=== PATIENT | female | born 1940 | race Caucasian/White ===

== ENCOUNTER 2017-04-10 19:17 | Emergency (ER) | payer MEDICARE ==
[~2017-04-10] VITALS: Ht 167.6 cm; Wt 61.2 kg
[~2017-04-10 19:17] MED LIST: ACIDOPHILUS PO; ACIDOPHILUS100 MG PO; ALBU8.5H2 INH; ALPR.25T; ATEN25TA; ATN25T; CLIN300C3 PO; CLON1TAB3; CLON1TAB3 PO; CLON1TAB36 PO; DICL100G20; EPIN0.3P3 SL; FAMO20TA5 PO; FOLI1TAB7; GLIP5TAB13 PO; HYDR-3714 PO; HYDR-707 PO; LISI10TA2 PO; LISI20TA PO; LOPE1TAB13 PO; LOPE2CAP PO; LOVA10TA PO; MAGN250T7 PO; MESA1.2T PO; METO25TA PO; METO25TA2 PO; MIRT30TA6 PO; MIRT45TA PO; MRTZ30T1; NF-ESOM40C; NITR100C3; NYST1000 PO; POTA99TA7 PO; POTASSIUM; PRD10T PO; QTP25T PO; SERT100T PO; SERT100T8 PO; SERT50TA; SERT50TA2 PO; SPIR50TA27; SPIR50TA27 PO; SRTR100T; TOLTA4 PO; VIT B IM; VYTORIN; [UNRECOGNIZED DRUG - CODE] PO; [UNRECOGNIZED DRUG - OTHER] PO
[2017-04-10] MEDS ORDERED: TETANUS,DIPTH,PERTUSS P/F (BOOSTRIX) 0.5 ML VIAL IM STA (20:20)
[2017-04-10] MEDS ORDERED: LIDOCAINE 1% INJ 20 ML (XYLOCAINE) VIAL INJ STA (20:20)
--- NOTE | 2017-04-10 20:59 | ED Lower Extremity ---
General Chief Complaint: Laceration Stated Complaint: L THIGH LACERATION Nursing Triage Note: laceration from box knife to left medial thigh Nursing Sepsis Screen: No Definite Risk History of Present Illness Time seen by provider: 20:05 Onset: just prior to arrival Pain/Injury Location: left thigh Method of Injury: incised Allergies and Home Medications Allergies Coded Allergies: Penicillins (Unverified Allergy, Unknown, 11/16/06) Sulfa (Sulfonamide Antibiotics) (Unverified Allergy, Unknown, 11/16/06) garlic (Verified Allergy, Unknown, SWELLING OF THROAT, 11/28/13) latex (Verified Allergy, Unknown, RASH, 11/28/13) Home Medications Albuterol 8.5 Gm Hfa.aer.ad, 2 PUFF INH Q2H PRN for SHORTNESS OF BREATH, ( Reported) NEEDED FOR SHORTNESS OF BREATH Clonazepam 1 Mg Tablet, 1 MG PO TID, (Reported) Epinephrine 0.3 Mg/0.3 Ml Pen.injctr, 0.3 MG SL DAILY PRN for ALLERIC REACTION TO GARLIC, (Reported) AN NEEDED FOR ALLERIC REACTION TO GARLIC Famotidine 20 Mg Tablet, 20 MG PO BID, (Reported) Glipizide 5 Mg Tablet, 5 MG PO BID, (Reported) Hydrocodone Bit/Acetaminophen 1 Each Tablet, 1-2 TAB PO Q6H PRN for PAIN, ( Reported) TAKE 1-2 TABLETS (5-325MG) NEEDED FOR PAIN Lactobacillus Acidophilus 100 Mg Capsule, 100 MG PO BID, (Reported) Lisinopril 10 Mg Tablet, 10 MG PO DAILY for 90 Days, (Reported) Loperamide Hcl/Simethicone 1 Each Tablet, 1 CAP PO TID PRN for LOOSE STOOL, ( Reported) NEEDED FOR LOOSE STOOL Lovastatin 10 Mg Tablet, 10 MG PO DAILY WITH SUPPER, (Reported) TAKES WITH SUPPER Magnesium Oxide 250 Mg Tablet, 250 MG PO DAILY, (Reported) Mesalamine 1.2 Gm Tablet.dr, 2.4 GM PO BID, (Reported) TAKE 2 (1.2MG) TABLETS Metoprolol Succinate 25 Mg Tab.sr.24h, 12.5 MG PO DAILY, (Reported) TAKE 1/2 (25MG) TABLET Mirtazapine 30 Mg Tablet, 30 MG PO HS, (Reported) Potassium 99 Mg Tablet, 99 MG PO HS, (Reported) Quetiapine Fumarate 150 Mg Tabsr, 150 MG PO HS for 30 Days, (Reported) Sertraline Hcl 100 Mg Tablet, 100 MG PO DAILY, (Reported) Sertraline Hcl 100 Mg Tablet, 50 MG PO 1200, (Reported) TAKE 1/2 (100MG) TABLET Spironolactone 50 Mg Tablet, 50 MG PO DAILY, (Reported) Tolterodine Tartrate 4 Mg Cap.sr.24h, 4 MG PO DAILY, (Reported) [Vit.b 12] , 1,000 MCG IM monthly, (Reported) Constitutional: no symptoms reported, see HPI Skin: see HPI, lesions (superficial laceration left thigh, he'll aspect) All Other Systems Reviewed Negative Unless Noted: Yes Past Sniifak-Ystmxg-Uaqaov Hx Patient Social History Alcohol Use: Denies Use Recreational Drug Use: No Smoking Status: Never a Smoker 2nd Hand Smoke Exposure: No Recent Foreign Travel: No Contact w/Someone Who Travel: No Recent Infectious Disease Expo: No Recent Hopitalizations: No Immunizations Up To Date Tetanus Booster (TDap): Unknown Date of Pneumonia Vaccine: Jun 06, 2013 Date of Influenza Vaccine: Jun 06, 2013 Seasonal Allergies Seasonal Allergies: No Surgeries HX Surgeries: Yes Surgeries: Hysterectomy, Orthopedic Respiratory Hx Respiratory Disorders: Yes (SLEEP APNEA(WEARS CPAP AT NIGHT), COPD) Respiratory Disorders: Sleep Apnea, COPD Cardiovascular Hx Cardiac Disorders: Yes Cardiac Disorders: High Cholesterol, Hypertension Neurological Hx Neurological Disorders: No Reproductive System : No 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 FEBRUARY 2014 ORIF LEFT TIB/FIB) Musculoskeletal Disorders: Chronic Back Pain, Fractures Endocrine Hx Endocrine Disorders: Yes Endocrine Disorders: Diabetes, Non-Insulin dep HEENT HX ENT Disorders: No Cancer Hx Cancer: No Psychosocial Hx Psychiatric Problems: Yes Behavioral Health Disorders: Anxiety, Depression Integumentary HX Skin/Integumentary Disorder: No Blood Transfusions Hx Blood Disorders: No Reviewed Nursing Assessment Reviewed/Agree w Nursing PMH: Yes Family Medical History Family Medial History: Family history: Arthritis G8 SISTER Family history: Cardiovascular disease 19 FATHER 19 MOTHER Family history: Diabetes mellitus G8 BROTHER Family history: Hypertension 19 FATHER Parkinson's disease 19 FATHER No Family History of: Cancer Physical Exam Vital Signs Vital Sign - Last 12Hours 04/10/17 19:40 Temp 97.2 Pulse 73 Resp 18 B/P (MAP) 128/69 Pulse Ox 97 O2 Delivery Room Air Capillary Refill : Less Than 3 Seconds General Appearance: WD/WN, no apparent distress Neck: non-tender, full range of motion, normal inspection Cardiovascular: normal peripheral pulses, regular rate, rhythm, no edema Respiratory: chest non-tender, lungs clear, normal breath sounds Gastrointestinal: normal bowel sounds, non tender, soft Hips: bilateral hip non-tender, bilateral hip normal inspection, bilateral hip normal range of motion Legs: bilateral leg non-tender, bilateral leg normal range of motion, left leg abrasions (3 cm superficial abrasion, medial aspect middle thigh.) Neurologic/Tendon: normal sensation, normal motor functions, normal tendon functions Neurologic/Psychiatric: no motor/sensory deficits, alert, normal mood/affect, oriented x 3 Skin: normal color, warm/dry Lymphatic: no adenopathy Laceration Repair : Wound Location: Lower Extremities (left medial thigh) Wound Length (cm): 3 Wound's Depth, Shape: superficial Wound Explored: clean Irrigated w/ Saline (ccs): 500 Betadine Prep?: Yes Anesthesia: 1% Lidocaine Volume Anesthetic (ccs): 4 Wound Debrided: minimal Suture: Ethlion Suture Size: 4-0 Number of Sutures: 3 Sterile Dressing Applied?: Yes Progress Patient tolerated procedure well, bulky sterile dressing applied. Secured with 4 inch Danish wrap. Progress/Results/Core Measures Results/Orders My Orders Orders - ADILIA WALLACE Dipht,Pertuss(Acell),Tet Adult (Boostrix (04/10/17 20:20) Lidocaine 1% Injection (Xylocaine 1% Inj (04/10/17 20:20) Vital Signs/I&O Vital Sign - Last 12Hours 04/10/17 04/10/17 19:40 21:01 Temp 97.2 97.0 Pulse 73 70 Resp 18 18 B/P (MAP) 128/69 Pulse Ox 97 98 O2 Delivery Room Air Room Air Blood Pressure Mean: 88 Departure Impression Impression: Primary Impression: Laceration of left thigh Qualified Codes: S71.112A - Laceration without foreign body, left thigh, initial encounter Disposition: 01 HOME, SELF-CARE Condition: Improved Departure-Patient Inst. Decision time for Depature: 20:40 Referrals: MARIAN JOSEPH MD (PCP/Family) Primary Care Physician Patient Instructions: Laceration Repair With Stitches (DC) Add. Discharge Instructions: Keep dressing intact until Wednesday. May shower, then clean wound with peroxide and apply Band-Aid. Keep wound clean and dry. May shower, but avoid pools, hot tubs, and bath tubs for 3 weeks. Return to emergency department or primary care provider to have some stitches removed in 7-10 days. Return to emergency department or see primary care provider for redness, warmth , discolored drainage, or foul smell from wound. All discharge instructions reviewed with patient and/or family. Voiced understanding. Copy Copies To 1: MARIAN JOSEPH MD, AMY ARNP Apr 10, 2017 20:59
[2017-04-10 21:01] VITALS: BP 124/66
== END 2017-04-10 21:02 | disposition home or self-care (01) ==
LOC: EDUNIT# 19:17 → ER 19:18
DX: S71.112A Laceration without foreign body, left thigh, initial encounter (principal); F41.9 Anxiety disorder, unspecified; F32.9 Major depressive disorder, single episode, unspecified; E78.00 Pure hypercholesterolemia, unspecified; E11.9 Type 2 diabetes mellitus without complications; I10 Essential (primary) hypertension; J44.9 Chronic obstructive pulmonary disease, unspecified; Z82.49 Family history of ischemic heart disease and other diseases of the circulatory system; Z90.710 Acquired absence of both cervix and uterus; Z87.81 Personal history of (healed) traumatic fracture; Z87.19 Personal history of other diseases of the digestive system; W26.0XXA Contact with knife, initial encounter
CPT/HCPCS: 12001; 90471; 90715

== ENCOUNTER 2017-04-20 12:36 | Emergency (ER) | payer MEDICARE ==
[~2017-04-20] VITALS: Ht 167.6 cm; Wt 64.9 kg
--- NOTE | 2017-04-20 13:05 | ED Fall/Injury ---
General Chief Complaint: Trauma-Non Activation Stated Complaint: FALL,RT SHOULDER PAIN,BACK OF HEAD Nursing Triage Note: PT TO ED VIA EMS WITH CC FALL. PT WAS PULLING WHEELCHAIR DOWN RAMP BACKWARDS, NO LOC. PT CC PAIN TO BACK OF HEAD AND R SHOULDER. Source: patient Exam Limitations: no limitations History of Present Illness Time seen by provider: 12:39 Initial Comments Here by EMS with report of fall at Dr. Redman's office. Apparently she was moving her daughter in a wheelchair down the ramp. She was walking backwards to prevent the wheelchair from getting out of control when she tripped and fell. She landed on her right shoulder and head. No loss of consciousness. No bleeding. Complains of posterior head pain as well as some right shoulder pain. She does have some chronic back pain that is not exacerbated. No vomiting or vision problems noted. Does complain of head pain and shoulder pain. Location Injury Occurred: DR REDMAN'S OFFICE Occurred: just prior to arrival (20 minutes ago) Severity: moderate Injuries/Pain Location: head, upper extremity Context: tripped Loss of Consciousness: no loss of consciousness Modifying Factors: Improves With Immobilization, Worse With Movement Associated Symptoms (Fall): No Abdominal Pain, No Chest Pain, No Confusion, Headache, Lightheadedness (noted on standing after fall.), No Nausea/Vomiting, No Neck Pain, No Shortness of Air Allergies and Home Medications Allergies Coded Allergies: Penicillins (Unverified Allergy, Unknown, 11/16/06) Sulfa (Sulfonamide Antibiotics) (Unverified Allergy, Unknown, 11/16/06) garlic (Verified Allergy, Unknown, SWELLING OF THROAT, 11/28/13) latex (Verified Allergy, Unknown, RASH, 11/28/13) Home Medications Albuterol 8.5 Gm Hfa.aer.ad, 2 PUFF INH Q2H PRN for SHORTNESS OF BREATH, ( Reported) NEEDED FOR SHORTNESS OF BREATH Clonazepam 1 Mg Tablet, 1 MG PO TID, (Reported) Epinephrine 0.3 Mg/0.3 Ml Pen.injctr, 0.3 MG SL DAILY PRN for ALLERIC REACTION TO GARLIC, (Reported) AN NEEDED FOR ALLERIC REACTION TO GARLIC Famotidine 20 Mg Tablet, 20 MG PO BID, (Reported) Glipizide 5 Mg Tablet, 5 MG PO BID, (Reported) Hydrocodone Bit/Acetaminophen 1 Each Tablet, 1-2 TAB PO Q6H PRN for PAIN, ( Reported) TAKE 1-2 TABLETS (5-325MG) NEEDED FOR PAIN Lactobacillus Acidophilus 100 Mg Capsule, 100 MG PO BID, (Reported) Lisinopril 10 Mg Tablet, 10 MG PO DAILY for 90 Days, (Reported) Loperamide Hcl/Simethicone 1 Each Tablet, 1 CAP PO TID PRN for LOOSE STOOL, ( Reported) NEEDED FOR LOOSE STOOL Lovastatin 10 Mg Tablet, 10 MG PO DAILY WITH SUPPER, (Reported) TAKES WITH SUPPER Magnesium Oxide 250 Mg Tablet, 250 MG PO DAILY, (Reported) Mesalamine 1.2 Gm Tablet.dr, 2.4 GM PO BID, (Reported) TAKE 2 (1.2MG) TABLETS Metoprolol Succinate 25 Mg Tab.sr.24h, 12.5 MG PO DAILY, (Reported) TAKE 1/2 (25MG) TABLET Mirtazapine 30 Mg Tablet, 30 MG PO HS, (Reported) Potassium 99 Mg Tablet, 99 MG PO HS, (Reported) Quetiapine Fumarate 150 Mg Tabsr, 150 MG PO HS for 30 Days, (Reported) Sertraline Hcl 100 Mg Tablet, 100 MG PO DAILY, (Reported) Sertraline Hcl 100 Mg Tablet, 50 MG PO 1200, (Reported) TAKE 1/2 (100MG) TABLET Spironolactone 50 Mg Tablet, 50 MG PO DAILY, (Reported) Tolterodine Tartrate 4 Mg Cap.sr.24h, 4 MG PO DAILY, (Reported) [Vit.b 12] , 1,000 MCG IM monthly, (Reported) Constitutional: see HPI, No chills, No fever Eyes: No Symptoms Reported Ears, Nose, Mouth, Throat: no symptoms reported Respiratory: no symptoms reported Cardiovascular: no symptoms reported Gastrointestinal: no symptoms reported, No vomiting Musculoskeletal: back pain, joint pain, muscle pain Skin: no symptoms reported Psychiatric/Neurological: See HPI All Other Systems Reviewed Negative Unless Noted: Yes Past Xjgmobx-Xnwhtl-Kdoxjx Hx Patient Social History Alcohol Use: Denies Use Recreational Drug Use: No Smoking Status: Never a Smoker 2nd Hand Smoke Exposure: No Recent Foreign Travel: No Contact w/Someone Who Travel: No Recent Infectious Disease Expo: No Recent Hopitalizations: No Immunizations Up To Date Tetanus Booster (TDap): Unknown Date of Pneumonia Vaccine: Jun 06, 2013 Date of Influenza Vaccine: Jun 06, 2013 Seasonal Allergies Seasonal Allergies: No Surgeries HX Surgeries: Yes Surgeries: Hysterectomy, Orthopedic Respiratory Hx Respiratory Disorders: Yes (SLEEP APNEA(WEARS CPAP AT NIGHT), COPD) Respiratory Disorders: Sleep Apnea, COPD Cardiovascular Hx Cardiac Disorders: Yes Cardiac Disorders: High Cholesterol, Hypertension Neurological Hx Neurological Disorders: No Reproductive System Hx 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 FEBRUARY 2014 ORIF LEFT TIB/FIB) Musculoskeletal Disorders: Chronic Back Pain, Fractures Endocrine Hx Endocrine Disorders: Yes Endocrine Disorders: Diabetes, Non-Insulin dep HEENT HX ENT Disorders: No Cancer Hx Cancer: No Psychosocial Hx Psychiatric Problems: Yes Behavioral Health Disorders: Anxiety, Depression Integumentary HX Skin/Integumentary Disorder: No Blood Transfusions Hx Blood Disorders: No Reviewed Nursing Assessment Reviewed/Agree w Nursing PMH: Yes Family Medical History Family Medial History: Family history: Arthritis G8 SISTER Family history: Cardiovascular disease 19 FATHER 19 MOTHER Family history: Diabetes mellitus G8 BROTHER Family history: Hypertension 19 FATHER Parkinson's disease 19 FATHER Physical Exam Vital Signs Vital Sign - Last 12Hours 04/20/17 12:41 Temp 97.2 Pulse 61 Resp 16 B/P (MAP) 117/61 Pulse Ox 95 O2 Delivery Room Air Capillary Refill : Less Than 3 Seconds General Appearance: WD/WN, no apparent distress HEENT: PERRL/EOMI, TMs normal, pharynx normal Neck: non-tender, supple, normal inspection Cardiovascular: regular rate, rhythm, no murmur Respiratory: lungs clear, normal breath sounds Gastrointestinal: non tender, soft Back: normal inspection, no CVA tenderness, no vertebral tenderness Extremities: non-tender, normal inspection Neurologic/Psychiatric: alert, oriented x 3 Skin: normal color, warm/dry [place] Coma Score Best Eye Response: (4) Open Spontaneously Best Verbal Response: (5) Oriented Best Motor Response: (6) Obeys Commands (Toradol for medial tibial aren't well filled with for the plan. 18) Laceration Repair : Suture Size: 4-0 Progress/Results/Core Measures Results/Orders My Orders Orders - LINDA GAUTHIER MD Ct Head/Cervical Spine Wo (04/20/17 12:45) Shoulder, Right, 3 Views (04/20/17 12:45) Vital Signs/I&O Vital Sign - Last 12Hours 04/20/17 12:41 Temp 97.2 Pulse 61 Resp 16 B/P (MAP) 117/61 Pulse Ox 95 O2 Delivery Room Air Blood Pressure Mean: 79 Progress Note : Progress Note Seen and evaluated. CT head and neck ordered. X-ray right shoulder ordered. Monitor patient. C-collar remains in place at this point. Diagnostic Imaging Diagonstic Imaging: CT Plain Films/CT/US/NM/MRI: c-spine, head Comments VIA [facility]. [place], [place] NAME: MILO RICKS [facility] REC#: [id number] PT STATUS: REG ER : 1940 PHYSICIAN: LINDA GAUTHIER MD ADMIT DATE: 04/20/17/ER Draft Date of Exam:04/20/17 CT HEAD/CERVICAL SPINE WO PROCEDURE: CT head and CT cervical spine without contrast. TECHNIQUE: Multiple contiguous axial images were obtained through the brain and cervical spine without the use of intravenous contrast. Sagittal and coronal reformations through the cervical spine were then performed. INDICATION: Fell, loss of consciousness, head and neck pain. CT OF THE HEAD: There is no mass, shift of the midline, or hemorrhage to suggest an acute intracranial abnormality. The ventricles are not abnormally dilated and stable in size when compared to the prior exam of 10/15/2015. The cortical atrophy and the periventricular encephalomalacia seen previously are again evident and no different. The bone windows show no sign of a fracture or of a destructive lesion. The orbits are symmetrical and within normal limits. The sinuses are generally clear. IMPRESSION: 1. There is no evidence for an acute intracranial abnormality. When compared to the previous study, there has been no significant change. 2. These results were discussed with Dr. Gauthier in the ER. CT CERVICAL SPINE: The previous CT cervical spine exam performed on 10/15/2015 noted slight anterior translation of C5 with respect to C6 as well as congenital fusion of C7 and T1. Those findings are again evident on this study and no different. The degenerative disc and bony disease at the C6-7 level seen previously also seems stable. There is still no fracture or acute bony abnormality identified. There is no sign of retropharyngeal edema. The thyroid gland is generally unremarkable. The lung apices are clear. On the previous study, the upper esophagus did appear to be distended with fluid and particulate matter. On this exam, the upper esophagus is unremarkable. IMPRESSION: 1. There is no evidence for an acute bony abnormality of the cervical spine. 2. The fluid and particulate matter within the upper esophagus seen on the previous exam is no longer evident. 3. These results were discussed with Dr. Gauthier in the ER. Dictated on workstation # [id number] Dict: 04/20/17 1313 Trans: 04/20/17 1326 [id number] Interpreted by: MANUELA MITCHELL MD Electronically signed by: Reviewed: Discussed w/Radiologist Diagonstic Imaging: Xray Plain Films/CT/US/NM/MRI: other (right shoulder) Comments VIA [facility]. [place], [place] NAME: MILO RICKS [facility] REC#: [id number] PT STATUS: REG ER : 1940 PHYSICIAN: LINDA GAUTHIER MD ADMIT DATE: 04/20/17/ER Draft Date of Exam:04/20/17 SHOULDER, RIGHT, 3 VIEWS Right shoulder. INDICATION: Trauma. 3 views were obtained. There is no fracture, dislocation, or acute bony abnormality evident. 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 These degenerative changes seem similar to the prior exam of 10/15/2015. The soft tissues are unremarkable. ? IMPRESSION: 1. There is no evidence for an acute bony abnormality. 2. These results were discussed with Dr. Gauthier in the ER. Dictated on workstation # [id number] Dict: 04/20/17 1341 Trans: 04/20/17 1345 [id number] Interpreted by: MANUELA MITCHELL MD Electronically signed by: Reviewed: Discussed w/Radiologist Departure Impression Impression: Primary Impression: Minor head injury without loss of consciousness Qualified Codes: S09.90XA - Unspecified injury of head, initial encounter Additional Impression: Right shoulder strain Qualified Codes: S46.911A - Strain of unspecified muscle, fascia and tendon at shoulder and upper arm level, right arm, initial encounter Disposition: 01 HOME, SELF-CARE Condition: Improved Departure-Patient Inst. Referrals: MARIAN REDMAN MD (PCP/Family) Primary Care Physician Patient Instructions: Contusion (DC), Minor Head Injury (DC), Muscle Strain (DC ) Add. Discharge Instructions: All discharge instructions reviewed with patient and/or family. Voiced understanding. Continue home medications as directed. You may use ice packs to the affected areas as needed for pain and swelling 20 minutes per hour over the next one to 2 days. Follow-up with your Dr. in a few days for recheck. Return for worse pain, fever, vomiting, weakness, breathing problems or other concerns as needed. LINDA GAUTHIER MD Apr 20, 2017 13:05
--- NOTE | 2017-04-20 13:27 | Diagnostic Imaging Report ---
PROCEDURE: CT head and CT cervical spine without contrast. TECHNIQUE: Multiple contiguous axial images were obtained through the brain and cervical spine without the use of intravenous contrast. Sagittal and coronal reformations through the cervical spine were then performed. INDICATION: Fell, loss of consciousness, head and neck pain. CT OF THE HEAD: There is no mass, shift of the midline, or hemorrhage to suggest an acute intracranial abnormality. The ventricles are not abnormally dilated and stable in size when compared to the prior exam of 10/15/2015. The cortical atrophy and the periventricular encephalomalacia seen previously are again evident and no different. The bone windows show no sign of a fracture or of a destructive lesion. The orbits are symmetrical and within normal limits. The sinuses are generally clear. IMPRESSION: 1. There is no evidence for an acute intracranial abnormality. When compared to the previous study, there has been no significant change. 2. These results were discussed with Dr. Zaldivar in the ER. CT CERVICAL SPINE: The previous CT cervical spine exam performed on 10/15/2015 noted slight anterior translation of C5 with respect to C6 as well as congenital fusion of C7 and T1. Those findings are again evident on this study and no different. The degenerative disc and bony disease at the C6-7 level seen previously also seems stable. There is still no fracture or acute bony abnormality identified. There is no sign of retropharyngeal edema. The thyroid gland is generally unremarkable. The lung apices are clear. On the previous study, the upper esophagus did appear to be distended with fluid and particulate matter. On this exam, the upper esophagus is unremarkable. IMPRESSION: 1. There is no evidence for an acute bony abnormality of the cervical spine. 2. The fluid and particulate matter within the upper esophagus seen on the previous exam is no longer evident. 3. These results were discussed with Dr. Zaldivar in the ER. Dictated by: Dictated on workstation # [id number]
--- NOTE | 2017-04-20 13:45 | Diagnostic Imaging Report ---
Right shoulder. INDICATION: Trauma. 3 views were obtained. There is no fracture, dislocation, or acute bony abnormality evident. 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 These degenerative changes seem similar to the prior exam of 10/15/2015. The soft tissues are unremarkable. ? IMPRESSION: 1. There is no evidence for an acute bony abnormality. 2. These results were discussed with Dr. Zaldivar in the ER. Dictated by: Dictated on workstation # [id number]
[2017-04-20 14:06] VITALS: BP 117/61
== END 2017-04-20 14:06 | disposition home or self-care (01) ==
LOC: EDUNIT# 12:36 → ER 12:38
DX: S09.90XA Unspecified injury of head, initial encounter (principal); S46.911A Strain of unspecified muscle, fascia and tendon at shoulder and upper arm level, right arm, initial encounter; G47.30 Sleep apnea, unspecified; J44.9 Chronic obstructive pulmonary disease, unspecified; E78.00 Pure hypercholesterolemia, unspecified; I10 Essential (primary) hypertension; E11.9 Type 2 diabetes mellitus without complications; F41.9 Anxiety disorder, unspecified; F32.9 Major depressive disorder, single episode, unspecified; M54.9 Dorsalgia, unspecified; G89.29 Other chronic pain; Z82.49 Family history of ischemic heart disease and other diseases of the circulatory system; Z79.84 Long term (current) use of oral hypoglycemic drugs; Z90.710 Acquired absence of both cervix and uterus; W01.0XXA Fall on same level from slipping, tripping and stumbling without subsequent striking against object, initial encounter
CPT/HCPCS: 70450; 72125; 73030; 99283

== ENCOUNTER 2017-12-25 15:00 | Emergency (ER) | payer MEDICARE ==
[~2017-12-25] VITALS: Ht 165.1 cm; Wt 61.2 kg
[2017-12-25] MEDS ORDERED: LIDOCAINE 1% INJ 50 ML (XYLOCAINE) VIAL IJ ONE (15:45)
[2017-12-25] MEDS ORDERED: TETANUS,DIPTH,PERTUSS P/F (BOOSTRIX) 0.5 ML VIAL IM STA (15:50)
--- NOTE | 2017-12-25 15:56 | ED Lower Extremity ---
General Chief Complaint: Laceration Stated Complaint: L HAND LAC Nursing Triage Note: PT ARRIVED PER EMS, PT CO OF LAC TO L HAND BETWEEN WEB OF FIRST FINGER AND THUMB. PT HAS IV IN PLACE IN R AC. 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 Nursing Sepsis Screen: No Definite Risk History of Present Illness Date Seen by Provider: Dec 25, 2017 Time Seen by Provider: 15:40 Initial Comments 77-year-old female was using an X-Acto knife to open a package of meat when she accidentally cut her left hand. She denies any other injuries at the time. she does have a history of hypoglycemia but was not experiencing any symptoms of that. Onset: just prior to arrival Pain/Injury Location: left other (Hand) Method of Injury: incised Modifying Factors: Improves With Rest, Improves With Other (compressive dressing) Allergies and Home Medications Allergies Coded Allergies: Penicillins (Unverified Allergy, Unknown, 11/16/06) Sulfa (Sulfonamide Antibiotics) (Unverified Allergy, Unknown, 11/16/06) garlic (Verified Allergy, Unknown, SWELLING OF THROAT, 11/28/13) latex (Verified Allergy, Unknown, RASH, 11/28/13) Home Medications Albuterol 8.5 Gm Hfa.aer.ad, 2 PUFF INH Q2H PRN for SHORTNESS OF BREATH, ( Reported) NEEDED FOR SHORTNESS OF BREATH Clonazepam 1 Mg Tablet, 1 MG PO TID, (Reported) Epinephrine 0.3 Mg/0.3 Ml Pen.injctr, 0.3 MG SL DAILY PRN for ALLERIC REACTION TO GARLIC, (Reported) AN NEEDED FOR ALLERIC REACTION TO GARLIC Famotidine 20 Mg Tablet, 20 MG PO BID, (Reported) Glipizide 5 Mg Tablet, 5 MG PO BID, (Reported) Hydrocodone Bit/Acetaminophen 1 Each Tablet, 1-2 TAB PO Q6H PRN for PAIN, ( Reported) TAKE 1-2 TABLETS (5-325MG) NEEDED FOR PAIN Lactobacillus Acidophilus 100 Mg Capsule, 100 MG PO BID, (Reported) Lisinopril 10 Mg Tablet, 10 MG PO DAILY, (Reported) Loperamide Hcl/Simethicone 1 Each Tablet, 1 CAP PO TID PRN for LOOSE STOOL, ( Reported) NEEDED FOR LOOSE STOOL Lovastatin 10 Mg Tablet, 10 MG PO DAILY WITH SUPPER, (Reported) TAKES WITH SUPPER Magnesium Oxide 250 Mg Tablet, 250 MG PO DAILY, (Reported) Mesalamine 1.2 Gm Tablet.dr, 2.4 GM PO BID, (Reported) TAKE 2 (1.2MG) TABLETS Metoprolol Succinate 25 Mg Tab.sr.24h, 12.5 MG PO DAILY, (Reported) TAKE 1/2 (25MG) TABLET Mirtazapine 30 Mg Tablet, 30 MG PO HS, (Reported) Potassium 99 Mg Tablet, 99 MG PO HS, (Reported) Quetiapine Fumarate 150 Mg Tabsr, 150 MG PO HS, (Reported) Sertraline Hcl 100 Mg Tablet, 100 MG PO DAILY, (Reported) Sertraline Hcl 100 Mg Tablet, 50 MG PO 1200, (Reported) TAKE 1/2 (100MG) TABLET Spironolactone 50 Mg Tablet, 50 MG PO DAILY, (Reported) Tolterodine Tartrate 4 Mg Cap.sr.24h, 4 MG PO DAILY, (Reported) [Vit.b 12] , 1,000 MCG IM monthly, (Reported) Patient Home Medication List Home Medication List Reviewed: Yes Constitutional: no symptoms reported, see HPI Skin: see HPI, other (superficial laceration left hand) Past Rueefri-Vvioqf-Xwtnrf Hx Past Med/Social Hx: Reviewed Nursing Past Med/Soc Hx Patient Social History Alcohol Use: Denies Use Recreational Drug Use: No 2nd Hand Smoke Exposure: No Recent Foreign Travel: No Contact w/Someone Who Travel: No Recent Infectious Disease Expo: No Recent Hopitalizations: No Physical Abuse: No Sexual Abuse: No Immunizations Up To Date Tetanus Booster (TDap): Unknown Date of Pneumonia Vaccine: Jun 06, 2013 Date of Influenza Vaccine: Jun 06, 2013 Seasonal Allergies Seasonal Allergies: No Past Medical History Surgeries: Yes (T&A, C/S, HYST, BREAST BX, CARPEL TUNNEL/BONE SPUR RT HAND) Hysterectomy, Orthopedic Respiratory: Yes Sleep Apnea, COPD Currently Using CPAP: Yes Currently Using BIPAP: No Cardiac: Yes High Cholesterol, Hypertension Neurological: No Reproductive Disorders: 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 FEBRUARY 2014 ORIF LEFT TIB/FIB) Chronic Back Pain, Fractures Endocrine: Yes Diabetes, Non-Insulin dep HEENT: No Cancer: No Psychosocial: Yes Anxiety, Depression Nursing Suicide Risk Score: 0 Integumentary: No Blood Disorders: No Family Medical History Family history: Arthritis G8 SISTER Family history: Cardiovascular disease 19 FATHER 19 MOTHER Family history: Diabetes mellitus G8 BROTHER Family history: Hypertension 19 FATHER Parkinson's disease 19 FATHER No Family History of: Cancer Physical Exam Vital Signs Vital Signs - First Documented 12/25/17 15:00 Temp 99.8 Pulse 84 Resp 18 B/P (MAP) 123/59 (80) Pulse Ox 95 O2 Flow Rate 2.00 Capillary Refill : Less Than 3 Seconds General Appearance: WD/WN, no apparent distress Cardiovascular: normal peripheral pulses, regular rate, rhythm Respiratory: chest non-tender, lungs clear, normal breath sounds Neurologic/Psychiatric: no motor/sensory deficits, alert, normal mood/affect, oriented x 3 Skin: normal color, warm/dry Comments Left hand with approximately 2 cm superficial laceration to the first webspace on the dorsal surface, trace active bleeding noted. Wound edges clean. Procedures/Interventions Wound Location: Upper Extremities (left hand first webspace, dorsum) Wound Length (cm): 2 Wound's Depth, Shape: superficial Irrigated w/ Saline (ccs): 200 Betadine Prep?: Yes Anesthesia: 1% Lidocaine Volume Anesthetic (ccs): 3 Suture: Ethlion Suture Size: 4-0 Number of Sutures: 3 Sterile Dressing Applied?: Yes Progress Wound irrigated and prepped with Betadine. Patient tolerated procedure well. Bulky sterile dressing applied. 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 Lidocaine 1% Inj 50 Ml (Xylocaine 1% Inj (12/25/17 15:45) Dipht,Pertuss(Acell),Tet Adult (Boostrix (12/25/17 15:50) Medications Given in ED Current Medications Medications Dose Ordered Sig/Allison Route Start Time Stop Time Status Last Admin Dose Admin Lidocaine HCl 50 ml ONCE ONCE IJ 12/25/17 15:45 12/25/17 15:46 DC 12/25/17 15:57 50 ML Vital Signs/I&O 12/25/17 12/25/17 15:00 16:11 Temp 99.8 99.8 Pulse 84 84 Resp 18 18 B/P (MAP) 123/59 (80) 123/59 (80) Pulse Ox 95 95 O2 Flow Rate 2.00 2.00 Blood Pressure Mean: 80 Departure Impression Primary Impression: Laceration of left hand Qualified Codes: S61.412A - Laceration without foreign body of left hand, initial encounter Disposition: 01 HOME, SELF-CARE Condition: Stable Departure-Patient Inst. Decision time for Depature: 16:00 Referrals: MARIAN JOSEPH MD (PCP/Family) Primary Care Physician Patient Instructions: Laceration Repair With Stitches (DC) Add. Discharge Instructions: Keep wound clean and dry for 2 days. You may shower, but do not immerse the hand in standing water ( sink, bathtub, swimming pool, hot tub, etc.) Keep wound covered with Band-Aid, after removing dressing in 2 days. After showering he may clean the area with peroxide. Follow-up with your primary care provider or return to emergency department in 7 -10 days for suture removal. Return to emergency department for new injuries or concerns. All discharge instructions reviewed with patient and/or family. Voiced understanding. Copy Copies To 1: MARIAN JOSEPH MD, AMY ARNP Dec 25, 2017 15:56
[2017-12-25 16:11] VITALS: BP 123/59
== END 2017-12-25 16:11 | disposition home or self-care (01) ==
LOC: EDUNIT# 15:00 → ER 15:01
DX: S61.412A Laceration without foreign body of left hand, initial encounter (principal); F41.9 Anxiety disorder, unspecified; F32.9 Major depressive disorder, single episode, unspecified; E11.9 Type 2 diabetes mellitus without complications; E78.00 Pure hypercholesterolemia, unspecified; I10 Essential (primary) hypertension; J44.9 Chronic obstructive pulmonary disease, unspecified; G47.30 Sleep apnea, unspecified; Z90.710 Acquired absence of both cervix and uterus; Z87.81 Personal history of (healed) traumatic fracture; Z23 Encounter for immunization; Z98.890 Other specified postprocedural states; Z88.0 Allergy status to penicillin; Z88.2 Allergy status to sulfonamides; Z91.040 Latex allergy status; W26.0XXA Contact with knife, initial encounter
CPT/HCPCS: 12001; 90471; 90715

== ENCOUNTER → 2018-01-24 | Outpatient (CLI) | payer MEDICARE | LOC: RAD 13:41 | PROVIDERS: ATTEND Nurse Practitioner Family | DX: I36.1 Nonrheumatic tricuspid (valve) insufficiency (principal) | CPT/HCPCS: 93306 ==

== ENCOUNTER → 2018-04-18 | Outpatient (CLI) | payer MEDICARE ==
--- NOTE | 2018-04-18 16:01 | Diagnostic Imaging Report ---
INDICATION: Low back pain radiating to the right hip. TIME OF EXAM: 3:32 PM FINDINGS: There is mild left convexity lumbar scoliotic curvature. There is normal lordotic curvature. Vertebral body heights are maintained. No acute compression fracture is seen. There is generalized degenerative disc disease with variable disc space narrowing and marginal spurring. IMPRESSION: Lumbar spondylosis. No acute bony abnormality is detected. Dictated by: Dictated on workstation # [id number]
--- NOTE | 2018-04-18 16:09 | Diagnostic Imaging Report ---
INDICATION: Low back pain radiating to the right hip. TIME OF EXAMINATION: 03:33 p.m. FINDINGS: Two views of right hip demonstrate normal femoroacetabular alignment. There is superior joint space narrowing compatible with degenerative change. The femoral head and neck are intact. No fractures are identified. The right-sided superior and inferior pubic rami are intact. IMPRESSION: No acute bony abnormality is detected. Dictated by: Dictated on workstation # [id number]
== END ==
LOC: RAD 15:01
PROVIDERS: ATTEND Nurse Practitioner Family
DX: M47.816 Spondylosis without myelopathy or radiculopathy, lumbar region (principal)
CPT/HCPCS: 72100; 73502

== ENCOUNTER 2018-06-22 12:00 | Emergency (ER) | payer MEDICARE ==
[~2018-06-22] VITALS: Ht 170.2 cm; Wt 61.2 kg
--- NOTE | 2018-06-22 12:12 | ED Head Injury ---
General Chief Complaint: Trauma-Non Activation Stated Complaint: LEG INJ Source: patient Exam Limitations: no limitations History of Present Illness Date Seen by Provider: Jun 22, 2018 Time Seen by Provider: 12:09 Initial Comments To ER with reports of a head injury. Yesterday while at Hospital obtaining medical records for her daughter she slipped and fell. She struck the back of her head but did not have loss of consciousness. She was evaluated at [facility] yesterday with a CT scan of her head and told that she may have a headache. Today, her headache is worse without nausea or vomiting. She is not on anticoagulants. Headache persists despite Tylenol 1 hour ago and hydrocodone. Today, she was carrying something at home and got off balance, fell and struck the same spot of her head again. Severity: moderate Location: occipital Method of Injury: direct blow Loss of Consciousness: no loss of consciousness Associated Systoms: Headaches; No Nausea/Vomiting Allergies and Home Medications Allergies Coded Allergies: Penicillins (Unverified Allergy, Unknown, 11/16/06) Sulfa (Sulfonamide Antibiotics) (Unverified Allergy, Unknown, 11/16/06) garlic (Verified Allergy, Unknown, SWELLING OF THROAT, 11/28/13) latex (Verified Allergy, Unknown, RASH, 11/28/13) Home Medications Albuterol 8.5 Gm Hfa.aer.ad, 2 PUFF INH Q2H PRN for SHORTNESS OF BREATH, ( Reported) NEEDED FOR SHORTNESS OF BREATH Clonazepam 1 Mg Tablet, 1 MG PO TID, (Reported) Epinephrine 0.3 Mg/0.3 Ml Pen.injctr, 0.3 MG SL DAILY PRN for ALLERIC REACTION TO GARLIC, (Reported) AN NEEDED FOR ALLERIC REACTION TO GARLIC Famotidine 20 Mg Tablet, 20 MG PO BID, (Reported) Glipizide 5 Mg Tablet, 5 MG PO BID, (Reported) Hydrocodone Bit/Acetaminophen 1 Each Tablet, 1-2 TAB PO Q6H PRN for PAIN, ( Reported) TAKE 1-2 TABLETS (5-325MG) NEEDED FOR PAIN Lactobacillus Acidophilus 100 Mg Capsule, 100 MG PO BID, (Reported) Lisinopril 10 Mg Tablet, 10 MG PO DAILY, (Reported) Loperamide Hcl/Simethicone 1 Each Tablet, 1 CAP PO TID PRN for LOOSE STOOL, ( Reported) NEEDED FOR LOOSE STOOL Lovastatin 10 Mg Tablet, 10 MG PO DAILY WITH SUPPER, (Reported) TAKES WITH SUPPER Magnesium Oxide 250 Mg Tablet, 250 MG PO DAILY, (Reported) Mesalamine 1.2 Gm Tablet.dr, 2.4 GM PO BID, (Reported) TAKE 2 (1.2MG) TABLETS Metoprolol Succinate 25 Mg Tab.sr.24h, 12.5 MG PO DAILY, (Reported) TAKE 1/2 (25MG) TABLET Mirtazapine 30 Mg Tablet, 30 MG PO HS, (Reported) Potassium 99 Mg Tablet, 99 MG PO HS, (Reported) Quetiapine Fumarate 150 Mg Tabsr, 150 MG PO HS, (Reported) Sertraline Hcl 100 Mg Tablet, 100 MG PO DAILY, (Reported) Sertraline Hcl 100 Mg Tablet, 50 MG PO 1200, (Reported) TAKE 1/2 (100MG) TABLET Spironolactone 50 Mg Tablet, 50 MG PO DAILY, (Reported) Tolterodine Tartrate 4 Mg Cap.sr.24h, 4 MG PO DAILY, (Reported) [Vit.b 12] , 1,000 MCG IM monthly, (Reported) Patient Home Medication List Home Medication List Reviewed: Yes Review of Systems Review of Systems Constitutional: see HPI Eyes: No Symptoms Reported Ears, Nose, Mouth, Throat: no symptoms reported Respiratory: no symptoms reported Cardiovascular: no symptoms reported Genitourinary: no symptoms reported Musculoskeletal: no symptoms reported Skin: no symptoms reported Psychiatric/Neurological: Headache Endocrine: No Symptoms Reported Past Ugsgscm-Ttptwl-Qnfcjx Hx Patient Social History 2nd Hand Smoke Exposure: No Recent Hopitalizations: No Immunizations Up To Date Tetanus Booster (TDap): Unknown Date of Pneumonia Vaccine: Jun 06, 2013 Date of Influenza Vaccine: Jun 06, 2013 Seasonal Allergies Seasonal Allergies: No Past Medical History Surgeries: Yes (T&A, C/S, HYST, BREAST BX, CARPEL TUNNEL/BONE SPUR RT HAND) Hysterectomy, Orthopedic Respiratory: Yes Sleep Apnea, COPD Currently Using CPAP: Yes Currently Using BIPAP: No Cardiac: Yes High Cholesterol, Hypertension Neurological: No 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 FEBRUARY 2014 ORIF LEFT TIB/FIB) Chronic Back Pain, Fractures Endocrine: Yes Diabetes, Non-Insulin dep HEENT: No Cancer: No Psychosocial: Yes Anxiety, Depression Integumentary: No Blood Disorders: No Family Medical History Family history: Arthritis G8 SISTER Family history: Cardiovascular disease 19 FATHER 19 MOTHER Family history: Diabetes mellitus G8 BROTHER Family history: Hypertension 19 FATHER Parkinson's disease 19 FATHER No Family History of: Cancer Physical Exam Vital Signs Vital Signs - First Documented 06/22/18 12:15 Temp 99.0 Pulse 85 Resp 18 B/P (MAP) 118/66 (83) Pulse Ox 94 O2 Delivery Room Air Capillary Refill : Height, Weight, BMI Height: 5'5.00" Weight: 135lbs. 6.4oz. 61.237952mv; 21.09 BMI Method:Stated General Appearance: WD/WN, no apparent distress HEENT: PERRL/EOMI, normal ENT inspection, TMs normal Neck: non-tender, full range of motion Respiratory: no respiratory distress, no accessory muscle use Gastrointestinal: normal bowel sounds, non tender Extremities: normal range of motion, non-tender Psychiatric: alert, oriented x 3 Crainal Nerves: normal hearing, normal speech, PERRL Skin: normal color, warm/dry Garrett Coma Score Best Eye Response: (4) Open Spontaneously Best Verbal Response: (5) Oriented Best Motor Response: (6) Obeys Commands [place] Total: 15 Procedures/Interventions Suture Size: 4-0 Progress/Results/Core Measures Results/Orders My Orders Orders - JOSIAS CALHOUN APRN Ct Head Wo (06/22/18 12:08) Vital Signs/I&O 06/22/18 12:15 Temp 99.0 Pulse 85 Resp 18 B/P (MAP) 118/66 (83) Pulse Ox 94 O2 Delivery Room Air Diagnostic Imaging Diagonstic Imaging: CT Comments NAME: MILO RICKS [employer] REC#: [id number] PT STATUS: REG ER : 1940 PHYSICIAN: JOSIAS CALHOUN APRN ADMIT DATE: 06/22/18/ER Draft Date of Exam:06/22/18 CT HEAD WO INDICATION: Multiple falls with trauma to the head. TECHNIQUE: Routine non contrast-enhanced axial images were obtained from the skull base to the vertex. COMPARISON: 04/20/2017 FINDINGS: The ventricles and cortical sulci are diffusely prominent, compatible with age-related volume loss. There are confluent areas of abnormal, low attenuation in the periventricular white matter. This is consistent with chronic small vessel ischemic changes. There is no midline shift or mass-effect. No acute intra-axial hemorrhage is seen. There are no abnormal areas of increased or decreased density to suggest acute hemorrhage or edema. No extra-axial masses or collections are present. Moderate subgaleal hematoma is identified posteriorly to the right lateral midline. The underlying bony calvarium is intact. The visualized paranasal sinuses are unremarkable. The mastoid air cells are clear. IMPRESSION: 1. No acute intracranial abnormality. No CT evidence of mass, acute infarct or intracranial hemorrhage. 2. Chronic small vessel ischemic changes in the deep white matter. Dictated on workstation # [id number] Dict: 06/22/18 1232 Trans: 06/22/18 1237 [id number] Interpreted by: BERNARD MCCLURE MD Electronically signed by: Departure Impression Primary Impression: Scalp hematoma Additional Impression: Concussion Disposition: 01 HOME, SELF-CARE Condition: Stable Departure-Patient Inst. Decision time for Depature: 12:40 Referrals: MARIAN REDMAN MD (PCP/Family) Primary Care Physician Patient Instructions: Concussion, Adult (DC) Add. Discharge Instructions: 1. return to er for any intolerable headache, nausea/vomiting, or confusion. Call Dr Redman today to make an appointment to be seen this week for recheck. All discharge instructions reviewed with patient and/or family. Voiced understanding. Copy Copies To 1: MARIAN REDMAN MD, PETER J APRN Jun 22, 2018 12:12
--- NOTE | 2018-06-22 12:38 | Diagnostic Imaging Report ---
INDICATION: Multiple falls with trauma to the head. TECHNIQUE: Routine non contrast-enhanced axial images were obtained from the skull base to the vertex. COMPARISON: 04/20/2017 FINDINGS: The ventricles and cortical sulci are diffusely prominent, compatible with age-related volume loss. There are confluent areas of abnormal, low attenuation in the periventricular white matter. This is consistent with chronic small vessel ischemic changes. There is no midline shift or mass-effect. No acute intra-axial hemorrhage is seen. There are no abnormal areas of increased or decreased density to suggest acute hemorrhage or edema. No extra-axial masses or collections are present. Moderate subgaleal hematoma is identified posteriorly to the right lateral midline. The underlying bony calvarium is intact. The visualized paranasal sinuses are unremarkable. The mastoid air cells are clear. IMPRESSION: 1. No acute intracranial abnormality. No CT evidence of mass, acute infarct or intracranial hemorrhage. 2. Chronic small vessel ischemic changes in the deep white matter. Dictated by: Dictated on workstation # [id number]
[2018-06-22] MEDS ORDERED: KETOROLAC 60 MG/2 ML VIAL IM ONE (12:45)
[2018-06-22 13:06] VITALS: BP 105/56
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
== END 2018-06-22 13:06 | disposition home or self-care (01) ==
LOC: EDUNIT# 12:00 → ER 12:01
DX: S06.0X0A Concussion without loss of consciousness, initial encounter (principal); J44.9 Chronic obstructive pulmonary disease, unspecified; G47.30 Sleep apnea, unspecified; E11.9 Type 2 diabetes mellitus without complications; F41.9 Anxiety disorder, unspecified; F32.9 Major depressive disorder, single episode, unspecified; R40.2142 Coma scale, eyes open, spontaneous, at arrival to emergency department; R40.2252 Coma scale, best verbal response, oriented, at arrival to emergency department; R40.2362 Coma scale, best motor response, obeys commands, at arrival to emergency department; Z82.49 Family history of ischemic heart disease and other diseases of the circulatory system; Z87.19 Personal history of other diseases of the digestive system; Z88.0 Allergy status to penicillin; Z88.2 Allergy status to sulfonamides; Z90.710 Acquired absence of both cervix and uterus; Z91.040 Latex allergy status; Z79.51 Long term (current) use of inhaled steroids; Z79.84 Long term (current) use of oral hypoglycemic drugs; W01.198A Fall on same level from slipping, tripping and stumbling with subsequent striking against other object, initial encounter; Y92.239 Unspecified place in hospital as the place of occurrence of the external cause
CPT/HCPCS: 70450; 96372

== ENCOUNTER 2018-07-01 19:35 | Outpatient (CLI) | payer MEDICARE | END 2018-07-02 07:12 | disposition home or self-care (01) | LOC: SLEEP 19:35 | PROVIDERS: ATTEND Otolaryngology Otolaryngology/Facial Plastic Surgery | DX: G47.33 Obstructive sleep apnea (adult) (pediatric) (principal); R09.02 Hypoxemia; I47.9 Paroxysmal tachycardia, unspecified | CPT/HCPCS: 95811 ==

== ENCOUNTER 2018-07-28 21:20 | Emergency (ER) | payer MEDICARE ==
[~2018-07-28] VITALS: Ht 170.2 cm; Wt 61.4 kg
--- OUTSIDE RECORDS SUMMARY | 2018-07-28 21:32 | XMS REPORT | CCD ---
Author Author Kriss Redman Organization Kriss Redman MD, [facility] Address [address] [place] [address] Phone Care Team Providers Care Assistant Front Desk Manager Name Role Phone PP Unavailable CCM Unavailable Summary Purpose Interface Exchange Insurance Providers Payer name Policy type / Coverage type Covered green party ID Effective Begin Date Effective End Date WPS Medicare Part B Medicare Part B [id number] 2013 Unknown [facility] Medicare Part B [id number] 2013 Unknown [employer] CLAIM[employer] Medicare Part B [id number] 2013 Unknown Family history Mother Diagnosis Age At Onset Heart Attack Unknown Stroke Unknown Brother Diagnosis Age At Onset No Family Disease Entered N/A Father Diagnosis Age At Onset Parkinson's disease Unknown Stroke Unknown Alzheimer's Disease Unknown Heart Attack Unknown Sister Diagnosis Age At Onset No Family Disease Entered N/A Social History Social History Element Codes Description Effective Dates Living arrangements Unknown House 06/26/2011 Number of adults in household Unknown 2 pt and her adult daughter 06/26/2011 Marital status Unknown 05/22/[address]: 792905249 Nonsmoker 05/22/[address]: 137421011 Never drinks alcohol 05/22/2011 Has the patient ever used illegal drugs? Unknown Has never used illegal drugs 05/22/2011 Allergies, Adverse Reactions, Alerts Substance Reaction Codes Entered Date Inactivated Date Status Latex Unknown 05/22/2011 No Inactive Date Active Garlic Unknown 05/22/2011 No Inactive Date Active Penicillin Unknown 05/22/2011 No Inactive Date Active SULFA (SULFONAMIDES) Unknown 05/22/2011 No Inactive Date Active Past Medical History Illness Codes Condition Status Onset Date Resolved Date Lumbago with sciatica, right side ICD-9: 724.3 ICD-10: M54.41 Active 04/14/2018 Unknown Mixed incontinence ICD -9: 788.33 ICD-10: N39.46 Active 06/09/2018 Unknown Other vitamin B12 deficiency anemias ICD-9: 281.1 ICD-10: D51.8 Active 08/02/2016 Unknown Unsteadiness on feet ICD-9: 781.2 ICD-10: R26.81 Active 06/09/2018 Unknown Sciatica Unknown Active 04/14/2018 Unknown Obstructive sleep apnea (adult) (pediatric) ICD-9: 327.23 ICD-10: G47.33 Active 04/14/2018 Unknown Pain in right hip ICD- 9: 719.45 ICD-10: M25.551 Active 04/14/2018 Unknown Abnormal weight loss ICD-9: 783.21 ICD-10: R63.4 Active 12/06/2017 Unknown Cardiac murmur, unspecified ICD-9: 785.2 ICD-10: R01.1 Active 01/04/2018 Unknown Essential (primary) hypertension ICD-9: 401.9 ICD-10: I10 Active 05/03/2016 Unknown Mixed hyperlipidemia ICD-9: 272.4 ICD-10: E78.2 Active 03/25/2017 Unknown Type 2 diabetes mellitus without complications ICD-9: 250.00 ICD-10: E11.9 Active 11/24/2017 Unknown Vitamin B12 deficiency anemia, unspecified ICD-9: 266.2 ICD-10: D51.9 Active 04/14/2016 Unknown Vitamin D deficiency, unspecified ICD-9: 268.9 ICD-10: E55.9 Active 03/25/2017 Unknown Laceration without foreign body, left lower leg, initial encounter ICD-9: 894.0 ICD-10: S81.812A Active 04/20/2017 Unknown Generalized anxiety disorder ICD-9: 300.02 ICD-10: F41.1 Active 05/03/2016 Unknown Impaired fasting glucose ICD-9: 790.21 ICD-10: R73.01 Active 03/25/2017 Unknown Major depressive disorder, recurrent, moderate ICD-9: 296.32 ICD-10: F33.1 Active 08/06/2015 Unknown Encounter for general adult medical examination with abnormal findings ICD-9: V70.0 ICD-10: Z00.01 Active 08/05/2016 Unknown Encounter for immunization ICD-9: V04.81 ICD-10: Z23 Active 06/15/2016 Unknown Cellulitis of right lower limb ICD-9: 682.6 ICD-10: L03.115 Active 05/03/2016 Unknown Encounter for screening mammogram for malignant neoplasm of breast ICD-9: V76.12 ICD-10: Z12.31 Active 05/03/2016 Unknown Gastro-esophageal reflux disease without esophagitis ICD-9: 530.81 ICD-10: K21.9 Active 05/03/2016 Unknown Encounter for immunization ICD-9: V03.9 ICD-10: Z23 Active 03/01/2016 Unknown Pain in left leg ICD-9 : 729.5 ICD-10: M79.605 Active 10/23/2015 Unknown Diabetes mellitus ICD- 9: 250.00 Active 03/05/2014 Unknown Essential (primary) hypertension ICD-9: 401.9 Active 2013 Unknown Foot pain ICD-9: 729.5 Active 02/05/2015 Unknown Generalized weakness ICD-9: 780.79 Active 05/17/2014 Unknown B-COMPLEX DEFIC NEC ICD-9: 266.2 Active 03/05/2014 Unknown Fracture of left tibia and fibula ICD-9: 823.82 Active 2013 Unknown Open wound of leg ICD- 9: 891.0 Active 03/05/2014 Unknown Dysuria ICD-9: 788.1 Active 08/09/2013 Unknown Crohns disease ICD-9: 555.9 Active 2012 Unknown Intestinal malabsorption ICD-9: 579.9 Active 2012 Unknown Peripheral neuropathy ICD-9: 356.9 Active 2012 Unknown VACCIN STREP PNEUMONIAE ICD-9: V03.82 Active 06/01/2012 Unknown Contusion of right upper arm ICD-9: 923.03 Active 05/02/2012 Unknown Right shoulder pain ICD-9: 719.41 Active 05/02/2012 Unknown Depressed ICD-9: 311 Active 09/28/2011 Unknown KATHY (generalized anxiety disorder) ICD-9: 300.02 Active 2011 Unknown Elevated lipids ICD-9 : 272.4 Active 09/10/2011 Unknown Diabetes Unknown Active 06/10/2011 Unknown Fibromyalgia syndrome ICD-9: 729.1 Active 06/10/2011 Unknown VACCIN FOR INFLUENZA ICD-9: V04.81 Active 05/25/2011 Unknown Anxiety Unknown Active 05/22/2011 Unknown Asthma Unknown Active 05/22/2011 Unknown Colitis Unknown Active 05/22/2011 Unknown Depression Unknown Active 05/22/2011 Unknown Hyperlipidemia Unknown Active 05/22/2011 Unknown Hypertension Unknown Active 05/22/2011 Unknown Hypoglycemia Unknown Active 05/22/2011 Unknown Problems Condition Codes Effective Dates Condition Status Lumbago with sciatica, right side ICD-9: 724.3 ICD-10: M54.41 04/14/2018 Active Mixed incontinence ICD -9: 788.33 ICD-10: N39.46 06/09/2018 Active Other vitamin B12 deficiency anemias ICD-9: 281.1 ICD-10: D51.8 08/02/2016 Active Unsteadiness on feet ICD-9: 781.2 ICD-10: R26.81 06/09/2018 Active Sciatica Unknown 04/14/2018 Active Obstructive sleep apnea (adult) (pediatric) ICD-9: 327.23 ICD-10: G47.33 04/14/2018 Active Pain in right hip ICD- 9: 719.45 ICD-10: M25.551 04/14/2018 Active Abnormal weight loss ICD-9: 783.21 ICD-10: R63.4 12/06/2017 Active Cardiac murmur, unspecified ICD-9: 785.2 ICD-10: R01.1 01/04/2018 Active Essential (primary) hypertension ICD-9: 401.9 ICD-10: I10 05/03/2016 Active Mixed hyperlipidemia ICD-9: 272.4 ICD-10: E78.2 03/25/2017 Active Type 2 diabetes mellitus without complications ICD-9: 250.00 ICD-10: E11.9 11/24/2017 Active Vitamin B12 deficiency anemia, unspecified ICD-9: 266.2 ICD-10: D51.9 04/14/2016 Active Vitamin D deficiency, unspecified ICD-9: 268.9 ICD-10: E55.9 03/25/2017 Active Laceration without foreign body, left lower leg, initial encounter ICD-9: 894.0 ICD-10: S81.812A 04/20/2017 Active Generalized anxiety disorder ICD-9: 300.02 ICD-10: F41.1 05/03/2016 Active Impaired fasting glucose ICD-9: 790.21 ICD-10: R73.01 03/25/2017 Active Major depressive disorder, recurrent, moderate ICD-9: 296.32 ICD-10: F33.1 08/06/2015 Active Encounter for general adult medical examination with abnormal findings ICD-9: V70.0 ICD-10: Z00.01 08/05/2016 Active Encounter for immunization ICD-9: V04.81 ICD-10: Z23 06/15/2016 Active Cellulitis of right lower limb ICD-9: 682.6 ICD-10: L03.115 05/03/2016 Active Encounter for screening mammogram for malignant neoplasm of breast ICD-9: V76.12 ICD-10: Z12.31 05/03/2016 Active Gastro-esophageal reflux disease without esophagitis ICD-9: 530.81 ICD-10: K21.9 05/03/2016 Active Encounter for immunization ICD-9: V03.9 ICD-10: Z23 03/01/2016 Active Pain in left leg ICD-9 : 729.5 ICD-10: M79.605 10/23/2015 Active Diabetes mellitus ICD- 9: 250.00 03/05/2014 Active Essential (primary) hypertension ICD-9: 401.9 03/05/2014 Active Foot pain ICD-9: 729.5 02/05/2015 Active Generalized weakness ICD-9: 780.79 05/17/2014 Active B-COMPLEX DEFIC NEC ICD-9: 266.2 03/05/2014 Active Fracture of left tibia and fibula ICD-9: 823.82 03/05/2014 Active Open wound of leg ICD- 9: 891.0 03/05/2014 Active Dysuria ICD-9: 788.1 08/09/2013 Active Crohns disease ICD-9: 555.9 2012 Active Intestinal malabsorption ICD-9: 579.9 2012 Active Peripheral neuropathy ICD-9: 356.9 2012 Active VACCIN STREP PNEUMONIAE ICD-9: V03.82 06/01/2012 Active Contusion of right upper arm ICD-9: 923.03 05/02/2012 Active Right shoulder pain ICD-9: 719.41 05/02/2012 Active Depressed ICD-9: 311 09/28/2011 Active KATHY (generalized anxiety disorder) ICD-9: 300.02 09/28/2011 Active Elevated lipids ICD-9 : 272.4 09/10/2011 Active Diabetes Unknown 06/10/2011 Active Fibromyalgia syndrome ICD-9: 729.1 06/10/2011 Active VACCIN FOR INFLUENZA ICD-9: V04.81 05/25/2011 Active Anxiety Unknown 05/22/2011 Active Asthma Unknown 05/22/2011 Active Colitis Unknown 05/22/2011 Active Depression Unknown 05/22/2011 Active Hyperlipidemia Unknown 05/22/2011 Active Hypertension Unknown 05/22/2011 Active Hypoglycemia Unknown 05/22/2011 Active Medications Medication Codes Instructions Start Date Stop Date Status Fill Instructions hydrocodone 5 mg-acetaminophen 325 mg tablet RxNorm: 910048 1 Tablet(s) PO 4-6 hr as needed 07/22/2018 08/20/2018 Active loperamide 2 mg capsule RxNorm: 582996 CAPSULE(S) PO TAKE 2 CAPSULES BY MOUTH EVERY NIGHT AT BEDTIME 07/18/2018 No Stop Date Active famotidine 20 mg tablet RxNorm: 462919 TABLET(S) PO TAKE 1 TABLET BY MOUTH TWICE DAILY . 07/18/2018 07/12/2019 Active Patient requests 90 days supply Myrbetriq 25 mg tablet,extended release RxNorm: 9395966 1 Tablet(s) PO daily 1 TABLET(S) PO DAILY 06/09/2018 12/05/2018 Active cyanocobalamin (vit B-12) 1,000 mcg/mL injection solution RxNorm: 492629 1 Milliliter(s) Inj 06/09/2018 06/09/2018 Inactive mirtazapine 30 mg tablet RxNorm: 140322 Tablet(s) TABLET(S) TAKE 1 TABLET BY MOUTH EVERY NIGHT AT BEDTIME 05/23/2018 Active hydrocodone 5 mg-acetaminophen 325 mg tablet RxNorm: 705875 1 Tablet(s) PO 4-6 hr as needed 05/23/2018 06/21/2018 Inactive hydrocodone 5 mg-acetaminophen 325 mg tablet RxNorm: 783333 1 Tablet(s) PO 4-6 hr as needed 05/23/2018 05/22/2018 Inactive clonazepam 1 mg tablet RxNorm: 621559 1 Tablet(s) PO TID 201710/28/2018 Active Claritin-D 12 Hour 5 mg-120 mg tablet,extended release RxNorm: 7422598 1 Tablet(s ) PO BID as needed 04/14/2018 06/12/2018 Inactive Voltaren 1 % topical gel RxNorm: 200144 4 Gram(s) TOP QID 04/1410/10/2018 Active Seroquel XR 150 mg tablet,extended release RxNorm: 587194 1 TABLET(S) PO DAILY 04/11/2018 09/07/2018 Active lisinopril 10 mg tablet RxNorm: 340033 TABLET(S) PO TAKE 1 TABLET BY MOUTH DAILY 03/31/2018 09/26/2018 Active Myrbetriq 25 mg tablet,extended release RxNorm: 0873726 1 TABLET(S) PO DAILY 03/07/2018 06/08/2018 Inactive hydrocodone 5 mg-acetaminophen 325 mg tablet RxNorm: 878232 1 Tablet(s) PO 4-6 hr as needed 03/04/2018 04/02/2018 Inactive Lialda 1.2 gram tablet,delayed release RxNorm: 475396 Tablet(s) 2 TABLET(S) PO BID TAKE 2 TABLETS BY MOUTH TWICE DAILY 03/02/2018 02/24/2019 Active clonazepam 1 mg tablet RxNorm: 492481 1 Tablet(s) PO TID 201704/30/2018 Inactive sertraline 100 mg tablet RxNorm: 362363 1 TABLET(S) PO BID 06/18/2018 Inactive [SAVINGS FOR NON-COVERED DRUGS -- BIN:[id number], PCN: ASPROD1, Group: [id number], ID# [id number], Questions: . THIS IS NOT INSURANCE.] cyanocobalamin (vit B-12) 1,000 mcg/mL injection solution RxNorm: 192458 1 Milliliter(s) Inj 01/18/2018 01/18/2018 Inactive mirtazapine 30 mg tablet RxNorm: 361673 TABLET(S) TAKE 1 TABLET BY MOUTH EVERY NIGHT AT BEDTIME 12/27/2017 05/22/2018 Inactive Myrbetriq 25 mg tablet,extended release RxNorm: 9759167 1 Tablet(s) PO daily 12/23/2017 03/06/2018 Inactive Myrbetriq 25 mg tablet,extended release RxNorm: 0447403 1 Tablet(s) PO daily 12/23/2017 12/22/2017 Inactive Lialda 1.2 gram tablet,delayed release RxNorm: 705983 2 TABLET(S) PO BID TAKE 2 TABLETS BY MOUTH TWICE DAILY 12/22/2017 Inactive loperamide 2 mg capsule RxNorm: 582281 CAPSULE(S) PO TAKE 2 CAPSULES BY MOUTH EVERY NIGHT AT BEDTIME 12/20/20172017 Inactive hydrocodone 5 mg-acetaminophen 325 mg tablet RxNorm: 857471 1 Tablet(s) PO 4-6 hr as needed 12/16/2017 01/14/2018 Inactive Detrol LA 4 mg capsule,extended release RxNorm: 827307 CAPSULE(S) 1 CAPSULE(S) PO DAILY 11/22/2017 12/22/2017 Inactive glipizide 5 mg tablet RxNorm: 923580 TABLET(S) PO TAKE 1 TABLET BY MOUTH TWICE DAILY 11/22/2017 12/05/2017 Inactive cyanocobalamin (vit B-12) 1,000 mcg/mL injection solution RxNorm: 896026 1 Milliliter(s) Inj 11/18/2017 11/18/2017 Inactive Seroquel XR 150 mg tablet,extended release RxNorm: 587707 1 TABLET(S) PO DAILY 11/16/2017 04/10/2018 Inactive spironolactone 50 mg tablet RxNorm: 981871 TABLET(S) 1 TABLET(S) PO DAILY 11/05/2017 05/03/2018 Inactive TAKE 1 TABLET BY MOUTH EVERY DAY Lialda 1.2 gram tablet,delayed release RxNorm: 235773 2 TABLET(S) PO BID TAKE 2 TABLETS BY MOUTH TWICE DAILY 11/05/2017 Inactive lovastatin 10 mg tablet RxNorm: 906534 TABLET(S) 1 TABLET(S) PO DAILY 10/25/2017 10/19/2018 Active Claritin-D 12 Hour 5 mg-120 mg tablet,extended release RxNorm: 9913085 1 Tablet(s ) PO BID as needed 10/14/2017 12/12/2017 Inactive lisinopril 10 mg tablet RxNorm: 154821 TABLET(S) PO TAKE 1 TABLET BY MOUTH DAILY 10/14/2017 03/30/2018 Inactive cyanocobalamin (vit B-12) 1,000 mcg/mL injection solution RxNorm: 590645 1 Milliliter(s) Inj 10/05/2017 10/05/2017 Inactive hydrocodone 5 mg-acetaminophen 325 mg tablet RxNorm: 049028 1 Tablet(s) PO 4-6 hr as needed 09/16/2017 10/15/2017 Inactive famotidine 20 mg tablet RxNorm: 321262 TABLET(S) PO TAKE 1 TABLET BY MOUTH TWICE DAILY . 08/04/2017 07/17/2018 Inactive cyanocobalamin (vit B-12) 1,000 mcg/mL injection solution RxNorm: 433758 1 Milliliter(s) Inj 07/27/2017 07/27/2017 Inactive clonazepam 1 mg tablet RxNorm: 326230 1 Tablet(s) PO TID 201603/06/2018 Inactive loperamide 2 mg capsule RxNorm: 771926 CAPSULE(S) PO TAKE 2 CAPSULES BY MOUTH EVERY NIGHT AT BEDTIME 07/12/20172017 Inactive spironolactone 50 mg tablet RxNorm: 021963 TABLET(S) 1 TABLET(S) PO DAILY 06/28/2017 11/04/2017 Inactive TAKE 1 TABLET BY MOUTH EVERY DAY hydrocodone 5 mg-acetaminophen 325 mg tablet RxNorm: 672137 1 Tablet(s) PO 4-6 hr as needed 06/17/2017 07/16/2017 Inactive Seroquel XR 150 mg tablet,extended release RxNorm: 800040 1 TABLET(S) PO DAILY 05/25/2017 10/21/2017 Inactive hydrocodone 5 mg-acetaminophen 325 mg tablet RxNorm: 711286 1 Tablet(s) PO 4-6 hr as needed 05/19/2017 06/16/2017 Inactive loperamide 2 mg capsule RxNorm: 773314 CAPSULE(S) PO TAKE 2 CAPSULES BY MOUTH EVERY NIGHT AT BEDTIME 03/29/20172016 Inactive cyanocobalamin (vit B-12) 1,000 mcg/mL injection solution RxNorm: 278012 1 Milliliter(s) Inj 03/25/2017 03/25/2017 Inactive hydrocodone 5 mg-acetaminophen 325 mg tablet RxNorm: 466291 1 Tablet(s) PO 4-6 hr as needed 03/19/2017 04/17/2017 Inactive mirtazapine 30 mg tablet RxNorm: 441816 TABLET(S) TAKE 1 TABLET BY MOUTH EVERY NIGHT AT BEDTIME 03/10/2017 12/04/2017 Inactive glipizide 5 mg tablet RxNorm: 323394 TABLET(S) PO TAKE 1 TABLET BY MOUTH TWICE DAILY 02/18/2017 11/14/2017 Inactive cyanocobalamin (vit B-12) 1,000 mcg/mL injection solution RxNorm: 250618 1 Milliliter(s) Inj 02/16/2017 02/16/2017 Inactive cyanocobalamin (vit B-12) 1,000 mcg/mL injection solution RxNorm: 806810 1 Milliliter(s) Inj 01/11/2017 01/11/2017 Inactive lisinopril 10 mg tablet RxNorm: 225625 TABLET(S) PO TAKE 1 TABLET BY MOUTH DAILY 12/31/2016 09/26/2017 Inactive loperamide 2 mg capsule RxNorm: 243733 CAPSULE(S) PO TAKE 2 CAPSULES BY MOUTH EVERY NIGHT AT BEDTIME 12/31/20162016 Inactive clonazepam 1 mg tablet RxNorm: 770638 1 Tablet(s) PO TID 201603/06/2018 Inactive spironolactone 50 mg tablet RxNorm: 251478 TABLET(S) 1 TABLET(S) PO DAILY 12/31/2016 06/27/2017 Inactive TAKE 1 TABLET BY MOUTH EVERY DAY hydrocodone 5 mg-acetaminophen 325 mg tablet RxNorm: 572333 1 Tablet(s) PO 4-6 hr as needed 12/25/2016 01/23/2017 Inactive lovastatin 10 mg tablet RxNorm: 290468 Tablet(s) 1 TABLET(S) PO DAILY 12/18/2016 10/24/2017 Inactive Detrol LA 4 mg capsule,extended release RxNorm: 058271 CAPSULE(S) 1 CAPSULE(S) PO DAILY 12/17/2016 11/11/2017 Inactive Seroquel XR 150 mg tablet,extended release RxNorm: 037545 1 TABLET(S) PO DAILY 12/17/2016 05/15/2017 Inactive Claritin-D 12 Hour 5 mg-120 mg tablet,extended release RxNorm: 8063937 1 Tablet(s ) PO BID as needed 11/27/2016 04/13/2018 Inactive sertraline 100 mg tablet RxNorm: 067971 1 Tablet(s) PO BID 05/24/2017 Inactive [SAVINGS FOR NON-COVERED DRUGS -- BIN:[id number], PCN: ASPROD1, Group: [id number], ID# [id number], Questions: . THIS IS NOT INSURANCE.] cyanocobalamin (vit B-12) 1,000 mcg/mL injection solution RxNorm: 043400 1 Milliliter(s) Inj 11/06/2016 11/06/2016 Inactive Lialda 1.2 gram tablet,delayed release RxNorm: 982001 2 TABLET(S) PO BID TAKE 2 TABLETS BY MOUTH TWICE DAILY 10/23/2016 Inactive hydrocodone 5 mg-acetaminophen 325 mg tablet RxNorm: 998406 1 Tablet(s) PO 4-6 hr as needed 10/06/2016 11/04/2016 Inactive cyanocobalamin (vit B-12) 1,000 mcg/mL injection solution RxNorm: 493359 Milliliter(s) Inj 10/02/2016 10/02/2016 Inactive loperamide 2 mg capsule RxNorm: 402908 CAPSULE(S) PO TAKE 2 CAPSULES BY MOUTH EVERY NIGHT AT BEDTIME 09/28/20162016 Inactive sertraline 100 mg tablet RxNorm: 800476 TABLET(S) PO TAKE 1 TABLET BY MOUTH EVERY MORNING AND 1/2 TABLET BY MOUTH AT NOON 09/28/2016 11/25/2016 Inactive [SAVINGS FOR NON-COVERED DRUGS -- BIN:[id number], PCN: ASPROD1, Group: [id number], ID# [id number], Questions: . THIS IS NOT INSURANCE.] famotidine 20 mg tablet RxNorm: 964951 TABLET(S) PO TAKE 1 TABLET BY MOUTH TWICE DAILY . 08/20/2016 07/15/2017 Inactive mirtazapine 30 mg tablet RxNorm: 224899 TABLET(S) TAKE 1 TABLET BY MOUTH EVERY NIGHT AT BEDTIME 08/19/2016 02/14/2017 Inactive hydrocodone 5 mg-acetaminophen 325 mg tablet RxNorm: 829917 1 Tablet(s) PO 4-6 hr as needed 08/04/2016 09/02/2016 Inactive cyanocobalamin (vit B-12) 1,000 mcg/mL injection solution RxNorm: 361030 Milliliter(s) Inj 08/03/2016 08/03/2016 Inactive Seroquel XR 150 mg tablet,extended release RxNorm: 043658 1 TABLET(S) PO DAILY 07/07/2016 12/03/2016 Inactive cyanocobalamin (vit B-12) 1,000 mcg/mL injection solution RxNorm: 976950 Milliliter(s) Inj 06/29/2016 06/29/2016 Inactive spironolactone 50 mg tablet RxNorm: 621694 TABLET(S) 1 TABLET(S) PO DAILY 06/23/2016 12/19/2016 Inactive TAKE 1 TABLET BY MOUTH EVERY DAY loperamide 2 mg capsule RxNorm: 688172 CAPSULE(S) PO TAKE 2 CAPSULES BY MOUTH EVERY NIGHT AT BEDTIME 06/23/20162016 Inactive hydrocodone 5 mg-acetaminophen 325 mg tablet RxNorm: 074985 1 Tablet(s) PO 4-6 hr as needed 06/11/2016 07/10/2016 Inactive clonazepam 1 mg tablet RxNorm: 970699 1 Tablet(s) PO TID TAKE 1 TABLET BY MOUTH THREE TIMES DAILY 06/09/2016 03/06/2018 Inactive cyanocobalamin (vit B-12) 1,000 mcg/mL injection solution RxNorm: 893765 Milliliter(s) Inj 05/14/2016 05/14/2016 Inactive Acidophilus tablet RxNorm: 1 in the am and 2 at hs Tablet(s) PO QHS 05/04/2016 No Stop Date Active Proventil HFA 90 mcg/actuation aerosol inhaler RxNorm: 314845 1-2 Puff(s) INH PRN as needed 1 inhalation prn SOA 05/04/2016 No Stop Date Active EpiPen 0.3 mg/0.3 mL injection, auto-injector RxNorm: 062621 0.3 Milliliter(s) PRN MILLILITER(S) IM PRN 05/04/2016 No Stop Date Active doxycycline hyclate 100 mg tablet RxNorm: 419667 1 Tablet(s) PO BID 05/04/2016 05/10/2016 Inactive hydrocodone 5 mg-acetaminophen 325 mg tablet RxNorm: 216957 1 Tablet(s) PO 4-6 hr as needed 04/27/2016 05/26/2016 Inactive cyanocobalamin (vit B-12) 1,000 mcg/mL injection solution RxNorm: 441655 1 Milliliter(s) Inj 04/16/2016 04/16/2016 Inactive loperamide 2 mg capsule RxNorm: 640372 CAPSULE(S) PO TAKE 2 CAPSULES BY MOUTH EVERY NIGHT AT BEDTIME 04/02/20162015 Inactive lisinopril 10 mg tablet RxNorm: 124231 TABLET(S) PO TAKE 1 TABLET BY MOUTH DAILY 03/26/2016 12/20/2016 Inactive clonazepam 1 mg tablet RxNorm: 539356 1 Tablet(s) PO TID TAKE 1 TABLET BY MOUTH THREE TIMES DAILY 03/10/2016 03/06/2018 Inactive cyanocobalamin (vit B-12) 1,000 mcg/mL injection solution RxNorm: 282283 Milliliter(s) Inj 03/02/2016 03/02/2016 Inactive hydrocodone 5 mg-acetaminophen 325 mg tablet RxNorm: 078160 1 Tablet(s) PO 4-6 hr as needed 02/12/2016 03/12/2016 Inactive (Appended: Controlled substance eRx refill - RxReferenceNumber: [id number]|1|0|1) Claritin-D 12 Hour 5 mg-120 mg tablet,extended release RxNorm: 5728867 1 Tablet(s ) PO BID as needed TAKE 1 TABLET BY MOUTH TWICE DAILY NEEDED 02/10/2016 04/05/2016 Inactive Seroquel XR 150 mg tablet,extended release RxNorm: 844323 1 TABLET(S) PO DAILY 01/30/2016 06/27/2016 Inactive glipizide 5 mg tablet RxNorm: 245389 Tablet(s) PO TAKE 1 TABLET BY MOUTH TWICE DAILY 01/23/2016 01/16/2017 Inactive mirtazapine 30 mg tablet RxNorm: 472621 Tablet(s) TAKE 1 TABLET BY MOUTH EVERY NIGHT AT BEDTIME 01/15/2016 08/18/2016 Inactive sertraline 100 mg tablet RxNorm: 357899 TABLET(S) PO TAKE 1 TABLET BY MOUTH EVERY MORNING AND 1/2 TABLET BY MOUTH AT NOON 12/30/2015 08/04/2016 Inactive [SAVINGS FOR NON-COVERED DRUGS -- BIN:[id number], PCN: ASPROD1, Group: [id number], ID# [id number], Questions: . THIS IS NOT INSURANCE.] spironolactone 50 mg tablet RxNorm: 026359 Tablet(s) 1 TABLET(S) PO DAILY 12/26/2015 06/22/2016 Inactive TAKE 1 TABLET BY MOUTH EVERY DAY loperamide 2 mg capsule RxNorm: 449622 Capsule(s) PO TAKE 2 CAPSULES BY MOUTH EVERY NIGHT AT BEDTIME 12/26/20152015 Inactive Detrol LA 4 mg capsule,extended release RxNorm: 466122 Capsule(s) 1 CAPSULE(S) PO DAILY 12/18/2015 12/11/2016 Inactive hydrocodone 5 mg-acetaminophen 325 mg tablet RxNorm: 425733 1 Tablet(s) PO 4-6 hr as needed 12/18/2015 02/11/2016 Inactive (Appended: Controlled substance eRx refill - RxReferenceNumber: [id number]|1|0|1) clonazepam 1 mg tablet RxNorm: 350818 TAKE 1 TABLET BY MOUTH THREE TIMES DAILY 12/04/2015 03/06/2018 Inactive cyanocobalamin (vit B-12) 1,000 mcg/mL injection solution RxNorm: 508302 Milliliter(s) Inj 12/03/2015 12/03/2015 Inactive clonazepam 1 mg tablet RxNorm: 099787 Tablet(s) TAKE 1 TABLET BY MOUTH THREE TIMES DAILY 12/02/2015 12/04/2015 Inactive Lialda 1.2 gram tablet,delayed release RxNorm: 767451 2 TABLET(S) PO BID TAKE 2 TABLETS BY MOUTH TWICE DAILY 10/22/2015 Inactive lovastatin 10 mg tablet RxNorm: 213407 1 TABLET(S) PO DAILY 04/201612/17/2016 Inactive TAKE ONE TABLET BY MOUTH DAILY famotidine 20 mg tablet RxNorm: 420532 TABLET(S) PO TAKE 1 TABLET BY MOUTH TWICE DAILY . 10/14/2015 08/19/2016 Inactive hydrocodone 5 mg-acetaminophen 325 mg tablet RxNorm: 358168 1 Tablet(s) PO 4-6 hr as needed 10/14/2015 12/17/2015 Inactive (Appended: Controlled substance eRx refill - RxReferenceNumber: [id number]|[id number]|1|0|1) Zithromax Z-Marck 250 mg tablet RxNorm: 238359 1 Tablet(s) PO UD 10/11/2015 01/22/2016 Inactive z marck loperamide 2 mg capsule RxNorm: 711550 2 CAPSULE(S) PO QHS TAKE 2 CAPSULES BY MOUTH EVERY NIGHT AT BEDTIME 09/23/2015 Inactive [SAVINGS FOR UNINSURED PATIENTS -- BIN:[id number], PCN: ASPROD1, Group: [id number], ID# [id number], Process claim through [employer], for questions: . THIS IS NOT INSURANCE.] cyanocobalamin (vit B-12) 1,000 mcg/mL injection solution RxNorm: 595475 Milliliter(s) Inj 09/09/2015 09/09/2015 Inactive Seroquel XR 150 mg tablet,extended release RxNorm: 840761 1 TABLET(S) PO DAILY 09/02/2015 01/29/2016 Inactive hydrocodone 5 mg-acetaminophen 325 mg tablet RxNorm: 066354 1 Tablet(s) PO q 4-6 hr prn as needed TAKE 1 TO 2 TABLETS BY MOUTH EVERY 6 HOURS NEEDED 08/13/2015 10/13/2015 Inactive (Appended: Controlled substance eRx refill - RxReferenceNumber: [id number]|1|0|1) Zoloft 50 mg tablet RxNorm: 699267 TABLET(S) PO 1 Q AM, 1/2 Q NOON 08/05/2015 No Stop Date Active Claritin-D 12 Hour 5 mg-120 mg tablet,extended release RxNorm: 9999488 TAKE 1 TABLET BY MOUTH TWICE DAILY 07/31/2015 Inactive glipizide 5 mg tablet RxNorm: 343639 1 TABLET(S) PO BID 201401/18/2016 Inactive [SAVINGS FOR UNINSURED PATIENTS -- BIN:[id number], PCN: ASPROD1, Group: [id number], ID # [id number], Process claim through [employer], for questions: . THIS IS NOT INSURANCE.] Claritin-D 12 Hour 5 mg-120 mg tablet,extended release RxNorm: 6412120 TAKE 1 TABLET BY MOUTH TWICE DAILY 07/16/2015 Inactive hydrocodone 5 mg-acetaminophen 325 mg tablet RxNorm: 142793 1 Tablet(s) PO q 4-6 hr prn as needed TAKE 1 TO 2 TABLETS BY MOUTH EVERY 6 HOURS NEEDED 06/13/2015 08/12/2015 Inactive (Appended: Controlled substance eRx refill - RxReferenceNumber: [id number]|1|0|1) spironolactone 50 mg tablet RxNorm: 898372 1 TABLET(S) PO DAILY 06/06/2015 12/02/2015 Inactive TAKE 1 TABLET BY MOUTH EVERY DAY clonazepam 1 mg tablet RxNorm: 502096 Tablet(s) TAKE 1 TABLET BY MOUTH THREE TIMES DAILY 05/14/2015 08/09/2015 Inactive hydrocodone 5 mg-acetaminophen 325 mg tablet RxNorm: 751354 1 Tablet(s) PO q 4-6 hr prn as needed TAKE 1 TO 2 TABLETS BY MOUTH EVERY 6 HOURS NEEDED 04/09/2015 06/12/2015 Inactive (Appended: Controlled substance eRx refill - RxReferenceNumber: [id number]|1|0|1) mirtazapine 30 mg tablet RxNorm: 217372 1 TABLET(S) PO TAKE 1 TABLET BY MOUTH EVERY NIGHT AT BEDTIME 04/09/20152015 Inactive lisinopril 10 mg tablet RxNorm: 166066 Tablet(s) PO TAKE 1 TABLET BY MOUTH DAILY 03/27/2015 03/20/2016 Inactive Zoloft 50 mg tablet RxNorm: 326610 Tablet(s) PO 1 q am, 1/2 q noon 03/15/2015 08/04/2015 Inactive clonazepam 1 mg tablet RxNorm: 776497 Tablet(s) TAKE 1 TABLET BY MOUTH THREE TIMES DAILY 03/06/2015 03/06/2015 Inactive (Response to an electronic controlled substance refill request - RxReferenceNumber: [id number]|1|0|1) clonazepam 1 mg tablet RxNorm: 902880 TAKE 1 TABLET BY MOUTH THREE TIMES DAILY 03/06/2015 05/13/2015 Inactive Seroquel XR 150 mg tablet,extended release RxNorm: 558750 1 Tablet(s) PO daily 03/06/2015 09/01/2015 Inactive loperamide 2 mg capsule RxNorm: 977296 2 Capsule(s) PO QHS TAKE 2 CAPSULES BY MOUTH EVERY NIGHT AT BEDTIME 03/06/2015 Inactive [SAVINGS FOR UNINSURED PATIENTS -- BIN:[id number], PCN: ASPROD1, Group: [id number], ID# [id number], Process claim through [employer], for questions: . THIS IS NOT INSURANCE.] hydrocodone 5 mg-acetaminophen 325 mg tablet RxNorm: 871162 1 Tablet(s) PO q 4-6 hr prn as needed TAKE 1 TO 2 TABLETS BY MOUTH EVERY 6 HOURS NEEDED 02/06/2015 04/08/2015 Inactive (Appended: Controlled substance eRx refill - RxReferenceNumber: [id number]|1|0|1) Lialda 1.2 gram tablet,delayed release RxNorm: 968316 2 TABLET(S) PO BID TAKE 2 TABLETS BY MOUTH TWICE DAILY 12/24/2014 Inactive mirtazapine 30 mg tablet RxNorm: 562247 1 TABLET(S) PO TAKE 1 TABLET BY MOUTH EVERY NIGHT AT BEDTIME 12/10/20142014 Inactive Detrol LA 4 mg capsule,extended release RxNorm: 024277 1 CAPSULE(S) PO DAILY 12/10/2014 12/04/2015 Inactive sertraline 100 mg tablet RxNorm: 444516 Tablet(s) PO TAKE 1 TABLET BY MOUTH EVERY MORNING AND 1/2 TABLET BY MOUTH AT NOON 12/03/2014 12/29/2015 Inactive [SAVINGS FOR NON-COVERED DRUGS -- BIN:[id number], PCN: ASPROD1, Group: [id number], ID# [id number], Questions: . THIS IS NOT INSURANCE.] Claritin-D 12 Hour 5 mg-120 mg tablet,extended release RxNorm: 2484723 1 Tablet(s ) PO BID 11/26/2014 07/16/2015 Inactive [SAVINGS FOR NON-COVERED DRUGS -- BIN: 580489, PCN: ASPROD1, Group: XXXXX, ID# [id number], Questions: . THIS IS NOT INSURANCE.] hydrocodone 5 mg-acetaminophen 325 mg tablet RxNorm: 183278 Tablet(s) PO TAKE 1 TO 2 TABLETS BY MOUTH EVERY 6 HOURS NEEDED 11/26/2014 02/05/2015 Inactive ( Appended: Controlled substance eRx refill - RxReferenceNumber: [id number]|1|0|1 ) spironolactone 50 mg tablet RxNorm: 858255 1 TABLET(S) PO DAILY 11/08/2014 05/06/2015 Inactive TAKE 1 TABLET BY MOUTH EVERY DAY EpiPen 0.3 mg/0.3 mL (1:1,000) injection,auto-injector RxNorm: 541501 MILLILITER(S ) IM PRN 10/23/2014 05/03/2016 Inactive hydrocodone 5 mg-acetaminophen 325 mg tablet RxNorm: 680698 Tablet(s) PO TAKE 1 TO 2 TABLETS BY MOUTH EVERY 6 HOURS NEEDED 09/27/2014 11/25/2014 Inactive ( Appended: Controlled substance eRx refill - RxReferenceNumber: [id number]|1|0|1 ) glipizide 5 mg tablet RxNorm: 518915 1 Tablet(s) PO BID 201403/09/2015 Inactive [SAVINGS FOR UNINSURED PATIENTS -- BIN:673080, PCN: ASPROD1, Group: [id number], ID # [id number], Process claim through [employer], for questions: . THIS IS NOT INSURANCE.] loperamide 2 mg capsule RxNorm: 849678 2 CAPSULE(S) PO QHS 02/201512/09/2014 Inactive Seroquel XR 150 mg tablet,extended release RxNorm: 713361 TAKE 1 TABLET BY MOUTH EVERY DAY 09/11/2014 03/05/2015 Inactive glipizide 5 mg tablet RxNorm: 462497 1 TABLET(S) PO BID 201406/07/2015 Inactive Seroquel XR 150 mg tablet,extended release RxNorm: 290792 1 Tablet(s) PO daily TAKE 1 TABLET BY MOUTH EVERY DAY 09/11/2014 01/08/2015 Inactive [SAVINGS FOR UNINSURED PATIENTS -- BIN:017930, PCN: ASPROD1, Group: [id number], ID# [id number], Process claim through [employer], for questions: . THIS IS NOT INSURANCE.] loperamide 2 mg capsule RxNorm: 059966 Capsule(s) PO TAKE 2 CAPSULES BY MOUTH EVERY NIGHT AT BEDTIME 09/10/20142014 Inactive [SAVINGS FOR UNINSURED PATIENTS -- BIN:866372, PCN: ASPROD1, Group: [id number], ID# [id number], Process claim through [employer], for questions: . THIS IS NOT INSURANCE.] clonazepam 1 mg tablet RxNorm: 078916 TAKE 1 TABLET BY MOUTH THREE TIMES DAILY 09/04/2014 12/01/2014 Inactive (Response to an electronic controlled substance refill request - RxReferenceNumber: [id number]|1|0|1) famotidine 20 mg tablet RxNorm: 940207 Tablet(s) PO TAKE 1 TABLET BY MOUTH TWICE DAILY . 09/04/2014 08/29/2015 Inactive clonazepam 1 mg tablet RxNorm: 957184 Tablet(s) TAKE 1 TABLET BY MOUTH THREE TIMES DAILY 09/04/2014 09/04/2014 Inactive (Response to an electronic controlled substance refill request - RxReferenceNumber: [id number]|1|0|1) famotidine 20 mg tablet RxNorm: 993356 1 TABLET(S) PO BID TAKE 1 TABLET BY MOUTH TWICE DAILY 09/04/2014 05/31/2015 Inactive clonazepam 1 mg tablet RxNorm: 463176 TAKE 1 TABLET BY MOUTH THREE TIMES DAILY 08/28/2014 09/03/2014 Inactive (Response to an electronic controlled substance refill request - RxReferenceNumber: [id number]|1|0|1) clonazepam 1 mg tablet RxNorm: 621997 TAKE 1 TABLET BY MOUTH THREE TIMES DAILY 08/23/2014 08/28/2014 Inactive (Response to an electronic controlled substance refill request - RxReferenceNumber: [id number]|1|0|1) lovastatin 10 mg tablet RxNorm: 252044 1 Tablet(s) PO daily 10/13/2015 Inactive TAKE ONE TABLET BY MOUTH DAILY hydrocodone 5 mg-acetaminophen 325 mg tablet RxNorm: 367360 Tablet(s) PO TAKE 1 TO 2 TABLETS BY MOUTH EVERY 6 HOURS NEEDED 07/18/2014 09/26/2014 Inactive ( Appended: Controlled substance eRx refill - RxReferenceNumber: [id number]|1|0|1 ) mirtazapine 30 mg tablet RxNorm: 222367 1 TABLET(S) PO TAKE 1 TABLET BY MOUTH EVERY NIGHT AT BEDTIME 06/19/2014 No Stop Date Active mirtazapine 30 mg tablet RxNorm: 097566 1 TABLET(S) PO TAKE 1 TABLET BY MOUTH EVERY NIGHT AT BEDTIME 06/19/20142014 Inactive loperamide 2 mg capsule RxNorm: 546126 2 CAPSULE(S) PO QHS 08/26/2014 Inactive clonazepam 1 mg tablet RxNorm: 055732 TAKE 1 TABLET BY MOUTH THREE TIMES DAILY 05/18/2014 08/14/2014 Inactive (Response to an electronic controlled substance refill request - RxReferenceNumber: [id number]|1|0|1) clonazepam 1 mg tablet RxNorm: 218947 1 Tablet(s) PO TID TAKE 1 TABLET BY MOUTH THREE TIMES DAILY 05/18/2014 08/27/2014 Inactive (Appended: Controlled substance eRx refill - RxReferenceNumber: [id number]|1|0|1) Kenalog 40 mg/mL suspension for injection RxNorm: 2091319 Milliliter(s) Inj 05/17/2014 05/17/2014 Inactive cyanocobalamin (vit B-12) 1,000 mcg/mL injection solution RxNorm: 915596 Milliliter(s) Inj 05/17/2014 05/17/2014 Inactive spironolactone 50 mg tablet RxNorm: 793840 1 TABLET(S) PO DAILY 04/19/2014 10/15/2014 Inactive TAKE 1 TABLET BY MOUTH EVERY DAY cyanocobalamin (vit B-12) 1,000 mcg/mL injection kit RxNorm: 069192 1 Milliliter(s ) Inj 04/16/2014 04/16/2014 Inactive mirtazapine 30 mg tablet RxNorm: 257895 1 Tablet(s) PO TAKE 1 TABLET BY MOUTH EVERY NIGHT AT BEDTIME 03/08/20142013 Inactive Vitamin B-12 1,000 mcg/mL injection solution RxNorm: 206819 1 Milliliter(s) Inj 03/05/2014 03/05/2014 Inactive Detrol LA 4 mg capsule,extended release RxNorm: 021975 1 Capsule(s) PO daily 02/27/2014 03/23/2015 Inactive lisinopril 10 mg tablet RxNorm: 794509 1 Tablet(s) PO daily TAKE 1 TABLET BY MOUTH DAILY 02/12/2014 10/13/2017 Inactive Seroquel XR 150 mg tablet,extended release RxNorm: 325360 Tablet(s) PO TAKE 1 TABLET BY MOUTH EVERY DAY 01/08/201409/10 Inactive loperamide 2 mg capsule RxNorm: 312111 Capsule(s) PO TAKE 2 CAPSULES BY MOUTH EVERY NIGHT AT BEDTIME 01/01/20142014 Inactive hydrocodone 5 mg-acetaminophen 325 mg tablet RxNorm: 966359 Tablet(s) PO TAKE 1 TO 2 TABLETS BY MOUTH EVERY 6 HOURS NEEDED 12/14/2013 07/17/2014 Inactive ( Appended: Controlled substance eRx refill - RxReferenceNumber: [id number]|1|0|1 ) sertraline 100 mg tablet RxNorm: 548710 Tablet(s) PO TAKE 1 TABLET BY MOUTH EVERY MORNING AND 1/2 TABLET BY MOUTH AT NOON 12/11/2013 12/02/2014 Inactive Lialda 1.2 gram tablet,delayed release RxNorm: 203137 2 Tablet(s) PO BID TAKE 2 TABLETS BY MOUTH TWICE DAILY 12/06/2013 Inactive Lialda 1.2 g tablet,delayed release RxNorm: 094013 Tablet(s) PO TAKE 2 TABLETS BY MOUTH TWICE DAILY 12/05/2013 12/05/2013 Inactive lisinopril 10 mg tablet RxNorm: 311370 Tablet(s) PO TAKE 1 TABLET BY MOUTH DAILY 11/13/2013 02/11/2014 Inactive loperamide 2 mg capsule RxNorm: 509022 Capsule(s) PO TAKE 2 CAPSULES BY MOUTH EVERY NIGHT AT BEDTIME 11/13/20132015 Inactive mirtazapine 30 mg tablet RxNorm: 125514 Tablet(s) PO TAKE 1 TABLET BY MOUTH EVERY NIGHT AT BEDTIME 11/13/2013 03/07/2014 Inactive Lialda 1.2 g tablet,delayed release RxNorm: 037128 Tablet(s) PO TAKE 2 TABLETS BY MOUTH TWICE DAILY 11/02/2013 12/21/2017 Inactive clonazepam 1 mg tablet RxNorm: 402413 1 Tablet(s) PO TID TAKE 1 TABLET BY MOUTH THREE TIMES DAILY 11/01/2013 05/18/2014 Inactive (Appended: Controlled substance eRx refill - RxReferenceNumber: [id number]|1|0|1) glipizide 5 mg tablet RxNorm: 158950 1 Tablet(s) PO BID 201309/10/2014 Inactive clonazepam 1 mg tablet RxNorm: 419602 1 Tablet(s) PO TID TAKE 1 TABLET BY MOUTH THREE TIMES DAILY 10/30/2013 10/31/2013 Inactive (Appended: Controlled substance eRx refill - RxReferenceNumber: [id number]|1|0|1) Seroquel XR 150 mg tablet,extended release RxNorm: 011536 Tablet(s) PO TAKE 1 TABLET BY MOUTH EVERY DAY 10/27/201301/07 Inactive Vitamin B-12 1,000 mcg/mL injection solution RxNorm: 711226 1 Milliliter(s) Inj 10/23/2013 10/23/2013 Inactive hydrocodone 5 mg-acetaminophen 500 mg tablet RxNorm: 152282 1-2 Tablet(s) PO Q6 PRN 10/16/2013 No Stop Date Active hydrocodone 5 mg-acetaminophen 500 mg tablet RxNorm: 213430 Tablet(s) PO TAKE 1 TO 2 TABLETS BY MOUTH EVERY 6 HOURS NEEDED 10/16/2013 12/13/2013 Inactive ( Appended: Controlled substance eRx refill - RxReferenceNumber: [id number]|1|0|1 ) sertraline 100 mg tablet RxNorm: 900557 Tablet(s) PO TAKE 1 TABLET BY MOUTH EVERY MORNING AND 1/2 TABLET BY MOUTH AT NOON 09/11/2013 No Stop Date Active lisinopril 10 mg tablet RxNorm: 046959 Tablet(s) PO TAKE 1 TABLET BY MOUTH DAILY 09/11/2013 03/26/2015 Inactive EpiPen 0.3 mg/0.3 mL (1:1,000) injection,auto-injector RxNorm: 322136 Milliliter(s ) IM PRN 09/11/2013 10/22/2014 Inactive hydrocodone 5 mg-acetaminophen 500 mg tablet RxNorm: 536403 1-2 Tablet(s) PO Q6 PRN 08/16/2013 10/16/2013 Inactive sertraline 100 mg tablet RxNorm: 105007 Tablet(s) PO TAKE 1 TABLET BY MOUTH EVERY MORNING AND 1/2 TABLET BY MOUTH AT NOON 08/14/2013 No Stop Date Active metoprolol succinate ER 25 mg tablet,extended release 24 hr RxNorm: 455928 1/2 Tablet(s) PO BID TAKE 1/2 TABLET BY MOUTH TWICE DAILY 201202/09/2014 Inactive lovastatin 10 mg tablet RxNorm: 163620 1 Tablet(s) PO daily 05/201307/31/2014 Inactive TAKE ONE TABLET BY MOUTH DAILY Vitamin B-12 1,000 mcg/mL injection solution RxNorm: 312719 1 Milliliter(s) Inj 08/09/2013 08/09/2013 Inactive glipizide 5 mg tablet RxNorm: 366776 1 Tablet(s) PO BID 201210/31/2013 Inactive glipizide 5 mg tablet RxNorm: 602950 1 Tablet(s) PO BID 201208/08/2013 Inactive famotidine 20 mg tablet RxNorm: 393566 1 Tablet(s) PO BID TAKE 1 TABLET BY MOUTH TWICE DAILY 07/24/2013 07/18/2014 Inactive Detrol LA 4 mg capsule,extended release RxNorm: 228606 1 Capsule(s) PO daily 06/07/2013 02/26/2014 Inactive spironolactone 50 mg tablet RxNorm: 442729 1 Tablet(s) PO daily 06/05/2013 03/01/2014 Inactive TAKE 1 TABLET BY MOUTH EVERY DAY mirtazapine 30 mg tablet RxNorm: 517913 1 Tablet(s) PO QHS TAKE ONE TABLET BY MOUTH EVERY NIGHT AT BEDTIME 05/29/2013 Inactive Vitamin B-12 1,000 mcg/mL Injection RxNorm: 718855 Milliliter(s) Inj 05/22/2013 05/22/2013 Inactive Influenza Virus Vaccine 0.5 mL RxNorm: IM 05/22/2013 05/22/2013 Inactive EpiPen 0.3 mg/0.3 mL (1:1,000) injection,auto-injector RxNorm: 807811 Milliliter(s ) IM PRN 05/22/2013 09/10/2013 Inactive Zoloft 50 mg tablet RxNorm: 845692 Tablet(s) PO 1 q am, 1/2 q noon 05/19/2013 03/14/2015 Inactive metoprolol succinate ER 25 mg tablet,extended release 24 hr RxNorm: 521945 Tablet (s) PO TAKE 1/2 TABLET BY MOUTH TWICE DAILY 05/19/2013 08/13/2013 Inactive hydrocodone 5 mg-acetaminophen 500 mg tablet RxNorm: 677276 1-2 Tablet(s) PO Q6 PRN 04/07/2013 08/15/2013 Inactive Kenalog 40 mg/mL Susp for Injection RxNorm: 8115172 Milliliter(s) Inj 03/27/2013 03/27/2013 Inactive Vitamin B-12 1,000 mcg/mL Injection RxNorm: 818442 Milliliter(s) Inj 03/22/2013 03/22/2013 Inactive Vitamin B-12 1,000 mcg/mL Injection RxNorm: 147939 1 Milliliter(s) Inj 02/15/2013 02/15/2013 Inactive clonazepam 1 mg tablet RxNorm: 034934 Tablet(s) PO TAKE 1 TABLET BY MOUTH THREE TIMES DAILY 02/13/2013 10/29/2013 Inactive (Appended: Controlled substance eRx refill - RxReferenceNumber: [id number]|1|0|1) clonazepam 1 mg tablet RxNorm: 895989 Tablet(s) PO TAKE 1 TABLET BY MOUTH THREE TIMES DAILY 02/13/2013 02/13/2013 Inactive (Appended: Controlled substance eRx refill - RxReferenceNumber: [id number]|1|0|1) clonazepam 1 mg tablet RxNorm: 874285 Tablet(s) PO TAKE 1 TABLET BY MOUTH THREE TIMES DAILY 02/13/2013 02/13/2013 Inactive (Appended: Controlled substance eRx refill - RxReferenceNumber: [id number]|1|0|1) clonazepam 1 mg tablet RxNorm: 218520 Tablet(s) PO TAKE 1 TABLET BY MOUTH THREE TIMES DAILY 02/08/2013 02/12/2013 Inactive (Appended: Controlled substance [facility]Rx [facility] - [id number]|1|0|1) famotidine 20 mg tablet RxNorm: 610837 Tablet(s) PO TAKE 1 TABLET BY MOUTH TWICE DAILY 02/06/2013 07/23/2013 Inactive Vitamin B-12 1,000 mcg/mL Injection RxNorm: 502580 1 Milliliter(s) Inj 12/12/2012 12/12/2012 Inactive hydrocodone 5 mg-acetaminophen 500 mg tablet RxNorm: 916435 1-2 Tablet(s) PO Q6 PRN 12/09/2012 04/06/2013 Inactive mirtazapine 30 mg tablet RxNorm: 127154 Tablet(s) PO TAKE ONE TABLET BY MOUTH EVERY NIGHT AT BEDTIME 11/21/20122012 Inactive loperamide 2 mg capsule RxNorm: 707059 Capsule(s) PO TAKE 2 CAPSULES BY MOUTH EVERY NIGHT AT BEDTIME 11/12/2012 No Stop Date Active famotidine 20 mg tablet RxNorm: 583853 Tablet(s) PO TAKE 1 TABLET BY MOUTH TWICE DAILY . 11/12/2012 09/03/2014 Inactive Vitamin B-12 1,000 mcg/mL Injection RxNorm: 902493 1 Milliliter(s) Inj 2012 2012 Inactive Kenalog 40 mg/mL Susp for Injection RxNorm: 9838837 Milliliter(s) Inj 2012 2012 Inactive famotidine 20 mg tablet RxNorm: 152599 Tablet(s) PO TAKE 1 TABLET BY MOUTH TWICE DAILY 11/07/2012 11/11/2012 Inactive sertraline 100 mg tablet RxNorm: 468865 Tablet(s) PO TAKE 1 TABLET BY MOUTH EVERY MORNING AND 1/2 TABLET BY MOUTH AT NOON 10/27/2012 08/13/2013 Inactive loperamide 2 mg capsule RxNorm: 614872 Capsule(s) PO TAKE 2 CAPSULES BY MOUTH EVERY NIGHT AT BEDTIME 10/24/2012 No Stop Date Active glipizide 5 mg tablet RxNorm: 362466 Tablet(s) PO TAKE 1 TABLET BY MOUTH TWICE DAILY 10/24/2012 01/22/2016 Inactive metoprolol succinate ER 25 mg tablet,extended release 24 hr RxNorm: 439292 1/2 Tablet(s) PO BID TAKE 1/2 TABLET BY MOUTH TWICE DAILY 2012 No Stop Date Active Lialda 1.2 g tablet,delayed release RxNorm: 233415 2 Tablet(s) PO BID 10/14/2012 11/01/2013 Inactive metoprolol succinate ER 25 mg tablet,extended release 24 hr RxNorm: 587811 Tablet (s) PO TAKE 1/2 TABLET BY MOUTH TWICE DAILY 10/14/2012 05/18/2013 Inactive Vitamin B-12 1,000 mcg/mL Injection RxNorm: 414405 1 Milliliter(s) Inj 10/12/2012 10/12/2012 Inactive lisinopril 10 mg tablet RxNorm: 873133 Tablet(s) PO TAKE 1 TABLET BY MOUTH DAILY 09/14/2012 10/13/2017 Inactive metoprolol succinate ER 25 mg tablet,extended release 24 hr RxNorm: 418947 Tablet (s) PO TAKE 1/2 TABLET BY MOUTH TWICE DAILY 09/14/2012 10/13/2012 Inactive Vitamin B-12 1,000 mcg/mL Injection RxNorm: 618207 1 Milliliter(s) Inj 08/25/2012 08/25/2012 Inactive clonazepam 1 mg tablet RxNorm: 892681 Tablet(s) PO 08/01/2012 No Stop Date Active TAKE 1 TABLET BY MOUTH THREE TIMES DAILY NEEDED (Appended: Controlled substance eRx refill - RxReferenceNumber: [id number]|1|0|1) clonazepam 1 mg tablet RxNorm: 130421 Tablet(s) PO 08/01/2012 02/09/2013 Inactive TAKE 1 TABLET BY MOUTH THREE TIMES DAILY (Appended: Controlled substance eRx refill - RxReferenceNumber: [id number]|1|0|1) metoprolol succinate ER 25 mg tablet,extended release 24 hr RxNorm: 430455 Tablet (s) PO 07/18/2012 No Stop Date Active TAKE 1/2 TABLET BY MOUTH TWICE DAILY spironolactone 50 mg tablet RxNorm: 773541 Tablet(s) PO 201106/04/2013 Inactive TAKE 1 TABLET BY MOUTH EVERY DAY metoprolol succinate ER 25 mg tablet,extended release 24 hr RxNorm: 293200 Tablet (s) PO 06/13/2012 No Stop Date Active TAKE 1/2 TABLET BY MOUTH TWICE DAILY EpiPen 0.3 mg/0.3 mL (1:1,000) IM Injector RxNorm: 588728 Milliliter(s) IM PRN 06/02/2012 05/21/2013 Inactive lovastatin 10 mg tablet RxNorm: 836806 1 Tablet(s) PO daily 05/26/2013 Inactive TAKE ONE TABLET BY MOUTH DAILY hydrocodone 5 mg-acetaminophen 500 mg tablet RxNorm: 153973 1-2 Tablet(s) PO Q6 PRN 06/01/2012 12/08/2012 Inactive metoprolol succinate ER 25 mg tablet,extended release 24 hr RxNorm: 578713 Tablet (s) PO 05/02/2012 No Stop Date Active TAKE 1/2 TABLET BY MOUTH TWICE DAILY clonazepam 1 mg tablet RxNorm: 270255 1 Tablet(s) PO TID 201105/02/2012 Inactive clonazepam 1 mg tablet RxNorm: 881355 Tablet(s) PO 05/02/2012 08/01/2012 Inactive TAKE 1 TABLET BY MOUTH THREE TIMES DAILY NEEDED (Appended: Controlled substance eRx refill - RxReferenceNumber: [id number]|1|0|1) metoprolol succinate ER 25 mg tablet,extended release 24 hr RxNorm: 711866 Tablet (s) PO 04/18/2012 05/01/2012 Inactive TAKE 1/2 TABLET BY MOUTH TWICE DAILY famotidine 20 mg tablet RxNorm: 946508 Tablet(s) PO 04/15/2012 11/06/2012 Inactive TAKE 1 TABLET BY MOUTH TWICE DAILY Kenalog 40 mg/mL Susp for Injection RxNorm: 6007233 1 Milliliter(s) Inj 04/13/2012 04/13/2012 Inactive hydrocodone-acetaminophen 5 mg-500 mg tablet RxNorm: 334408 1-2 Tablet(s) PO Q6 PRN 04/05/2012 05/31/2012 Inactive Vitamin B-12 1,000 mcg/mL Injection RxNorm: 929745 Milliliter(s) Inj 03/21/2012 03/21/2012 Inactive hydrocodone-acetaminophen 5 mg-500 mg tablet RxNorm: 711727 1-2 Tablet(s) PO Q6 PRN 02/02/2012 04/04/2012 Inactive cyanocobalamin (vitamin B-12) 1,000 mcg/mL Injection RxNorm: 604740 1 Milliliter(s ) Inj 01/29/2012 01/29/2012 Inactive Vitamin B-12 1,000 mcg/mL Injection RxNorm: 973881 Milliliter(s) Inj 01/01/2012 01/01/2012 Inactive Kenalog 40 mg/mL Susp for Injection RxNorm: 1600924 Milliliter(s) Inj 01/01/2012 01/01/2012 Inactive Lialda 1.2 g tablet,delayed release RxNorm: 533757 2 Tablet(s) PO BID 12/15/2011 10/13/2012 Inactive Lialda 1.2 g Tab RxNorm: 887583 1 Tablet(s) PO BID 201112/14/2011 Inactive Vitamin B-12 1,000 mcg/mL Injection RxNorm: 553668 Milliliter(s) Inj 12/01/2011 12/01/2011 Inactive Lialda 1.2 g Tab RxNorm: 314825 1 Tablet(s) PO BID 201111/30/2011 Inactive Vitamin B-12 1,000 mcg/mL Injection RxNorm: 517520 Milliliter(s) Inj 11/02/2011 11/02/2011 Inactive clonazepam 1 mg tablet RxNorm: 372407 1 Tablet(s) PO TID 201105/02/2012 Inactive sertraline 100 mg tablet RxNorm: 903295 1.5 Tablet(s) PO daily one pill in AM and 1/2 pill at noon 10/21/2011 10/14/2012 Inactive Lialda 1.2 g Tab RxNorm: 967376 2 Tablet(s) PO BID 201111/24/2011 Inactive spironolactone 50 mg Tab RxNorm: 294158 Tablet(s) PO 2011 No Stop Date Active TAKE 1 TABLET BY MOUTH EVERY MORNING loperamide 2 mg Cap RxNorm: 820642 Capsule(s) PO 10/19/2011 No Stop Date Active TAKE 2 CAPSULES BY MOUTH EVERY EVENING lovastatin 20 mg Tab RxNorm: 714002 1 Tablet(s) PO daily 201110/12/2012 Inactive loperamide 2 mg capsule RxNorm: 586674 2 Capsule(s) PO QHS 10/18/2011 Inactive spironolactone 50 mg tablet RxNorm: 450141 1 Tablet(s) PO daily 10/19/2011 10/18/2011 Inactive mirtazapine 30 mg tablet RxNorm: 523406 Tablet(s) PO 201111/20/2012 Inactive TAKE ONE TABLET BY MOUTH EVERY NIGHT AT BEDTIME lovastatin 20 mg Tab RxNorm: 121754 1 Tablet(s) PO daily 201110/18/2011 Inactive lovastatin 20 mg Tab RxNorm: 944781 1 Tablet(s) PO daily 201109/14/2011 Inactive cyanocobalamin (vitamin B-12) 1,000 mcg/mL Injection RxNorm: 388667 Milliliter(s) Inj 09/11/2011 09/28/2011 Inactive lisinopril 10 mg tablet RxNorm: 227719 Tablet(s) PO 09/10/2011 09/13/2012 Inactive TAKE 1 TABLET BY MOUTH DAILY glipizide 5 mg tablet RxNorm: 590062 1 Tablet(s) PO BID 201008/21/2012 Inactive hydrocodone-acetaminophen 5 mg-500 mg Tab RxNorm: 499910 1-2 Tablet(s) PO Q4-6H 1- 2 tabs q 4-6hrs prn 07/27/2011 08/25/2011 Inactive hydrocodone-acetaminophen 5 mg-500 mg Tab RxNorm: 012752 1-2 Tablet(s) PO Q4-6H 1- 2 tabs q 4-6hrs prn 07/16/2011 07/26/2011 Inactive B12 1000 mcg RxNorm: IM 05/25/20112010 Inactive Influenza Virus Vaccine 0.5 mL RxNorm: IM 05/25/2011 05/25/2011 Inactive Nexium 40 mg Cap RxNorm: 487454 1 Capsule(s) PO daily 04/3010/26/2011 Inactive Flintstones Plus Iron oral RxNorm: oral No Start Date Active magnesium 250 mg Tab RxNorm: 1 Tablet(s) PO daily No Start Date Active B12 Intramuscular RxNorm: Intramuscular No Start Date Active oxygen-air delivery systems Misc RxNorm: Miscellaneous No Start Date Active B12 1mg tablet RxNorm : 1 Tablet(s) PO daily No Start Date Active Vitamin D 400 unit Cap RxNorm: 065447 1 Capsule(s) PO daily No Start Date Active Griffin Oil 1,000 mg Cap RxNorm: 1 Capsule(s) PO daily No Start Date Active aces + zinc 1000 iu RxNorm: 1 Tablet(s) PO daily No Start Date Active cranberry Oral RxNorm : Oral No Start Date Active Robitussin Oral RxNorm : Oral No Start Date Active Vitamin C Oral RxNorm : Oral No Start Date Active Imodium A-D Oral RxNorm: Oral No Start Date Active potassium 99 mg Tab RxNorm: 1 Tablet(s) PO daily No Start Date Active glipizide 5 mg tablet RxNorm: 592873 1 PO BID No Start Date 08/06/2013 Inactive Mucinex D Oral RxNorm : Oral No Start Date 05/20/2014 Inactive Zithromax Z-Marck 250 mg tablet RxNorm: 933588 1 Tablet(s) PO UD No Start Date 10/10/2015 Inactive z marck clonazepam 1 mg Tab RxNorm: 609092 1 Tablet(s) PO TID No Start Date 10/20/2011 Inactive Fish Oil 1,000 mg Cap RxNorm: 1 Capsule(s) PO TID No Start Date 05/03/2016 Inactive Proventil HFA 90 mcg/Actuation Aerosol Inhaler RxNorm: 932796 1 Puff(s) INH PRN 1 inhalation prn SOA No Start Date 2015 Inactive Zoloft 50 mg tablet RxNorm: 038784 1.5 Tablet(s) PO 1 q am, 1/2 q noon No Start Date 05/18/2013 Inactive Claritin-D 12 Hour 5 mg-120 mg tablet,extended release RxNorm: 7690075 1 Tablet(s ) PO BID No Start Date 11/25/2014 Inactive loperamide 2 mg Cap RxNorm: 475538 2 PO QHS No Start Date 10/18/2011 Inactive spironolactone 50 mg Tab RxNorm: 222383 1 Tablet(s) PO daily No Start Date 10/18/2011 Inactive Fish Oil 1,000 mg capsule RxNorm: 1 Capsule(s) PO BID No Start Date 10/02/2013 Inactive lisinopril 10 mg Tab RxNorm: 189076 1 Tablet(s) PO daily No Start Date 09/09/2011 Inactive Detrol LA 4 mg capsule,extended release RxNorm: 723728 1 Capsule(s) PO daily No Start Date 06/06/2013 Inactive mirtazapine 30 mg Tab RxNorm: 220785 1 Tablet(s) PO QHS No Start Date 10/07/2011 Inactive Seroquel XR 50 mg 24 hr Tab RxNorm: 821432 2 Tablet(s) PO QHS No Start Date 09/28/2011 Inactive Epi E-Z Pen IM RxNorm : Intramuscular No Start Date 06/01/2012 Inactive EpiPen 0.3 mg/0.3 mL (1:1,000) IM Injector RxNorm: 996741 Milliliter(s) IM PRN No Start Date 06/01/2012 Inactive Lialda 1.2 g Tab RxNorm: 467187 2 Tablet(s) PO BID No Start Date 10/19/2011 Inactive Seroquel XR 150 mg tablet,extended release RxNorm: 401145 1 Tablet(s) PO daily No Start Date 10/26/2013 Inactive metoprolol succinate ER 25 mg tablet,extended release 24 hr RxNorm: 783223 1/2 Tablet(s) PO BID No Start Date 04/17/2012 Inactive lovastatin 10 mg tablet RxNorm: 263970 1 Tablet(s) PO daily No Start Date 06/01/2012 Inactive Acidophilus Tab RxNorm : 2 Tablet(s) PO QHS No Start Date 05/03/2016 Inactive hydrocodone-acetaminophen 5 mg-500 mg Tab RxNorm: 468301 1-2 Tablet(s) PO Q4-6H 1- 2 tabs q 4-6hrs prn No Start Date 2010 Inactive famotidine 20 mg tablet RxNorm: 348011 1 Tablet(s) PO BID No Start Date 04/14/2012 Inactive hydrocodone-acetaminophen 5 mg-500 mg Tab RxNorm: 216802 1-2 Tablet(s) PO Q4-6H No Start Date 02/01/2012 Inactive Medication Administered Medication Codes Instructions Start Date Status cyanocobalamin (vit B-12) 1,000 mcg/mL injection solution RxNorm: 359701 1Milliliter 06/09/2018 No longer Active cyanocobalamin (vit B-12) 1,000 mcg/mL injection solution RxNorm: 830859 1Milliliter 01/18/2018 No longer Active cyanocobalamin (vit B-12) 1,000 mcg/mL injection solution RxNorm: 418795 1Milliliter 11/18/2017 No longer Active cyanocobalamin (vit B-12) 1,000 mcg/mL injection solution RxNorm: 612215 1Milliliter 10/05/2017 No longer Active cyanocobalamin (vit B-12) 1,000 mcg/mL injection solution RxNorm: 914747 1Milliliter 07/27/2017 No longer Active cyanocobalamin (vit B-12) 1,000 mcg/mL injection solution RxNorm: 184686 1Milliliter 03/25/2017 No longer Active cyanocobalamin (vit B-12) 1,000 mcg/mL injection solution RxNorm: 885606 1Milliliter 02/16/2017 No longer Active cyanocobalamin (vit B-12) 1,000 mcg/mL injection solution RxNorm: 966256 1Milliliter 01/11/2017 No longer Active cyanocobalamin (vit B-12) 1,000 mcg/mL injection solution RxNorm: 491393 1Milliliter 11/06/2016 No longer Active cyanocobalamin (vit B-12) 1,000 mcg/mL injection solution RxNorm: 824867 Milliliter 10/02/2016 No longer Active cyanocobalamin (vit B-12) 1,000 mcg/mL injection solution RxNorm: 112159 Milliliter 08/03/2016 No longer Active cyanocobalamin (vit B-12) 1,000 mcg/mL injection solution RxNorm: 955788 Milliliter 06/29/2016 No longer Active cyanocobalamin (vit B-12) 1,000 mcg/mL injection solution RxNorm: 673479 Milliliter 05/14/2016 No longer Active cyanocobalamin (vit B-12) 1,000 mcg/mL injection solution RxNorm: 869032 1Milliliter 04/16/2016 No longer Active cyanocobalamin (vit B-12) 1,000 mcg/mL injection solution RxNorm: 649101 Milliliter 03/02/2016 No longer Active cyanocobalamin (vit B-12) 1,000 mcg/mL injection solution RxNorm: 940897 Milliliter 12/03/2015 No longer Active cyanocobalamin (vit B-12) 1,000 mcg/mL injection solution RxNorm: 435112 Milliliter 09/09/2015 No longer Active Kenalog 40 mg/mL suspension for injection RxNorm: 0679849 Milliliter 05/17/2014 No longer Active cyanocobalamin (vit B-12) 1,000 mcg/mL injection solution RxNorm: 181559 Milliliter 05/17/2014 No longer Active cyanocobalamin (vit B-12) 1,000 mcg/mL injection kit RxNorm : 482784 1Milliliter 04/16/2014 No longer Active Vitamin B-12 1,000 mcg/mL injection solution RxNorm: 215523 1Milliliter 03/05/2014 No longer Active Vitamin B-12 1,000 mcg/mL injection solution RxNorm: 363005 1Milliliter 10/23/2013 No longer Active Vitamin B-12 1,000 mcg/mL injection solution RxNorm: 948605 1Milliliter 08/09/2013 No longer Active Vitamin B-12 1,000 mcg/mL Injection RxNorm: 815777 Milliliter 05/22/2013 No longer Active Influenza Virus Vaccine 0.5 mL RxNorm: 05/22/2013 No longer Active Kenalog 40 mg/mL Susp for Injection RxNorm: 1842902 Milliliter 03/27/2013 No longer Active Vitamin B-12 1,000 mcg/mL Injection RxNorm: 931205 Milliliter 03/22/2013 No longer Active Vitamin B-12 1,000 mcg/mL Injection RxNorm: 280182 1Milliliter 02/15/2013 No longer Active Vitamin B-12 1,000 mcg/mL Injection RxNorm: 875808 1Milliliter 12/12/2012 No longer Active Kenalog 40 mg/mL Susp for Injection RxNorm: 4074977 Milliliter 2012 No longer Active Vitamin B-12 1,000 mcg/mL Injection RxNorm: 023224 1Milliliter 2012 No longer Active Vitamin B-12 1,000 mcg/mL Injection RxNorm: 998253 1Milliliter 10/12/2012 No longer Active Vitamin B-12 1,000 mcg/mL Injection RxNorm: 905065 1Milliliter 08/25/2012 No longer Active Kenalog 40 mg/mL Susp for Injection RxNorm: 4453565 1Milliliter 04/13/2012 No longer Active Vitamin B-12 1,000 mcg/mL Injection RxNorm: 890591 Milliliter 03/21/2012 No longer Active cyanocobalamin (vitamin B-12) 1,000 mcg/mL Injection RxNorm : 702573 1Milliliter 01/29/2012 No longer Active Kenalog 40 mg/mL Susp for Injection RxNorm: 5609112 Milliliter 01/01/2012 No longer Active Vitamin B-12 1,000 mcg/mL Injection RxNorm: 597792 Milliliter 01/01/2012 No longer Active Vitamin B-12 1,000 mcg/mL Injection RxNorm: 780651 Milliliter 12/01/2011 No longer Active Vitamin B-12 1,000 mcg/mL Injection RxNorm: 028696 Milliliter 11/02/2011 No longer Active Influenza Virus Vaccine 0.5 mL RxNorm: 05/25/2011 No longer Active B12 1000 mcg RxNorm: 05/25/2011 No longer Active Immunizations Vaccine Codes Date Status Influenza CVX: 141 08/22/2017 completed Influenza CVX: 141 06/16/2016 completed Pneumococcal (Adult) CVX: 133 03/02/2016 completed Influenza CVX: 141 09/10/2014 completed Influenza CVX: 141 05/22/2013 completed Influenza CVX: 141 06/01/2012 completed Pneumococcal (Adult) CVX: 33 06/01/2012 completed Influenza CVX: 141 05/25/2011 completed Pneumococcal (Adult) CVX: 33 04/16/2005 completed Assessments Condition Codes Effective Dates Lumbago with sciatica, right side ICD-10: M54.41 ICD-9: 724.3 06/09/2018 Other vitamin B12 deficiency anemias ICD-10: D51.8 ICD-9: 281.1 06/09/2018 Mixed incontinence ICD-10: N39.46 ICD-9: 788.33 06/09/2018 Unsteadiness on feet ICD-10: R26.81 ICD-9: 781.2 06/09/2018 Pain in right hip ICD-10: M25.551 ICD-9: 719.45 04/14/2018 Obstructive sleep apnea (adult) (pediatric) ICD-10: G47.33 ICD-9: 327.23 04/14/2018 Abnormal weight loss ICD-10: R63.4 ICD-9: 783.21 01/04/2018 Cardiac murmur, unspecified ICD-10: R01.1 ICD-9: 785.2 01/04/2018 Essential (primary) hypertension ICD-10: I10 ICD-9: 401.9 12/06/2017 Mixed hyperlipidemia ICD-10: E78.2 ICD-9: 272.4 12/06/2017 Type 2 diabetes mellitus without complications ICD-10: E11.9 ICD-9: 250.00 12/06/2017 Vitamin B12 deficiency anemia, unspecified ICD-10: D51.9 ICD-9: 266.2 11/24/2017 Vitamin D deficiency, unspecified ICD-10: E55.9 ICD-9: 268.9 11/24/2017 Laceration without foreign body, left lower leg, initial encounter ICD-10: S81.812A ICD-9: 894.0 04/20/2017 Generalized anxiety disorder ICD-10: F41.1 ICD-9: 300.02 03/25/2017 Impaired fasting glucose ICD-10: R73.01 ICD-9: 790.21 03/25/2017 Major depressive disorder, recurrent, moderate ICD-10: F33.1 ICD-9: 296.32 11/26/2016 Encounter for general adult medical examination with abnormal findings ICD-10: Z00.01 ICD-9: V70.0 08/06/2016 Encounter for immunization ICD-10: Z23 ICD-9: V04.81 06/16/2016 Encounter for screening mammogram for malignant neoplasm of breast ICD-10: Z12.31 ICD-9: V76.12 05/04/2016 Gastro-esophageal reflux disease without esophagitis ICD-10 : K21.9 ICD-9: 530.81 05/04/2016 Cellulitis of right lower limb ICD-10: L03.115 ICD-9: 682.6 05/04/2016 Encounter for immunization ICD-10: Z23 ICD-9: V03.9 03/02/2016 Pain in left leg ICD-10: M79.605 ICD-9: 729.5 10/24/2015 Diabetes mellitus ICD-9: 250.00 2014 Foot pain ICD-9: 729.5 02/06/2015 Essential (primary) hypertension ICD-9: 401.9 02/06/2015 ALLERGIC RHINITIS ICD-9: 477.9 2013 B12 deficiency ICD-9: 266.2 05/17/2014 Generalized weakness ICD-9: 780.79 2013 Fracture of left tibia and fibula ICD-9: 823.82 03/05/2014 Open wound of leg ICD-9: 891.0 2013 Shoulder pain ICD-9: 719.41 10/18/2013 HYPERLIPIDEMIA ICD-9: 272.4 10/18/2013 Dysuria ICD-9: 788.1 08/09/2013 VACCIN FOR INFLUENZA ICD-9: V04.81 2012 Peripheral neuropathy ICD-9: 356.9 2012 Intestinal malabsorption ICD-9: 579.9 03/2013 Crohns disease ICD-9: 555.9 2012 VACCIN STREP PNEUMONIAE ICD-9: V03.82 Contusion of right upper arm ICD-9: 923.03 05/02/2012 GENERALIZED ANXIETY DISEASE ICD-9: 300.02 01/01/2012 Depressed ICD-9: 311 09/28/2011 Fibromyalgia syndrome ICD-9: 729.1 2010 Reason For Visit Reason For Visit Effective Dates Notes leg pain/sciatica 06/09/2018 leg pain/sciatica 04/14/2018 weight loss 01/04/2018 depression 12/06/2017 Post-op wound 04/20/2017 depression 03/25/2017 depression 11/26/2016 Annual Medicare Wellness Exam 08/06/2016 vaccination against influenza 06/16/2016 hypertension 05/04/2016 headache 10/24/2015 medication follow up 08/07/2015 diabetes mellitus 02/06/2015 diabetes mellitus 07/12/2014 nasal allergies 05/17/2014 diabetes mellitus 04/16/2014 diabetes mellitus 03/05/2014 shoulder pain 10/18/2013 vaccination against influenza 05/22/2013 vaccination against influenza 06/01/2012 abnormal bleeding and bruising 05/02/2012 sinus congestion 04/13/2012 nasal allergies 01/01/2012 anxiety 09/28/2011 pt states there is alot of illness in her family shoulder pain 06/24/2011 speech difficulties 06/10/2011 Results Observation Observation Code Item Item Code Result Date Culture Urine [id number] URINE CULTURE SEE NOTES 06/13/2018 Urine Culture Ucult Complete Growth of aerobe sent to ref lab 06/10/2018 Vitamin D 25 Oh [id number] VITAMIN D, 25 HYDROXY 52.64 ng/mL Cbc With Differential Ord2 WBC 7.65 K/ul 11/24/2017 Cbc With Differential Ord2 RBC 4.12 M/ul 11/24/2017 Cbc With Differential Ord2 HGB 12.1 g/dl 11/24/2017 Cbc With Differential Ord2 Neut% 74.2 % 11/24/2017 Cbc With Differential Ord2 HCT 38.1 % 11/24/2017 Cbc With Differential Ord2 MCV 92.5 fl 11/24/2017 Cbc With Differential Ord2 Lymph% 14.1 % 11/24/2017 Cbc With Differential Ord2 Dimmit% 10.6 % 11/24/2017 Cbc With Differential Ord2 MCH 29.4 pg 11/24/2017 Cbc With Differential Ord2 MCHC 31.8 pg 11/24/2017 Cbc With Differential Ord2 Eos% 1.0 % 11/24/2017 Cbc With Differential Ord2 Baso% 0.1 % 11/24/2017 Cbc With Differential Ord2 PLT 131 K/ul 11/24/2017 Cbc With Differential Ord2 RDW 14.4 % 11/24/2017 Cbc With Differential Ord2 Neut ABS# 5.67 K/ul 11/24/2017 Cbc With Differential Ord2 Lymph ABS# 1.08 K/ul 11/24/2017 Cbc With Differential Ord2 [place] ABS# 0.8 K/ul 11/24/2017 Cbc With Differential Ord2 Eos ABS# 0.1 K/ul 11/24/2017 Cbc With Differential Ord2 Baso ABS# 0.0 K/ul 11/24/2017 %Hba1C Aci444 % HbA1c 12810-6 5.4 % 11/24/2017 %Hba1C Zgr963 Gluc Ave 108 mg/dL 11/24/2017 Tsh Ord6 TSH (3rd IS) 2.12 uIU/mL 11/24/2017 B12 Hjq358 B12 >1500.00 pg/ml 11/24/2017 Lipid Ord30 CHOL 142 mg/dL 11/24/2017 Lipid Ord30 HDL 50.0 mg/dl 11/24/2017 Lipid Ord30 TRIG 153 mg/dL 11/24/2017 Lipid Ord30 LDL 61 mg/dL 11/24/2017 Lipid Ord30 C/HDL 2.8 Ratio 11/24/2017 Comp Metabolic Iqw352 NA 143 mEq/L 11/24/2017 Comp Metabolic Mhx975 K 4.0 mEq/L 11/24/2017 Comp Metabolic Eur706 CL 103 mEq/L 11/24/2017 Comp Metabolic Ixw948 CO2 31.0 mEq/L 11/24/2017 Comp Metabolic Kzn665 ANION GAP 13 11/24/2017 Comp Metabolic Xva864 GLUCOSE 81 mg/dL 11/24/2017 Comp Metabolic Jtk548 Creat 0.8 mg/dL 11/24/2017 Comp Metabolic Ohm527 eGFR 74 ml/min/1.73m2 11/24/2017 Comp Metabolic Qnd871 BUN 23 mg/dL 11/24/2017 Comp Metabolic Slu247 B/C Ratio 28.8 Ratio 11/24/2017 Comp Metabolic Twu491 CALCIUM 9.5 mg/dL 11/24/2017 Comp Metabolic Dlh644 ALK PHOS 66 U/L 11/24/2017 Comp Metabolic Lgv980 AST(SGOT) 15 U/L 11/24/2017 Comp Metabolic Ysx448 ALT(SGPT) 12 U/L 11/24/2017 Comp Metabolic Erp262 BILI T 0.4 mg/dL 11/24/2017 Comp Metabolic Dxv796 ALBUMIN 4.8 g/dL 11/24/2017 Comp Metabolic Zby200 TPRO 6.8 g/dL 11/24/2017 Comp Metabolic Blc636 GLOB 2.0 g/dL 11/24/2017 Comp Metabolic Wcd841 A/G Ratio 2.4 Ratio 11/24/2017 Comp Metabolic Mhb347 Osmo 288 mOsmo 11/24/2017 Vitamin D 25 Oh [id number] VITAMIN D, 25 HYDROXY 42.84 ng/mL B12 Awr441 B12 >1500.00 pg/ml 04/16/2017 Tsh Ord6 hTSH II 2.66 uIU/mL 04/16/2017 Lipid Ord30 CHOL 146 mg/dL 04/16/2017 Lipid Ord30 HDL 39.0 mg/dl 04/16/2017 Lipid Ord30 TRIG 204 mg/dL 04/16/2017 Lipid Ord30 LDL 66 mg/dL 04/16/2017 Lipid Ord30 C/HDL 3.7 Ratio 04/16/2017 Cbc With Differential Ord2 WBC 6.55 K/ul 04/16/2017 Cbc With Differential Ord2 RBC 4.08 M/ul 04/16/2017 Cbc With Differential Ord2 HGB 12.0 g/dl 04/16/2017 Cbc With Differential Ord2 Neut% 67.8 % 04/16/2017 Cbc With Differential Ord2 HCT 36.8 % 04/16/2017 Cbc With Differential Ord2 Lymph% 22.4 % 04/16/2017 Cbc With Differential Ord2 MCV 90.2 fl 04/16/2017 Cbc With Differential Ord2 MCH 29.4 pg 04/16/2017 Cbc With Differential Ord2 Dim[place]% 8.1 % 04/16/2017 Cbc With Differential Ord2 Eos% 1.5 % 04/16/2017 Cbc With Differential Ord2 MCHC 32.6 pg 04/16/2017 Cbc With Differential Ord2 PLT 160 K/ul 04/16/2017 Cbc With Differential Ord2 Baso% 0.2 % 04/16/2017 Cbc With Differential Ord2 Neut ABS# 4.44 K/ul 04/16/2017 Cbc With Differential Ord2 RDW 15.2 % 04/16/2017 Cbc With Differential Ord2 Lymph ABS# 1.47 K/ul 04/16/2017 Cbc With Differential Ord2 [place] ABS# 0.5 K/ul 04/16/2017 Cbc With Differential Ord2 Eos ABS# 0.1 K/ul 04/16/2017 Cbc With Differential Ord2 Baso ABS# 0.0 K/ul 04/16/2017 Comp Metabolic Vbd672 NA 140 mEq/L 04/16/2017 Comp Metabolic Qkn696 K 4.3 mEq/L 04/16/2017 Comp Metabolic Alt629 CL 105 mEq/L 04/16/2017 Comp Metabolic Gxh114 CO2 26.0 mEq/L 04/16/2017 Comp Metabolic Icn995 ANION GAP 13 04/16/2017 Comp Metabolic Top804 GLUCOSE 103 mg/dL 04/16/2017 Comp Metabolic Wyd267 Creat 0.8 mg/dL 04/16/2017 Comp Metabolic Uit895 eGFR 80 ml/min/1.73m2 04/16/2017 Comp Metabolic Fuo732 BUN 18 mg/dL 04/16/2017 Comp Metabolic Ema776 B/C Ratio 24.0 Ratio 04/16/2017 Comp Metabolic Xne675 CALCIUM 9.3 mg/dL 04/16/2017 Comp Metabolic Lak916 ALK PHOS 79 U/L 04/16/2017 Comp Metabolic Jjq137 AST(SGOT) 20 U/L 04/16/2017 Comp Metabolic Ezu926 ALT(SGPT) 20 U/L 04/16/2017 Comp Metabolic Bab845 BILI T 0.4 mg/dL 04/16/2017 Comp Metabolic Ycw012 ALBUMIN 4.4 g/dL 04/16/2017 Comp Metabolic Iuw529 TPRO 6.8 g/dL 04/16/2017 Comp Metabolic Igd776 GLOB 2.4 g/dL 04/16/2017 Comp Metabolic Rsj419 A/G Ratio 1.9 Ratio 04/16/2017 Comp Metabolic Cgo861 Osmo 282 mOsmo 04/16/2017 %Hba1C Jgz708 % HbA1c 86108-6 5.6 % 04/16/2017 %Hba1C Piq040 Gluc Ave 114 mg/dL 04/16/2017 Lipid Ord30 CHOL 168 mg/dL 04/10/2016 Lipid Ord30 HDL 39.0 mg/dl 04/10/2016 Lipid Ord30 TRIG 199 mg/dL 04/10/2016 Lipid Ord30 LDL 89 mg/dL 04/10/2016 Lipid Ord30 C/HDL 4.3 Ratio 04/10/2016 Cbc With Differential Ord2 WBC 5.36 K/ul 04/10/2016 Cbc With Differential Ord2 RBC 4.08 M/ul 04/10/2016 Cbc With Differential Ord2 HGB 11.9 g/dl 04/10/2016 Cbc With Differential Ord2 HCT 36.6 % 04/10/2016 Cbc With Differential Ord2 Neut% 65.1 % 04/10/2016 Cbc With Differential Ord2 MCV 89.7 fl 04/10/2016 Cbc With Differential Ord2 Lymph% 23.3 % 04/10/2016 Cbc With Differential Ord2 MCH 29.2 pg 04/10/2016 Cbc With Differential Ord2 Dimmit% 10.3 % 04/10/2016 Cbc With Differential Ord2 MCHC 32.5 pg 04/10/2016 Cbc With Differential Ord2 Eos% 1.3 % 04/10/2016 Cbc With Differential Ord2 PLT 137 K/ul 04/10/2016 Cbc With Differential Ord2 Baso% 0.0 % 04/10/2016 Cbc With Differential Ord2 Neut ABS# 3.49 K/ul 04/10/2016 Cbc With Differential Ord2 RDW 14.8 % 04/10/2016 Cbc With Differential Ord2 Lymph ABS# 1.25 K/ul 04/10/2016 Cbc With Differential Ord2 [place] ABS# 0.6 K/ul 04/10/2016 Cbc With Differential Ord2 Eos ABS# 0.1 K/ul 04/10/2016 Cbc With Differential Ord2 Baso ABS# 0.0 K/ul 04/10/2016 %Hba1C Hdf358 % HbA1c 15009-5 5.9 % 04/10/2016 %Hba1C Ueq192 Gluc Ave 123 mg/dL 04/10/2016 B12 Vsl794 B12 849.00 pg/ml 04/10/2016 Comp Metabolic Bar891 NA 139 mEq/L 04/10/2016 Comp Metabolic Ykz490 K 4.3 mEq/L 04/10/2016 Comp Metabolic Lgb930 CL 102 mEq/L 04/10/2016 Comp Metabolic Jki294 CO2 30.0 mEq/L 04/10/2016 Comp Metabolic Hvk483 ANION GAP 11 04/10/2016 Comp Metabolic Nek218 GLUCOSE 94 mg/dL 04/10/2016 Comp Metabolic Zbg524 Creat 0.8 mg/dL 04/10/2016 Comp Metabolic Qpm880 eGFR 72 ml/min/1.73m2 04/10/2016 Comp Metabolic Jlw534 BUN 21 mg/dL 04/10/2016 Comp Metabolic Kax995 B/C Ratio 25.6 Ratio 04/10/2016 Comp Metabolic Hjq369 CALCIUM 9.6 mg/dL 04/10/2016 Comp Metabolic Pfc851 ALK PHOS 70 U/L 04/10/2016 Comp Metabolic Hsk508 AST(SGOT) 26 U/L 04/10/2016 Comp Metabolic Kno341 ALT(SGPT) 22 U/L 04/10/2016 Comp Metabolic Zud971 BILI T 0.5 mg/dL 04/10/2016 Comp Metabolic Ary649 ALBUMIN 4.6 g/dL 04/10/2016 Comp Metabolic Taq839 TPRO 6.7 g/dL 04/10/2016 Comp Metabolic Irw981 GLOB 2.1 g/dL 04/10/2016 Comp Metabolic Lpo804 A/G Ratio 2.1 Ratio 04/10/2016 Comp Metabolic Jzn566 Osmo 280 mOsmo 04/10/2016 Vitamin D 25 Oh Khk7056 VITAMIN D, 25 HYDROXY 39.58 ng/mL Cbc With Differential Ord2 WBC 6.54 K/ul 10/25/2015 Cbc With Differential Ord2 RBC 3.86 M/ul 10/25/2015 Cbc With Differential Ord2 HGB 11.1 g/dl 10/25/2015 Cbc With Differential Ord2 HCT 35.9 % 10/25/2015 Cbc With Differential Ord2 Neut% 61.3 % 10/25/2015 Cbc With Differential Ord2 MCV 93.0 fl 10/25/2015 Cbc With Differential Ord2 Lymph% 28.0 % 10/25/2015 Cbc With Differential Ord2 Dim[place]% 8.7 % 10/25/2015 Cbc With Differential Ord2 MCH 28.8 pg 10/25/2015 Cbc With Differential Ord2 Eos% 1.7 % 10/25/2015 Cbc With Differential Ord2 MCHC 30.9 pg 10/25/2015 Cbc With Differential Ord2 Baso% 0.3 % 10/25/2015 Cbc With Differential Ord2 PLT 150 K/ul 10/25/2015 Cbc With Differential Ord2 Neut ABS# 4.01 K/ul 10/25/2015 Cbc With Differential Ord2 RDW 14.8 % 10/25/2015 Cbc With Differential Ord2 Lymph ABS# 1.83 K/ul 10/25/2015 Cbc With Differential Ord2 Dimmit ABS# 0.6 K/ul 10/25/2015 Cbc With Differential Ord2 Eos ABS# 0.1 K/ul 10/25/2015 Cbc With Differential Ord2 Baso ABS# 0.0 K/ul 10/25/2015 Cbc With Differential Ord2 New Analyzer Notice Please note new ref ranges starting 09-18-2015 due to implemntation of new five part differential hematolgy analyzer. 10/25/2015 Lipid Ord30 CHOL 171 mg/dL 08/21/2015 Lipid Ord30 HDL 44.0 mg/dl 08/21/2015 Lipid Ord30 TRIG 199 mg/dL 08/21/2015 Lipid Ord30 LDL 87 mg/dL 08/21/2015 Lipid Ord30 C/HDL 3.9 Ratio 08/21/2015 Metabolic Ord15 NA 140 mEq/L 08/21/2015 Metabolic Ord15 K 4.2 mEq/L 08/21/2015 Metabolic Ord15 CL 102 mEq/L 08/21/2015 Metabolic Ord15 CO2 29.0 mEq/L 08/21/2015 Metabolic Ord15 GLUCOSE 100 mg/dL 08/21/2015 Metabolic Ord15 BUN 24 mg/dL 08/21/2015 Metabolic Ord15 Creat 0.9 mg/dL 08/21/2015 Metabolic Ord15 B/C Ratio 27.0 Ratio 08/21/2015 Metabolic Ord15 eGFR 66 ml/min/1.73m2 08/21/2015 Metabolic Ord15 Osmo 284 mOsmo 08/21/2015 Metabolic Ord15 ANION GAP 13 08/21/2015 Metabolic Ord15 CALCIUM 9.6 mg/dL 08/21/2015 Tsh Ord6 hTSH II 2.55 uIU/mL 08/21/2015 %Hba1C Rhj156 % HbA1c 43651-1 5.5 % 08/21/2015 %Hba1C Xtd208 Gluc Ave 111 mg/dL 08/21/2015 URINALYSIS NONAUTO W/O SCOPE 66257 Specific [place] 1.030 DateTime(Free Text in Aprima) URINALYSIS NONAUTO W/O SCOPE 16768 PH 5 DateTime(Free Text in Aprima) URINALYSIS NONAUTO W/O SCOPE 71559 GLUCOSE neg DateTime( Free Text in Aprima) URINALYSIS NONAUTO W/O SCOPE 14891 Protein neg DateTime( Free Text in Aprima) URINALYSIS NONAUTO W/O SCOPE 18502 Blood neg DateTime(Free Text in Aprima) URINALYSIS NONAUTO W/O SCOPE 80438 Bilirubin neg DateTime(Free Text in Aprima) URINALYSIS NONAUTO W/O SCOPE 69005 Ketones neg DateTime( Free Text in Aprima) URINALYSIS NONAUTO W/O SCOPE 04895 Urobilinogen neg DateTime(Free Text in Aprima) URINALYSIS NONAUTO W/O SCOPE 82307 Nitrite neg DateTime( Free Text in Aprima) URINALYSIS NONAUTO W/O SCOPE 26910 Leukocytes neg DateTime(Free Text in Aprima) Review of Systems System Result Effective Dates Constitutional No recent illness 2017 Constitutional No anorexia 06/09/2018 Constitutional No night sweats 2017 Constitutional No chills 06/09/2018 Constitutional No diaphoresis 06/09/2018 Constitutional fatigue 06/09/2018 Constitutional No fever 06/09/2018 Constitutional No insomnia 06/09/2018 Constitutional No malaise 06/09/2018 Constitutional No weight loss 06/09/2018 Constitutional No weight gain 06/09/2018 Eyes No eye discharge 06/09/2018 Eyes No eye erythema 06/09/2018 Cardiovascular No chest pain/pressure 12/2017 Respiratory No cough 06/09/2018 Gastrointestinal No abdominal pain 2017 Genitourinary/Nephrology No dysuria 06/09 Genitourinary/Nephrology urinary incontinence 06/09/2018 Musculoskeletal back pain 06/09/2018 Musculoskeletal joint complaint 2017 Dermatologic No rash 06/09/2018 Neurologic No alteration of consciousness 06/09/2018 Psychiatric anxiety 06/09/2018 Psychiatric depression 06/09/2018 Constitutional No recent illness 2017 Constitutional No anorexia 04/14/2018 Constitutional No night sweats 2017 Constitutional No chills 04/14/2018 Constitutional No diaphoresis 04/14/2018 Constitutional fatigue 04/14/2018 Constitutional No fever 04/14/2018 Constitutional No insomnia 04/14/2018 Constitutional No malaise 04/14/2018 Constitutional No weight loss 04/14/2018 Constitutional No weight gain 04/14/2018 Eyes No eye discharge 04/14/2018 Eyes No eye erythema 04/14/2018 Ears/Nose/Throat/Neck dental pain 2017 Cardiovascular No chest pain/pressure 05/2018 Respiratory No cough 04/14/2018 Gastrointestinal No abdominal pain 2017 Genitourinary/Nephrology No dysuria 04/14 Genitourinary/Nephrology urinary incontinence 04/14/2018 Musculoskeletal back pain 04/14/2018 Musculoskeletal joint complaint 2017 Dermatologic No rash 04/14/2018 Neurologic No alteration of consciousness 04/14/2018 Psychiatric anxiety 04/14/2018 Psychiatric depression 04/14/2018 Constitutional No recent illness 2017 Constitutional No anorexia 01/04/2018 Constitutional No night sweats 2017 Constitutional No chills 01/04/2018 Constitutional No diaphoresis 01/04/2018 Constitutional fatigue 01/04/2018 Constitutional No fever 01/04/2018 Constitutional No insomnia 01/04/2018 Constitutional No malaise 01/04/2018 Constitutional No weight loss 01/04/2018 Constitutional No weight gain 01/04/2018 Eyes No eye discharge 01/04/2018 Eyes No eye erythema 01/04/2018 Ears/Nose/Throat/Neck dizziness 2017 Ears/Nose/Throat/Neck headache 2017 Ears/Nose/Throat/Neck nasal allergies 09/2017 Ears/Nose/Throat/Neck nasal discharge 09/2017 Cardiovascular No chest pain/pressure 09/2017 Respiratory No cough 01/04/2018 Respiratory dyspnea on exertion 2017 Gastrointestinal No abdominal pain 2017 Genitourinary/Nephrology No dysuria 01/04 Genitourinary/Nephrology nocturia 2017 Genitourinary/Nephrology urinary frequency 01/04/2018 Musculoskeletal back pain 01/04/2018 Musculoskeletal joint complaint 2017 Dermatologic No rash 01/04/2018 Neurologic No alteration of consciousness 01/04/2018 Psychiatric anxiety 01/04/2018 Psychiatric depression 01/04/2018 Psychiatric No suicidality 01/04/2018 Gastrointestinal No constipation 2017 Gastrointestinal No diarrhea 01/04/2018 Constitutional No recent illness 2017 Constitutional No anorexia 12/06/2017 Constitutional No night sweats 2017 Constitutional No chills 12/06/2017 Constitutional No diaphoresis 12/06/2017 Constitutional fatigue 12/06/2017 Constitutional No fever 12/06/2017 Constitutional No insomnia 12/06/2017 Constitutional No malaise 12/06/2017 Constitutional No weight loss 12/06/2017 Constitutional No weight gain 12/06/2017 Eyes No eye discharge 12/06/2017 Eyes No eye erythema 12/06/2017 Ears/Nose/Throat/Neck dizziness 2017 Ears/Nose/Throat/Neck headache 2017 Cardiovascular No chest pain/pressure 10/2017 Respiratory No cough 12/06/2017 Gastrointestinal No abdominal pain 2017 Genitourinary/Nephrology No dysuria 12/06 Musculoskeletal back pain 12/06/2017 Dermatologic No rash 12/06/2017 Neurologic No alteration of consciousness 12/06/2017 Psychiatric anxiety 12/06/2017 Psychiatric depression 12/06/2017 Psychiatric No suicidality 12/06/2017 Respiratory dyspnea on exertion 2017 Ears/Nose/Throat/Neck nasal allergies 10/2017 Ears/Nose/Throat/Neck nasal discharge 10/2017 Genitourinary/Nephrology urinary frequency 12/06/2017 Genitourinary/Nephrology nocturia 2017 Musculoskeletal joint complaint 2017 Constitutional No recent illness 2016 Constitutional No anorexia 03/25/2017 Constitutional No night sweats 2016 Constitutional No chills 03/25/2017 Constitutional No diaphoresis 03/25/2017 Constitutional fatigue 03/25/2017 Constitutional No fever 03/25/2017 Constitutional No insomnia 03/25/2017 Constitutional No malaise 03/25/2017 Constitutional No weight loss 03/25/2017 Constitutional No weight gain 03/25/2017 Eyes No eye discharge 03/25/2017 Eyes No eye erythema 03/25/2017 Ears/Nose/Throat/Neck dizziness 2016 Cardiovascular No chest pain/pressure Respiratory No cough 03/25/2017 Gastrointestinal No abdominal pain 2016 Genitourinary/Nephrology No dysuria 03/25 Dermatologic No rash 03/25/2017 Neurologic No alteration of consciousness 03/25/2017 Psychiatric anxiety 03/25/2017 Psychiatric depression 03/25/2017 Psychiatric No suicidality 03/25/2017 Musculoskeletal back pain 03/25/2017 Ears/Nose/Throat/Neck headache 2016 Psychiatric depression 11/26/2016 Psychiatric anxiety 11/26/2016 Psychiatric No suicidality 11/26/2016 Constitutional No recent illness 2016 Constitutional No anorexia 11/26/2016 Constitutional No night sweats 2016 Constitutional No chills 11/26/2016 Constitutional No diaphoresis 11/26/2016 Constitutional fatigue 11/26/2016 Constitutional No fever 11/26/2016 Constitutional No malaise 11/26/2016 Constitutional No insomnia 11/26/2016 Constitutional No weight loss 11/26/2016 Constitutional No weight gain 11/26/2016 Eyes No eye discharge 11/26/2016 Eyes No eye erythema 11/26/2016 Ears/Nose/Throat/Neck No dizziness 2016 Cardiovascular No chest pain/pressure Respiratory No cough 11/26/2016 Gastrointestinal No abdominal pain 2016 Genitourinary/Nephrology No dysuria 11/26 Musculoskeletal No joint complaint 2016 Dermatologic No rash 11/26/2016 Neurologic No alteration of consciousness 11/26/2016 Constitutional No recent illness 2015 Constitutional No chills 08/06/2016 Constitutional No diaphoresis 08/06/2016 Constitutional fatigue 08/06/2016 Constitutional No fever 08/06/2016 Constitutional No malaise 08/06/2016 Eyes No eye discharge 08/06/2016 Eyes No eye erythema 08/06/2016 Ears/Nose/Throat/Neck nasal allergies 09/2015 Cardiovascular No chest pain/pressure 09/2015 Cardiovascular No dyspnea 08/06/2016 Cardiovascular No edema 08/06/2016 Respiratory No productive sputum 2015 Respiratory No chest congestion 2015 Respiratory No cough 08/06/2016 Respiratory dyspnea on exertion 2015 Gastrointestinal abdominal pain 2015 Gastrointestinal No constipation 2015 Gastrointestinal No diarrhea 08/06/2016 Musculoskeletal joint complaint 2015 Dermatologic No rash 08/06/2016 Neurologic No alteration of consciousness 08/06/2016 Psychiatric depression 08/06/2016 Ears/Nose/Throat/Neck No sinus congestion 08/06/2016 Gastrointestinal No vomiting 08/06/2016 Gastrointestinal No nausea 08/06/2016 Neurologic No mental status change 2015 Psychiatric anxiety 08/06/2016 Constitutional No recent illness 2015 Constitutional No anorexia 05/04/2016 Constitutional No night sweats 2015 Constitutional No chills 05/04/2016 Constitutional diaphoresis 05/04/2016 Constitutional fatigue 05/04/2016 Constitutional No fever 05/04/2016 Constitutional No insomnia 05/04/2016 Constitutional No weight loss 05/04/2016 Constitutional No malaise 05/04/2016 Constitutional No weight gain 05/04/2016 Eyes No eye discharge 05/04/2016 Eyes No eye erythema 05/04/2016 Ears/Nose/Throat/Neck No dizziness 2015 Ears/Nose/Throat/Neck headache 2015 Cardiovascular No chest pain/pressure Cardiovascular No dyspnea 05/04/2016 Cardiovascular No edema 05/04/2016 Respiratory No productive sputum 2015 Respiratory No chest congestion 2015 Respiratory No cough 05/04/2016 Respiratory dyspnea on exertion 2015 Ears/Nose/Throat/Neck nasal allergies Gastrointestinal abdominal pain 2015 Gastrointestinal No constipation 2015 Gastrointestinal No diarrhea 05/04/2016 Genitourinary/Nephrology No dysuria 05/04 Musculoskeletal joint complaint 2015 Genitourinary/Nephrology urinary incontinence 05/04/2016 Genitourinary/Nephrology urinary frequency 05/04/2016 Neurologic No alteration of consciousness 05/04/2016 Psychiatric depression 05/04/2016 Endocrine No dry or coarse skin 2015 Dermatologic No rash 05/04/2016 Constitutional No night sweats 2015 Constitutional No chills 10/24/2015 Constitutional No diaphoresis 10/24/2015 Constitutional fatigue 10/24/2015 Constitutional No fever 10/24/2015 Constitutional No insomnia 10/24/2015 Constitutional No malaise 10/24/2015 Eyes No eye discharge 10/24/2015 Eyes No eye erythema 10/24/2015 Ears/Nose/Throat/Neck No dizziness 2015 Ears/Nose/Throat/Neck headache 2015 Cardiovascular No chest pain/pressure Respiratory No cough 10/24/2015 Gastrointestinal No constipation 2015 Gastrointestinal No diarrhea 10/24/2015 Dermatologic No rash 10/24/2015 Neurologic No alteration of consciousness 10/24/2015 Psychiatric anxiety 10/24/2015 Psychiatric depression 10/24/2015 Musculoskeletal joint complaint 2015 Constitutional No night sweats 2014 Constitutional No chills 08/07/2015 Constitutional No diaphoresis 08/07/2015 Constitutional fatigue 08/07/2015 Constitutional No fever 08/07/2015 Constitutional No insomnia 08/07/2015 Constitutional No malaise 08/07/2015 Eyes No eye discharge 08/07/2015 Eyes No eye erythema 08/07/2015 Ears/Nose/Throat/Neck No dizziness 2014 Ears/Nose/Throat/Neck headache 2014 Cardiovascular No chest pain/pressure 10/2014 Respiratory No cough 08/07/2015 Gastrointestinal No constipation 2014 Dermatologic No rash 08/07/2015 Neurologic No alteration of consciousness 08/07/2015 Psychiatric anxiety 08/07/2015 Psychiatric depression 08/07/2015 Gastrointestinal No diarrhea 08/07/2015 Musculoskeletal No joint complaint 2014 Gastrointestinal gastroesophageal reflux 08/07/2015 Constitutional No recent illness 2014 Constitutional No anorexia 02/06/2015 Constitutional No night sweats 2014 Constitutional No chills 02/06/2015 Constitutional No diaphoresis 02/06/2015 Constitutional fatigue 02/06/2015 Constitutional No fever 02/06/2015 Constitutional No insomnia 02/06/2015 Constitutional No malaise 02/06/2015 Eyes No eye discharge 02/06/2015 Eyes No eye erythema 02/06/2015 Ears/Nose/Throat/Neck No dizziness 2014 Ears/Nose/Throat/Neck No headache 2014 Cardiovascular No chest pain/pressure 11/2014 Respiratory No cough 02/06/2015 Gastrointestinal No constipation 2014 Gastrointestinal diarrhea 02/06/2015 Genitourinary/Nephrology No dysuria 02/06 Musculoskeletal joint complaint 2014 Dermatologic No rash 02/06/2015 Neurologic No alteration of consciousness 02/06/2015 Psychiatric anxiety 02/06/2015 Psychiatric depression 02/06/2015 Constitutional No recent illness 2013 Constitutional No anorexia 07/12/2014 Constitutional No night sweats 2013 Constitutional No chills 07/12/2014 Constitutional No diaphoresis 07/12/2014 Constitutional fatigue 07/12/2014 Constitutional No fever 07/12/2014 Constitutional No insomnia 07/12/2014 Constitutional No malaise 07/12/2014 Eyes No eye discharge 07/12/2014 Eyes No eye erythema 07/12/2014 Ears/Nose/Throat/Neck No dizziness 2013 Ears/Nose/Throat/Neck No headache 2013 Cardiovascular No chest pain/pressure 02/2014 Respiratory No cough 07/12/2014 Gastrointestinal No constipation 2013 Gastrointestinal diarrhea 07/12/2014 Genitourinary/Nephrology No dysuria 07/12 Musculoskeletal joint complaint 2013 Dermatologic No rash 07/12/2014 Neurologic No alteration of consciousness 07/12/2014 Psychiatric anxiety 07/12/2014 Psychiatric depression 07/12/2014 Constitutional No recent illness 2013 Constitutional No anorexia 05/17/2014 Constitutional No night sweats 2013 Constitutional No chills 05/17/2014 Constitutional No diaphoresis 05/17/2014 Constitutional fatigue 05/17/2014 Constitutional No fever 05/17/2014 Constitutional No insomnia 05/17/2014 Constitutional No malaise 05/17/2014 Eyes No eye discharge 05/17/2014 Eyes No eye erythema 05/17/2014 Cardiovascular No chest pain/pressure 07/2014 Respiratory No cough 05/17/2014 Gastrointestinal No abdominal pain 2013 Gastrointestinal No constipation 2013 Gastrointestinal diarrhea 05/17/2014 Gastrointestinal No vomiting 05/17/2014 Gastrointestinal No nausea 05/17/2014 Genitourinary/Nephrology No dysuria 05/17 Dermatologic No rash 05/17/2014 Dermatologic No sores 05/17/2014 Neurologic No alteration of consciousness 05/17/2014 Musculoskeletal muscle weakness 2013 Constitutional No recent illness 2013 Constitutional No anorexia 04/16/2014 Constitutional No night sweats 2013 Constitutional No chills 04/16/2014 Constitutional No diaphoresis 04/16/2014 Constitutional fatigue 04/16/2014 Constitutional No fever 04/16/2014 Constitutional No insomnia 04/16/2014 Constitutional No malaise 04/16/2014 Eyes No eye discharge 04/16/2014 Eyes No eye erythema 04/16/2014 Ears/Nose/Throat/Neck No dizziness 2013 Ears/Nose/Throat/Neck No headache 2013 Cardiovascular No chest pain/pressure 07/2014 Respiratory No cough 04/16/2014 Gastrointestinal No constipation 2013 Gastrointestinal diarrhea 04/16/2014 Genitourinary/Nephrology No dysuria 04/16 Musculoskeletal joint complaint 2013 Dermatologic No rash 04/16/2014 Neurologic No alteration of consciousness 04/16/2014 Psychiatric anxiety 04/16/2014 Psychiatric depression 04/16/2014 Constitutional No recent illness 2013 Constitutional No anorexia 03/05/2014 Constitutional No night sweats 2013 Constitutional No chills 03/05/2014 Constitutional No diaphoresis 03/05/2014 Constitutional fatigue 03/05/2014 Constitutional No fever 03/05/2014 Constitutional No insomnia 03/05/2014 Constitutional No malaise 03/05/2014 Eyes No eye discharge 03/05/2014 Eyes No eye erythema 03/05/2014 Ears/Nose/Throat/Neck No dizziness 2013 Ears/Nose/Throat/Neck No headache 2013 Cardiovascular No chest pain/pressure Respiratory No cough 03/05/2014 Gastrointestinal No constipation 2013 Gastrointestinal diarrhea 03/05/2014 Genitourinary/Nephrology No dysuria 03/05 Musculoskeletal joint complaint 2013 Dermatologic No rash 03/05/2014 Neurologic No alteration of consciousness 03/05/2014 Psychiatric anxiety 03/05/2014 Psychiatric depression 03/05/2014 Constitutional No recent illness 2013 Constitutional No anorexia 10/18/2013 Constitutional No night sweats 2013 Constitutional No chills 10/18/2013 Constitutional No diaphoresis 10/18/2013 Constitutional No fatigue 10/18/2013 Constitutional No fever 10/18/2013 Constitutional No insomnia 10/18/2013 Constitutional No malaise 10/18/2013 Eyes No eye discharge 10/18/2013 Eyes No eye erythema 10/18/2013 Cardiovascular No chest pain/pressure 08/2014 Respiratory No cough 10/18/2013 Gastrointestinal No abdominal pain 2013 Gastrointestinal No constipation 2013 Gastrointestinal No diarrhea 10/18/2013 Gastrointestinal No nausea 10/18/2013 Gastrointestinal No vomiting 10/18/2013 Genitourinary/Nephrology No dysuria 10/18 Psychiatric No anxiety 10/18/2013 Psychiatric No depression 10/18/2013 Neurologic No dizziness 10/18/2013 Neurologic No headache 10/18/2013 Neurologic No neck pain 10/18/2013 Neurologic No syncope 10/18/2013 Dermatologic No rash 10/18/2013 Dermatologic No scar 10/18/2013 Musculoskeletal No swelling 10/18/2013 Musculoskeletal No muscle weakness 2013 Musculoskeletal No myalgias 10/18/2013 Musculoskeletal stiffness 10/18/2013 Musculoskeletal arthralgia(s) 10/18/2013 Ears/Nose/Throat/Neck No dental pain 08/2014 Ears/Nose/Throat/Neck No dizziness 2013 Ears/Nose/Throat/Neck No dysphagia 2013 Ears/Nose/Throat/Neck No headache 2013 Ears/Nose/Throat/Neck No hearing loss 08/2014 Ears/Nose/Throat/Neck No nasal allergies 10/18/2013 Ears/Nose/Throat/Neck No sore throat 08/2014 Ears/Nose/Throat/Neck No postnasal drip 10/18/2013 Ears/Nose/Throat/Neck No sinus congestion 10/18/2013 Constitutional No recent illness 2011 Constitutional No anorexia 05/02/2012 Constitutional No night sweats 2011 Constitutional No chills 05/02/2012 Constitutional No diaphoresis 05/02/2012 Constitutional No fatigue 05/02/2012 Constitutional No fever 05/02/2012 Constitutional No insomnia 05/02/2012 Constitutional No malaise 05/02/2012 Eyes No eye discharge 05/02/2012 Eyes No eye erythema 05/02/2012 Ears/Nose/Throat/Neck No dizziness 2011 Ears/Nose/Throat/Neck No nasal allergies 05/02/2012 Ears/Nose/Throat/Neck No nasal discharge 05/02/2012 Ears/Nose/Throat/Neck No sore throat Ears/Nose/Throat/Neck No otalgia 2011 Cardiovascular No chest pain/pressure Cardiovascular No edema 05/02/2012 Cardiovascular No dyspnea 05/02/2012 Psychiatric anxiety 05/02/2012 Psychiatric depression 05/02/2012 Neurologic No alteration of consciousness 05/02/2012 Neurologic No dizziness 05/02/2012 Gastrointestinal No nausea 05/02/2012 Gastrointestinal No vomiting 05/02/2012 Constitutional No recent illness 2011 Constitutional No anorexia 04/13/2012 Constitutional No night sweats 2011 Constitutional No chills 04/13/2012 Constitutional No diaphoresis 04/13/2012 Constitutional No fatigue 04/13/2012 Constitutional No fever 04/13/2012 Constitutional No insomnia 04/13/2012 Constitutional No malaise 04/13/2012 Eyes No eye discharge 04/13/2012 Eyes No eye erythema 04/13/2012 Cardiovascular No chest pain/pressure 04/2012 Respiratory No cough 04/13/2012 Gastrointestinal No abdominal pain 2011 Gastrointestinal No diarrhea 04/13/2012 Gastrointestinal No constipation 2011 Gastrointestinal No vomiting 04/13/2012 Gastrointestinal No nausea 04/13/2012 Genitourinary/Nephrology No dysuria 04/13 Constitutional No recent illness 2011 Constitutional No anorexia 01/01/2012 Constitutional No night sweats 2011 Constitutional No chills 01/01/2012 Constitutional No diaphoresis 01/01/2012 Constitutional No fatigue 01/01/2012 Constitutional No fever 01/01/2012 Constitutional No insomnia 01/01/2012 Eyes No eye discharge 01/01/2012 Eyes No eye erythema 01/01/2012 Ears/Nose/Throat/Neck No dizziness 2011 Ears/Nose/Throat/Neck nasal allergies Ears/Nose/Throat/Neck nasal discharge Ears/Nose/Throat/Neck No otalgia 2011 Ears/Nose/Throat/Neck No sore throat Cardiovascular No chest pain/pressure Respiratory No productive sputum 2011 Respiratory No chest congestion 2011 Respiratory No cough 01/01/2012 Gastrointestinal No abdominal pain 2011 Dermatologic No rash 01/01/2012 Neurologic No alteration of consciousness 01/01/2012 Psychiatric anxiety 01/01/2012 Psychiatric depression 01/01/2012 Psychiatric No psychosis 01/01/2012 Psychiatric No suicidality 01/01/2012 Psychiatric No golden 01/01/2012 Psychiatric No hallucination 01/01/2012 Constitutional fatigue 09/28/2011 Constitutional insomnia 09/28/2011 Cardiovascular fatigue 09/28/2011 Respiratory No dyspnea 09/28/2011 Gastrointestinal constipation 09/28/2011 Gastrointestinal No nausea 09/28/2011 Genitourinary/Nephrology No dysuria 09/28 Genitourinary/Nephrology No urinary urgency 09/28/2011 Genitourinary/Nephrology No urinary frequency 09/28/2011 Musculoskeletal joint complaint 2011 Dermatologic No rash 09/28/2011 Dermatologic No sores 09/28/2011 Psychiatric anxiety 09/28/2011 Psychiatric depression 09/28/2011 Psychiatric disturbances of emotion 09/28 Psychiatric disturbances of thinking Musculoskeletal muscle weakness 2010 Musculoskeletal stiffness 06/24/2011 Musculoskeletal No swelling 06/24/2011 Musculoskeletal shoulder pain 06/24/2011 Musculoskeletal No bone fracture 2010 Cardiovascular No chest pain/pressure Respiratory No daytime hypersomnolence Gastrointestinal No nausea 06/24/2011 Gastrointestinal No vomiting 06/24/2011 Gastrointestinal No constipation 2010 Constitutional No recent illness 2010 Constitutional No fatigue 06/24/2011 Constitutional No fever 06/24/2011 Constitutional No recent illness 2010 Constitutional No chills 06/10/2011 Constitutional fatigue 06/10/2011 Constitutional No fever 06/10/2011 Eyes No vision change 06/10/2011 Ears/Nose/Throat/Neck No dizziness 2010 Ears/Nose/Throat/Neck No dysphagia 2010 Ears/Nose/Throat/Neck No headache 2010 Ears/Nose/Throat/Neck No hoarseness 06/10 Cardiovascular No chest pain/pressure 01/2011 Cardiovascular No dyspnea 06/10/2011 Cardiovascular No edema 06/10/2011 Cardiovascular fatigue 06/10/2011 Cardiovascular exercise intolerance 06/10 Respiratory No chest congestion 2010 Respiratory No chest tightness 2010 Respiratory No cough 06/10/2011 Gastrointestinal No abdominal pain 2010 Gastrointestinal No anorexia 06/10/2011 Gastrointestinal No constipation 2010 Gastrointestinal No diarrhea 06/10/2011 Gastrointestinal No gas and bloating 01/2011 Genitourinary/Nephrology No urinary incontinence 06/10/2011 Genitourinary/Nephrology No urinary frequency 06/10/2011 Genitourinary/Nephrology No urinary urgency 06/10/2011 Musculoskeletal No swelling 06/10/2011 Musculoskeletal No stiffness 06/10/2011 Musculoskeletal back pain 06/10/2011 Musculoskeletal neck pain 06/10/2011 Musculoskeletal myalgias 06/10/2011 Dermatologic No rash 06/10/2011 Psychiatric anxiety 06/10/2011 Psychiatric depression 06/10/2011 Physical Exam Exam Name System Name Item Name Status Result Effective Dates Notes Full Exam - General 1994 Constitutional general appearance Development: well developed 06/09/2018 None Full Exam - General 1994 Constitutional general appearance Development: appears stated age 1006/09/2018 None Full Exam - General 1994 Constitutional general appearance Assistive Device: cane 06/09/2018 None Full Exam - General 1994 Eyes conjunctiva /eyelids Overall: conjunctiva clear 06/09/2018 None Full Exam - General 1994 Eyes conjunctiva /eyelids Overall: cornea clear 06/09/2018 None Full Exam - General 1994 Eyes conjunctiva /eyelids Overall: eyelids normal 06/09/2018 None Full Exam - General 1994 Eyes pupils and irises Overall: pupils equal, round, reactive to light and accomodation 06/09/2018 None Full Exam - General 1994 Ears/Nose/Throat otoscopic exam Overall: external auditory canals clear 06/09/2018 None Full Exam - General 1994 Ears/Nose/Throat otoscopic exam Overall: tympanic membranes clear 06/09/2018 None Full Exam - General 1994 Ears/Nose/Throat lips/teeth/gingiva Overall: benign lips 06/09/2018 None Full Exam - General 1994 Ears/Nose/Throat lips/teeth/gingiva Overall: normal dentition 06/09/2018 None Full Exam - General 1994 Ears/Nose/Throat oral cavity/pharynx/larynx Overall: oral mucosa clear 06/09/2018 None Full Exam - General 1994 Ears/Nose/Throat oral cavity/pharynx/larynx Overall: oropharyngeal mucosa clear 06/09/2018 None Full Exam - General 1994 Ears/Nose/Throat oral cavity/pharynx/larynx Overall: no masses 06/09/2018 None Full Exam - General 1994 Respiratory auscultation Overall: breath sounds clear bilaterally 06/09/2018 None Full Exam - General 1994 Respiratory respiratory effort/rhythm Overall: no retractions 06/09/2018 None Full Exam - General 1994 Respiratory respiratory effort/rhythm Overall: normal rate 06/09/2018 None Full Exam - General 1994 Cardiovascular extremities Overall: no clubbing 06/09/2018 None Full Exam - General 1994 Cardiovascular auscultation of heart Overall: regular rate 06/09/2018 None Full Exam - General 1994 Cardiovascular auscultation of heart Overall: normal heart sounds 06/09/2018 None Full Exam - General 1994 Cardiovascular auscultation of heart Systolic murmur: holosystolic 06/09/2018 None Full Exam - General 1994 Cardiovascular auscultation of heart Systolic murmur grade: II/ 06/09/2018 None Full Exam - General 1994 Abdomen abdominal exam Overall: no tenderness 06/09/2018 None Full Exam - General 1994 Abdomen abdominal exam Overall: normal bowel sounds 06/09/2018 None Full Exam - General 1994 Musculoskeletal gait and station Overall: normal gait 06/09/2018 None Full Exam - General 1994 Musculoskeletal gait and station Overall: normal station 06/09/2018 None Full Exam - General 1994 Neurologic gait Conventional walking: ataxic rhythm 06/09/2018 None Full Exam - General 1994 Neurologic gait Conventional walking: unsteady 06/09/2018 None Full Exam - General 1994 Neurologic cranial nerves Overall: crainial nerves 2 - 12 grossly intact 06/09/2018 None Full Exam - General 1994 Psychiatric orientation/consciousness Overall: oriented to person, place and time 06/09/2018 None Full Exam - General 1994 Psychiatric mood and affect Mood: flat 06/09/2018 None Full Exam - General 1994 Constitutional general appearance Development: well developed 04/14/2018 None Full Exam - General 1994 Constitutional general appearance Development: appears stated age 0804/14/2018 None Full Exam - General 1994 Eyes conjunctiva /eyelids Overall: conjunctiva clear 04/14/2018 None Full Exam - General 1994 Eyes conjunctiva /eyelids Overall: cornea clear 04/14/2018 None Full Exam - General 1994 Eyes conjunctiva /eyelids Overall: eyelids normal 04/14/2018 None Full Exam - General 1994 Eyes pupils and irises Overall: pupils equal, round, reactive to light and accomodation 04/14/2018 None Full Exam - General 1994 Ears/Nose/Throat otoscopic exam Overall: external auditory canals clear 04/14/2018 None Full Exam - General 1994 Ears/Nose/Throat otoscopic exam Overall: tympanic membranes clear 04/14/2018 None Full Exam - General 1994 Ears/Nose/Throat lips/teeth/gingiva Overall: benign lips 04/14/2018 None Full Exam - General 1994 Ears/Nose/Throat lips/teeth/gingiva Overall: normal dentition 04/14/2018 None Full Exam - General 1994 Ears/Nose/Throat oral cavity/pharynx/larynx Overall: oral mucosa clear 04/14/2018 None Full Exam - General 1994 Ears/Nose/Throat oral cavity/pharynx/larynx Overall: oropharyngeal mucosa clear 04/14/2018 None Full Exam - General 1994 Ears/Nose/Throat oral cavity/pharynx/larynx Overall: no masses 04/14/2018 None Full Exam - General 1994 Respiratory auscultation Overall: breath sounds clear bilaterally 04/14/2018 None Full Exam - General 1994 Respiratory respiratory effort/rhythm Overall: no retractions 04/14/2018 None Full Exam - General 1994 Respiratory respiratory effort/rhythm Overall: normal rate 04/14/2018 None Full Exam - General 1994 Cardiovascular extremities Overall: no clubbing 04/14/2018 None Full Exam - General 1994 Cardiovascular auscultation of heart Overall: regular rate 04/14/2018 None Full Exam - General 1994 Cardiovascular auscultation of heart Overall: normal heart sounds 04/14/2018 None Full Exam - General 1994 Cardiovascular auscultation of heart Systolic murmur: holosystolic 04/14/2018 None Full Exam - General 1994 Cardiovascular auscultation of heart Systolic murmur grade: II/ 04/14/2018 None Full Exam - General 1994 Abdomen abdominal exam Overall: no tenderness 04/14/2018 None Full Exam - General 1994 Abdomen abdominal exam Overall: normal bowel sounds 04/14/2018 None Full Exam - General 1994 Musculoskeletal gait and station Overall: normal gait 04/14/2018 None Full Exam - General 1994 Musculoskeletal gait and station Overall: normal station 04/14/2018 None Full Exam - General 1994 Neurologic cranial nerves Overall: crainial nerves 2 - 12 grossly intact 04/14/2018 None Full Exam - General 1994 Psychiatric orientation/consciousness Overall: oriented to person, place and time 04/14/2018 None Full Exam - General 1994 Constitutional general appearance Assistive Device: cane 04/14/2018 None Full Exam - General 1994 Psychiatric mood and affect Mood: flat 04/14/2018 None Full Exam - General 1994 Neurologic gait Conventional walking: ataxic rhythm 04/14/2018 None Full Exam - General 1994 Neurologic gait Conventional walking: unsteady 04/14/2018 None Full Exam - General 1994 Musculoskeletal spine, ribs and pelvis Sacroiliac joints: tender left sacroiliac joint 04/14/2018 None Full Exam - General 1994 Constitutional general appearance Development: well developed 01/04/2018 None Full Exam - General 1994 Constitutional general appearance Development: appears stated age 0501/04/2018 None Full Exam - General 1994 Constitutional general appearance Hygiene/Attention to Grooming: good hygiene 01/04/2018 None Full Exam - General 1994 Eyes conjunctiva /eyelids Overall: conjunctiva clear 01/04/2018 None Full Exam - General 1994 Eyes conjunctiva /eyelids Overall: cornea clear 01/04/2018 None Full Exam - General 1994 Eyes conjunctiva /eyelids Overall: eyelids normal 01/04/2018 None Full Exam - General 1994 Eyes pupils and irises Overall: pupils equal, round, reactive to light and accomodation 01/04/2018 None Full Exam - General 1994 Ears/Nose/Throat otoscopic exam Overall: external auditory canals clear 01/04/2018 None Full Exam - General 1994 Ears/Nose/Throat otoscopic exam Overall: tympanic membranes clear 01/04/2018 None Full Exam - General 1994 Ears/Nose/Throat lips/teeth/gingiva Overall: benign lips 01/04/2018 None Full Exam - General 1994 Ears/Nose/Throat lips/teeth/gingiva Overall: normal dentition 01/04/2018 None Full Exam - General 1994 Ears/Nose/Throat oral cavity/pharynx/larynx Overall: oral mucosa clear 01/04/2018 None Full Exam - General 1994 Ears/Nose/Throat oral cavity/pharynx/larynx Overall: oropharyngeal mucosa clear 01/04/2018 None Full Exam - General 1994 Ears/Nose/Throat oral cavity/pharynx/larynx Overall: no masses 01/04/2018 None Full Exam - General 1994 Respiratory auscultation Overall: breath sounds clear bilaterally 01/04/2018 None Full Exam - General 1994 Respiratory respiratory effort/rhythm Overall: no retractions 01/04/2018 None Full Exam - General 1994 Respiratory respiratory effort/rhythm Overall: normal rate 01/04/2018 None Full Exam - General 1994 Cardiovascular extremities Overall: no clubbing 01/04/2018 None Full Exam - General 1994 Cardiovascular auscultation of heart Overall: regular rate 01/04/2018 None Full Exam - General 1994 Cardiovascular auscultation of heart Overall: normal heart sounds 01/04/2018 None Full Exam - General 1994 Abdomen abdominal exam Overall: no tenderness 01/04/2018 None Full Exam - General 1994 Abdomen abdominal exam Overall: normal bowel sounds 01/04/2018 None Full Exam - General 1994 Musculoskeletal gait and station Overall: normal gait 01/04/2018 None Full Exam - General 1994 Musculoskeletal gait and station Overall: normal station 01/04/2018 None Full Exam - General 1994 Neurologic cranial nerves Overall: crainial nerves 2 - 12 grossly intact 01/04/2018 None Full Exam - General 1994 Psychiatric orientation/consciousness Overall: oriented to person, place and time 01/04/2018 None Full Exam - General 1994 Psychiatric mood and affect Mood: depressed 01/04/2018 None Full Exam - General 1994 Psychiatric mood and affect Mood: anxious 01/04/2018 None Full Exam - General 1994 Cardiovascular auscultation of heart Systolic murmur: holosystolic 01/04/2018 None Full Exam - General 1994 Cardiovascular auscultation of heart Systolic murmur grade: II/ 01/04/2018 None Full Exam - General 1994 Constitutional general appearance Development: well developed 12/06/2017 None Full Exam - General 1994 Constitutional general appearance Development: appears stated age 0412/06/2017 None Full Exam - General 1994 Constitutional general appearance Hygiene/Attention to Grooming: good hygiene 12/06/2017 None Full Exam - General 1994 Eyes conjunctiva /eyelids Overall: conjunctiva clear 12/06/2017 None Full Exam - General 1994 Eyes conjunctiva /eyelids Overall: cornea clear 12/06/2017 None Full Exam - General 1994 Eyes conjunctiva /eyelids Overall: eyelids normal 12/06/2017 None Full Exam - General 1994 Eyes pupils and irises Overall: pupils equal, round, reactive to light and accomodation 12/06/2017 None Full Exam - General 1994 Ears/Nose/Throat otoscopic exam Overall: external auditory canals clear 12/06/2017 None Full Exam - General 1994 Ears/Nose/Throat otoscopic exam Overall: tympanic membranes clear 12/06/2017 None Full Exam - General 1994 Ears/Nose/Throat lips/teeth/gingiva Overall: benign lips 12/06/2017 None Full Exam - General 1994 Ears/Nose/Throat lips/teeth/gingiva Overall: normal dentition 12/06/2017 None Full Exam - General 1994 Ears/Nose/Throat oral cavity/pharynx/larynx Overall: oral mucosa clear 12/06/2017 None Full Exam - General 1994 Ears/Nose/Throat oral cavity/pharynx/larynx Overall: oropharyngeal mucosa clear 12/06/2017 None Full Exam - General 1994 Ears/Nose/Throat oral cavity/pharynx/larynx Overall: no masses 12/06/2017 None Full Exam - General 1994 Respiratory auscultation Overall: breath sounds clear bilaterally 12/06/2017 None Full Exam - General 1994 Respiratory respiratory effort/rhythm Overall: no retractions 12/06/2017 None Full Exam - General 1994 Respiratory respiratory effort/rhythm Overall: normal rate 12/06/2017 None Full Exam - General 1994 Cardiovascular extremities Overall: no clubbing 12/06/2017 None Full Exam - General 1994 Cardiovascular auscultation of heart Overall: regular rate 12/06/2017 None Full Exam - General 1994 Cardiovascular auscultation of heart Overall: normal heart sounds 12/06/2017 None Full Exam - General 1994 Abdomen abdominal exam Overall: no tenderness 12/06/2017 None Full Exam - General 1994 Abdomen abdominal exam Overall: normal bowel sounds 12/06/2017 None Full Exam - General 1994 Musculoskeletal gait and station Overall: normal gait 12/06/2017 None Full Exam - General 1994 Musculoskeletal gait and station Overall: normal station 12/06/2017 None Full Exam - General 1994 Neurologic cranial nerves Overall: crainial nerves 2 - 12 grossly intact 12/06/2017 None Full Exam - General 1994 Psychiatric orientation/consciousness Overall: oriented to person, place and time 12/06/2017 None Full Exam - General 1994 Psychiatric mood and affect Mood: depressed 12/06/2017 None Full Exam - General 1994 Psychiatric mood and affect Mood: anxious 12/06/2017 None Full Exam - General 1994 Constitutional general appearance Development: well developed 03/25/2017 None Full Exam - General 1994 Constitutional general appearance Development: appears stated age 0703/25/2017 None Full Exam - General 1994 Constitutional general appearance Hygiene/Attention to Grooming: good hygiene 03/25/2017 None Full Exam - General 1994 Eyes conjunctiva /eyelids Overall: conjunctiva clear 03/25/2017 None Full Exam - General 1994 Eyes conjunctiva /eyelids Overall: cornea clear 03/25/2017 None Full Exam - General 1994 Eyes conjunctiva /eyelids Overall: eyelids normal 03/25/2017 None Full Exam - General 1994 Eyes pupils and irises Overall: pupils equal, round, reactive to light and accomodation 03/25/2017 None Full Exam - General 1994 Ears/Nose/Throat otoscopic exam Overall: external auditory canals clear 03/25/2017 None Full Exam - General 1994 Ears/Nose/Throat otoscopic exam Overall: tympanic membranes clear 03/25/2017 None Full Exam - General 1994 Ears/Nose/Throat lips/teeth/gingiva Overall: benign lips 03/25/2017 None Full Exam - General 1994 Ears/Nose/Throat lips/teeth/gingiva Overall: normal dentition 03/25/2017 None Full Exam - General 1994 Ears/Nose/Throat oral cavity/pharynx/larynx Overall: oral mucosa clear 03/25/2017 None Full Exam - General 1994 Ears/Nose/Throat oral cavity/pharynx/larynx Overall: oropharyngeal mucosa clear 03/25/2017 None Full Exam - General 1994 Ears/Nose/Throat oral cavity/pharynx/larynx Overall: no masses 03/25/2017 None Full Exam - General 1994 Respiratory auscultation Overall: breath sounds clear bilaterally 03/25/2017 None Full Exam - General 1994 Respiratory respiratory effort/rhythm Overall: no retractions 03/25/2017 None Full Exam - General 1994 Respiratory respiratory effort/rhythm Overall: normal rate 03/25/2017 None Full Exam - General 1994 Cardiovascular extremities Overall: no clubbing 03/25/2017 None Full Exam - General 1994 Cardiovascular auscultation of heart Overall: regular rate 03/25/2017 None Full Exam - General 1994 Cardiovascular auscultation of heart Overall: normal heart sounds 03/25/2017 None Full Exam - General 1994 Abdomen abdominal exam Overall: no tenderness 03/25/2017 None Full Exam - General 1994 Abdomen abdominal exam Overall: normal bowel sounds 03/25/2017 None Full Exam - General 1994 Musculoskeletal gait and station Overall: normal gait 03/25/2017 None Full Exam - General 1994 Musculoskeletal gait and station Overall: normal station 03/25/2017 None Full Exam - General 1994 Neurologic cranial nerves Overall: crainial nerves 2 - 12 grossly intact 03/25/2017 None Full Exam - General 1994 Psychiatric orientation/consciousness Overall: oriented to person, place and time 03/25/2017 None Full Exam - General 1994 Psychiatric mood and affect Mood: depressed 03/25/2017 None Full Exam - General 1994 Psychiatric mood and affect Mood: anxious 03/25/2017 None Full Exam - General 1994 Constitutional general appearance Development: well developed 11/26/2016 None Full Exam - General 1994 Constitutional general appearance Development: appears stated age 0311/26/2016 None Full Exam - General 1994 Constitutional general appearance Hygiene/Attention to Grooming: good hygiene 11/26/2016 None Full Exam - General 1994 Eyes conjunctiva /eyelids Overall: conjunctiva clear 11/26/2016 None Full Exam - General 1994 Eyes conjunctiva /eyelids Overall: cornea clear 11/26/2016 None Full Exam - General 1994 Eyes conjunctiva /eyelids Overall: eyelids normal 11/26/2016 None Full Exam - General 1994 Eyes pupils and irises Overall: pupils equal, round, reactive to light and accomodation 11/26/2016 None Full Exam - General 1994 Ears/Nose/Throat otoscopic exam Overall: external auditory canals clear 11/26/2016 None Full Exam - General 1994 Ears/Nose/Throat otoscopic exam Overall: tympanic membranes clear 11/26/2016 None Full Exam - General 1994 Ears/Nose/Throat lips/teeth/gingiva Overall: benign lips 11/26/2016 None Full Exam - General 1994 Ears/Nose/Throat lips/teeth/gingiva Overall: normal dentition 11/26/2016 None Full Exam - General 1994 Ears/Nose/Throat oral cavity/pharynx/larynx Overall: oral mucosa clear 11/26/2016 None Full Exam - General 1994 Ears/Nose/Throat oral cavity/pharynx/larynx Overall: oropharyngeal mucosa clear 11/26/2016 None Full Exam - General 1994 Ears/Nose/Throat oral cavity/pharynx/larynx Overall: no masses 11/26/2016 None Full Exam - General 1994 Respiratory auscultation Overall: breath sounds clear bilaterally 11/26/2016 None Full Exam - General 1994 Respiratory respiratory effort/rhythm Overall: no retractions 11/26/2016 None Full Exam - General 1994 Respiratory respiratory effort/rhythm Overall: normal rate 11/26/2016 None Full Exam - General 1994 Cardiovascular extremities Overall: no clubbing 11/26/2016 None Full Exam - General 1994 Cardiovascular auscultation of heart Overall: regular rate 11/26/2016 None Full Exam - General 1994 Cardiovascular auscultation of heart Overall: normal heart sounds 11/26/2016 None Full Exam - General 1994 Abdomen abdominal exam Overall: no tenderness 11/26/2016 None Full Exam - General 1994 Abdomen abdominal exam Overall: normal bowel sounds 11/26/2016 None Full Exam - General 1994 Musculoskeletal gait and station Overall: normal gait 11/26/2016 None Full Exam - General 1994 Musculoskeletal gait and station Overall: normal station 11/26/2016 None Full Exam - General 1994 Neurologic cranial nerves Overall: crainial nerves 2 - 12 grossly intact 11/26/2016 None Full Exam - General 1994 Psychiatric orientation/consciousness Overall: oriented to person, place and time 11/26/2016 None Full Exam - General 1994 Psychiatric mood and affect Mood: depressed 11/26/2016 None Full Exam - General 1994 Psychiatric mood and affect Mood: anxious 11/26/2016 None Full Exam - General 1994 Constitutional general appearance Development: well developed 08/06/2016 None Full Exam - General 1994 Constitutional general appearance Development: appears stated age 1208/06/2016 None Full Exam - General 1994 Constitutional general appearance Hygiene/Attention to Grooming: good hygiene 08/06/2016 None Full Exam - General 1994 Eyes conjunctiva /eyelids Overall: conjunctiva clear 08/06/2016 None Full Exam - General 1994 Eyes conjunctiva /eyelids Overall: cornea clear 08/06/2016 None Full Exam - General 1994 Eyes conjunctiva /eyelids Overall: eyelids normal 08/06/2016 None Full Exam - General 1994 Eyes pupils and irises Overall: pupils equal, round, reactive to light and accomodation 08/06/2016 None Full Exam - General 1994 Ears/Nose/Throat otoscopic exam Overall: external auditory canals clear 08/06/2016 None Full Exam - General 1994 Ears/Nose/Throat otoscopic exam Overall: tympanic membranes clear 08/06/2016 None Full Exam - General 1994 Ears/Nose/Throat lips/teeth/gingiva Overall: benign lips 08/06/2016 None Full Exam - General 1994 Ears/Nose/Throat lips/teeth/gingiva Overall: normal dentition 08/06/2016 None Full Exam - General 1994 Ears/Nose/Throat oral cavity/pharynx/larynx Overall: oral mucosa clear 08/06/2016 None Full Exam - General 1994 Ears/Nose/Throat oral cavity/pharynx/larynx Overall: oropharyngeal mucosa clear 08/06/2016 None Full Exam - General 1994 Ears/Nose/Throat oral cavity/pharynx/larynx Overall: no masses 08/06/2016 None Full Exam - General 1994 Respiratory auscultation Overall: breath sounds clear bilaterally 08/06/2016 None Full Exam - General 1994 Respiratory respiratory effort/rhythm Overall: no retractions 08/06/2016 None Full Exam - General 1994 Respiratory respiratory effort/rhythm Overall: normal rate 08/06/2016 None Full Exam - General 1994 Cardiovascular extremities Overall: no clubbing 08/06/2016 None Full Exam - General 1994 Cardiovascular auscultation of heart Overall: regular rate 08/06/2016 None Full Exam - General 1994 Cardiovascular auscultation of heart Overall: normal heart sounds 08/06/2016 None Full Exam - General 1994 Abdomen abdominal exam Overall: no tenderness 08/06/2016 None Full Exam - General 1994 Abdomen abdominal exam Overall: normal bowel sounds 08/06/2016 None Full Exam - General 1994 Musculoskeletal gait and station Overall: normal gait 08/06/2016 None Full Exam - General 1994 Musculoskeletal gait and station Overall: normal station 08/06/2016 uses a cane when walking long distances Full Exam - General 1994 Neurologic cranial nerves Overall: crainial nerves 2 - 12 grossly intact 08/06/2016 None Full Exam - General 1994 Psychiatric orientation/consciousness Overall: oriented to person, place and time 08/06/2016 None Full Exam - General 1994 Psychiatric mood and affect Mood: anxious 08/06/2016 None Full Exam - General 1994 Psychiatric mood and affect Mood: depressed 08/06/2016 None Full Exam - General 1994 Constitutional general appearance Development: well developed 05/04/2016 None Full Exam - General 1994 Constitutional general appearance Development: appears stated age 0805/04/2016 None Full Exam - General 1994 Constitutional general appearance Hygiene/Attention to Grooming: good hygiene 05/04/2016 None Full Exam - General 1994 Eyes conjunctiva /eyelids Overall: conjunctiva clear 05/04/2016 None Full Exam - General 1994 Eyes conjunctiva /eyelids Overall: cornea clear 05/04/2016 None Full Exam - General 1994 Eyes conjunctiva /eyelids Overall: eyelids normal 05/04/2016 None Full Exam - General 1994 Eyes pupils and irises Overall: pupils equal, round, reactive to light and accomodation 05/04/2016 None Full Exam - General 1994 Ears/Nose/Throat otoscopic exam Overall: external auditory canals clear 05/04/2016 None Full Exam - General 1994 Ears/Nose/Throat otoscopic exam Overall: tympanic membranes clear 05/04/2016 None Full Exam - General 1994 Ears/Nose/Throat lips/teeth/gingiva Overall: benign lips 05/04/2016 None Full Exam - General 1994 Ears/Nose/Throat lips/teeth/gingiva Overall: normal dentition 05/04/2016 None Full Exam - General 1994 Ears/Nose/Throat oral cavity/pharynx/larynx Overall: oral mucosa clear 05/04/2016 None Full Exam - General 1994 Ears/Nose/Throat oral cavity/pharynx/larynx Overall: oropharyngeal mucosa clear 05/04/2016 None Full Exam - General 1994 Ears/Nose/Throat oral cavity/pharynx/larynx Overall: no masses 05/04/2016 None Full Exam - General 1994 Respiratory auscultation Overall: breath sounds clear bilaterally 05/04/2016 None Full Exam - General 1994 Respiratory respiratory effort/rhythm Overall: no retractions 05/04/2016 None Full Exam - General 1994 Respiratory respiratory effort/rhythm Overall: normal rate 05/04/2016 None Full Exam - General 1994 Cardiovascular extremities Overall: no clubbing 05/04/2016 None Full Exam - General 1994 Cardiovascular auscultation of heart Overall: regular rate 05/04/2016 None Full Exam - General 1994 Cardiovascular auscultation of heart Overall: normal heart sounds 05/04/2016 None Full Exam - General 1994 Abdomen abdominal exam Overall: no tenderness 05/04/2016 None Full Exam - General 1994 Abdomen abdominal exam Overall: normal bowel sounds 05/04/2016 None Full Exam - General 1994 Musculoskeletal gait and station Overall: normal gait 05/04/2016 None Full Exam - General 1994 Musculoskeletal gait and station Overall: normal station 05/04/2016 uses a cane when walking long distances Full Exam - General 1994 Neurologic cranial nerves Overall: crainial nerves 2 - 12 grossly intact 05/04/2016 None Full Exam - General 1994 Psychiatric orientation/consciousness Overall: oriented to person, place and time 05/04/2016 None Full Exam - General 1994 Psychiatric mood and affect Mood: anxious 05/04/2016 None Full Exam - General 1994 Integument inspection of skin Location: left leg 05/04/2016 None Full Exam - General 1994 Integument inspection of skin Dermatitis: erythema 05/04/2016 None Full Exam - General 1994 Constitutional general appearance Development: well developed 10/24/2015 None Full Exam - General 1994 Constitutional general appearance Development: appears stated age 0210/24/2015 None Full Exam - General 1994 Constitutional general appearance Hygiene/Attention to Grooming: good hygiene 10/24/2015 None Full Exam - General 1994 Eyes conjunctiva /eyelids Overall: conjunctiva clear 10/24/2015 None Full Exam - General 1994 Eyes conjunctiva /eyelids Overall: cornea clear 10/24/2015 None Full Exam - General 1994 Eyes conjunctiva /eyelids Overall: eyelids normal 10/24/2015 None Full Exam - General 1994 Eyes pupils and irises Overall: pupils equal, round, reactive to light and accomodation 10/24/2015 None Full Exam - General 1994 Ears/Nose/Throat otoscopic exam Overall: external auditory canals clear 10/24/2015 None Full Exam - General 1994 Ears/Nose/Throat otoscopic exam Overall: tympanic membranes clear 10/24/2015 None Full Exam - General 1994 Ears/Nose/Throat lips/teeth/gingiva Overall: benign lips 10/24/2015 None Full Exam - General 1994 Ears/Nose/Throat lips/teeth/gingiva Overall: normal dentition 10/24/2015 None Full Exam - General 1994 Ears/Nose/Throat oral cavity/pharynx/larynx Overall: oral mucosa clear 10/24/2015 None Full Exam - General 1994 Ears/Nose/Throat oral cavity/pharynx/larynx Overall: oropharyngeal mucosa clear 10/24/2015 None Full Exam - General 1994 Ears/Nose/Throat oral cavity/pharynx/larynx Overall: no masses 10/24/2015 None Full Exam - General 1994 Respiratory auscultation Overall: breath sounds clear bilaterally 10/24/2015 None Full Exam - General 1994 Respiratory respiratory effort/rhythm Overall: no retractions 10/24/2015 None Full Exam - General 1994 Respiratory respiratory effort/rhythm Overall: normal rate 10/24/2015 None Full Exam - General 1994 Cardiovascular extremities Overall: no clubbing 10/24/2015 None Full Exam - General 1994 Cardiovascular auscultation of heart Overall: regular rate 10/24/2015 None Full Exam - General 1994 Cardiovascular auscultation of heart Overall: normal heart sounds 10/24/2015 None Full Exam - General 1994 Abdomen abdominal exam Overall: no tenderness 10/24/2015 None Full Exam - General 1994 Abdomen abdominal exam Overall: normal bowel sounds 10/24/2015 None Full Exam - General 1994 Integument inspection of skin Overall: few scattered moles, no gross abnormalities 10/24/2015 None Full Exam - General 1994 Neurologic cranial nerves Overall: crainial nerves 2 - 12 grossly intact 10/24/2015 None Full Exam - General 1994 Psychiatric orientation/consciousness Overall: oriented to person, place and time 10/24/2015 None Full Exam - General 1994 Psychiatric mood and affect Mood: anxious 10/24/2015 None Full Exam - General 1994 Musculoskeletal gait and station Gait: able to turn quickly 10/24/2015 None Full Exam - General 1994 Neurologic gait Conventional walking: unsteady 10/24/2015 None Full Exam - General 1994 Constitutional general appearance Development: well developed 08/07/2015 None Full Exam - General 1994 Constitutional general appearance Development: appears stated age 1208/07/2015 None Full Exam - General 1994 Constitutional general appearance Hygiene/Attention to Grooming: good hygiene 08/07/2015 None Full Exam - General 1994 Eyes conjunctiva /eyelids Overall: conjunctiva clear 08/07/2015 None Full Exam - General 1994 Eyes conjunctiva /eyelids Overall: cornea clear 08/07/2015 None Full Exam - General 1994 Eyes conjunctiva /eyelids Overall: eyelids normal 08/07/2015 None Full Exam - General 1994 Eyes pupils and irises Overall: pupils equal, round, reactive to light and accomodation 08/07/2015 None Full Exam - General 1994 Ears/Nose/Throat otoscopic exam Overall: external auditory canals clear 08/07/2015 None Full Exam - General 1994 Ears/Nose/Throat otoscopic exam Overall: tympanic membranes clear 08/07/2015 None Full Exam - General 1994 Ears/Nose/Throat lips/teeth/gingiva Overall: benign lips 08/07/2015 None Full Exam - General 1994 Ears/Nose/Throat lips/teeth/gingiva Overall: normal dentition 08/07/2015 None Full Exam - General 1994 Ears/Nose/Throat oral cavity/pharynx/larynx Overall: oral mucosa clear 08/07/2015 None Full Exam - General 1994 Ears/Nose/Throat oral cavity/pharynx/larynx Overall: oropharyngeal mucosa clear 08/07/2015 None Full Exam - General 1994 Ears/Nose/Throat oral cavity/pharynx/larynx Overall: no masses 08/07/2015 None Full Exam - General 1994 Respiratory auscultation Overall: breath sounds clear bilaterally 08/07/2015 None Full Exam - General 1994 Respiratory respiratory effort/rhythm Overall: no retractions 08/07/2015 None Full Exam - General 1994 Respiratory respiratory effort/rhythm Overall: normal rate 08/07/2015 None Full Exam - General 1994 Cardiovascular extremities Overall: no clubbing 08/07/2015 None Full Exam - General 1994 Cardiovascular auscultation of heart Overall: regular rate 08/07/2015 None Full Exam - General 1994 Cardiovascular auscultation of heart Overall: normal heart sounds 08/07/2015 None Full Exam - General 1994 Abdomen abdominal exam Overall: no tenderness 08/07/2015 None Full Exam - General 1994 Abdomen abdominal exam Overall: normal bowel sounds 08/07/2015 None Full Exam - General 1994 Musculoskeletal gait and station Overall: normal gait 08/07/2015 None Full Exam - General 1994 Musculoskeletal gait and station Overall: normal station 08/07/2015 uses a cane when walking long distances Full Exam - General 1994 Integument inspection of skin Overall: few scattered moles, no gross abnormalities 08/07/2015 None Full Exam - General 1994 Neurologic cranial nerves Overall: crainial nerves 2 - 12 grossly intact 08/07/2015 None Full Exam - General 1994 Psychiatric orientation/consciousness Overall: oriented to person, place and time 08/07/2015 None Full Exam - General 1994 Psychiatric mood and affect Mood: anxious 08/07/2015 None Full Exam - General 1994 Constitutional general appearance Development: well developed 02/06/2015 None Full Exam - General 1994 Constitutional general appearance Development: appears stated age 0602/06/2015 None Full Exam - General 1994 Constitutional general appearance Hygiene/Attention to Grooming: good hygiene 02/06/2015 None Full Exam - General 1994 Eyes conjunctiva /eyelids Overall: conjunctiva clear 02/06/2015 None Full Exam - General 1994 Eyes conjunctiva /eyelids Overall: cornea clear 02/06/2015 None Full Exam - General 1994 Eyes conjunctiva /eyelids Overall: eyelids normal 02/06/2015 None Full Exam - General 1994 Eyes pupils and irises Overall: pupils equal, round, reactive to light and accomodation 02/06/2015 None Full Exam - General 1994 Ears/Nose/Throat otoscopic exam Overall: external auditory canals clear 02/06/2015 None Full Exam - General 1994 Ears/Nose/Throat otoscopic exam Overall: tympanic membranes clear 02/06/2015 None Full Exam - General 1994 Ears/Nose/Throat lips/teeth/gingiva Overall: benign lips 02/06/2015 None Full Exam - General 1994 Ears/Nose/Throat lips/teeth/gingiva Overall: normal dentition 02/06/2015 None Full Exam - General 1994 Ears/Nose/Throat oral cavity/pharynx/larynx Overall: oral mucosa clear 02/06/2015 None Full Exam - General 1994 Ears/Nose/Throat oral cavity/pharynx/larynx Overall: oropharyngeal mucosa clear 02/06/2015 None Full Exam - General 1994 Ears/Nose/Throat oral cavity/pharynx/larynx Overall: hypopharynx benign 02/06/2015 None Full Exam - General 1994 Ears/Nose/Throat oral cavity/pharynx/larynx Overall: no masses 02/06/2015 None Full Exam - General 1994 Respiratory auscultation Overall: breath sounds clear bilaterally 02/06/2015 None Full Exam - General 1994 Respiratory respiratory effort/rhythm Overall: no retractions 02/06/2015 None Full Exam - General 1994 Respiratory respiratory effort/rhythm Overall: normal rate 02/06/2015 None Full Exam - General 1994 Cardiovascular extremities Overall: no clubbing 02/06/2015 None Full Exam - General 1994 Cardiovascular auscultation of heart Overall: regular rate 02/06/2015 None Full Exam - General 1994 Cardiovascular auscultation of heart Overall: normal heart sounds 02/06/2015 None Full Exam - General 1994 Abdomen abdominal exam Overall: no tenderness 02/06/2015 None Full Exam - General 1995 Abdomen abdominal exam Overall: normal bowel sounds 02/06/2015 None Full Exam - General 1994 Integument inspection of skin Overall: few scattered moles, no gross abnormalities 02/06/2015 None Full Exam - General 1995 Neurologic deep tendon reflexes Overall: deep tendon reflexes intact 02/06/2015 None Full Exam - General 1995 Neurologic cranial nerves Overall: crainial nerves 2 - 12 grossly intact 02/06/2015 None Full Exam - General 1994 Psychiatric orientation/consciousness Overall: oriented to person, place and time 02/06/2015 None Full Exam - General 1994 Psychiatric mood and affect Overall: normal mood and affect 02/06/2015 None Full Exam - General 1994 Musculoskeletal gait and station Overall: normal gait 02/06/2015 None Full Exam - General 1994 Musculoskeletal gait and station Overall: normal station 02/06/2015 states she uses a cane when walking long distances such as into the grocery store Full Exam - General 1994 Musculoskeletal digits and nails Nails: a normal exam 02/06/2015 None Full Exam - General 1994 Constitutional general appearance Development: well developed 07/12/2014 None Full Exam - General 1994 Constitutional general appearance Development: appears stated age 1107/12/2014 None Full Exam - General 1994 Constitutional general appearance Hygiene/Attention to Grooming: good hygiene 07/12/2014 None Full Exam - General 1994 Eyes conjunctiva /eyelids Overall: conjunctiva clear 07/12/2014 None Full Exam - General 1994 Eyes conjunctiva /eyelids Overall: cornea clear 07/12/2014 None Full Exam - General 1994 Eyes conjunctiva /eyelids Overall: eyelids normal 07/12/2014 None Full Exam - General 1994 Eyes pupils and irises Overall: pupils equal, round, reactive to light and accomodation 07/12/2014 None Full Exam - General 1994 Ears/Nose/Throat otoscopic exam Overall: external auditory canals clear 07/12/2014 None Full Exam - General 1994 Ears/Nose/Throat otoscopic exam Overall: tympanic membranes clear 07/12/2014 None Full Exam - General 1994 Ears/Nose/Throat lips/teeth/gingiva Overall: benign lips 07/12/2014 None Full Exam - General 1994 Ears/Nose/Throat lips/teeth/gingiva Overall: normal dentition 07/12/2014 None Full Exam - General 1994 Ears/Nose/Throat oral cavity/pharynx/larynx Overall: oral mucosa clear 07/12/2014 None Full Exam - General 1995 Ears/Nose/Throat oral cavity/pharynx/larynx Overall: oropharyngeal mucosa clear 07/12/2014 None Full Exam - General 1995 Ears/Nose/Throat oral cavity/pharynx/larynx Overall: hypopharynx benign 07/12/2014 None Full Exam - General 1994 Ears/Nose/Throat oral cavity/pharynx/larynx Overall: no masses 07/12/2014 None Full Exam - General 1994 Respiratory auscultation Overall: breath sounds clear bilaterally 07/12/2014 None Full Exam - General 1994 Respiratory respiratory effort/rhythm Overall: no retractions 07/12/2014 None Full Exam - General 1994 Respiratory respiratory effort/rhythm Overall: normal rate 07/12/2014 None Full Exam - General 1994 Cardiovascular extremities Overall: no clubbing 07/12/2014 None Full Exam - General 1994 Cardiovascular auscultation of heart Overall: regular rate 07/12/2014 None Full Exam - General 1994 Cardiovascular auscultation of heart Overall: normal heart sounds 07/12/2014 None Full Exam - General 1994 Abdomen abdominal exam Overall: no tenderness 07/12/2014 None Full Exam - General 1994 Abdomen abdominal exam Overall: normal bowel sounds 07/12/2014 None Full Exam - General 1994 Integument inspection of skin Overall: few scattered moles, no gross abnormalities 07/12/2014 None Full Exam - General 1994 Neurologic deep tendon reflexes Overall: deep tendon reflexes intact 07/12/2014 None Full Exam - General 1994 Neurologic cranial nerves Overall: crainial nerves 2 - 12 grossly intact 07/12/2014 None Full Exam - General 1994 Psychiatric orientation/consciousness Overall: oriented to person, place and time 07/12/2014 None Full Exam - General 1994 Psychiatric mood and affect Overall: normal mood and affect 07/12/2014 None Full Exam - General 1994 Constitutional general appearance Overall: well nourished 05/17/2014 None Full Exam - General 1994 Constitutional general appearance Overall: well developed 05/17/2014 None Full Exam - General 1994 Eyes pupils and irises Overall: pupils equal, round, reactive to light and accomodation 05/17/2014 None Full Exam - General 1994 Ears/Nose/Throat oral cavity/pharynx/larynx Overall: oral mucosa clear 05/17/2014 None Full Exam - General 1994 Ears/Nose/Throat oral cavity/pharynx/larynx Overall: oropharyngeal mucosa clear 05/17/2014 None Full Exam - General 1994 Respiratory auscultation Overall: breath sounds clear bilaterally 05/17/2014 None Full Exam - General 1994 Respiratory respiratory effort/rhythm Overall: no retractions 05/17/2014 None Full Exam - General 1994 Respiratory respiratory effort/rhythm Overall: normal rate 05/17/2014 None Full Exam - General 1994 Cardiovascular auscultation of heart Overall: regular rate 05/17/2014 None Full Exam - General 1994 Cardiovascular auscultation of heart Overall: normal heart sounds 05/17/2014 None Full Exam - General 1994 Abdomen abdominal exam Overall: no tenderness 05/17/2014 None Full Exam - General 1995 Abdomen abdominal exam Overall: normal bowel sounds 05/17/2014 None Full Exam - General 1994 Neurologic gait Overall: no ataxia, no unsteadiness 05/17/2014 None Full Exam - General 1994 Neurologic cranial nerves Overall: crainial nerves 2 - 12 grossly intact 05/17/2014 None Full Exam - General 1994 Neurologic motor Overall: normal bulk, tone 05/17/2014 None Full Exam - General 1994 Psychiatric orientation/consciousness Overall: oriented to person, place and time 05/17/2014 None Full Exam - General 1994 Psychiatric mood and affect Mood: depressed 05/17/2014 None Full Exam - General 1994 Psychiatric mood and affect Affect: flat 05/17/2014 None Full Exam - General 1994 Musculoskeletal head and neck Overall: head atraumatic 05/17/2014 None Full Exam - General 1994 Musculoskeletal head and neck Overall: cervical spine benign 05/17/2014 None Full Exam - General 1994 Constitutional general appearance Development: well developed 04/16/2014 None Full Exam - General 1994 Constitutional general appearance Development: appears stated age 0804/16/2014 None Full Exam - General 1994 Constitutional general appearance Hygiene/Attention to Grooming: good hygiene 04/16/2014 None Full Exam - General 1994 Eyes conjunctiva /eyelids Overall: conjunctiva clear 04/16/2014 None Full Exam - General 1994 Eyes conjunctiva /eyelids Overall: cornea clear 04/16/2014 None Full Exam - General 1994 Eyes conjunctiva /eyelids Overall: eyelids normal 04/16/2014 None Full Exam - General 1994 Eyes pupils and irises Overall: pupils equal, round, reactive to light and accomodation 04/16/2014 None Full Exam - General 1994 Ears/Nose/Throat otoscopic exam Overall: external auditory canals clear 04/16/2014 None Full Exam - General 1994 Ears/Nose/Throat otoscopic exam Overall: tympanic membranes clear 04/16/2014 None Full Exam - General 1994 Ears/Nose/Throat lips/teeth/gingiva Overall: benign lips 04/16/2014 None Full Exam - General 1995 Ears/Nose/Throat lips/teeth/gingiva Overall: normal dentition 04/16/2014 None Full Exam - General 1995 Ears/Nose/Throat oral cavity/pharynx/larynx Overall: oral mucosa clear 04/16/2014 None Full Exam - General 1995 Ears/Nose/Throat oral cavity/pharynx/larynx Overall: oropharyngeal mucosa clear 04/16/2014 None Full Exam - General 1995 Ears/Nose/Throat oral cavity/pharynx/larynx Overall: hypopharynx benign 04/16/2014 None Full Exam - General 1994 Ears/Nose/Throat oral cavity/pharynx/larynx Overall: no masses 04/16/2014 None Full Exam - General 1994 Respiratory auscultation Overall: breath sounds clear bilaterally 04/16/2014 None Full Exam - General 1994 Respiratory respiratory effort/rhythm Overall: no retractions 04/16/2014 None Full Exam - General 1994 Respiratory respiratory effort/rhythm Overall: normal rate 04/16/2014 None Full Exam - General 1994 Cardiovascular extremities Overall: no clubbing 04/16/2014 None Full Exam - General 1994 Cardiovascular auscultation of heart Overall: regular rate 04/16/2014 None Full Exam - General 1994 Cardiovascular auscultation of heart Overall: normal heart sounds 04/16/2014 None Full Exam - General 1994 Abdomen abdominal exam Overall: no tenderness 04/16/2014 None Full Exam - General 1994 Abdomen abdominal exam Overall: normal bowel sounds 04/16/2014 None Full Exam - General 1994 Integument inspection of skin Overall: few scattered moles, no gross abnormalities 04/16/2014 None Full Exam - General 1994 Neurologic deep tendon reflexes Overall: deep tendon reflexes intact 04/16/2014 None Full Exam - General 1994 Neurologic cranial nerves Overall: crainial nerves 2 - 12 grossly intact 04/16/2014 None Full Exam - General 1994 Psychiatric orientation/consciousness Overall: oriented to person, place and time 04/16/2014 None Full Exam - General 1994 Psychiatric mood and affect Overall: normal mood and affect 04/16/2014 None Full Exam - General 1994 Constitutional general appearance Development: well developed 03/05/2014 None Full Exam - General 1994 Constitutional general appearance Development: appears stated age 0603/05/2014 None Full Exam - General 1994 Constitutional general appearance Hygiene/Attention to Grooming: good hygiene 03/05/2014 None Full Exam - General 1994 Eyes conjunctiva /eyelids Overall: conjunctiva clear 03/05/2014 None Full Exam - General 1994 Eyes conjunctiva /eyelids Overall: cornea clear 03/05/2014 None Full Exam - General 1994 Eyes conjunctiva /eyelids Overall: eyelids normal 03/05/2014 None Full Exam - General 1994 Eyes pupils and irises Overall: pupils equal, round, reactive to light and accomodation 03/05/2014 None Full Exam - General 1994 Ears/Nose/Throat otoscopic exam Overall: external auditory canals clear 03/05/2014 None Full Exam - General 1994 Ears/Nose/Throat otoscopic exam Overall: tympanic membranes clear 03/05/2014 None Full Exam - General 1994 Ears/Nose/Throat lips/teeth/gingiva Overall: benign lips 03/05/2014 None Full Exam - General 1994 Ears/Nose/Throat lips/teeth/gingiva Overall: normal dentition 03/05/2014 None Full Exam - General 1994 Ears/Nose/Throat oral cavity/pharynx/larynx Overall: oral mucosa clear 03/05/2014 None Full Exam - General 1994 Ears/Nose/Throat oral cavity/pharynx/larynx Overall: oropharyngeal mucosa clear 03/05/2014 None Full Exam - General 1994 Ears/Nose/Throat oral cavity/pharynx/larynx Overall: hypopharynx benign 03/05/2014 None Full Exam - General 1994 Ears/Nose/Throat oral cavity/pharynx/larynx Overall: no masses 03/05/2014 None Full Exam - General 1994 Respiratory auscultation Overall: breath sounds clear bilaterally 03/05/2014 None Full Exam - General 1994 Respiratory respiratory effort/rhythm Overall: no retractions 03/05/2014 None Full Exam - General 1994 Respiratory respiratory effort/rhythm Overall: normal rate 03/05/2014 None Full Exam - General 1994 Cardiovascular extremities Overall: no clubbing 03/05/2014 None Full Exam - General 1994 Cardiovascular auscultation of heart Overall: regular rate 03/05/2014 None Full Exam - General 1994 Cardiovascular auscultation of heart Overall: normal heart sounds 03/05/2014 None Full Exam - General 1994 Abdomen abdominal exam Overall: no tenderness 03/05/2014 None Full Exam - General 1994 Abdomen abdominal exam Overall: normal bowel sounds 03/05/2014 None Full Exam - General 1994 Integument inspection of skin Overall: few scattered moles, no gross abnormalities 03/05/2014 None Full Exam - General 1994 Neurologic deep tendon reflexes Overall: deep tendon reflexes intact 03/05/2014 None Full Exam - General 1994 Neurologic cranial nerves Overall: crainial nerves 2 - 12 grossly intact 03/05/2014 None Full Exam - General 1994 Psychiatric orientation/consciousness Overall: oriented to person, place and time 03/05/2014 None Full Exam - General 1994 Psychiatric mood and affect Overall: normal mood and affect 03/05/2014 None Full Exam - General 1994 Musculoskeletal lower extremity Inspection - lower leg: swelling 03/05/2014 steri strips left anterior ankle with foul smelling serosangious dranage noted-drainage cultured Full Exam - General 1994 Constitutional general appearance Development: appears stated age 0210/18/2013 None Full Exam - General 1994 Constitutional general appearance Development: well developed 10/18/2013 None Full Exam - General 1994 Constitutional general appearance Hygiene/Attention to Grooming: good hygiene 10/18/2013 None Full Exam - General 1994 Eyes conjunctiva /eyelids Overall: conjunctiva clear 10/18/2013 None Full Exam - General 1994 Eyes conjunctiva /eyelids Overall: cornea clear 10/18/2013 None Full Exam - General 1994 Eyes conjunctiva /eyelids Overall: eyelids normal 10/18/2013 None Full Exam - General 1994 Eyes pupils and irises Overall: pupils equal, round, reactive to light and accomodation 10/18/2013 None Full Exam - General 1994 Ears/Nose/Throat otoscopic exam Overall: external auditory canals clear 10/18/2013 None Full Exam - General 1994 Ears/Nose/Throat otoscopic exam Overall: tympanic membranes clear 10/18/2013 None Full Exam - General 1994 Ears/Nose/Throat lips/teeth/gingiva Overall: benign lips 10/18/2013 None Full Exam - General 1995 Ears/Nose/Throat lips/teeth/gingiva Overall: normal dentition 10/18/2013 None Full Exam - General 1995 Ears/Nose/Throat oral cavity/pharynx/larynx Overall: hypopharynx benign 10/18/2013 None Full Exam - General 1994 Ears/Nose/Throat oral cavity/pharynx/larynx Overall: no masses 10/18/2013 None Full Exam - General 1995 Ears/Nose/Throat oral cavity/pharynx/larynx Overall: oral mucosa clear 10/18/2013 None Full Exam - General 1994 Ears/Nose/Throat oral cavity/pharynx/larynx Overall: oropharyngeal mucosa clear 10/18/2013 None Full Exam - General 1994 Respiratory auscultation Overall: breath sounds clear bilaterally 10/18/2013 None Full Exam - General 1994 Respiratory respiratory effort/rhythm Overall: no retractions 10/18/2013 None Full Exam - General 1994 Respiratory respiratory effort/rhythm Overall: normal rate 10/18/2013 None Full Exam - General 1994 Cardiovascular extremities Overall: no clubbing 10/18/2013 None Full Exam - General 1994 Cardiovascular auscultation of heart Overall: normal heart sounds 10/18/2013 None Full Exam - General 1994 Cardiovascular auscultation of heart Overall: regular rate 10/18/2013 None Full Exam - General 1994 Abdomen abdominal exam Overall: no tenderness 10/18/2013 None Full Exam - General 1994 Abdomen abdominal exam Overall: normal bowel sounds 10/18/2013 None Full Exam - General 1994 Integument inspection of skin Overall: few scattered moles, no gross abnormalities 10/18/2013 None Full Exam - General 1994 Neurologic deep tendon reflexes Overall: deep tendon reflexes intact 10/18/2013 None Full Exam - General 1994 Neurologic cranial nerves Overall: crainial nerves 2 - 12 grossly intact 10/18/2013 None Full Exam - General 1994 Psychiatric orientation/consciousness Overall: oriented to person, place and time 10/18/2013 None Full Exam - General 1994 Psychiatric mood and affect Overall: normal mood and affect 10/18/2013 None Full Exam - General 1994 Constitutional general appearance Overall: well nourished 05/02/2012 None Full Exam - General 1994 Constitutional general appearance Overall: well developed 05/02/2012 None Full Exam - General 1994 Eyes pupils and irises Overall: pupils equal, round, reactive to light and accomodation 05/02/2012 None Full Exam - General 1994 Psychiatric orientation/consciousness Overall: oriented to person, place and time 05/02/2012 None Full Exam - General 1994 Psychiatric mood and affect Mood: depressed 05/02/2012 -tearful Full Exam - General 1994 Psychiatric mood and affect Affect: mood congruent 05/02/2012 None Full Exam - General 1994 Musculoskeletal upper extremity Inspection - shoulder: a normal exam 05/02/2012 None Full Exam - General 1994 Musculoskeletal upper extremity Palpation - shoulder: tenderness @ bicipital groove 05/02/2012 None Full Exam - General 1994 Musculoskeletal upper extremity Inspection - upper arm: swelling 05/02/2012 None Full Exam - General 1994 Musculoskeletal upper extremity Inspection - upper arm: nodule 05/02/2012 swelling and brusing with buldge noted to right upper arm at biceps Full Exam - General 1994 Musculoskeletal upper extremity Palpation - upper arm: tenderness 05/02/2012 None Full Exam - General 1994 Musculoskeletal upper extremity Palpation - upper arm: mass pressent 05/02/2012 None Full Exam - General 1994 Ears/Nose/Throat oral cavity/pharynx/larynx Overall: oral mucosa clear 05/02/2012 None Full Exam - General 1995 Ears/Nose/Throat oral cavity/pharynx/larynx Overall: oropharyngeal mucosa clear 05/02/2012 None Full Exam - General 1994 Respiratory auscultation Overall: breath sounds clear bilaterally 05/02/2012 None Full Exam - General 1994 Respiratory respiratory effort/rhythm Overall: no retractions 05/02/2012 None Full Exam - General 1994 Respiratory respiratory effort/rhythm Overall: normal rate 05/02/2012 None Full Exam - General 1994 Cardiovascular auscultation of heart Overall: regular rate 05/02/2012 None Full Exam - General 1994 Cardiovascular auscultation of heart Overall: normal heart sounds 05/02/2012 None Full Exam - General 1994 Abdomen abdominal exam Overall: no tenderness 05/02/2012 None Full Exam - General 1994 Abdomen abdominal exam Overall: normal bowel sounds 05/02/2012 None Full Exam - General 1994 Neurologic gait Overall: no ataxia, no unsteadiness 05/02/2012 None Full Exam - General 1994 Neurologic cranial nerves Overall: crainial nerves 2 - 12 grossly intact 05/02/2012 None Full Exam - General 1994 Neurologic motor Overall: normal bulk, tone 05/02/2012 None Full Exam - General 1994 Constitutional general appearance Overall: well nourished 04/13/2012 None Full Exam - General 1994 Constitutional general appearance Overall: well developed 04/13/2012 None Full Exam - General 1994 Eyes pupils and irises Overall: pupils equal, round, reactive to light and accomodation 04/13/2012 None Full Exam - General 1994 Ears/Nose/Throat oral cavity/pharynx/larynx Overall: oral mucosa clear 04/13/2012 None Full Exam - General 1994 Ears/Nose/Throat oral cavity/pharynx/larynx Overall: oropharyngeal mucosa clear 04/13/2012 None Full Exam - General 1994 Respiratory auscultation Overall: breath sounds clear bilaterally 04/13/2012 None Full Exam - General 1994 Respiratory respiratory effort/rhythm Overall: no retractions 04/13/2012 None Full Exam - General 1994 Respiratory respiratory effort/rhythm Overall: normal rate 04/13/2012 None Full Exam - General 1994 Cardiovascular auscultation of heart Overall: regular rate 04/13/2012 None Full Exam - General 1994 Cardiovascular auscultation of heart Overall: normal heart sounds 04/13/2012 None Full Exam - General 1994 Abdomen abdominal exam Overall: no tenderness 04/13/2012 None Full Exam - General 1994 Abdomen abdominal exam Overall: normal bowel sounds 04/13/2012 None Full Exam - General 1994 Neurologic gait Overall: no ataxia, no unsteadiness 04/13/2012 None Full Exam - General 1994 Neurologic cranial nerves Overall: crainial nerves 2 - 12 grossly intact 04/13/2012 None Full Exam - General 1994 Neurologic motor Overall: normal bulk, tone 04/13/2012 None Full Exam - General 1994 Psychiatric orientation/consciousness Overall: oriented to person, place and time 04/13/2012 None Full Exam - General 1994 Psychiatric mood and affect Affect: mood congruent 04/13/2012 None Full Exam - General 1994 Psychiatric mood and affect Mood: happy 04/13/2012 None Full Exam - General 1994 Constitutional general appearance Overall: in no acute distress 04/13/2012 None Full Exam - General 1994 Abdomen abdominal exam Overall: no tenderness 01/01/2012 None Full Exam - General 1994 Abdomen abdominal exam Overall: normal bowel sounds 01/01/2012 None Full Exam - General 1994 Cardiovascular auscultation of heart Overall: regular rate 01/01/2012 None Full Exam - General 1994 Cardiovascular auscultation of heart Overall: normal heart sounds 01/01/2012 None Full Exam - General 1994 Ears/Nose/Throat oral cavity/pharynx/larynx Overall: oral mucosa clear 01/01/2012 None Full Exam - General 1994 Ears/Nose/Throat oral cavity/pharynx/larynx Overall: oropharyngeal mucosa clear 01/01/2012 None Full Exam - General 1994 Eyes pupils and irises Overall: pupils equal, round, reactive to light and accomodation 01/01/2012 None Full Exam - General 1994 Neurologic gait Overall: no ataxia, no unsteadiness 01/01/2012 None Full Exam - General 1994 Neurologic cranial nerves Overall: crainial nerves 2 - 12 grossly intact 01/01/2012 None Full Exam - General 1994 Neurologic motor Overall: normal bulk, tone 01/01/2012 None Full Exam - General 1994 Psychiatric orientation/consciousness Overall: oriented to person, place and time 01/01/2012 None Full Exam - General 1994 Respiratory auscultation Overall: breath sounds clear bilaterally 01/01/2012 None Full Exam - General 1994 Respiratory respiratory effort/rhythm Overall: no retractions 01/01/2012 None Full Exam - General 1994 Respiratory respiratory effort/rhythm Overall: normal rate 01/01/2012 None Full Exam - General 1994 Constitutional general appearance Overall: well nourished 01/01/2012 None Full Exam - General 1994 Constitutional general appearance Overall: well developed 01/01/2012 None Full Exam - General 1994 Psychiatric mood and affect Mood: depressed 01/01/2012 -tearful Full Exam - General 1994 Psychiatric mood and affect Affect: mood congruent 01/01/2012 None Full Exam - General 1994 Constitutional general appearance Evidence of Distress: tearful 01/01/2012 None Full Exam - General 1994 Constitutional general appearance Overall: well nourished 09/28/2011 None Full Exam - General 1994 Constitutional general appearance Overall: well developed 09/28/2011 None Full Exam - General 1994 Eyes pupils and irises Overall: pupils equal, round, reactive to light and accomodation 09/28/2011 None Full Exam - General 1994 Ears/Nose/Throat oral cavity/pharynx/larynx Overall: oral mucosa clear 09/28/2011 None Full Exam - General 1994 Ears/Nose/Throat oral cavity/pharynx/larynx Overall: oropharyngeal mucosa clear 09/28/2011 None Full Exam - General 1994 Respiratory auscultation Overall: breath sounds clear bilaterally 09/28/2011 None Full Exam - General 1994 Respiratory respiratory effort/rhythm Overall: no retractions 09/28/2011 None Full Exam - General 1994 Respiratory respiratory effort/rhythm Overall: normal rate 09/28/2011 None Full Exam - General 1994 Cardiovascular auscultation of heart Overall: regular rate 09/28/2011 None Full Exam - General 1994 Cardiovascular auscultation of heart Overall: normal heart sounds 09/28/2011 None Full Exam - General 1994 Abdomen abdominal exam Overall: no tenderness 09/28/2011 None Full Exam - General 1994 Abdomen abdominal exam Overall: normal bowel sounds 09/28/2011 None Full Exam - General 1994 Neurologic gait Overall: no ataxia, no unsteadiness 09/28/2011 None Full Exam - General 1994 Neurologic cranial nerves Overall: crainial nerves 2 - 12 grossly intact 09/28/2011 None Full Exam - General 1994 Neurologic motor Overall: normal bulk, tone 09/28/2011 None Full Exam - General 1994 Psychiatric orientation/consciousness Overall: oriented to person, place and time 09/28/2011 None Full Exam - General 1994 Psychiatric mood and affect Mood: depressed 09/28/2011 None Full Exam - General 1994 Psychiatric mood and affect Mood: irritable 09/28/2011 None Full Exam - General 1994 Psychiatric mood and affect Affect: flat 09/28/2011 None Full Exam - Orthopedics Neurological orientation Overall: alert 06/24/2011 None Full Exam - Orthopedics Neurological orientation Overall: oriented to person, place and time 06/24/2011 None Full Exam - Orthopedics Respiratory respiratory effort/rhythm Overall: normal , symmetric chest expansion 06/24/2011 None Full Exam - Orthopedics Respiratory auscultation Overall: clear to auscultation in all ellis 06/24/2011 None Full Exam - Orthopedics Cardiovascular examination of vasculature Overall: no clubbing, cyanosis, edema 06/24/2011 None Full Exam - Orthopedics Musculoskeletal gait and station Overall: normal gait 06/24/2011 None Full Exam - Orthopedics Musculoskeletal gait and station Overall: no ataxia, no unsteadiness 06/24/2011 None Full Exam - Orthopedics MS: right upper extremity insp & palp - RUE Shoulder: normal appearance 06/24/2011 None Full Exam - Orthopedics MS: right upper extremity insp & palp - RUE Shoulder: pain with resisted internal rotation 06/24/2011 None Full Exam - Orthopedics MS: right upper extremity insp & palp - RUE Shoulder: glenohumeral joint tenderness 06/24/2011 None Full Exam - Orthopedics MS: right upper extremity range of motion - RUE Shoulder: pain with flexion 06/24/2011 None Full Exam - Orthopedics MS: right upper extremity range of motion - RUE Shoulder: pain with extension 06/24/2011 None Full Exam - Orthopedics MS: right upper extremity range of motion - RUE Shoulder: pain with external rotation 06/24/2011 None Full Exam - Orthopedics MS: right upper extremity strength & tone - RUE Shoulder strength: flexion weakness with 3/5 strength 06/24/2011 None Full Exam - Orthopedics MS: right upper extremity strength & tone - RUE Shoulder strength: extension weakness with 3/5 strength 06/24/2011 None Full Exam - Orthopedics Constitutional general appearance Overall: well nourished 06/24/2011 None Full Exam - Orthopedics Constitutional general appearance Overall: well developed 06/24/2011 None Full Exam - Orthopedics Constitutional general appearance Overall: in no acute distress 06/24/2011 None Full Exam - General 1994 Ears/Nose/Throat oral cavity/pharynx/larynx Overall: oropharyngeal mucosa clear 06/10/2011 None Full Exam - General 1994 Ears/Nose/Throat otoscopic exam Tympanic membrane: a normal exam 06/10/2011 None Full Exam - General 1994 Ears/Nose/Throat otoscopic exam External auditory canal: complete cerumen impaction 06/10/2011 None Full Exam - General 1994 Psychiatric orientation/consciousness Overall: oriented to person, place and time 06/10/2011 None Full Exam - General 1994 Psychiatric mood and affect Overall: normal mood and affect 06/10/2011 None Full Exam - General 1994 Neurologic cranial nerves Overall: crainial nerves 2 - 12 grossly intact 06/10/2011 None Full Exam - General 1994 Neurologic motor Overall: normal bulk, tone 06/10/2011 None Full Exam - General 1994 Neurologic gait Overall: no ataxia, no unsteadiness 06/10/2011 None Full Exam - General 1994 Constitutional general appearance Overall: well nourished 06/10/2011 None Full Exam - General 1994 Constitutional general appearance Overall: well developed 06/10/2011 None Full Exam - General 1994 Constitutional general appearance Overall: in no acute distress 06/10/2011 None Full Exam - General 1994 Eyes pupils and irises Overall: pupils equal, round, reactive to light and accomodation 06/10/2011 None Full Exam - General 1994 Respiratory auscultation Overall: breath sounds clear bilaterally 06/10/2011 None Full Exam - General 1994 Respiratory respiratory effort/rhythm Overall: normal rate 06/10/2011 None Full Exam - General 1994 Respiratory respiratory effort/rhythm Overall: no retractions 06/10/2011 None Full Exam - General 1994 Cardiovascular auscultation of heart Overall: regular rate 06/10/2011 None Full Exam - General 1994 Cardiovascular auscultation of heart Overall: normal heart sounds 06/10/2011 None Full Exam - General 1994 Abdomen abdominal exam Overall: no tenderness 06/10/2011 None Full Exam - General 1994 Abdomen abdominal exam Overall: normal bowel sounds 06/10/2011 None Full Exam - General 1994 Ears/Nose/Throat oral cavity/pharynx/larynx Overall: oral mucosa clear 06/10/2011 None Procedures Procedure Codes Date THER/PROPH/DIAG INJ SC/IM CPT-4: 90620 06/09/2018 VITAMIN B12 INJECTION CPT-4: J3420 06/09/2018 URINALYSIS NONAUTO W/O SCOPE CPT-4: 70064 06/09/2018 THER/PROPH/DIAG INJ SC/IM CPT-4: 70760 01/18/2018 VITAMIN B12 INJECTION CPT-4: J3420 01/18/2018 THER/PROPH/DIAG INJ SC/IM CPT-4: 95036 11/18/2017 VITAMIN B12 INJECTION CPT-4: J3420 11/18/2017 THER/PROPH/DIAG INJ SC/IM CPT-4: 77755 10/05/2017 VITAMIN B12 INJECTION CPT-4: J3420 10/05/2017 THER/PROPH/DIAG INJ SC/IM CPT-4: 69147 07/27/2017 VITAMIN B12 INJECTION CPT-4: J3420 07/27/2017 THER/PROPH/DIAG INJ SC/IM CPT-4: 58555 03/25/2017 VITAMIN B12 INJECTION CPT-4: J3420 03/25/2017 THER/PROPH/DIAG INJ SC/IM CPT-4: 80429 02/16/2017 VITAMIN B12 INJECTION CPT-4: J3420 02/16/2017 THER/PROPH/DIAG INJ SC/IM CPT-4: 82908 01/11/2017 VITAMIN B12 INJECTION CPT-4: J3420 01/11/2017 THER/PROPH/DIAG INJ SC/IM CPT-4: 34763 11/06/2016 VITAMIN B12 INJECTION CPT-4: J3420 11/06/2016 THER/PROPH/DIAG INJ SC/IM CPT-4: 89693 10/02/2016 VITAMIN B12 INJECTION CPT-4: J3420 10/02/2016 PPPS, SUBSEQ VISIT CPT -4: G0439 08/06/2016 THER/PROPH/DIAG INJ SC/IM CPT-4: 14838 08/03/2016 VITAMIN B12 INJECTION CPT-4: J3420 08/03/2016 THER/PROPH/DIAG INJ SC/IM CPT-4: 29962 06/29/2016 VITAMIN B12 INJECTION CPT-4: J3420 06/29/2016 ADMIN INFLUENZA VIRUS VAC CPT-4: G0008 06/16/2016 FLU VACC 4 DELMY 3 YRS PLUS IM Formatting Model/CDA Sections, Assigned to/NoelHeathera SNOMED CT: [id number] CPT-4: 39487Scfaqua 06/16/2016 THER/PROPH/DIAG INJ SC/IM CPT-4: 73340 05/14/2016 VITAMIN B12 INJECTION CPT-4: J3420 05/14/2016 THER/PROPH/DIAG INJ SC/IM CPT-4: 79900 04/15/2016 VITAMIN B12 INJECTION CPT-4: J3420 04/15/2016 THER/PROPH/DIAG INJ SC/IM CPT-4: 06183 03/02/2016 ADMIN PNEUMOCOCCAL VACCINE SNOMED CT: 37523835 CPT-4: G0009 03/02/2016 PNEUMOCOCCAL VACC 13 DELMY IM Formatting Model/CDA Sections, Assigned to/Amy Cohen SNOMED CT: 74597939 CPT-4: 10628Ahpezbr 03/02/2016 VITAMIN B12 INJECTION CPT-4: J3420 03/02/2016 THER/PROPH/DIAG INJ SC/IM CPT-4: 09518 01/28/2016 VITAMIN B12 INJECTION CPT-4: J3420 01/28/2016 THER/PROPH/DIAG INJ SC/IM CPT-4: 26701 12/03/2015 VITAMIN B12 INJECTION CPT-4: J3420 12/03/2015 THER/PROPH/DIAG INJ SC/IM CPT-4: 22232 09/09/2015 VITAMIN B12 INJECTION CPT-4: J3420 09/09/2015 THER/PROPH/DIAG INJ SC/IM CPT-4: 05636 05/17/2014 VITAMIN B12 INJECTION CPT-4: J3420 05/17/2014 TRIAMCINOLONE ACET INJ NOS CPT-4: J3301 05/17/2014 THER/PROPH/DIAG INJ SC/IM CPT-4: 64518 04/16/2014 VITAMIN B12 INJECTION CPT-4: J3420 04/16/2014 THER/PROPH/DIAG INJ SC/IM CPT-4: 38007 03/05/2014 VITAMIN B12 INJECTION CPT-4: J3420 03/05/2014 THER/PROPH/DIAG INJ SC/IM CPT-4: 23961 10/23/2013 VITAMIN B12 INJECTION CPT-4: J3420 10/23/2013 URINALYSIS NONAUTO W/O SCOPE CPT-4: 28434 08/09/2013 VITAMIN B12 INJECTION CPT-4: J3420 08/09/2013 THER/PROPH/DIAG INJ SC/IM CPT-4: 53502 08/09/2013 ADMIN INFLUENZA VIRUS VAC CPT-4: G0008 05/22/2013 FLULAVAL VACC, 3 YRS & >, IM CPT-4: Q2036 05/22/2013 VITAMIN B12 INJECTION CPT-4: J3420 05/22/2013 THER/PROPH/DIAG INJ SC/IM CPT-4: 54285 05/22/2013 TRIAMCINOLONE ACET INJ NOS CPT-4: J3301 03/27/2013 THER/PROPH/DIAG INJ SC/IM CPT-4: 08085 03/27/2013 THER/PROPH/DIAG INJ SC/IM CPT-4: 68286 03/22/2013 VITAMIN B12 INJECTION CPT-4: J3420 03/22/2013 VITAMIN B12 INJECTION CPT-4: J3420 02/15/2013 THER/PROPH/DIAG INJ SC/IM CPT-4: 23018 02/15/2013 VITAMIN B12 INJECTION CPT-4: J3420 12/12/2012 THER/PROPH/DIAG INJ SC/IM CPT-4: 73695 12/12/2012 TRIAMCINOLONE ACET INJ NOS CPT-4: J3301 2012 THER/PROPH/DIAG INJ SC/IM CPT-4: 98193 2012 VITAMIN B12 INJECTION CPT-4: J3420 2012 THER/PROPH/DIAG INJ SC/IM CPT-4: 67917 10/12/2012 VITAMIN B12 INJECTION CPT-4: J3420 10/12/2012 THER/PROPH/DIAG INJ SC/IM CPT-4: 97314 08/25/2012 VITAMIN B12 INJECTION CPT-4: J3420 08/25/2012 ADMIN INFLUENZA VIRUS VAC CPT-4: G0008 06/01/2012 FLULAVAL VACC, 3 YRS & >, IM CPT-4: Q2036 06/01/2012 ADMIN PNEUMOCOCCAL VACCINE SNOMED CT: [id number] CPT-4: G0009 06/01/2012 Pneumococcal Polysaccharide Vaccine, 23-Valent, Ad CPT-4: 74328 06/01/2012 TRIAMCINOLONE ACET INJ NOS CPT-4: J3301 04/13/2012 VITAMIN B12 INJECTION CPT-4: J3420 03/21/2012 VITAMIN B12 INJECTION CPT-4: J3420 01/29/2012 THER/PROPH/DIAG INJ SC/IM CPT-4: 04398 01/29/2012 TRIAMCINOLONE ACET INJ NOS CPT-4: J3301 01/01/2012 VITAMIN B12 INJECTION CPT-4: J3420 01/01/2012 VITAMIN B12 INJECTION CPT-4: J3420 12/01/2011 THER/PROPH/DIAG INJ SC/IM CPT-4: 55814 12/01/2011 VITAMIN B12 INJECTION CPT-4: J3420 11/02/2011 THER/PROPH/DIAG INJ SC/IM CPT-4: 25796 11/02/2011 THER/PROPH/DIAG INJ SC/IM CPT-4: 69506 09/10/2011 VITAMIN B12 INJECTION CPT-4: J3420 09/10/2011 ROUTINE VENIPUNCTURE CPT-4: 13083 09/10/2011 VITAMIN B12 INJECTION CPT-4: J3420 05/25/2011 ADMIN INFLUENZA VIRUS VAC CPT-4: G0008 05/25/2011 FLULAVAL VACC, 3 YRS & >, IM CPT-4: Q2036 05/25/2011 THER/PROPH/DIAG INJ SC/IM CPT-4: 12774 05/25/2011 Vital Signs Date Vital 06/09/2018 Blood Pressure 1: 110/62 Code : 8480-6 BMI: 23.9 Code : 12620-6 Heart Rate 1 : 85 bpm Height: 5'4" SpO2: 95% Weight: 139 lbs 04/14/2018 Blood Pressure 1: 144/78 Code : 8480-6 BMI: 24.4 Code : 96914-0 Heart Rate 1 : 75 bpm Height: 5'4" SpO2: 94% Weight: 142 lbs 01/04/2018 Blood Pressure 1: 136/64 Code : 8480-6 BMI: 23.4 Code : 84456-7 Heart Rate 1 : 91 bpm Height: 5'4" SpO2: 94% Weight: 136 lbs 8 oz 12/06/2017 Blood Pressure 1: 146/80 Code : 8480-6 BMI: 22.8 Code : 91561-2 Heart Rate 1 : 92 bpm Height: 5'4" SpO2: 95% Weight: 133 lbs 03/25/2017 Blood Pressure 1: 126/70 Code : 8480-6 BMI: 24.5 Code : 33336-9 Heart Rate 1 : 78 bpm Height: 5'4" SpO2: 94% Weight: 143 lbs 11/26/2016 Blood Pressure 1: 126/68 Code : 8480-6 BMI: 25.2 Code : 82592-3 Heart Rate 1 : 69 bpm Height: 5'4" SpO2: 95% Weight: 147 lbs 08/06/2016 Blood Pressure 1: 128/78 Code : 8480-6 Heart Rate 1: 75 bpm Height: 5'4" SpO2: 98% 05/04/2016 Blood Pressure 1: 110/62 Code : 8480-6 BMI: 25.6 Code : 53670-8 Heart Rate 1 : 77 bpm Height: 5'4" SpO2: 97% Weight: 149 lbs 10/24/2015 Blood Pressure 1: 120/62 Code : 8480-6 BMI: 25.4 Code : 73818-0 Heart Rate 1 : 73 bpm Height: 5'4" SpO2: 93% Weight: 148 lbs 08/07/2015 Blood Pressure 1: 138/58 Code : 8480-6 BMI: 24.9 Code : 99644-5 Heart Rate 1 : 80 bpm Height: 5'4" SpO2: 92% Weight: 145 lbs 02/06/2015 Blood Pressure 1: 116/72 Code : 8480-6 BMI: 24.2 Code : 83883-5 Heart Rate 1 : 98 bpm Height: 5'4" Weight: 141 lbs 07/12/2014 Blood Pressure 1: 128/72 Code : 8480-6 BMI: 24.5 Code : 13296-4 Heart Rate 1 : 60 bpm Height: 5'4" Weight: 143 lbs 05/17/2014 Blood Pressure 1: 110/62 Code : 8480-6 BMI: 24.2 Code : 22127-2 Height: 5'4" Weight: 141 lbs 04/16/2014 Blood Pressure 1: 122/68 Code : 8480-6 Heart Rate 1: 76 bpm Height: Weight: 03/05/2014 Blood Pressure 1: 110/60 Code : 8480-6 Heart Rate 1: 68 bpm Height: Weight: 10/18/2013 Blood Pressure 1: 108/68 Code : 8480-6 Heart Rate 1: 72 bpm SpO2: 98% Weight: 146 lbs 05/02/2012 Blood Pressure 1: 102/58 Code : 8480-6 Heart Rate 1: 79 bpm SpO2: 98% Weight: 142 lbs 04/13/2012 Blood Pressure 1: 124/64 Code : 8480-6 Heart Rate 1: 76 bpm Weight: 146 lbs 01/01/2012 Blood Pressure 1: 116/58 Code : 8480-6 Heart Rate 1: 84 bpm Respiratory Rate : 16 bpm Weight: 139 lbs 09/28/2011 Blood Pressure 1: 120/60 Code : 8480-6 BMI: 24.4 Code : 30661-3 Heart Rate 1 : 76 bpm Height: 5'4" Respiratory Rate: 16 bpm Weight: 142 lbs 06/24/2011 Blood Pressure 1: 111/57 Code : 8480-6 BMI: 25.1 Code : 84338-7 Heart Rate 1 : 76 bpm Height: 5'4" Weight: 146 lbs 8 oz 06/10/2011 Blood Pressure 1: 114/76 Code : 8480-6 BMI: 25.2 Code : 26442-1 Heart Rate 1 : 72 bpm Height: 5'4" Respiratory Rate: 16 bpm SpO2: 95% Weight: 147 lbs Functional Status No Functional Status data History of Present Illness Symptom Name Status Result Effective Date Notes leg pain/sciatica Location right leg sciatica 06/09/2018 None leg pain/sciatica Quality acute 06/09/2018 None leg pain/sciatica Alleviating Factors lying down 06/09/2018 None leg pain/sciatica Exacerbating Factors standing or walking 06/09/2018 None leg pain/sciatica Exacerbating Factors changing position 06/09/2018 None leg pain/sciatica Quality intermittent 06/09/2018 None leg pain/sciatica Quality improving 06/09/2018 None leg pain/sciatica Onset and Resolution ongoing 06/09/2018 None leg pain/sciatica Limitation on Activities allows weight bearing activity 06/09/2018 None leg pain/sciatica Severity moderate 06/09/2018 None leg pain/sciatica Extent of Symptoms stiffness 06/09/2018 None leg pain/sciatica Frequency of Episodes decreasing 06/09/2018 states it is better than it was leg pain/sciatica Location right leg sciatica 04/14/2018 None leg pain/sciatica Quality acute 04/14/2018 None leg pain/sciatica Quality worsening 04/14/2018 None leg pain/sciatica Quality constant 04/14/2018 None leg pain/sciatica Onset and Resolution sudden in onset 04/14/2018 None leg pain/sciatica Onset of Symptom 1.5 weeks ago 04/14/2018 None leg pain/sciatica Mechanism of injury unknown 04/14/2018 None leg pain/sciatica Alleviating Factors lying down 04/14/2018 None leg pain/sciatica Exacerbating Factors changing position 04/14/2018 None leg pain/sciatica Exacerbating Factors standing or walking 04/14/2018 None weight loss Triggers unintentional weight loss 01/04/2018 None weight loss Weight Status has lost greater than ten pounds total 01/04/2018 None weight loss Quality improving 01/04/2018 None urinary frequency Quality chronic 01/04/2018 None urinary frequency Onset and Resolution ongoing 01/04/2018 None urinary frequency Onset of Symptom years ago 01/04/2018 None urinary frequency Frequency of Episodes daily 01/04/2018 None urinary frequency Alleviating Factors medication 01/04/2018 None depression Quality chronic 12/06/2017 None depression Onset and Resolution sudden in onset 12/06/2017 None depression Onset of Symptom during adulthood 12/06/2017 None depression Limitation on Activities does not limit activities 12/06/2017 None depression Frequency of Episodes increasing 12/06/2017 None depression Significant Medical Conditions anxiety disorder 12/06/2017 None depression Triggers stress 12/06/2017 from daughter depression Pertinent Findings anxiety 12/06/2017 None depression Pertinent Findings depressed mood 12/06/2017 None depression Pertinent Findings difficulty concentrating 12/06/2017 None depression Pertinent Findings helplessness 12/06/2017 None depression Pertinent Findings hopelessness 12/06/2017 None depression Pertinent Findings lethargy 12/06/2017 None depression Pertinent Findings loss of interest in activities 12/06/2017 None depression Pertinent Findings poor self esteem 12/06/2017 None depression Pertinent Findings Denies self harm 12/06/2017 None depression Pertinent Findings Denies suicidal ideation 12/06/2017 None depression Pertinent Findings Denies suicide attempt/plan 12/06/2017 None depression Pertinent Findings worthlessness 12/06/2017 None depression Pertinent Findings Denies self -harm 12/06/2017 None hypertension Onset and Resolution ongoing 12/06/2017 None hypertension Onset of Symptom during adulthood 12/06/2017 None hypertension Blood Pressure Values not checking blood pressure at home 12/06/2017 None hypertension Severity not consistently severe symptoms, the symptoms fluctuate from no symptoms to anxiety and headaches 12/06/2017 None hypertension Frequency of Episodes unchanged 12/06/2017 None hypertension Significant Family History heart disease 12/06/2017 None hypertension Triggers no known associated factors 12/06/2017 None hypertension Alleviating Factors medication 12/06/2017 None hypertension Pertinent Findings dizziness 12/06/2017 None hypertension Pertinent Findings dyspnea 12/06/2017 None diabetes mellitus Quality non-insulin dependent 12/06/2017 None diabetes mellitus Severity mild 12/06/2017 None diabetes mellitus Alleviating Factors medication 12/06/2017 None diabetes mellitus Exacerbating Factors diet 12/06/2017 None diabetes mellitus Nutrition regular diet 12/06/2017 None urinary incontinence Quality acute 12/06/2017 None urinary incontinence Quality urge incontinence 12/06/2017 None urinary incontinence Quality intermittent 12/06/2017 None urinary incontinence Onset and Resolution sudden in onset 12/06/2017 None urinary incontinence Onset of Symptom during adulthood 12/06/2017 None urinary incontinence Triggers no known associated factors 12/06/2017 None urinary incontinence Pertinent Findings Denies bladder pain 12/06/2017 None urinary incontinence Pertinent Findings Denies back pain 12/06/2017 None urinary incontinence Pertinent Findings nocturia 12/06/2017 None urinary incontinence Pertinent Findings Denies pelvic pain 12/06/2017 None urinary incontinence Pertinent Findings urinary urgency 12/06/2017 None Post-op wound Procedure Performed suture of laceration 04/20/2017 None Post-op wound Date of procedure 201604/20/2017 None Post-op wound General Recovery well 04/20/2017 None Post-op wound General Recovery no redness, edges well approximated 04/20/2017 None Post-op wound Significant Medications CHRISTIANO 04/20/2017 None Post-op wound Additional Comments The patient is doing well. 04/20/2017 None Post-op wound Additional Comments Patient followed pre/post op instructions 04/20/2017 None Post-op wound Pertinent Findings Denies pain 04/20/2017 None Post-op wound Pertinent Findings Denies redness or swelling 04/20/2017 None Post-op wound Pertinent Findings excess swelling 04/20/2017 None Post-op wound Pertinent Findings Denies fever 04/20/2017 None Post-op wound Pertinent Findings Denies redness around the incision site 04/20/2017 None depression Quality chronic 03/25/2017 None depression Onset and Resolution sudden in onset 03/25/2017 None depression Onset of Symptom during adulthood 03/25/2017 None depression Limitation on Activities does not limit activities 03/25/2017 None depression Frequency of Episodes increasing 03/25/2017 None depression Significant Medical Conditions anxiety disorder 03/25/2017 None depression Triggers stress 03/25/2017 from daughter depression Pertinent Findings anxiety 03/25/2017 None depression Pertinent Findings depressed mood 03/25/2017 None depression Pertinent Findings difficulty concentrating 03/25/2017 None depression Pertinent Findings helplessness 03/25/2017 None depression Pertinent Findings hopelessness 03/25/2017 None depression Pertinent Findings lethargy 03/25/2017 None depression Pertinent Findings loss of interest in activities 03/25/2017 None depression Pertinent Findings poor self esteem 03/25/2017 None depression Pertinent Findings Denies self harm 03/25/2017 None depression Pertinent Findings Denies suicidal ideation 03/25/2017 None depression Pertinent Findings Denies suicide attempt/plan 03/25/2017 None depression Pertinent Findings worthlessness 03/25/2017 None depression Pertinent Findings Denies self -harm 03/25/2017 None depression Quality chronic 11/26/2016 None depression Onset and Resolution sudden in onset 11/26/2016 None depression Onset of Symptom during adulthood 11/26/2016 None depression Pertinent Findings depressed mood 11/26/2016 None depression Pertinent Findings anxiety 11/26/2016 None depression Pertinent Findings difficulty concentrating 11/26/2016 None depression Pertinent Findings hopelessness 11/26/2016 None depression Pertinent Findings helplessness 11/26/2016 None depression Pertinent Findings lethargy 11/26/2016 None depression Pertinent Findings loss of interest in activities 11/26/2016 None depression Pertinent Findings poor self esteem 11/26/2016 None depression Pertinent Findings worthlessness 11/26/2016 None depression Pertinent Findings Denies self harm 11/26/2016 None depression Pertinent Findings Denies self -harm 11/26/2016 None depression Pertinent Findings Denies suicidal ideation 11/26/2016 None depression Pertinent Findings Denies suicide attempt/plan 11/26/2016 None depression Limitation on Activities does not limit activities 11/26/2016 None depression Frequency of Episodes increasing 11/26/2016 None depression Significant Medical Conditions anxiety disorder 11/26/2016 None depression Triggers stress 11/26/2016 from daughter Annual Medicare Wellness Exam Alcohol Use does not drink any alcohol 08/06/2016 None Annual Medicare Wellness Exam Aspirin Use no 08/06/2016 None Annual Medicare Wellness Exam Blood Glucose (self reported) don't know 08/06/2016 None Annual Medicare Wellness Exam Blood Pressure (self reported ) don't know 08/06/2016 None Annual Medicare Wellness Exam Cholesterol (self reported) don't know 08/06/2016 None Annual Medicare Wellness Exam Depression (last 6 months) some of the time 08/06/2016 None Annual Medicare Wellness Exam Depression or Hopelessness almost never 08/06/2016 None Annual Medicare Wellness Exam Describe Your Health fair 08/06/2016 None Annual Medicare Wellness Exam Exercise Habits exercises 1 days per week 08/06/2016 None Annual Medicare Wellness Exam Exercise Habits exercises 30 minutes per day 08/06/2016 None Annual Medicare Wellness Exam Handling Stress usually irene effectively 08/06/2016 None Annual Medicare Wellness Exam Hemaglobin A-1C (self reported ) don't know 08/06/2016 None Annual Medicare Wellness Exam Hours of Sleep 8 08/06/2016 None Annual Medicare Wellness Exam Interaction with Friends yes 08/06/2016 None Annual Medicare Wellness Exam Interests & Pleasure almost never 08/06/2016 None Annual Medicare Wellness Exam Life Satisfaction satisfied 08/06/2016 None Annual Medicare Wellness Exam Motor Vehicle Safety always fastens seat belt: _ 08/06/2016 None Annual Medicare Wellness Exam Motor Vehicle Safety drives after drinking: n 08/06/2016 None Annual Medicare Wellness Exam Motor Vehicle Safety rides with someone who has been drinking: n 2015 None Annual Medicare Wellness Exam Nutrition servings of fried food / high fat foods per day: 1 2015 None Annual Medicare Wellness Exam Nutrition servings of high fiber / whole grain per day: 32 08/06/2016 None Annual Medicare Wellness Exam Smoking and Tobacco Use non smoker 08/06/2016 None Annual Medicare Wellness Exam Social & Emotional Support rarely 08/06/2016 None Annual Medicare Wellness Exam Stress some of the time 08/06/2016 None Annual Medicare Wellness Exam Sun Exposure protects skin when outdoors: y 08/06/2016 None hypertension Onset and Resolution ongoing 05/04/2016 None hypertension Onset of Symptom during adulthood 05/04/2016 None hypertension Blood Pressure Values not checking blood pressure at home 05/04/2016 None hypertension Alleviating Factors medication 05/04/2016 None hypertension Pertinent Findings dizziness 05/04/2016 None hypertension Pertinent Findings dyspnea 05/04/2016 None diabetes mellitus Quality non-insulin dependent 05/04/2016 None diabetes mellitus Test results Pt not checking blood glucose readings at home 05/04/2016 None diabetes mellitus Glucose monitoring does not test 05/04/2016 None diabetes mellitus Alleviating Factors medication 05/04/2016 None diabetes mellitus Exacerbating Factors diet 05/04/2016 None cyst Location on the right leg 05/04/2016 None cyst Quality acute None cyst Onset and Resolution sudden in onset 05/04/2016 None cyst Onset of Symptom 3 days ago 05/04/2016 None cyst Pertinent Findings redness 05/04/2016 None cyst Pertinent Findings pain 05/04/2016 None hypertension Severity not consistently severe symptoms, the symptoms fluctuate from no symptoms to anxiety and headaches 05/04/2016 None hypertension Frequency of Episodes unchanged 05/04/2016 None hypertension Significant Family History heart disease 05/04/2016 None hypertension Triggers no known associated factors 05/04/2016 None diabetes mellitus Severity mild 05/04/2016 None diabetes mellitus Test results HgbA1c level 5.9% 05/04/2016 None diabetes mellitus Blood glucose levels greater than 120 05/04/2016 None diabetes mellitus Nutrition regular diet 05/04/2016 None diabetes mellitus Exercise no exercise 05/04/2016 None headache Location in the frontal area 10/24/2015 None headache Quality dull 10/24/2015 None headache Quality constant 10/24/2015 None headache Onset and Resolution sudden in onset 10/24/2015 None headache Onset of Symptom 2 months ago 10/24/2015 None headache Frequency of Episodes daily 10/24/2015 None headache Pertinent Findings weakness 10/24/2015 None headache Alleviating Factors medication 10/24/2015 None lower leg pain Location on the left 10/24/2015 None lower leg pain Quality chronic 10/24/2015 None lower leg pain Onset and Resolution ongoing 10/24/2015 None lower leg pain Limitation on Activities restricts weight bearing activity 10/24/2015 None lower leg pain Limitation on Activities moderately limits activities 10/24/2015 None lower leg pain Severity moderate 10/24/2015 None lower leg pain Significant Medical Conditions prior injury 10/24/2015 None lower leg pain Significant Medical Conditions prior history of fracture 10/24/2015 None medication follow up Additional Comments medication use 08/07/2015 None medication follow up Location oral intake 08/07/2015 None diabetes mellitus Onset of Symptom onset as an adult 02/06/2015 None diabetes mellitus Quality non-insulin dependent 02/06/2015 None diabetes mellitus Quality chronic 02/06/2015 None diabetes mellitus Severity moderate 02/06/2015 None diabetes mellitus Exacerbating Factors diet 02/06/2015 None diabetes mellitus Pertinent Findings dyspnea 02/06/2015 copd foot pain Location on the left 02/06/2015 None foot pain Quality tenderness 02/06/2015 None foot pain Onset and Resolution ongoing 02/06/2015 None foot pain Limitation on Activities allows weight bearing activity 02/06/2015 None foot pain Severity moderate 02/06/2015 None diabetes mellitus Quality non-insulin dependent 07/12/2014 None diabetes mellitus Quality chronic 07/12/2014 None diabetes mellitus Exacerbating Factors diet 07/12/2014 None diabetes mellitus Glucose monitoring does not test 07/12/2014 None diabetes mellitus Pertinent Findings dyspnea 07/12/2014 copd diabetes mellitus Onset of Symptom onset as an adult 07/12/2014 None diabetes mellitus Severity moderate 07/12/2014 None diabetes mellitus Test results Pt checking blood glucose readings, did not bring results to clinic 07/12/2014 None nasal allergies Location in both nares 05/17/2014 None nasal allergies Onset and Resolution ongoing 05/17/2014 None nasal allergies Onset of Symptom during adulthood 05/17/2014 None nasal allergies Severity mild 05/17/2014 None nasal allergies Frequency of Episodes unchanged 05/17/2014 None nasal allergies Significant Medical Conditions allergic rhinitis 05/17/2014 None nasal allergies Triggers known allergens 05/17/2014 None nasal allergies Alleviating Factors removal of allergen 05/17/2014 None nasal allergies Exacerbating Factors allergen exposure 05/17/2014 None nasal allergies Pertinent Findings Denies fever 05/17/2014 None diabetes mellitus Quality non-insulin dependent 04/16/2014 None diabetes mellitus Quality chronic 04/16/2014 None diabetes mellitus Exacerbating Factors diet 04/16/2014 None fracture of lower leg Alleviating Factors joint immobilizer 04/16/2014 None fracture of lower leg Limitation on Activities allows weight bearing activity 04/16/2014 None fracture of lower leg Location on the left 04/16/2014 fractured left tibia, fibula on february 12-Dr Ugarte did surgery-doing well. fracture of lower leg Onset and Resolution sudden in onset 04/16/2014 None fracture of lower leg Quality acute 04/16/2014 None fracture of lower leg Pertinent Findings pain with movement 04/16/2014 None diabetes mellitus Quality non-insulin dependent 03/05/2014 None diabetes mellitus Quality chronic 03/05/2014 None diabetes mellitus Test results Pt not checking blood glucose readings at home 03/05/2014 None fracture of lower leg Alleviating Factors joint immobilizer 03/05/2014 None fracture of lower leg Limitation on Activities allows weight bearing activity 03/05/2014 None fracture of lower leg Location on the left 03/05/2014 fractured left tibia, fibula on february 12-Dr Ugarte did surgery-doing well. fracture of lower leg Onset and Resolution sudden in onset 03/05/2014 None fracture of lower leg Mechanism of injury low energy 03/05/2014 None fracture of lower leg Quality acute 03/05/2014 None fracture of lower leg Pertinent Findings pain with movement 03/05/2014 None diabetes mellitus Blood glucose levels less than 60 03/05/2014 None diabetes mellitus Glucose monitoring does not test 03/05/2014 None diabetes mellitus Exacerbating Factors diet 03/05/2014 None diabetes mellitus Exercise no exercise 03/05/2014 None shoulder pain Location on the right shoulder 10/18/2013 None shoulder pain Onset and Resolution improved during the day 10/18/2013 None shoulder pain Pertinent Findings stiffness 10/18/2013 None shoulder pain Pertinent Findings Denies loss of range of motion 10/18/2013 None shoulder pain Pertinent Findings Denies loss of strength 10/18/2013 None shoulder pain Pertinent Findings Denies swelling 10/18/2013 None shoulder pain Quality aching 10/18/2013 None shoulder pain Triggers no known associated factors 10/18/2013 None hyperlipidemia Onset and Resolution ongoing 10/18/2013 None hyperlipidemia Onset of Symptom during adulthood 10/18/2013 None hyperlipidemia Exacerbating Factors diet 10/18/2013 Zamzam states that she had been eating a lot of candy and drinking pop in June and july. hyperlipidemia Significant Family History hyperlipidemia 10/18/2013 None hyperlipidemia Quality chronic 10/18/2013 None hyperlipidemia Quality increased TG 10/18/2013 None hyperlipidemia Pertinent Findings Denies cold intolerance 10/18/2013 None hyperlipidemia Pertinent Findings Denies fever 10/18/2013 None abnormal bleeding and bruising Quality acute 05/02/2012 None abnormal bleeding and bruising Onset and Resolution ongoing 05/02/2012 None abnormal bleeding and bruising Onset of Symptom 1 weeks ago 05/02/2012 None abnormal bleeding and bruising Severity moderate 05/02/2012 States she fell about a week ago, and hit her right upper arm. States it is bruising and swollen and is concerned that the bruise is spreading. abnormal bleeding and bruising Intervention Required no medical therapy 05/02/2012 None abnormal bleeding and bruising Significant Medications NSAID's 05/02/2012 only uses tylenol abnormal bleeding and bruising Triggers trauma 05/02/2012 None abnormal bleeding and bruising Location in the muscle 05/02/2012 right upper arm sinus congestion Onset and Resolution ongoing 04/13/2012 None sinus congestion Pertinent Findings decreased energy level 04/13/2012 None sinus congestion Pertinent Findings nasal obstruction 04/13/2012 None diabetes mellitus Test results Pt checking blood glucose at home, see scanned readings 2011 None sinus congestion Onset of Symptom 2-3 weeks ago 04/13/2012 None sinus congestion Severity mild 04/13/2012 None sinus congestion Timing of Episodes all day long 04/13/2012 None sinus congestion Significant Medical Conditions allergic rhinitis 04/13/2012 None sinus congestion Triggers allergens 04/13/2012 None sinus congestion Alleviating Factors medication 04/13/2012 None sinus congestion Exacerbating Factors allergen exposure 04/13/2012 None diabetes mellitus Severity mild 04/13/2012 None diabetes mellitus Blood glucose levels between 60 and 120 04/13/2012 None diabetes mellitus Glucose monitoring daily 04/13/2012 None diabetes mellitus Significant Medications sulfonylureas 04/13/2012 None diabetes mellitus Alleviating Factors medication 04/13/2012 None diabetes mellitus Nutrition ADA diet 04/13/2012 None diabetes mellitus Exercise no exercise 04/13/2012 None disturbances of emotion Quality depression 01/01/2012 None nasal allergies Location in both nares 01/01/2012 None nasal allergies Onset and Resolution ongoing 01/01/2012 None nasal allergies Onset of Symptom during adulthood 01/01/2012 None nasal allergies Severity moderate 01/01/2012 None nasal allergies Significant Medical Conditions allergic rhinitis 01/01/2012 None nasal allergies Triggers known allergens 01/01/2012 Wants an allergy shot-had one last fall and it helps with her symptoms. disturbances of emotion Triggers stress 01/01/2012 states has dgt in [place] who is very ill and she is unable to go and see her. States her daughter has a bone infection in her back and is on IV antibiotics. diabetes mellitus Test results Pt not checking blood glucose readings at home 01/01/2012 States she was checking them in the morning-runnign 110-130s but she hasn't been checking them due to high stress. diabetes mellitus Severity mild 01/01/2012 None diabetes mellitus Alleviating Factors medication 01/01/2012 None diabetes mellitus Exercise no exercise 01/01/2012 None disturbances of emotion Onset and Resolution ongoing 01/01/2012 None disturbances of emotion Limitation on Activities does not limit activities 01/01/2012 None disturbances of emotion Frequency of Episodes increasing 01/01/2012 States she is more stressed than usual. disturbances of emotion Significant Medical Conditions psychiatric condition 01/01/2012 None disturbances of emotion Alleviating Factors medication 01/01/2012 None anxiety Onset and Resolution gradual in onset 09/28/2011 currently increased d/t illness in family anxiety Onset and Resolution ongoing 09/28/2011 None anxiety Limitation on Activities moderately limits activities 09/28/2011 reports difficulty performing daily tasks anxiety Frequency of Episodes daily 09/28/2011 reports difficulty sleeping anxiety Pertinent Findings insomnia 09/28/2011 None anxiety Pertinent Findings restlessness 09/28/2011 None anxiety Triggers stress 09/28/2011 pt has familial stressors - the DTR who lives with her has depression and anxiety, depends heavily on Zamzam for treatment and care. Her DTR in [place] relies on Zamzam for financial support. anxiety Alleviating Factors medication 09/28/2011 initially helensumayavarun worked for her anxiety and depression - but Zamzam feels as if the depressive symptoms have worsened. anxiety Quality panic attacks 09/28/2011 None anxiety Quality worsening 09/28/2011 None shoulder pain Alleviating Factors immobilization 06/24/2011 None shoulder pain Alleviating Factors cold compress 06/24/2011 None shoulder pain Alleviating Factors medication 06/24/2011 -hydrocodone shoulder pain Location anteriorly on the right shoulder 06/24/2011 None shoulder pain Location laterally on the right shoulder 06/24/2011 None shoulder pain Location posteriorly on the right shoulder 06/24/2011 None shoulder pain Quality acute 06/24/2011 None shoulder pain Quality stabbing 06/24/2011 None shoulder pain Quality sharp 06/24/2011 None shoulder pain Onset and Resolution sudden in onset 06/24/2011 None shoulder pain Onset of Symptom 6 days ago 06/24/2011 None shoulder pain Limitation on Activities is incapacitating 06/24/2011 None shoulder pain Frequency of Episodes unchanged 06/24/2011 None shoulder pain Significant Medical Conditions trauma 06/24/2011 -states she was getting out of bed, tripped over a small trash can and landed on her right shoulder. States she did not lose consciousness. States she was evaluated in ER , had xrays, and told to follow up with her PCP. States the xrays were negative. shoulder pain Significant Medications NSAID's( ) 06/24/2011 - taking hydrocodone/tylenol shoulder pain Mechanism of injury fall onto the shoulder 06/24/2011 None speech difficulties Quality incorrect word usage 06/10/2011 None paresthesia Quality numbness 06/10/2011 in both feet paresthesia Quality tingling 06/10/2011 None fatigue Quality worsening 06/10/2011 None speech difficulties Quality acute 06/10/2011 started about 2-3 months ago speech difficulties Limitation on Activities does not limit communication 06/10/2011 currently, pt is not having problems- it got better after she had cervical spine manipulation paresthesia Location bilaterally 06/10/2011 None paresthesia Quality acute 06/10/2011 None paresthesia Onset and Resolution sudden in onset 06/10/2011 None paresthesia Onset of Symptom 1 months ago 06/10/2011 None paresthesia Limitation on Activities does not limit activities 06/10/2011 pt states that the bobbin trucker has recommended using coconut on her feet and wram them in saran wrap and put on heavy socks- she started last night fatigue Quality chronic 06/10/2011 None fatigue Onset and Resolution ongoing 06/10/2011 None fatigue Limitation on Activities moderately limits activities 06/10/2011 but has improved a little with oxygen Advance Directives No Advance Directive data Encounters Encounter Performer Location Codes Date ([id number]) [id number] EST. PATIENT, LEVEL IV Diagnosis: Mixed incontinence[ICD10: N39.46] Diagnosis: Lumbago with sciatica, right side[ICD10: M54.41] Diagnosis: Other vitamin B12 deficiency anemias[ICD10: D51.8] Diagnosis: Unsteadiness on feet[ICD10: R26.81] [facility] CPT-4: 22806 06/09/2018 ([id number]) 88105 EST. PATIENT, LEVEL III Diagnosis: Lumbago with sciatica, right side[ICD10: M54.41] Diagnosis: Pain in right hip[ICD10: M25.551] Diagnosis: Obstructive sleep apnea (adult) (pediatric)[ICD10: G47.33] Melly Redman MD, [facility] CPT-4: 12670 04/14/2018 ([id number]) 65117 EST. PATIENT, LEVEL III Diagnosis: Abnormal weight loss[ICD10: R63.4] Diagnosis: Cardiac murmur, unspecified[ICD10: R01.1] Melly Redman MD, [facility] CPT-4: 43534 01/04/2018 ([id number]) 44774 EST. PATIENT, LEVEL IV Diagnosis: Essential (primary) hypertension[ICD10: I10] Diagnosis: Mixed hyperlipidemia[ICD10: E78.2] Diagnosis: Abnormal weight loss[ICD10: R63.4] Diagnosis: Type 2 diabetes mellitus without complications[ICD10: E11.9] Melly Redman MD, [facility] CPT-4: 91424 12/06/2017 ([id number]) Miscellaneous no charge Diagnosis: Laceration without foreign body, left lower leg, initial encounter[ ICD10: S81.812A] Melly Redman MD, [facility] CPT-4: 63073 04/20/2017 ([id number]) 60057 EST. PATIENT, LEVEL IV Diagnosis: Essential (primary) hypertension[ICD10: I10] Diagnosis: Impaired fasting glucose[ICD10: R73.01] Diagnosis: Other vitamin B12 deficiency anemias[ICD10: D51.8] Diagnosis: Vitamin D deficiency, unspecified[ICD10: E55.9] Diagnosis: Generalized anxiety disorder[ICD10: F41.1] Diagnosis: Mixed hyperlipidemia[ICD10: E78.2] Melly Redman MD, [facility] CPT-4: 63953 03/25/2017 ([id number]) 17581 EST. PATIENT, LEVEL IV Diagnosis: Generalized anxiety disorder[ICD10: F41.1] Diagnosis: Major depressive disorder, recurrent, moderate[ICD10: F33.1] Melly Redman MD, [facility] CPT-4: 33020 11/26/2016 ([id number]) 14901 EST. PATIENT, LEVEL IV Diagnosis: Essential (primary) hypertension[ICD10: I10] Diagnosis: Generalized anxiety disorder[ICD10: F41.1] Diagnosis: Gastro-esophageal reflux disease without esophagitis[ICD10: K21.9] Diagnosis: Cellulitis of right lower limb[ICD10: L03.115] Diagnosis: Encounter for screening mammogram for malignant neoplasm of breast[ ICD10: Z12.31] Melly Redman MD, [facility] CPT-4: 36894 05/04/2016 57041 EST. PATIENT, LEVEL IV Diagnosis: Pain in left leg[ICD10: M79.605] Diagnosis: Vitamin B12 deficiency anemia, unspecified[ICD10: D51.9] Diagnosis: Generalized anxiety disorder[ICD10: F41.1] Chantal Redman MD, [facility] CPT-4: 30035 10/24/2015 [id number] EST. PATIENT, LEVEL III Diagnosis: Generalized anxiety disorder[ICD10: F41.1] Diagnosis: Major depressive disorder, recurrent, moderate[ICD10: F33.1] Diagnosis: Gastro-esophageal reflux disease without esophagitis[ICD10: K21.9] Chantal Redman MD, [facility] CPT-4: 85875 08/07/2015 ([id number]) 46517 EST. PATIENT, LEVEL IV Diagnosis: Diabetes mellitus[ICD9: 250.00] Diagnosis: Essential (primary) hypertension[ICD9: 401.9] Diagnosis: Foot pain[ICD9: 729.5] Analy Redman MD, [facility] CPT-4: 14571 02/06/2015 ([id number]) 62478 EST. PATIENT, LEVEL IV Diagnosis: Diabetes mellitus[ICD9: 250.00] Diagnosis: Essential (primary) hypertension[ICD9: 401.9] Diagnosis: ALLERGIC RHINITIS[ICD9: 477.9] Kriss Redman MD, [facility] CPT- 4: 25821 07/12/2014 ([id number]) 97693 EST. PATIENT, LEVEL III Diagnosis: ALLERGIC RHINITIS[ICD9: 477.9] Diagnosis: B12 deficiency[ICD9: 266.2] Diagnosis: Generalized weakness[ICD9: 780.79] Melly Redman MD, [facility] CPT-4: 88225 05/17/2014 ([id number]) 08315 EST. PATIENT, LEVEL IV Diagnosis: B12 deficiency[ICD9: 266.2] Diagnosis: DIABETES TYPE II[ICD9: 250.00] Kriss Redman MD, [facility] CPT- 4: 32224 04/16/2014 ([id number]) 52722 EST. PATIENT, LEVEL IV Diagnosis: ESSENTIAL HYPERTENSION[ICD9: 401.9] Diagnosis: DIABETES TYPE II[ICD9: 250.00] Diagnosis: Fracture of left tibia and fibula[ICD9: 823.82] Diagnosis: B-COMPLEX DEFIC NEC[ICD9: 266.2] Diagnosis: Open wound of leg[ICD9: 891.0] Melly Redman MD, [facility] CPT-4: 85841 03/05/2014 ([id number]) 78822 EST. PATIENT, LEVEL IV Diagnosis: ESSENTIAL HYPERTENSION[SNOMED: 82296273] Diagnosis: DIABETES TYPE II[SNOMED: 148479730] Diagnosis: HYPERLIPIDEMIA[ICD9: 272.4] Diagnosis: Shoulder pain[ICD9: 719.41] Kriss Redman MD, [facility] CPT- 4: 02114 10/18/2013 ([id number]) 91104 EST. PATIENT, LEVEL III Diagnosis: Contusion of right upper arm[ICD9: 923.03] Diagnosis: Right shoulder pain[ICD9: 719.41] Kriss Redman MD, [facility] CPT-4: 94031 05/02/2012 [id number] EST. PATIENT, LEVEL IV Diagnosis: ALLERGIC RHINITIS[ICD9: 477.9] Diagnosis: DIABETES TYPE II[SNOMED: 183391307] Diagnosis: ESSENTIAL HYPERTENSION[SNOMED: 06192590] Kriss Redman MD, [facility] CPT-4: 28417 04/13/2012 ([id number]) 42249 EST. PATIENT, LEVEL IV Diagnosis: ALLERGIC RHINITIS[ICD9: 477.9] Diagnosis: HYPERLIPIDEMIA[ICD9: 272.4] Diagnosis: DIABETES TYPE II[SNOMED: 909490521] Diagnosis: GENERALIZED ANXIETY DISEASE[ICD9: 300.02] Diagnosis: B-COMPLEX DEFIC NEC[ICD9: 266.2] Melly Redman MD, [facility] CPT-4: 03835 01/01/2012 ([id number]) 32655 EST. PATIENT, LEVEL IV Diagnosis: ESSENTIAL HYPERTENSION[SNOMED: 77682116] Diagnosis: KATHY (generalized anxiety disorder)[ICD9: 300.02] Diagnosis: Depressed[ICD9: 311] [facility] CPT-4: 22976 09/28/2011 20771 EST. PATIENT, LEVEL III Diagnosis: Right shoulder pain[ICD9: 719.41] [facility] CPT-4: 84205 06/24/2011 [id number] EST. PATIENT, LEVEL IV Diagnosis: DIABETES TYPE II[SNOMED: 449190859] Diagnosis: ESSENTIAL HYPERTENSION[SNOMED: 95144356] Diagnosis: Fibromyalgia syndrome[ICD9: 729.1] [facility] CPT-4: 58088 06/10/2011 Plan of Care Planned Activity Notes Codes Status Date Visit Plan: Urinary incontinence -UA positive today in the office-will send for culture -rx for myrbetriq provided and instructed on use Low back pain with sciatica- improving -recommend patient continue with exercises/stretches -continue with voltaren gel -we have decreased patient's hydrocodone to #120 (from #180) -will continue further reduction of medication Gait instability -again discussed with patient that she needs to use a walker for stability -a cane is not enough support B12 def-injection today in the office 06/09/2018 Appointment: Melly Dexter WPtel: [address] [place], [place] [phone] (15 min) Moderate 06/09/2018 Patient Education: Patient Medication Summary Completed 06/09/2018 Visit Plan: Right hip pain -SI joint pain- unsteady gait - recommend xray lumbar spine -refer for PT -discussed risk for falls and gait instability in detail -patient needs to use a walker at all times to help with stability and to prevent falling. Patient verbalized understanding of plan. Sleep apnea-patient has not had CPAP for more than a year per her report- schedule sleep study 04/14/2018 Visit Plan: Right hip pain -SI joint pain- unsteady gait - recommend xray lumbar spine -refer for PT -discussed risk for falls and gait instability in detail -patient needs to use a walker at all times to help with stability and to prevent falling. Patient verbalized understanding of plan. 04/14/2018 Appointment: Melly Dexter WPtel: [phone] (15 min) Moderate 04/14/2018 Patient Education: Patient Medication Summary Completed 04/14/2018 Care Plan: X-RAY EXAM OF HIP LOINC : 85358-2 Pending 04/14/2018 Care Plan: X-RAY EXAM L-S SPINE 2/3 VWS LOINC : 75343-1 Pending 04/14/2018 Appointment: Melly Dexter WPtel: [address] [place], [place] [phone] (30 min) Complex 03/07/2018 Appointment: Injection 01/18/2018 Patient Education: Patient Medication Summary Completed 01/18/2018 Visit Plan: Weight ufor-ndmyvshd-joumuwq gained 3# Heart murmur-schedule Echo 01/04/2018 Appointment: Melly Dexter WPtel: [phone] (30 min) Complex 01/04/2018 Patient Education: Patient Medication Summary Completed 01/04/2018 Visit Plan: Hypertension - well controlled - continue with current medications, continue with no added salt diet. Pt has been encouraged to exercise daily. The pt has been advised to call the office if there are any acute concerns about change in blood pressure readings at home. DM-Hgb A1C is 5.4%-stop glipizide Weight loss-due to recent dental jluclr-jhlcdhr-agowcg up in 1 month Urinary incont-stop detrol-start myrbetriq 12/06/2017 Appointment: Melly Dexter WPtel: [phone] (30 min) Complex 12/06/2017 Patient Education: Patient Medication Summary Completed 12/06/2017 Patient Education: Patient Medication Summary Completed 11/24/2017 Appointment: Injection 11/18/2017 Patient Education: Patient Medication Summary Completed 11/18/2017 Appointment: Injection 10/05/2017 Patient Education: Patient Medication Summary Completed 10/05/2017 Appointment: Chantal Smith WPtel: [address] [place], [place] [id number] [facility] - Annual Wellness Visit 08/12/2017 Appointment: Injection 07/27/2017 Patient Education: Patient Medication Summary Completed 07/27/2017 Visit Plan: stitches removal 04/20/2017 Appointment: Nurse Visit 04/20/2017 Patient Education: Patient Medication Summary Completed 04/20/2017 Visit Plan: Hypertension - well controlled - continue with current medications, continue with no added salt diet. Pt has been encouraged to exercise daily. The pt has been advised to call the office if there are any acute concerns about change in blood pressure readings at home. Elevated blood sugars-check Hgb A1C B12 def-B12 injection today in the office Vitamin D def- check labs Hyperlipidemia-check labs Chronic Depression and anxiety - the pt has symptoms of chronic anxiety and depression that have been fairly well controlled since the last office visit. The pt has expected periods of exacerbation with abatement of the symptoms with change in situational exposure. No change in current medications. 03/25/2017 Visit Plan: Hypertension - well controlled - continue with current medications, continue with no added salt diet. Pt has been encouraged to exercise daily. The pt has been advised to call the office if there are any acute concerns about change in blood pressure readings at home. Elevated blood sugars-check Hgb A1C B12 def-B12 injection today in the office Vitamin D def- check labs Hyperlipidemia-check labs Chronic Depression and anxiety - the pt has symptoms of chronic anxiety and depression that have been fairly well controlled since the last office visit. The pt has expected periods of exacerbation with abatement of the symptoms with change in situational exposure. No change in current medications. 03/25/2017 Appointment[facility]el[phone] ([facility] min) Complex 03/25/2017 Patient Education: Patient Medication Summary Completed 03/25/2017 App[facility]ment[phone] [phone] (30 min) Complex 03/23/2017 Appointment: Nurse Visit 02/16/2017 Patient Education: Patient Medication Summary Completed 02/16/2017 Appointment: Injection 01/11/2017 Patient Education: Patient Medication Summary Completed 01/11/2017 Visit Plan: Anxiety -uncontrolled (tachycardia, overwhelming sensations, stress, insomnia, etc). Plan to increase sertraline to 100mg twice daily. Pt is aware of the risks and benefits of treatment with the above medications. Follow up in 1 month, sooner if needed. 11/26/2016 App[facility]ment: [phone] [phone] (30 min) Complex 11/26/2016 Patient Education: Patient Medication Summary Completed 11/26/2016 Appointment: Injection 11/06/2016 Patient Education: Patient Medication Summary Completed 11/06/2016 Appointment: Injection 10/02/2016 Patient Education: Patient Medication Summary Completed 10/02/2016 Visit Plan: Medicare Exam - today we discussed the patients past history, immunizations, preventative exams/evaluations - colonoscopy, fecal occult blood testing, routine labs for renal function, glucose, cholesterol, osteoporosis evaluations, cardiovascular testing and cancer screenings. We have also discussed mental health and the signs/symptoms of depression. The patient was advised of home safety evaluations and the need to make sure that as the aging process continues, we need to be aware of different ways to make the home a safer place to reside. The patient has also been counseled that exercise is necessary - and of utmost importance as we age to help decrease fall risk and to maintain independece in the home. Today we discussed the need for the patient to create paperwork for Advanced directives as well as for the patient to provide this office with a copy of her DOPA paperwork for health care surrogate. 08/06/2016 App[facility]ment: [phone] [facility] [facility] - Annual Wellness Visit 08/06/2016 Patient Education: Patient Medication Summary Completed 08/06/2016 Appointment: Injection 08/03/2016 Patient Education: Patient Medication Summary Completed 08/03/2016 Appointment: Injection 06/29/2016 Patient Education: Patient Medication Summary Completed 06/29/2016 Appointment: Injection 06/16/2016 Patient Education: Patient Medication Summary Completed 06/16/2016 Appointment: Injection 05/14/2016 Patient Education: Patient Medication Summary Completed 05/14/2016 Visit Plan: Hypertension - well controlled - continue with current medications, continue with no added salt diet. Pt has been encouraged to exercise daily. The pt has been advised to call the office if there are any acute concerns about change in blood pressure readings at home. Chronic Depression and anxiety - the pt has symptoms of chronic anxiety and depression that have been fairly well controlled since the last office visit. The pt has expected periods of exacerbation with abatement of the symptoms with change in situational exposure. No change in current medications. Esophageal Reflux - the patient has been counseled against excessive intake of caffeine, spicy foods, peppermint, and cinnamon - all of which can exacerbate esophageal reflux. The patient is to take medications as prescribed and call the office if the symptoms are not improving. Cellulitis - continue with oral antibiotics as previously directed, return to clinic as previously directed, call for acute change in symptoms, worsening redness, warmth, discharge. 05/04/2016 Appointment: Melly Dexter [facility]el[id number] (30 min) Complex 05/04/2016 Patient Education: Patient Medication Summary Completed 05/04/2016 Care Plan: [facility] [id number] Pending 05/04/2016 Appointment: Injection 04/15/2016 Patient Education: Patient Medication Summary Completed 04/15/2016 Appointment: Injection 03/02/2016 Patient Education: Patient Medication Summary Completed 03/02/2016 Appointment: Injection 01/28/2016 Patient Education: Patient Medication Summary Completed 01/28/2016 Appointment: Nurse Visit 12/03/2015 Patient Education: Patient Medication Summary Completed 12/03/2015 Visit Plan: Chronic left leg pain - post traumatic fracture - will refer to physical therapy with water therapy. Chronic Depression and anxiety - the pt has symptoms of chronic anxiety and depression that have been fairly well controlled since the last office visit. The pt has expected periods of exacerbation with abatement of the symptoms with change in situational exposure. No change in current medications. 10/24/2015 Appointment: (30 min) Complex 10/24/2015 Patient Education: Patient Medication Summary Completed 10/24/2015 Appointment: Injection 09/09/2015 Patient Education: Patient Medication Summary Completed 09/09/2015 Visit Plan: Depression/anxiety - Pt has been counseled about the diagnosis of depression, the potential causes, and risks associated with the diagnosis. The pt denies suicidal ideation, or plans. The patient has been counseled about treatment options, and understands the risks associated with treatment of depression, as well as the risks associated with NOT treating the depression. I believe the pt will benefit from medical intervention and an antidepressant has been appropriately prescribed for this patient. Esophageal Reflux - the patient has been counseled against excessive intake of caffeine, spicy foods, peppermint, and cinnamon - all of which can exacerbate esophageal reflux. The patient is to take medications as prescribed and call the office if the symptoms are not improving. 08/07/2015 Appointment: (30 min) Complex 08/07/2015 Patient Education: Patient Medication Summary Completed 08/07/2015 Visit Plan: Diabetes Mellitus - Hgb A1c drawn at today's office visit. I have recommended for the patient to have follow up labs prior to the next office visit. The patient has been instructed to continue with current medications as previously directed, continue with regular FSBS monitoring to assure continued control of diabetes. Pt to call for any acute concerns, complaints, or if the blood glucose readings are starting to become less controlled. Hypertension - well controlled - continue with current medications, continue with no added salt diet. Pt has been encouraged to exercise daily. The pt has been advised to call the office if there are any acute concerns about change in blood pressure readings at home. Chronic Right Foot Pain- RX for Hydrocodone refill given to patient. 02/06/2015 Appointment: (30 min) Complex 02/06/2015 Patient Education: Patient Medication Summary Completed 02/06/2015 Patient Education: Hypertension Completed 02/06/2015 Visit Plan: Hypertension - well controlled - continue with current medications, continue with no added salt diet. Pt has been encouraged to exercise daily. The pt has been advised to call the office if there are any acute concerns about change in blood pressure readings at home. Diabetes Mellitus - controlled - per recent FSBS reports. I have recommended for the patient to have follow up labs prior to the next office visit. The patient has been instructed to continue with current medications as previously directed, continue with regular FSBS monitoring to assure continued control of diabetes. Pt to call for any acute concerns, complaints, or if the blood glucose readings are starting to become less controlled. Allergies - chronic - recommended pt to use allergy medication as prescribed. Pt has been counseled as to the appropriate use of the medication. Pt to call if allergy symptoms are not controlled with the medication. If using nasal spray, instructions as follows: Nasal spray- use twice daily, one spray per nostril twice daily, after 30 minutes, rinse out nose with saline spray.. Use opposite hand per nostril to spray in the nasal steroid allergy spray. 07/12/2014 Appointment: [facility]el[phone] [facility] [facility] 07/12/2014 Patient Education: Patient Medication Summary Completed 07/12/2014 Patient Education: Hypertension Completed 07/12/2014 Visit Plan: Allergies - chronic - recommended pt to use allergy medication as prescribed. Pt has been counseled as to the appropriate use of the medication. Pt to call if allergy symptoms are not controlled with the medication. Kenalog injection today in the office for acute symptoms. If using nasal spray, instructions as follows: Nasal spray- use twice daily, one spray per nostril twice daily, after 30 minutes, rinse out nose with saline spray.. Use opposite hand per nostril to spray in the nasal steroid allergy spray. Generalized weakness-patient requires the use of a 4 wheeled walker due to recent fracture and generalized weakness 05/17/2014 Appointment: Sick 05/17/2014 Patient Education: Patient Medication Summary Completed 05/17/2014 Visit Plan: Diabetes Mellitus - controlled - per recent FSBS reports. I have recommended for the patient to have follow up labs prior to the next office visit. The patient has been instructed to continue with current medications as previously directed, continue with regular FSBS monitoring to assure continued control of diabetes. Pt to call for any acute concerns, complaints, or if the blood glucose readings are starting to become less controlled. Vtamin B12 shot today 04/16/2014 Appointment: [facility]el[facility] [facility] [facility] 04/16/2014 Patient Education: Patient Medication Summary Completed 04/16/2014 Visit Plan: Hypertension - well controlled - continue with current medications, continue with no added salt diet. Pt has been encouraged to exercise daily. The pt has been advised to call the office if there are any acute concerns about change in blood pressure readings at home. Diabetes Mellitus - controlled - per recent FSBS reports. I have recommended for the patient to have follow up labs prior to the next office visit. The patient has been instructed to continue with current medications as previously directed, continue with regular FSBS monitoring to assure continued control of diabetes. Pt to call for any acute concerns, complaints, or if the blood glucose readings are starting to become less controlled. Tib/Fib fracture-repaired by Dr Ugarte- cultured wound today in the office due to foul smelling drainage B12 deficiency- injection today in the office. 03/05/2014 Appointment: Hospital follow up 03/05/2014 Patient Education: Patient Medication Summary Completed 03/05/2014 Patient Education: Hypertension Completed 03/05/2014 Appointment: [phone] [id number] [place] Injection 01/19/2014 Appointment: Melly Dexter [facility]Ptel[phone] [phone] [place] Injection 11/20/2013 Patient Education: Patient Medication Summary Completed 10/23/2013 Visit Plan: Diabetes Mellitus - controlled - per recent FSBS reports. I have recommended for the patient to have follow up labs prior to the next office visit. The patient has been instructed to continue with current medications as previously directed, continue with regular FSBS monitoring to assure continued control of diabetes. Pt to call for any acute concerns, complaints, or if the blood glucose readings are starting to become less controlled. Hypertension - well controlled - continue with current medications, continue with no added salt diet. Pt has been encouraged to exercise daily. The pt has been advised to call the office if there are any acute concerns about change in blood pressure readings at home. Hyperlipidemia - pt has fish oil in some of her supplements - pt is not interested in taking the plain fish oil capsules - but will eat fish. Shoulder pain - improved with topical gel - Arnica gel. 10/18/2013 Appointment: Kriss Red[facility]el[phone] [facility] [place] Follow up 10/18/2013 Patient Education: Patient Medication Summary Completed 10/18/2013 Patient Education: Hypertension Completed 10/18/2013 Appointment: Kr[facility]el[facility] [phone] [facility] [place] Injection 08/09/2013 Patient Education: Patient Medication Summary Completed 08/09/2013 Appointment: [facility]Ptel[facility] [phone] [facility] Nurse Visit 05/22/2013 Patient Education: Patient Medication Summary Completed 05/22/2013 Appointment: Melly Dexter WPtel: [address] [phone] [place] Injection 04/17/2013 Patient Education: Patient Medication Summary Completed 03/27/2013 Appointment: Kriss Redman WPtel: [facility] [place] Lab Draw 03/22/2013 Patient Education: Patient Medication Summary Completed 03/22/2013 Patient Education: Patient Medication Summary Completed 02/15/2013 Appointment: Kriss Redman WPtel: [facility] [place] Injection 12/12/2012 Patient Education: Patient Medication Summary Completed 12/12/2012 Appointment: Kriss Redman WPtel: [facility] [place] Injection 2012 Patient Education: Patient Medication Summary Completed 2012 Patient Education: Patient Medication Summary Completed 10/12/2012 Appointment: Kriss Redman WPtel[facility] [place] Injection 08/25/2012 Patient Education: Patient Medication Summary Completed 08/25/2012 Appointment: Kriss Redman WPtel[facility] [place] Injection 06/01/2012 Patient Education: Patient Medication Summary Completed 06/01/2012 Visit Plan: Contusion-swelling right upper arm-plan to ultrasound arm to rule out biceps tendon rupture. Discussed natural and expected course of this diagnosis and to alert me if symptoms do not follow expected course, or if any worse. 05/02/2012 Appointment: Melly Dexter [facility]Ptel[phone] [place] Other 05/02/2012 Patient Education: Patient Medication Summary Completed 05/02/2012 Visit Plan: Allergies - Advised avoidance of allergens if possible, we discussed natural and expected course of this diagnosis and need to alert me if symtpoms do not follow expected course, or if any worse. Kenalog injection today in the office Diabetes Mellitus - controlled - per recent FSBS reports. I have recommended for the patient to have follow up labs prior to the next office visit. The patient has been instructed to continue with current medications as previously directed, continue with regular FSBS monitoring to assure continued control of diabetes. Pt to call for any acute concerns, complaints, or if the blood glucose readings are starting to become less controlled. Hypertension - well controlled - continue with current medications, continue with no added salt diet. Pt has been encouraged to exercise daily. The pt has been advised to call the office if there are any acute concerns about change in blood pressure readings at home. 04/13/2012 Appointment: Melly Dexter [facility]Ptel[phone] [facility] 04/13/2012 Patient Education: Patient Medication Summary Completed 04/13/2012 Patient Education: High Blood Pressure: Essential Hypertension Completed 2011 Patient Education: Patient Medication Summary Completed 03/21/2012 Patient Education: Patient Medication Summary Completed 01/29/2012 Visit Plan: Hyperlipidemia - pt has been counseled about appropriate diet, exercise, and need for low fat food choices. I have discussed the need for the patient to take medications as prescribed. If the patient has negative side effects from the medication, they are to CALL the office and not abruptly discontinue the medication without discussion with a practicioner in the office. We will check labs in 3-6 months for follow up on the patient's chronic medical problem and to assure normal liver response to medications. Allergies - Advised avoidance of allergens if possible, we discussed natural and expected course of this diagnosis and need to alert me if symtpoms do not follow expected course, or if any worse. Kenalog injection today in the office. B12 def-B12 injection today in the office. Ubugsme-lsgqkryytb-[id number] with current medications-instructed patient and daughter to alert me if symptoms uncontrolled on current regimen. Diabetes Mellitus - controlled - I have recommended for the patient to have follow up labs prior to the next office visit. The patient has been instructed to continue with current medications as previously directed, continue with regular FSBS monitoring to assure continued control of diabetes. Pt to call for any acute concerns, complaints, or if the blood glucose readings are starting to become less controlled. 01/01/2012 Appointment: Melly Dexter WPtel: [phone] [phone] Other 01/01/2012 Patient Education: Patient Medication Summary Completed 01/01/2012 Patient Education: Patient Medication Summary Completed 12/01/2011 Appointment: Kriss Redman WPtel: [facility] [place] Injection 11/02/2011 Patient Education: Patient Medication Summary Completed 11/02/2011 Visit Plan: Hypertension - well controlled - continue with current medications, continue with no added salt diet. Pt has been encouraged to exercise daily. The pt has been advised to call the office if there are any acute concerns about change in blood pressure readings at home. Anxiety and Depression - uncontrolled - Pt has been counseled about the diagnosis of depression, the potential causes, and risks associated with the diagnosis. The pt denies suicidal ideation, or plans. The patient has been counseled about treatment options, and understands the risks associated with treatment of depression, as well as the risks associated with NOT treating the depression. I believe the pt will benefit from medical intervention and an antidepressant has been appropriately prescribed for this patient.increase seroquel to 150mg daily 09/28/2011 Appointment: Kriss Redman WPtel: [address] [place], [place] [id number] Other 09/28/2011 Patient Education: Patient Medication Summary Completed 09/28/2011 Patient Education: High Blood Pressure: Essential Hypertension Completed 2011 Appointment: Kriss Redman WPtel: [address] [place], [place] [id number] Other 09/14/2011 Appointment: Kriss Redman WPtel: [address] [place], [place] [id number] [place] Injection 09/10/2011 Appointment: Kriss Redman WPtel: [address] [place], [place] [phone] Other 09/10/2011 Patient Education: Patient Medication Summary Completed 09/10/2011 Patient Education: High Blood Pressure: Essential Hypertension Completed 2011 Visit Plan: Right shoulder pain-discussed natural and expected course of this diagnosis and to alert me if symptoms do not follow expected course, or if any worse. Xrays were negative-MRI scheduled for Wednesday at 11:15 am. Instructed patient to call with any concerns. Recommend rest, ice and anti-inflammatories. 06/24/2011 Appointment: Melly Dexter WPtel: [phone] [phone] Other 06/24/2011 Patient Education: Patient Medication Summary Completed 06/24/2011 Visit Plan: Diabetes Mellitus - controlled - per recent FSBS reports. I have recommended for the patient to have follow up labs prior to the next office visit. The patient has been instructed to continue with current medications as previously directed, continue with regular FSBS monitoring to assure continued control of diabetes. Pt to call for any acute concerns, complaints, or if the blood glucose readings are starting to become less controlled. Hypertension - well controlled - continue with current medications, continue with no added salt diet. Pt has been encouraged to exercise daily. The pt has been advised to call the office if there are any acute concerns about change in blood pressure readings at home. Fibromyalgia - chronic complaint for this patient. 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 Continue with other chronic meds. 06/10/2011 Appointment: Kriss Redman WPtel: [facility] Other 06/10/2011 Patient Education: Patient Medication Summary Completed 06/10/2011 Patient Education: High Blood Pressure: Essential Hypertension Completed 2010 Appointment: Kriss Redman WPtel[facility] [place] Injection 05/25/2011 Patient Education: Patient Medication Summary Completed 05/25/2011 Instructions Comment PT voltaren gel xrays sleep study . Right hip pain -SI joint pain- unsteady gait -recommend xray lumbar spine - refer for PT -discussed risk for falls and gait instability in detail -patient needs to use a walker at all times to help with stability and to prevent falling. Patient verbalized understanding of plan. Sleep apnea-patient has not had CPAP for more than a year per her report- schedule sleep study PT voltaren gel xrays sleep study . Right hip pain -SI joint pain- unsteady gait -recommend xray lumbar spine - refer for PT -discussed risk for falls and gait instability in detail -patient needs to use a walker at all times to help with stability and to prevent falling. Patient verbalized understanding of plan. . Diabetes Mellitus - Hgb A1c drawn at today's office visit. I have recommended for the patient to have follow up labs prior to the next office visit. The patient has been instructed to continue with current medications as previously directed, continue with regular FSBS monitoring to assure continued control of diabetes. Pt to call for any acute concerns, complaints, or if the blood glucose readings are starting to become less controlled. Hypertension - well controlled - continue with current medications, continue with no added salt diet. Pt has been encouraged to exercise daily. The pt has been advised to call the office if there are any acute concerns about change in blood pressure readings at home. Chronic Right Foot Pain- RX for Hydrocodone refill given to patient. . stitches removal Check labs-order provided. Kenalog injection today in the office for allergies. B12 injection today in the office. . Hyperlipidemia - pt has been counseled about appropriate diet, exercise, and need for low fat food choices. I have discussed the need for the patient to take medications as prescribed. If the patient has negative side effects from the medication, they are to CALL the office and not abruptly discontinue the medication without discussion with a practicioner in the office. We will check labs in 3-6 months for follow up on the patient's chronic medical problem and to assure normal liver response to medications. Allergies - Advised avoidance of allergens if possible, we discussed natural and expected course of this diagnosis and need to alert me if symtpoms do not follow expected course, or if any worse. Kenalog injection today in the office. B12 def-B12 injection today in the office. Pmhpmfl-tqhgrirgcl-kcbudlab with current medications-instructed patient and daughter to alert me if symptoms uncontrolled on current regimen. Diabetes Mellitus - controlled - I have recommended for the patient to have follow up labs prior to the next office visit. The patient has been instructed to continue with current medications as previously directed, continue with regular FSBS monitoring to assure continued control of diabetes. Pt to call for any acute concerns, complaints, or if the blood glucose readings are starting to become less controlled. INCREASE SERTRALINE TO 100MG TWICE DAILY . Anxiety -uncontrolled (tachycardia, overwhelming sensations, stress, insomnia, etc). Plan to increase sertraline to 100mg twice daily. Pt is aware of the risks and benefits of treatment with the above medications. Follow up in 1 month, sooner if needed. . Diabetes Mellitus - controlled - per recent FSBS reports. I have recommended for the patient to have follow up labs prior to the next office visit. The patient has been instructed to continue with current medications as previously directed, continue with regular FSBS monitoring to assure continued control of diabetes. Pt to call for any acute concerns, complaints, or if the blood glucose readings are starting to become less controlled. Hypertension - well controlled - continue with current medications, continue with no added salt diet. Pt has been encouraged to exercise daily. The pt has been advised to call the office if there are any acute concerns about change in blood pressure readings at home. Hyperlipidemia - pt has fish oil in some of her supplements - pt is not interested in taking the plain fish oil capsules - but will eat fish. Shoulder pain - improved with topical gel - Arnica gel. STOP GLIPIZIDE FOLLOW UP IN 1 MONTH FOR A WEIGHT CHECK STOP DETROL -START MYRBETRIQ 25MG DAILY . Hypertension - well controlled - continue with current medications, continue with no added salt diet. Pt has been encouraged to exercise daily. The pt has been advised to call the office if there are any acute concerns about change in blood pressure readings at home. DM-Hgb A1C is 5.4%-stop glipizide Weight loss-due to recent dental rezmtc-mibhbdo-nhjgmq up in 1 month Urinary incont-stop detrol-start myrbetriq . Chronic left leg pain - post traumatic fracture - will refer to physical therapy with water therapy. Chronic Depression and anxiety - the pt has symptoms of chronic anxiety and depression that have been fairly well controlled since the last office visit. The pt has expected periods of exacerbation with abatement of the symptoms with change in situational exposure. No change in current medications. Pharmacy is going to refill the 100 mg pill. One pill in the morning and 1/2 pill at noon. If Gaviscon is not working try taking a Nexium or Prilosec over the counter. Look for gel insert for left big toe. . Depression/anxiety - Pt has been counseled about the diagnosis of depression, the potential causes, and risks associated with the diagnosis. The pt denies suicidal ideation, or plans. The patient has been counseled about treatment options, and understands the risks associated with treatment of depression, as well as the risks associated with NOT treating the depression. I believe the pt will benefit from medical intervention and an antidepressant has been appropriately prescribed for this patient. Esophageal Reflux - the patient has been counseled against excessive intake of caffeine, spicy foods, peppermint, and cinnamon - all of which can exacerbate esophageal reflux. The patient is to take medications as prescribed and call the office if the symptoms are not improving. . Diabetes Mellitus - controlled - per recent FSBS reports. I have recommended for the patient to have follow up labs prior to the next office visit. The patient has been instructed to continue with current medications as previously directed, continue with regular FSBS monitoring to assure continued control of diabetes. Pt to call for any acute concerns, complaints, or if the blood glucose readings are starting to become less controlled. Vtamin B12 shot today Check labs. Allergies - Advised avoidance of allergens if possible, we discussed natural and expected course of this diagnosis and need to alert me if symtpoms do not follow expected course, or if any worse. Kenalog injection today in the office Diabetes Mellitus - controlled - per recent FSBS reports. I have recommended for the patient to have follow up labs prior to the next office visit. The patient has been instructed to continue with current medications as previously directed, continue with regular FSBS monitoring to assure continued control of diabetes. Pt to call for any acute concerns, complaints, or if the blood glucose readings are starting to become less controlled. Hypertension - well controlled - continue with current medications, continue with no added salt diet. Pt has been encouraged to exercise daily. The pt has been advised to call the office if there are any acute concerns about change in blood pressure readings at home. B12 RECOMMEND STRETCHES AND LOW BACK EXERCISES RECOMMEND USING A WALKER CHECK UA . Urinary incontinence -UA positive today in the office-will send for culture - rx for myrbetriq provided and instructed on use Low back pain with sciatica- improving -recommend patient continue with exercises/stretches -continue with voltaren gel -we have decreased patient's hydrocodone to #120 (from #180) -will continue further reduction of medication Gait instability -again discussed with patient that she needs to use a walker for stability -a cane is not enough support B12 def-injection today in the office PRILOSEC OTC DAILY X 1 MONTH THEN RESTART FAMOTIDINE TWICE DAILY LOW SPICE, LOW FAT DIET SCHEDULE MAMMOGRAM . Hypertension - well controlled - continue with current medications, continue with no added salt diet. Pt has been encouraged to exercise daily. The pt has been advised to call the office if there are any acute concerns about change in blood pressure readings at home. Chronic Depression and anxiety - the pt has symptoms of chronic anxiety and depression that have been fairly well controlled since the last office visit. The pt has expected periods of exacerbation with abatement of the symptoms with change in situational exposure. No change in current medications. Esophageal Reflux - the patient has been counseled against excessive intake of caffeine, spicy foods, peppermint, and cinnamon - all of which can exacerbate esophageal reflux. The patient is to take medications as prescribed and call the office if the symptoms are not improving. Cellulitis - continue with oral antibiotics as previously directed, return to clinic as previously directed, call for acute change in symptoms, worsening redness, warmth, discharge. . Hypertension - well controlled - continue with current medications, continue with no added salt diet. Pt has been encouraged to exercise daily. The pt has been advised to call the office if there are any acute concerns about change in blood pressure readings at home. Diabetes Mellitus - controlled - per recent FSBS reports. I have recommended for the patient to have follow up labs prior to the next office visit. The patient has been instructed to continue with current medications as previously directed, continue with regular FSBS monitoring to assure continued control of diabetes. Pt to call for any acute concerns, complaints, or if the blood glucose readings are starting to become less controlled. Allergies - chronic - recommended pt to use allergy medication as prescribed. Pt has been counseled as to the appropriate use of the medication. Pt to call if allergy symptoms are not controlled with the medication. If using nasal spray, instructions as follows: Nasal spray- use twice daily, one spray per nostril twice daily, after 30 minutes, rinse out nose with saline spray.. Use opposite hand per nostril to spray in the nasal steroid allergy spray. . Allergies - chronic - recommended pt to use allergy medication as prescribed. Pt has been counseled as to the appropriate use of the medication. Pt to call if allergy symptoms are not controlled with the medication. Kenalog injection today in the office for acute symptoms. If using nasal spray, instructions as follows: Nasal spray- use twice daily, one spray per nostril twice daily, after 30 minutes, rinse out nose with saline spray.. Use opposite hand per nostril to spray in the nasal steroid allergy spray. Generalized weakness-patient requires the use of a 4 wheeled walker due to recent fracture and generalized weakness . Medicare Exam - today we discussed the patients past history, immunizations, preventative exams/evaluations - colonoscopy, fecal occult blood testing, routine labs for renal function, glucose, cholesterol, osteoporosis evaluations, cardiovascular testing and cancer screenings. We have also discussed mental health and the signs/symptoms of depression. The patient was advised of home safety evaluations and the need to make sure that as the aging process continues, we need to be aware of different ways to make the home a safer place to reside. The patient has also been counseled that exercise is necessary - and of utmost importance as we age to help decrease fall risk and to maintain independece in the home. Today we discussed the need for the patient to create paperwork for Advanced directives as well as for the patient to provide this office with a copy of her DOPA paperwork for health care surrogate. MRI right shoulder Wednesday at 11:15am at the hospital Continue rest, ice, and anti-inflammatories We will call you when we get the results of your MRI Call with any questions or concerns, or worsening symptoms. Right shoulder pain- discussed natural and expected course of this diagnosis and to alert me if symptoms do not follow expected course, or if any worse. Xrays were negative- MRI scheduled for Wednesday at 11:15 am. Instructed patient to call with any concerns. Recommend rest, ice and anti-inflammatories. . Weight btlv-hldzxhak-ecbsjwj gained 3# Heart murmur-schedule Echo . Hypertension - well controlled - continue with current medications, continue with no added salt diet. Pt has been encouraged to exercise daily. The pt has been advised to call the office if there are any acute concerns about change in blood pressure readings at home. Diabetes Mellitus - controlled - per recent FSBS reports. I have recommended for the patient to have follow up labs prior to the next office visit. The patient has been instructed to continue with current medications as previously directed, continue with regular FSBS monitoring to assure continued control of diabetes. Pt to call for any acute concerns, complaints, or if the blood glucose readings are starting to become less controlled. Tib/Fib fracture-repaired by Dr Ugarte-cultured wound today in the office due to foul smelling drainage B12 deficiency-injection today in the office. Ultrasound right upper arm . Contusion-swelling right upper arm-plan to ultrasound arm to rule out biceps tendon rupture. Discussed natural and expected course of this diagnosis and to alert me if symptoms do not follow expected course, or if any worse. . Hypertension - well controlled - continue with current medications, continue with no added salt diet. Pt has been encouraged to exercise daily. The pt has been advised to call the office if there are any acute concerns about change in blood pressure readings at home. Elevated blood sugars-check Hgb A1C B12 def-B12 injection today in the office Vitamin D def-check labs Hyperlipidemia-check labs Chronic Depression and anxiety - the pt has symptoms of chronic anxiety and depression that have been fairly well controlled since the last office visit. The pt has expected periods of exacerbation with abatement of the symptoms with change in situational exposure. No change in current medications. . Hypertension - well controlled - continue with current medications, continue with no added salt diet. Pt has been encouraged to exercise daily. The pt has been advised to call the office if there are any acute concerns about change in blood pressure readings at home. Elevated blood sugars-check Hgb A1C B12 def-B12 injection today in the office Vitamin D def-check labs Hyperlipidemia-check labs Chronic Depression and anxiety - the pt has symptoms of chronic anxiety and depression that have been fairly well controlled since the last office visit. The pt has expected periods of exacerbation with abatement of the symptoms with change in situational exposure. No change in current medications. . Diabetes Mellitus - controlled - per recent FSBS reports. I have recommended for the patient to have follow up labs prior to the next office visit. The patient has been instructed to continue with current medications as previously directed, continue with regular FSBS monitoring to assure continued control of diabetes. Pt to call for any acute concerns, complaints, or if the blood glucose readings are starting to become less controlled. Hypertension - well controlled - continue with current medications, continue with no added salt diet. Pt has been encouraged to exercise daily. The pt has been advised to call the office if there are any acute concerns about change in blood pressure readings at home. Fibromyalgia - chronic complaint for this patient. 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 Continue with other chronic meds. . Hypertension - well controlled - continue with current medications, continue with no added salt diet. Pt has been encouraged to exercise daily. The pt has been advised to call the office if there are any acute concerns about change in blood pressure readings at home. Anxiety and Depression - uncontrolled - Pt has been counseled about the diagnosis of depression, the potential causes, and risks associated with the diagnosis. The pt denies suicidal ideation, or plans. The patient has been counseled about treatment options, and understands the risks associated with treatment of depression, as well as the risks associated with NOT treating the depression. I believe the pt will benefit from medical intervention and an antidepressant has been appropriately prescribed for this patient.increase seroquel to 150mg daily
--- OUTSIDE RECORDS SUMMARY | 2018-07-28 21:38 | XMS REPORT | CCD ---
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 Name Role Phone PP Unavailable CCM Unavailable Summary Purpose Interface Exchange Insurance Providers Payer name Policy type / Coverage type Covered democrat ID Effective Begin Date Effective End Date WPS Medicare Part B Medicare Part B [id number] 2013 Unknown [facility] Medicare Part B [id number] 2013 Unknown [employer] Medicare Part B [id number] 2013 Unknown Family history Mother Diagnosis Age [...] status Unknown 05/22/[address]: 878467649 Nonsmoker 05/22/[address]: 221023606 Never drinks alcohol 05/22/2011 Has the patient [...] Start Date Stop Date Status Fill Instructions loperamide 2 mg capsule RxNorm: 666457 CAPSULE(S) PO TAKE 2 CAPSULES BY MOUTH EVERY NIGHT AT BEDTIME 07/18/2018 No Stop Date Active famotidine 20 mg tablet RxNorm: 081945 TABLET(S) PO TAKE 1 TABLET BY MOUTH TWICE DAILY . 07/18/2018 07/12/2019 Active Patient requests 90 days supply Myrbetriq 25 mg tablet,extended release RxNorm: 0569821 1 Tablet(s) PO daily 1 TABLET(S) PO DAILY 06/09/2018 12/05/2018 Active cyanocobalamin (vit B-12) 1,000 mcg/mL injection solution RxNorm: 682003 1 Milliliter(s) Inj 06/09/2018 06/09/2018 Inactive hydrocodone 5 mg-acetaminophen 325 mg tablet RxNorm: 658276 1 Tablet(s) PO 4-6 hr as needed 05/23/2018 06/21/2018 Inactive mirtazapine 30 mg tablet RxNorm: 576809 Tablet(s) TABLET(S) TAKE 1 TABLET BY MOUTH EVERY NIGHT AT BEDTIME 05/23/2018 Active hydrocodone 5 mg-acetaminophen 325 mg tablet RxNorm: 772252 1 Tablet(s) PO 4-6 hr as needed 05/23/2018 05/22/2018 Inactive clonazepam 1 mg tablet RxNorm: 028554 1 Tablet(s) PO TID 201710/28/2018 Active Claritin-D 12 Hour 5 mg-120 mg tablet,extended release RxNorm: 3082488 1 Tablet(s ) PO BID as needed 04/14/2018 06/12/2018 Inactive Voltaren 1 % topical gel RxNorm: 096629 4 Gram(s) TOP QID 04/1410/10/2018 Active Seroquel XR 150 mg tablet,extended release RxNorm: 178318 1 TABLET(S) PO DAILY 04/11/2018 09/07/2018 Active lisinopril 10 mg tablet RxNorm: 652316 TABLET(S) PO TAKE 1 TABLET BY MOUTH DAILY 03/31/2018 09/26/2018 Active Myrbetriq 25 mg tablet,extended release RxNorm: 9613776 1 TABLET(S) PO DAILY 03/07/2018 06/08/2018 Inactive hydrocodone 5 mg-acetaminophen 325 mg tablet RxNorm: 155545 1 Tablet(s) PO 4-6 hr as needed 03/04/2018 04/02/2018 Inactive Lialda 1.2 gram tablet,delayed release RxNorm: 985183 Tablet(s) 2 TABLET(S) PO BID TAKE 2 TABLETS BY MOUTH TWICE DAILY 03/02/2018 02/24/2019 Active clonazepam 1 mg tablet RxNorm: 060429 1 Tablet(s) PO TID 201704/30/2018 Inactive sertraline 100 mg tablet RxNorm: 261536 1 TABLET(S) PO BID 06/18/2018 Inactive [SAVINGS FOR NON-COVERED DRUGS -- BIN:584629, PCN: ASPROD1, Group: XXXXX, ID# [id number], Questions: . THIS IS NOT INSURANCE.] cyanocobalamin (vit B-12) 1,000 mcg/mL injection solution RxNorm: 003195 1 Milliliter(s) Inj 01/18/2018 01/18/2018 Inactive mirtazapine 30 mg tablet RxNorm: 157611 TABLET(S) TAKE 1 TABLET BY MOUTH EVERY NIGHT AT BEDTIME 12/27/2017 05/22/2018 Inactive Myrbetriq 25 mg tablet,extended release RxNorm: 9120212 1 Tablet(s) PO daily 12/23/2017 03/06/2018 Inactive Myrbetriq 25 mg tablet,extended release RxNorm: 9850520 1 Tablet(s) PO daily 12/23/2017 12/22/2017 Inactive Lialda 1.2 gram tablet,delayed release RxNorm: 403506 2 TABLET(S) PO BID TAKE 2 TABLETS BY MOUTH TWICE DAILY 12/22/2017 Inactive loperamide 2 mg capsule RxNorm: 258859 CAPSULE(S) PO TAKE 2 CAPSULES BY MOUTH EVERY NIGHT AT BEDTIME 12/20/20172017 Inactive hydrocodone 5 mg-acetaminophen 325 mg tablet RxNorm: 514341 1 Tablet(s) PO 4-6 hr as needed 12/16/2017 01/14/2018 Inactive Detrol LA 4 mg capsule,extended release RxNorm: 121085 CAPSULE(S) 1 CAPSULE(S) PO DAILY 11/22/2017 12/22/2017 Inactive glipizide 5 mg tablet RxNorm: 657300 TABLET(S) PO TAKE 1 TABLET BY MOUTH TWICE DAILY 11/22/2017 12/05/2017 Inactive cyanocobalamin (vit B-12) 1,000 mcg/mL injection solution RxNorm: 448509 1 Milliliter(s) Inj 11/18/2017 11/18/2017 Inactive Seroquel XR 150 mg tablet,extended release RxNorm: 285192 1 TABLET(S) PO DAILY 11/16/2017 04/10/2018 Inactive spironolactone 50 mg tablet RxNorm: 907630 TABLET(S) 1 TABLET(S) PO DAILY 11/05/2017 05/03/2018 Inactive TAKE 1 TABLET BY MOUTH EVERY DAY Lialda 1.2 gram tablet,delayed release RxNorm: 649048 2 TABLET(S) PO BID TAKE 2 TABLETS BY MOUTH TWICE DAILY 11/05/2017 Inactive lovastatin 10 mg tablet RxNorm: 285361 TABLET(S) 1 TABLET(S) PO DAILY 10/25/2017 10/19/2018 Active Claritin-D 12 Hour 5 mg-120 mg tablet,extended release RxNorm: 3197579 1 Tablet(s ) PO BID as needed 10/14/2017 12/12/2017 Inactive lisinopril 10 mg tablet RxNorm: 937250 TABLET(S) PO TAKE 1 TABLET BY MOUTH DAILY 10/14/2017 03/30/2018 Inactive cyanocobalamin (vit B-12) 1,000 mcg/mL injection solution RxNorm: 763310 1 Milliliter(s) Inj 10/05/2017 10/05/2017 Inactive hydrocodone 5 mg-acetaminophen 325 mg tablet RxNorm: 553312 1 Tablet(s) PO 4-6 hr as needed 09/16/2017 10/15/2017 Inactive famotidine 20 mg tablet RxNorm: 854463 TABLET(S) PO TAKE 1 TABLET BY MOUTH TWICE DAILY . 08/04/2017 07/17/2018 Inactive cyanocobalamin (vit B-12) 1,000 mcg/mL injection solution RxNorm: 823544 1 Milliliter(s) Inj 07/27/2017 07/27/2017 Inactive clonazepam 1 mg tablet RxNorm: 399105 1 Tablet(s) PO TID 201603/06/2018 Inactive loperamide 2 mg capsule RxNorm: 590969 CAPSULE(S) PO TAKE 2 CAPSULES BY MOUTH EVERY NIGHT AT BEDTIME 07/12/20172017 Inactive spironolactone 50 mg tablet RxNorm: 929930 TABLET(S) 1 TABLET(S) PO DAILY 06/28/2017 11/04/2017 Inactive TAKE 1 TABLET BY MOUTH EVERY DAY hydrocodone 5 mg-acetaminophen 325 mg tablet RxNorm: 358750 1 Tablet(s) PO 4-6 hr as needed 06/17/2017 07/16/2017 Inactive Seroquel XR 150 mg tablet,extended release RxNorm: 159504 1 TABLET(S) PO DAILY 05/25/2017 10/21/2017 Inactive hydrocodone 5 mg-acetaminophen 325 mg tablet RxNorm: 414921 1 Tablet(s) PO 4-6 hr as needed 05/19/2017 06/16/2017 Inactive loperamide 2 mg capsule RxNorm: 542274 CAPSULE(S) PO TAKE 2 CAPSULES BY MOUTH EVERY NIGHT AT BEDTIME 03/29/20172016 Inactive cyanocobalamin (vit B-12) 1,000 mcg/mL injection solution RxNorm: 458535 1 Milliliter(s) Inj 03/25/2017 03/25/2017 Inactive hydrocodone 5 mg-acetaminophen 325 mg tablet RxNorm: 003289 1 Tablet(s) PO 4-6 hr as needed 03/19/2017 04/17/2017 Inactive mirtazapine 30 mg tablet RxNorm: 930720 TABLET(S) TAKE 1 TABLET BY MOUTH EVERY NIGHT AT BEDTIME 03/10/2017 12/04/2017 Inactive glipizide 5 mg tablet RxNorm: 487766 TABLET(S) PO TAKE 1 TABLET BY MOUTH TWICE DAILY 02/18/2017 11/14/2017 Inactive cyanocobalamin (vit B-12) 1,000 mcg/mL injection solution RxNorm: 682788 1 Milliliter(s) Inj 02/16/2017 02/16/2017 Inactive cyanocobalamin (vit B-12) 1,000 mcg/mL injection solution RxNorm: 627341 1 Milliliter(s) Inj 01/11/2017 01/11/2017 Inactive lisinopril 10 mg tablet RxNorm: 735836 TABLET(S) PO TAKE 1 TABLET BY MOUTH DAILY 12/31/2016 09/26/2017 Inactive loperamide 2 mg capsule RxNorm: 313236 CAPSULE(S) PO TAKE 2 CAPSULES BY MOUTH EVERY NIGHT AT BEDTIME 12/31/20162016 Inactive clonazepam 1 mg tablet RxNorm: 508816 1 Tablet(s) PO TID 201603/06/2018 Inactive spironolactone 50 mg tablet RxNorm: 420049 TABLET(S) 1 TABLET(S) PO DAILY 12/31/2016 06/27/2017 Inactive TAKE 1 TABLET BY MOUTH EVERY DAY hydrocodone 5 mg-acetaminophen 325 mg tablet RxNorm: 367781 1 Tablet(s) PO 4-6 hr as needed 12/25/2016 01/23/2017 Inactive lovastatin 10 mg tablet RxNorm: 457230 Tablet(s) 1 TABLET(S) PO DAILY 12/18/2016 10/24/2017 Inactive Detrol LA 4 mg capsule,extended release RxNorm: 361312 CAPSULE(S) 1 CAPSULE(S) PO DAILY 12/17/2016 11/11/2017 Inactive Seroquel XR 150 mg tablet,extended release RxNorm: 061336 1 TABLET(S) PO DAILY 12/17/2016 05/15/2017 Inactive Claritin-D 12 Hour 5 mg-120 mg tablet,extended release RxNorm: 9826334 1 Tablet(s ) PO BID as needed 11/27/2016 04/13/2018 Inactive sertraline 100 mg tablet RxNorm: 899810 1 Tablet(s) PO BID 05/24/2017 Inactive [SAVINGS FOR NON-COVERED DRUGS -- BIN:683926, PCN: ASPROD1, Group: XXXXX, ID# [id number], Questions: . THIS IS NOT INSURANCE.] cyanocobalamin (vit B-12) 1,000 mcg/mL injection solution RxNorm: 612233 1 Milliliter(s) Inj 11/06/2016 11/06/2016 Inactive Lialda 1.2 gram tablet,delayed release RxNorm: 662325 2 TABLET(S) PO BID TAKE 2 TABLETS BY MOUTH TWICE DAILY 10/23/2016 Inactive hydrocodone 5 mg-acetaminophen 325 mg tablet RxNorm: 610314 1 Tablet(s) PO 4-6 hr as needed 10/06/2016 11/04/2016 Inactive cyanocobalamin (vit B-12) 1,000 mcg/mL injection solution RxNorm: 130709 Milliliter(s) Inj 10/02/2016 10/02/2016 Inactive loperamide 2 mg capsule RxNorm: 524042 CAPSULE(S) PO TAKE 2 CAPSULES BY MOUTH EVERY NIGHT AT BEDTIME 09/28/20162016 Inactive sertraline 100 mg tablet RxNorm: 658693 TABLET(S) PO TAKE 1 TABLET BY MOUTH EVERY MORNING AND 1/2 TABLET BY MOUTH AT NOON 09/28/2016 11/25/2016 Inactive [SAVINGS FOR NON-COVERED DRUGS -- BIN:240096, PCN: ASPROD1, Group: XXXXX, ID# [id number], Questions: . THIS IS NOT INSURANCE.] famotidine 20 mg tablet RxNorm: 798118 TABLET(S) PO TAKE 1 TABLET BY MOUTH TWICE DAILY . 08/20/2016 07/15/2017 Inactive mirtazapine 30 mg tablet RxNorm: 257208 TABLET(S) TAKE 1 TABLET BY MOUTH EVERY NIGHT AT BEDTIME 08/19/2016 02/14/2017 Inactive hydrocodone 5 mg-acetaminophen 325 mg tablet RxNorm: 871680 1 Tablet(s) PO 4-6 hr as needed 08/04/2016 09/02/2016 Inactive cyanocobalamin (vit B-12) 1,000 mcg/mL injection solution RxNorm: 022838 Milliliter(s) Inj 08/03/2016 08/03/2016 Inactive Seroquel XR 150 mg tablet,extended release RxNorm: 560450 1 TABLET(S) PO DAILY 07/07/2016 12/03/2016 Inactive cyanocobalamin (vit B-12) 1,000 mcg/mL injection solution RxNorm: 745649 Milliliter(s) Inj 06/29/2016 06/29/2016 Inactive spironolactone 50 mg tablet RxNorm: 982245 TABLET(S) 1 TABLET(S) PO DAILY 06/23/2016 12/19/2016 Inactive TAKE 1 TABLET BY MOUTH EVERY DAY loperamide 2 mg capsule RxNorm: 260320 CAPSULE(S) PO TAKE 2 CAPSULES BY MOUTH EVERY NIGHT AT BEDTIME 06/23/20162016 Inactive hydrocodone 5 mg-acetaminophen 325 mg tablet RxNorm: 133208 1 Tablet(s) PO 4-6 hr as needed 06/11/2016 07/10/2016 Inactive clonazepam 1 mg tablet RxNorm: 294061 1 Tablet(s) PO TID TAKE 1 TABLET BY MOUTH THREE TIMES DAILY 06/09/2016 03/06/2018 Inactive cyanocobalamin (vit B-12) 1,000 mcg/mL injection solution RxNorm: 924956 Milliliter(s) Inj 05/14/2016 05/14/2016 Inactive Acidophilus tablet RxNorm: 1 in the am and 2 at hs Tablet(s) PO QHS 05/04/2016 No Stop Date Active Proventil HFA 90 mcg/actuation aerosol inhaler RxNorm: 882745 1-2 Puff(s) INH PRN as needed 1 inhalation prn SOA 05/04/2016 No Stop Date Active EpiPen 0.3 mg/0.3 mL injection, auto-injector RxNorm: 359335 0.3 Milliliter(s) PRN MILLILITER(S) IM PRN 05/04/2016 No Stop Date Active doxycycline hyclate 100 mg tablet RxNorm: 241290 1 Tablet(s) PO BID 05/04/2016 05/10/2016 Inactive hydrocodone 5 mg-acetaminophen 325 mg tablet RxNorm: 402389 1 Tablet(s) PO 4-6 hr as needed 04/27/2016 05/26/2016 Inactive cyanocobalamin (vit B-12) 1,000 mcg/mL injection solution RxNorm: 668647 1 Milliliter(s) Inj 04/16/2016 04/16/2016 Inactive loperamide 2 mg capsule RxNorm: 419208 CAPSULE(S) PO TAKE 2 CAPSULES BY MOUTH EVERY NIGHT AT BEDTIME 04/02/20162015 Inactive lisinopril 10 mg tablet RxNorm: 713322 TABLET(S) PO TAKE 1 TABLET BY MOUTH DAILY 03/26/2016 12/20/2016 Inactive clonazepam 1 mg tablet RxNorm: 322484 1 Tablet(s) PO TID TAKE 1 TABLET BY MOUTH THREE TIMES DAILY 03/10/2016 03/06/2018 Inactive cyanocobalamin (vit B-12) 1,000 mcg/mL injection solution RxNorm: 789162 Milliliter(s) Inj 03/02/2016 03/02/2016 Inactive hydrocodone 5 mg-acetaminophen 325 mg tablet RxNorm: 877676 1 Tablet(s) PO 4-6 hr as needed 02/12/2016 03/12/2016 Inactive (Appended: Controlled substance eRx refill - RxReferenceNumber: [id number]|1|0|1) Claritin-D 12 Hour 5 mg-120 mg tablet,extended release RxNorm: 7936018 1 Tablet(s ) PO BID as needed TAKE 1 TABLET BY MOUTH TWICE DAILY NEEDED 02/10/2016 04/05/2016 Inactive Seroquel XR 150 mg tablet,extended release RxNorm: 577141 1 TABLET(S) PO DAILY 01/30/2016 06/27/2016 Inactive glipizide 5 mg tablet RxNorm: 361728 Tablet(s) PO TAKE 1 TABLET BY MOUTH TWICE DAILY 01/23/2016 01/16/2017 Inactive mirtazapine 30 mg tablet RxNorm: 050743 Tablet(s) TAKE 1 TABLET BY MOUTH EVERY NIGHT AT BEDTIME 01/15/2016 08/18/2016 Inactive sertraline 100 mg tablet RxNorm: 205059 TABLET(S) PO TAKE 1 TABLET BY MOUTH EVERY MORNING AND 1/2 TABLET BY MOUTH AT NOON 12/30/2015 08/04/2016 Inactive [SAVINGS FOR NON-COVERED DRUGS -- BIN:[id number], PCN: ASPROD1, Group: [id number], ID# [id number], Questions: . THIS IS NOT INSURANCE.] spironolactone 50 mg tablet RxNorm: 435667 Tablet(s) 1 TABLET(S) PO DAILY 12/26/2015 06/22/2016 Inactive TAKE 1 TABLET BY MOUTH EVERY DAY loperamide 2 mg capsule RxNorm: 871500 Capsule(s) PO TAKE 2 CAPSULES BY MOUTH EVERY NIGHT AT BEDTIME 12/26/20152015 Inactive Detrol LA 4 mg capsule,extended release RxNorm: 847682 Capsule(s) 1 CAPSULE(S) PO DAILY 12/18/2015 12/11/2016 Inactive hydrocodone 5 mg-acetaminophen 325 mg tablet RxNorm: 885935 1 Tablet(s) PO 4-6 hr as needed 12/18/2015 02/11/2016 Inactive (Appended: Controlled substance eRx refill - RxReferenceNumber: [id number]|1|0|1) clonazepam 1 mg tablet RxNorm: 424290 TAKE 1 TABLET BY MOUTH THREE TIMES DAILY 12/04/2015 03/06/2018 Inactive cyanocobalamin (vit B-12) 1,000 mcg/mL injection solution RxNorm: 147528 Milliliter(s) Inj 12/03/2015 12/03/2015 Inactive clonazepam 1 mg tablet RxNorm: 410603 Tablet(s) TAKE 1 TABLET BY MOUTH THREE TIMES DAILY 12/02/2015 12/04/2015 Inactive Lialda 1.2 gram tablet,delayed release RxNorm: 440750 2 TABLET(S) PO BID TAKE 2 TABLETS BY MOUTH TWICE DAILY 10/22/2015 Inactive lovastatin 10 mg tablet RxNorm: 605728 1 TABLET(S) PO DAILY 04/201612/17/2016 Inactive TAKE ONE TABLET BY MOUTH DAILY famotidine 20 mg tablet RxNorm: 483670 TABLET(S) PO TAKE 1 TABLET BY MOUTH TWICE DAILY . 10/14/2015 08/19/2016 Inactive hydrocodone 5 mg-acetaminophen 325 mg tablet RxNorm: 715870 1 Tablet(s) PO 4-6 hr as needed 10/14/2015 12/17/2015 Inactive (Appended: Controlled substance eRx refill - RxReferenceNumber: [id number]|1|0|1) Zithromax Z-Marck 250 mg tablet RxNorm: 573712 1 Tablet(s) PO UD 10/11/2015 01/22/2016 Inactive z marck loperamide 2 mg capsule RxNorm: 766842 2 CAPSULE(S) PO QHS TAKE 2 CAPSULES BY MOUTH EVERY NIGHT AT BEDTIME 09/23/2015 Inactive [SAVINGS FOR UNINSURED PATIENTS -- BIN:129252, PCN: ASPROD1, Group: [id number], ID# [id number], Process claim through [employer], for questions: . THIS IS NOT INSURANCE.] cyanocobalamin (vit B-12) 1,000 mcg/mL injection solution RxNorm: 318880 Milliliter(s) Inj 09/09/2015 09/09/2015 Inactive Seroquel XR 150 mg tablet,extended release RxNorm: 469103 1 TABLET(S) PO DAILY 09/02/2015 01/29/2016 Inactive hydrocodone 5 mg-acetaminophen 325 mg tablet RxNorm: 135948 1 Tablet(s) PO q 4-6 hr prn as needed TAKE 1 TO 2 TABLETS BY MOUTH EVERY 6 HOURS NEEDED 08/13/2015 10/13/2015 Inactive (Appended: Controlled substance eRx refill - RxReferenceNumber: [id number]|1|0|1) Zoloft 50 mg tablet RxNorm: 864831 TABLET(S) PO 1 Q AM, 1/2 Q NOON 08/05/2015 No Stop Date Active Claritin-D 12 Hour 5 mg-120 mg tablet,extended release RxNorm: 3902831 TAKE 1 TABLET BY MOUTH TWICE DAILY 07/31/2015 Inactive glipizide 5 mg tablet RxNorm: 185630 1 TABLET(S) PO BID 201401/18/2016 Inactive [SAVINGS FOR UNINSURED PATIENTS -- BIN:414808, PCN: ASPROD1, Group: [id number], ID # [id number], Process claim through [employer], for questions: . THIS IS NOT INSURANCE.] Claritin-D 12 Hour 5 mg-120 mg tablet,extended release RxNorm: 6314630 TAKE 1 TABLET BY MOUTH TWICE DAILY 07/16/2015 Inactive hydrocodone 5 mg-acetaminophen 325 mg tablet RxNorm: 084289 1 Tablet(s) PO q 4-6 hr prn as needed TAKE 1 TO 2 TABLETS BY MOUTH EVERY 6 HOURS NEEDED 06/13/2015 08/12/2015 Inactive (Appended: Controlled substance eRx refill - RxReferenceNumber: [id number]|1|0|1) spironolactone 50 mg tablet RxNorm: 912046 1 TABLET(S) PO DAILY 06/06/2015 12/02/2015 Inactive TAKE 1 TABLET BY MOUTH EVERY DAY clonazepam 1 mg tablet RxNorm: 424678 Tablet(s) TAKE 1 TABLET BY MOUTH THREE TIMES DAILY 05/14/2015 08/09/2015 Inactive hydrocodone 5 mg-acetaminophen 325 mg tablet RxNorm: 389413 1 Tablet(s) PO q 4-6 hr prn as needed TAKE 1 TO 2 TABLETS BY MOUTH EVERY 6 HOURS NEEDED 04/09/2015 06/12/2015 Inactive (Appended: Controlled substance eRx refill - RxReferenceNumber: [id number]|1|0|1) mirtazapine 30 mg tablet RxNorm: 540783 1 TABLET(S) PO TAKE 1 TABLET BY MOUTH EVERY NIGHT AT BEDTIME 04/09/20152015 Inactive lisinopril 10 mg tablet RxNorm: 707286 Tablet(s) PO TAKE 1 TABLET BY MOUTH DAILY 03/27/2015 03/20/2016 Inactive Zoloft 50 mg tablet RxNorm: 054759 Tablet(s) PO 1 q am, 1/2 q noon 03/15/2015 08/04/2015 Inactive clonazepam 1 mg tablet RxNorm: 058535 Tablet(s) TAKE 1 TABLET BY MOUTH THREE TIMES DAILY 03/06/2015 03/06/2015 Inactive (Response to an electronic controlled substance refill request - RxReferenceNumber: [id number]|1|0|1) clonazepam 1 mg tablet RxNorm: 940097 TAKE 1 TABLET BY MOUTH THREE TIMES DAILY 03/06/2015 05/13/2015 Inactive Seroquel XR 150 mg tablet,extended release RxNorm: 753095 1 Tablet(s) PO daily 03/06/2015 09/01/2015 Inactive loperamide 2 mg capsule RxNorm: 170250 2 Capsule(s) PO QHS TAKE 2 CAPSULES BY MOUTH EVERY NIGHT AT BEDTIME 03/06/2015 Inactive [SAVINGS FOR UNINSURED PATIENTS -- BIN:327160, PCN: ASPROD1, Group: [id number], ID# [id number], Process claim through [employer], for questions: . THIS IS NOT INSURANCE.] hydrocodone 5 mg-acetaminophen 325 mg tablet RxNorm: 961524 1 Tablet(s) PO q 4-6 hr prn as needed TAKE 1 TO 2 TABLETS BY MOUTH EVERY 6 HOURS NEEDED 02/06/2015 04/08/2015 Inactive (Appended: Controlled substance eRx refill - RxReferenceNumber: [id number]|1|0|1) Lialda 1.2 gram tablet,delayed release RxNorm: 450424 2 TABLET(S) PO BID TAKE 2 TABLETS BY MOUTH TWICE DAILY 12/24/2014 Inactive mirtazapine 30 mg tablet RxNorm: 514847 1 TABLET(S) PO TAKE 1 TABLET BY MOUTH EVERY NIGHT AT BEDTIME 12/10/20142014 Inactive Detrol LA 4 mg capsule,extended release RxNorm: 009001 1 CAPSULE(S) PO DAILY 12/10/2014 12/04/2015 Inactive sertraline 100 mg tablet RxNorm: 770743 Tablet(s) PO TAKE 1 TABLET BY MOUTH EVERY MORNING AND 1/2 TABLET BY MOUTH AT NOON 12/03/2014 12/29/2015 Inactive [SAVINGS FOR NON-COVERED DRUGS -- BIN:255522, PCN: ASPROD1, Group: XXXXX, ID# [id number], Questions: . THIS IS NOT INSURANCE.] Claritin-D 12 Hour 5 mg-120 mg tablet,extended release RxNorm: 6762885 1 Tablet(s ) PO BID 11/26/2014 07/16/2015 Inactive [SAVINGS FOR NON-COVERED DRUGS -- BIN: 686316, PCN: ASPROD1, Group: XXXXX, ID# [id number], Questions: . THIS IS NOT INSURANCE.] hydrocodone 5 mg-acetaminophen 325 mg tablet RxNorm: 809066 Tablet(s) PO TAKE 1 TO 2 TABLETS BY MOUTH EVERY 6 HOURS NEEDED 11/26/2014 02/05/2015 Inactive ( Appended: Controlled substance eRx refill - RxReferenceNumber: [id number]|1|0|1 ) spironolactone 50 mg tablet RxNorm: 630448 1 TABLET(S) PO DAILY 11/08/2014 05/06/2015 Inactive TAKE 1 TABLET BY MOUTH EVERY DAY EpiPen 0.3 mg/0.3 mL (1:1,000) injection,auto-injector RxNorm: 969979 MILLILITER(S ) IM PRN 10/23/2014 05/03/2016 Inactive hydrocodone 5 mg-acetaminophen 325 mg tablet RxNorm: 931427 Tablet(s) PO TAKE 1 TO 2 TABLETS BY MOUTH EVERY 6 HOURS NEEDED 09/27/2014 11/25/2014 Inactive ( Appended: Controlled substance eRx refill - RxReferenceNumber: [id number]|1|0|1 ) glipizide 5 mg tablet RxNorm: 633012 1 Tablet(s) PO BID 201403/09/2015 Inactive [SAVINGS FOR UNINSURED PATIENTS -- BIN:143272, PCN: ASPROD1, Group: [id number], ID # [id number], Process claim through [employer], for questions: . THIS IS NOT INSURANCE.] loperamide 2 mg capsule RxNorm: 319821 2 CAPSULE(S) PO QHS 02/201512/09/2014 Inactive Seroquel XR 150 mg tablet,extended release RxNorm: 968329 TAKE 1 TABLET BY MOUTH EVERY DAY 09/11/2014 03/05/2015 Inactive glipizide 5 mg tablet RxNorm: 259334 1 TABLET(S) PO BID 201406/07/2015 Inactive Seroquel XR 150 mg tablet,extended release RxNorm: 369770 1 Tablet(s) PO daily TAKE 1 TABLET BY MOUTH EVERY DAY 09/11/2014 01/08/2015 Inactive [SAVINGS FOR UNINSURED PATIENTS -- BIN:002355, PCN: ASPROD1, Group: [id number], ID# [id number], Process claim through [employer], for questions: . THIS IS NOT INSURANCE.] loperamide 2 mg capsule RxNorm: 062137 Capsule(s) PO TAKE 2 CAPSULES BY MOUTH EVERY NIGHT AT BEDTIME 09/10/20142014 Inactive [SAVINGS FOR UNINSURED PATIENTS -- BIN:510943, PCN: ASPROD1, Group: [id number], ID# [id number], Process claim through [employer], for questions: . THIS IS NOT INSURANCE.] clonazepam 1 mg tablet RxNorm: 406572 TAKE 1 TABLET BY MOUTH THREE TIMES DAILY 09/04/2014 12/01/2014 Inactive (Response to an electronic controlled substance refill request - RxReferenceNumber: [id number]|1|0|1) famotidine 20 mg tablet RxNorm: 797481 Tablet(s) PO TAKE 1 TABLET BY MOUTH TWICE DAILY . 09/04/2014 08/29/2015 Inactive clonazepam 1 mg tablet RxNorm: 513804 Tablet(s) TAKE 1 TABLET BY MOUTH THREE TIMES DAILY 09/04/2014 09/04/2014 Inactive (Response to an electronic controlled substance refill request - RxReferenceNumber: [id number]|1|0|1) famotidine 20 mg tablet RxNorm: 202621 1 TABLET(S) PO BID TAKE 1 TABLET BY MOUTH TWICE DAILY 09/04/2014 05/31/2015 Inactive clonazepam 1 mg tablet RxNorm: 250197 TAKE 1 TABLET BY MOUTH THREE TIMES DAILY 08/28/2014 09/03/2014 Inactive (Response to an electronic controlled substance refill request - RxReferenceNumber: [id number]|1|0|1) clonazepam 1 mg tablet RxNorm: 003844 TAKE 1 TABLET BY MOUTH THREE TIMES DAILY 08/23/2014 08/28/2014 Inactive (Response to an electronic controlled substance refill request - RxReferenceNumber: [id number]|1|0|1) lovastatin 10 mg tablet RxNorm: 535663 1 Tablet(s) PO daily 10/13/2015 Inactive TAKE ONE TABLET BY MOUTH DAILY hydrocodone 5 mg-acetaminophen 325 mg tablet RxNorm: 274790 Tablet(s) PO TAKE 1 TO 2 TABLETS BY MOUTH EVERY 6 HOURS NEEDED 07/18/2014 09/26/2014 Inactive ( Appended: Controlled substance eRx refill - RxReferenceNumber: [id number]|1|0|1 ) mirtazapine 30 mg tablet RxNorm: 165864 1 TABLET(S) PO TAKE 1 TABLET BY MOUTH EVERY NIGHT AT BEDTIME 06/19/2014 No Stop Date Active mirtazapine 30 mg tablet RxNorm: 680695 1 TABLET(S) PO TAKE 1 TABLET BY MOUTH EVERY NIGHT AT BEDTIME 06/19/20142014 Inactive loperamide 2 mg capsule RxNorm: 487469 2 CAPSULE(S) PO QHS 08/26/2014 Inactive clonazepam 1 mg tablet RxNorm: 107794 TAKE 1 TABLET BY MOUTH THREE TIMES DAILY 05/18/2014 08/14/2014 Inactive (Response to an electronic controlled substance refill request - RxReferenceNumber: [id number]|1|0|1) clonazepam 1 mg tablet RxNorm: 046829 1 Tablet(s) PO TID TAKE 1 TABLET BY MOUTH THREE TIMES DAILY 05/18/2014 08/27/2014 Inactive (Appended: Controlled substance eRx refill - RxReferenceNumber: [id number]|1|0|1) Kenalog 40 mg/mL suspension for injection RxNorm: 1507064 Milliliter(s) Inj 05/17/2014 05/17/2014 Inactive cyanocobalamin (vit B-12) 1,000 mcg/mL injection solution RxNorm: 980948 Milliliter(s) Inj 05/17/2014 05/17/2014 Inactive spironolactone 50 mg tablet RxNorm: 254070 1 TABLET(S) PO DAILY 04/19/2014 10/15/2014 Inactive TAKE 1 TABLET BY MOUTH EVERY DAY cyanocobalamin (vit B-12) 1,000 mcg/mL injection kit RxNorm: 396461 1 Milliliter(s ) Inj 04/16/2014 04/16/2014 Inactive mirtazapine 30 mg tablet RxNorm: 860543 1 Tablet(s) PO TAKE 1 TABLET BY MOUTH EVERY NIGHT AT BEDTIME 03/08/20142013 Inactive Vitamin B-12 1,000 mcg/mL injection solution RxNorm: 166345 1 Milliliter(s) Inj 03/05/2014 03/05/2014 Inactive Detrol LA 4 mg capsule,extended release RxNorm: 363292 1 Capsule(s) PO daily 02/27/2014 03/23/2015 Inactive lisinopril 10 mg tablet RxNorm: 684077 1 Tablet(s) PO daily TAKE 1 TABLET BY MOUTH DAILY 02/12/2014 10/13/2017 Inactive Seroquel XR 150 mg tablet,extended release RxNorm: 044550 Tablet(s) PO TAKE 1 TABLET BY MOUTH EVERY DAY 01/08/201409/10 Inactive loperamide 2 mg capsule RxNorm: 855802 Capsule(s) PO TAKE 2 CAPSULES BY MOUTH EVERY NIGHT AT BEDTIME 01/01/20142014 Inactive hydrocodone 5 mg-acetaminophen 325 mg tablet RxNorm: 401430 Tablet(s) PO TAKE 1 TO 2 TABLETS BY MOUTH EVERY 6 HOURS NEEDED 12/14/2013 07/17/2014 Inactive ( Appended: Controlled substance eRx refill - RxReferenceNumber: [id number]|1|0|1 ) sertraline 100 mg tablet RxNorm: 600031 Tablet(s) PO TAKE 1 TABLET BY MOUTH EVERY MORNING AND 1/2 TABLET BY MOUTH AT NOON 12/11/2013 12/02/2014 Inactive Lialda 1.2 gram tablet,delayed release RxNorm: 284809 2 Tablet(s) PO BID TAKE 2 TABLETS BY MOUTH TWICE DAILY 12/06/2013 Inactive Lialda 1.2 g tablet,delayed release RxNorm: 497695 Tablet(s) PO TAKE 2 TABLETS BY MOUTH TWICE DAILY 12/05/2013 12/05/2013 Inactive lisinopril 10 mg tablet RxNorm: 880385 Tablet(s) PO TAKE 1 TABLET BY MOUTH DAILY 11/13/2013 02/11/2014 Inactive loperamide 2 mg capsule RxNorm: 109975 Capsule(s) PO TAKE 2 CAPSULES BY MOUTH EVERY NIGHT AT BEDTIME 11/13/20132015 Inactive mirtazapine 30 mg tablet RxNorm: 738475 Tablet(s) PO TAKE 1 TABLET BY MOUTH EVERY NIGHT AT BEDTIME 11/13/2013 03/07/2014 Inactive Lialda 1.2 g tablet,delayed release RxNorm: 336003 Tablet(s) PO TAKE 2 TABLETS BY MOUTH TWICE DAILY 11/02/2013 12/21/2017 Inactive clonazepam 1 mg tablet RxNorm: 379135 1 Tablet(s) PO TID TAKE 1 TABLET BY MOUTH THREE TIMES DAILY 11/01/2013 05/18/2014 Inactive (Appended: Controlled substance eRx refill - RxReferenceNumber: [id number]|1|0|1) glipizide 5 mg tablet RxNorm: 161621 1 Tablet(s) PO BID 201309/10/2014 Inactive clonazepam 1 mg tablet RxNorm: 938760 1 Tablet(s) PO TID TAKE 1 TABLET BY MOUTH THREE TIMES DAILY 10/30/2013 10/31/2013 Inactive (Appended: Controlled substance eRx refill - RxReferenceNumber: [id number]|1|0|1) Seroquel XR 150 mg tablet,extended release RxNorm: 840664 Tablet(s) PO TAKE 1 TABLET BY MOUTH EVERY DAY 10/27/201301/07 Inactive Vitamin B-12 1,000 mcg/mL injection solution RxNorm: 967595 1 Milliliter(s) Inj 10/23/2013 10/23/2013 Inactive hydrocodone 5 mg-acetaminophen 500 mg tablet RxNorm: 113052 1-2 Tablet(s) PO Q6 PRN 10/16/2013 No Stop Date Active hydrocodone 5 mg-acetaminophen 500 mg tablet RxNorm: 275492 Tablet(s) PO TAKE 1 TO 2 TABLETS BY MOUTH EVERY 6 HOURS NEEDED 10/16/2013 12/13/2013 Inactive ( Appended: Controlled substance eRx refill - RxReferenceNumber: [id number]|1|0|1 ) sertraline 100 mg tablet RxNorm: 632136 Tablet(s) PO TAKE 1 TABLET BY MOUTH EVERY MORNING AND 1/2 TABLET BY MOUTH AT NOON 09/11/2013 No Stop Date Active lisinopril 10 mg tablet RxNorm: 962722 Tablet(s) PO TAKE 1 TABLET BY MOUTH DAILY 09/11/2013 03/26/2015 Inactive EpiPen 0.3 mg/0.3 mL (1:1,000) injection,auto-injector RxNorm: 649869 Milliliter(s ) IM PRN 09/11/2013 10/22/2014 Inactive hydrocodone 5 mg-acetaminophen 500 mg tablet RxNorm: 318298 1-2 Tablet(s) PO Q6 PRN 08/16/2013 10/16/2013 Inactive sertraline 100 mg tablet RxNorm: 681186 Tablet(s) PO TAKE 1 TABLET BY MOUTH EVERY MORNING AND 1/2 TABLET BY MOUTH AT NOON 08/14/2013 No Stop Date Active metoprolol succinate ER 25 mg tablet,extended release 24 hr RxNorm: 318220 1/2 Tablet(s) PO BID TAKE 1/2 TABLET BY MOUTH TWICE DAILY 201202/09/2014 Inactive lovastatin 10 mg tablet RxNorm: 381791 1 Tablet(s) PO daily 05/201307/31/2014 Inactive TAKE ONE TABLET BY MOUTH DAILY Vitamin B-12 1,000 mcg/mL injection solution RxNorm: 748554 1 Milliliter(s) Inj 08/09/2013 08/09/2013 Inactive glipizide 5 mg tablet RxNorm: 620280 1 Tablet(s) PO BID 201210/31/2013 Inactive glipizide 5 mg tablet RxNorm: 703262 1 Tablet(s) PO BID 201208/08/2013 Inactive famotidine 20 mg tablet RxNorm: 999125 1 Tablet(s) PO BID TAKE 1 TABLET BY MOUTH TWICE DAILY 07/24/2013 07/18/2014 Inactive Detrol LA 4 mg capsule,extended release RxNorm: 129487 1 Capsule(s) PO daily 06/07/2013 02/26/2014 Inactive spironolactone 50 mg tablet RxNorm: 314754 1 Tablet(s) PO daily 06/05/2013 03/01/2014 Inactive TAKE 1 TABLET BY MOUTH EVERY DAY mirtazapine 30 mg tablet RxNorm: 587751 1 Tablet(s) PO QHS TAKE ONE TABLET BY MOUTH EVERY NIGHT AT BEDTIME 05/29/2013 Inactive Vitamin B-12 1,000 mcg/mL Injection RxNorm: 284228 Milliliter(s) Inj 05/22/2013 05/22/2013 Inactive Influenza Virus Vaccine 0.5 mL RxNorm: IM 05/22/2013 05/22/2013 Inactive EpiPen 0.3 mg/0.3 mL (1:1,000) injection,auto-injector RxNorm: 532167 Milliliter(s ) IM PRN 05/22/2013 09/10/2013 Inactive Zoloft 50 mg tablet RxNorm: 922042 Tablet(s) PO 1 q am, 1/2 q noon 05/19/2013 03/14/2015 Inactive metoprolol succinate ER 25 mg tablet,extended release 24 hr RxNorm: 653127 Tablet (s) PO TAKE 1/2 TABLET BY MOUTH TWICE DAILY 05/19/2013 08/13/2013 Inactive hydrocodone 5 mg-acetaminophen 500 mg tablet RxNorm: 101332 1-2 Tablet(s) PO Q6 PRN 04/07/2013 08/15/2013 Inactive Kenalog 40 mg/mL Susp for Injection RxNorm: 9906127 Milliliter(s) Inj 03/27/2013 03/27/2013 Inactive Vitamin B-12 1,000 mcg/mL Injection RxNorm: 854750 Milliliter(s) Inj 03/22/2013 03/22/2013 Inactive Vitamin B-12 1,000 mcg/mL Injection RxNorm: 374663 1 Milliliter(s) Inj 02/15/2013 02/15/2013 Inactive clonazepam 1 mg tablet RxNorm: 015920 Tablet(s) PO TAKE 1 TABLET BY MOUTH THREE TIMES DAILY 02/13/2013 10/29/2013 Inactive (Appended: Controlled substance eRx refill - RxReferenceNumber: [id number]|1|0|1) clonazepam 1 mg tablet RxNorm: 20610112 Tablet(s) PO TAKE 1 TABLET BY MOUTH THREE TIMES DAILY 02/13/2013 02/13/2013 Inactive (Appended: Controlled substance eRx refill - RxReferenceNumber: [id number]|1|0|1) clonazepam 1 mg tablet RxNorm: 20610112 Tablet(s) PO TAKE 1 TABLET BY MOUTH THREE TIMES DAILY 02/13/2013 02/13/2013 Inactive (Appended: Controlled substance eRx refill - RxReferenceNumber: [id number]|1|0|1) clonazepam 1 mg tablet RxNorm: 649876 Tablet(s) PO TAKE 1 TABLET BY MOUTH THREE TIMES DAILY 02/08/2013 02/12/2013 Inactive (Appended: Controlled substance eRx refill - RxReferenceNumber: [id number]|1|0|1) famotidine 20 mg tablet RxNorm: 780317 Tablet(s) PO TAKE 1 TABLET BY MOUTH TWICE DAILY 02/06/2013 07/23/2013 Inactive Vitamin B-12 1,000 mcg/mL Injection RxNorm: 436930 1 Milliliter(s) Inj 12/12/2012 12/12/2012 Inactive hydrocodone 5 mg-acetaminophen 500 mg tablet RxNorm: 977101 1-2 Tablet(s) PO Q6 PRN 12/09/2012 04/06/2013 Inactive mirtazapine 30 mg tablet RxNorm: 209159 Tablet(s) PO TAKE ONE TABLET BY MOUTH EVERY NIGHT AT BEDTIME 11/21/20122012 Inactive loperamide 2 mg capsule RxNorm: 086587 Capsule(s) PO TAKE 2 CAPSULES BY MOUTH EVERY NIGHT AT BEDTIME 11/12/2012 No Stop Date Active famotidine 20 mg tablet RxNorm: 834367 Tablet(s) PO TAKE 1 TABLET BY MOUTH TWICE DAILY . 11/12/2012 09/03/2014 Inactive Vitamin B-12 1,000 mcg/mL Injection RxNorm: 127255 1 Milliliter(s) Inj 2012 2012 Inactive Kenalog 40 mg/mL Susp for Injection RxNorm: 4436147 Milliliter(s) Inj 2012 2012 Inactive famotidine 20 mg tablet RxNorm: 084283 Tablet(s) PO TAKE 1 TABLET BY MOUTH TWICE DAILY 11/07/2012 11/11/2012 Inactive sertraline 100 mg tablet RxNorm: 111994 Tablet(s) PO TAKE 1 TABLET BY MOUTH EVERY MORNING AND 1/2 TABLET BY MOUTH AT NOON 10/27/2012 08/13/2013 Inactive loperamide 2 mg capsule RxNorm: 255417 Capsule(s) PO TAKE 2 CAPSULES BY MOUTH EVERY NIGHT AT BEDTIME 10/24/2012 No Stop Date Active glipizide 5 mg tablet RxNorm: 372226 Tablet(s) PO TAKE 1 TABLET BY MOUTH TWICE DAILY 10/24/2012 01/22/2016 Inactive metoprolol succinate ER 25 mg tablet,extended release 24 hr RxNorm: 363285 1/2 Tablet(s) PO BID TAKE 1/2 TABLET BY MOUTH TWICE DAILY 2012 No Stop Date Active Lialda 1.2 g tablet,delayed release RxNorm: 206787 2 Tablet(s) PO BID 10/14/2012 11/01/2013 Inactive metoprolol succinate ER 25 mg tablet,extended release 24 hr RxNorm: 985545 Tablet (s) PO TAKE 1/2 TABLET BY MOUTH TWICE DAILY 10/14/2012 05/18/2013 Inactive Vitamin B-12 1,000 mcg/mL Injection RxNorm: 717949 1 Milliliter(s) Inj 10/12/2012 10/12/2012 Inactive lisinopril 10 mg tablet RxNorm: 665756 Tablet(s) PO TAKE 1 TABLET BY MOUTH DAILY 09/14/2012 10/13/2017 Inactive metoprolol succinate ER 25 mg tablet,extended release 24 hr RxNorm: 367870 Tablet (s) PO TAKE 1/2 TABLET BY MOUTH TWICE DAILY 09/14/2012 10/13/2012 Inactive Vitamin B-12 1,000 mcg/mL Injection RxNorm: 152066 1 Milliliter(s) Inj 08/25/2012 08/25/2012 Inactive clonazepam 1 mg tablet RxNorm: 436232 Tablet(s) PO 08/01/2012 No Stop Date Active TAKE 1 TABLET BY MOUTH THREE TIMES DAILY NEEDED (Appended: Controlled substance eRx refill - RxReferenceNumber: [id number]|1|0|1) clonazepam 1 mg tablet RxNorm: 142242 Tablet(s) PO 08/01/2012 02/09/2013 Inactive TAKE 1 TABLET BY MOUTH THREE TIMES DAILY (Appended: Controlled substance eRx refill - RxReferenceNumber: [id number]|1|0|1) metoprolol succinate ER 25 mg tablet,extended release 24 hr RxNorm: 325824 Tablet (s) PO 07/18/2012 No Stop Date Active TAKE 1/2 TABLET BY MOUTH TWICE DAILY spironolactone 50 mg tablet RxNorm: 935514 Tablet(s) PO 201106/04/2013 Inactive TAKE 1 TABLET BY MOUTH EVERY DAY metoprolol succinate ER 25 mg tablet,extended release 24 hr RxNorm: 428098 Tablet (s) PO 06/13/2012 No Stop Date Active TAKE 1/2 TABLET BY MOUTH TWICE DAILY EpiPen 0.3 mg/0.3 mL (1:1,000) IM Injector RxNorm: 276668 Milliliter(s) IM PRN 06/02/2012 05/21/2013 Inactive lovastatin 10 mg tablet RxNorm: 712985 1 Tablet(s) PO daily 05/26/2013 Inactive TAKE ONE TABLET BY MOUTH DAILY hydrocodone 5 mg-acetaminophen 500 mg tablet RxNorm: 910373 1-2 Tablet(s) PO Q6 PRN 06/01/2012 12/08/2012 Inactive metoprolol succinate ER 25 mg tablet,extended release 24 hr RxNorm: 574496 Tablet (s) PO 05/02/2012 No Stop Date Active TAKE 1/2 TABLET BY MOUTH TWICE DAILY clonazepam 1 mg tablet RxNorm: 295184 1 Tablet(s) PO TID 201105/02/2012 Inactive clonazepam 1 mg tablet RxNorm: 502698 Tablet(s) PO 05/02/2012 08/01/2012 Inactive TAKE 1 TABLET BY MOUTH THREE TIMES DAILY NEEDED (Appended: Controlled substance eRx refill - RxReferenceNumber: [id number]|1|0|1) metoprolol succinate ER 25 mg tablet,extended release 24 hr RxNorm: 596622 Tablet (s) PO 04/18/2012 05/01/2012 Inactive TAKE 1/2 TABLET BY MOUTH TWICE DAILY famotidine 20 mg tablet RxNorm: 385124 Tablet(s) PO 04/15/2012 11/06/2012 Inactive TAKE 1 TABLET BY MOUTH TWICE DAILY Kenalog 40 mg/mL Susp for Injection RxNorm: 1537156 1 Milliliter(s) Inj 04/13/2012 04/13/2012 Inactive hydrocodone-acetaminophen 5 mg-500 mg tablet RxNorm: 635774 1-2 Tablet(s) PO Q6 PRN 04/05/2012 05/31/2012 Inactive Vitamin B-12 1,000 mcg/mL Injection RxNorm: 068929 Milliliter(s) Inj 03/21/2012 03/21/2012 Inactive hydrocodone-acetaminophen 5 mg-500 mg tablet RxNorm: 551172 1-2 Tablet(s) PO Q6 PRN 02/02/2012 04/04/2012 Inactive cyanocobalamin (vitamin B-12) 1,000 mcg/mL Injection RxNorm: 082280 1 Milliliter(s ) Inj 01/29/2012 01/29/2012 Inactive Vitamin B-12 1,000 mcg/mL Injection RxNorm: 495463 Milliliter(s) Inj 01/01/2012 01/01/2012 Inactive Kenalog 40 mg/mL Susp for Injection RxNorm: 1881192 Milliliter(s) Inj 01/01/2012 01/01/2012 Inactive Lialda 1.2 g tablet,delayed release RxNorm: 034928 2 Tablet(s) PO BID 12/15/2011 10/13/2012 Inactive Lialda 1.2 g Tab RxNorm: 142721 1 Tablet(s) PO BID 201112/14/2011 Inactive Vitamin B-12 1,000 mcg/mL Injection RxNorm: 185224 Milliliter(s) Inj 12/01/2011 12/01/2011 Inactive Lialda 1.2 g Tab RxNorm: 344357 1 Tablet(s) PO BID 201111/30/2011 Inactive Vitamin B-12 1,000 mcg/mL Injection RxNorm: 924332 Milliliter(s) Inj 11/02/2011 11/02/2011 Inactive clonazepam 1 mg tablet RxNorm: 857503 1 Tablet(s) PO TID 201105/02/2012 Inactive sertraline 100 mg tablet RxNorm: 258957 1.5 Tablet(s) PO daily one pill in AM and 1/2 pill at noon 10/21/2011 10/14/2012 Inactive Lialda 1.2 g Tab RxNorm: 122288 2 Tablet(s) PO BID 201111/24/2011 Inactive spironolactone 50 mg Tab RxNorm: 199590 Tablet(s) PO 2011 No Stop Date Active TAKE 1 TABLET BY MOUTH EVERY MORNING loperamide 2 mg Cap RxNorm: 667551 Capsule(s) PO 10/19/2011 No Stop Date Active TAKE 2 CAPSULES BY MOUTH EVERY EVENING lovastatin 20 mg Tab RxNorm: 344195 1 Tablet(s) PO daily 201110/12/2012 Inactive loperamide 2 mg capsule RxNorm: 446691 2 Capsule(s) PO QHS 10/18/2011 Inactive spironolactone 50 mg tablet RxNorm: 560249 1 Tablet(s) PO daily 10/19/2011 10/18/2011 Inactive mirtazapine 30 mg tablet RxNorm: 747659 Tablet(s) PO 201111/20/2012 Inactive TAKE ONE TABLET BY MOUTH EVERY NIGHT AT BEDTIME lovastatin 20 mg Tab RxNorm: 363321 1 Tablet(s) PO daily 201110/18/2011 Inactive lovastatin 20 mg Tab RxNorm: 735368 1 Tablet(s) PO daily 201109/14/2011 Inactive cyanocobalamin (vitamin B-12) 1,000 mcg/mL Injection RxNorm: 295520 Milliliter(s) Inj 09/11/2011 09/28/2011 Inactive lisinopril 10 mg tablet RxNorm: 153288 Tablet(s) PO 09/10/2011 09/13/2012 Inactive TAKE 1 TABLET BY MOUTH DAILY glipizide 5 mg tablet RxNorm: 464000 1 Tablet(s) PO BID 201008/21/2012 Inactive hydrocodone-acetaminophen 5 mg-500 mg Tab RxNorm: 338227 1-2 Tablet(s) PO Q4-6H 1- 2 tabs q 4-6hrs prn 07/27/2011 08/25/2011 Inactive hydrocodone-acetaminophen 5 mg-500 mg Tab RxNorm: 021646 1-2 Tablet(s) PO Q4-6H 1- 2 tabs q 4-6hrs prn 07/16/2011 07/26/2011 Inactive B12 1000 mcg RxNorm: IM 05/25/20112010 Inactive Influenza Virus Vaccine 0.5 mL RxNorm: IM 05/25/2011 05/25/2011 Inactive Nexium 40 mg Cap RxNorm: 562780 1 Capsule(s) PO daily 04/3010/26/2011 Inactive Flintstones [...] Active Vitamin D 400 unit Cap RxNorm: 600789 1 Capsule(s) PO daily No Start Date Active [place] Oil 1,000 mg Cap RxNorm: 1 Capsule(s) [...] Date Active glipizide 5 mg tablet RxNorm: 324368 1 PO BID No Start Date 08/06/2013 Inactive Mucinex D Oral RxNorm : Oral No Start Date 05/20/2014 Inactive Zithromax Z-Marck 250 mg tablet RxNorm: 209667 1 Tablet(s) PO UD No Start Date 10/10/2015 Inactive z marck clonazepam 1 mg Tab RxNorm: 192546 1 Tablet(s) PO TID No Start Date 10/20/2011 Inactive Fish Oil 1,000 mg Cap RxNorm: 1 Capsule(s) PO TID No Start Date 05/03/2016 Inactive Proventil HFA 90 mcg/Actuation Aerosol Inhaler RxNorm: 267456 1 Puff(s) INH PRN 1 inhalation prn SOA No Start Date 2015 Inactive Zoloft 50 mg tablet RxNorm: 359424 1.5 Tablet(s) PO 1 q am, 1/2 q noon No Start Date 05/18/2013 Inactive Claritin-D 12 Hour 5 mg-120 mg tablet,extended release RxNorm: 0375769 1 Tablet(s ) PO BID No Start Date 11/25/2014 Inactive loperamide 2 mg Cap RxNorm: 445309 2 PO QHS No Start Date 10/18/2011 Inactive spironolactone 50 mg Tab RxNorm: 861343 1 Tablet(s) PO daily No Start Date 10/18/2011 Inactive Fish Oil 1,000 mg capsule RxNorm: 1 Capsule(s) PO BID No Start Date 10/02/2013 Inactive lisinopril 10 mg Tab RxNorm: 942103 1 Tablet(s) PO daily No Start Date 09/09/2011 Inactive Detrol LA 4 mg capsule,extended release RxNorm: 197426 1 Capsule(s) PO daily No Start Date 06/06/2013 Inactive mirtazapine 30 mg Tab RxNorm: 296588 1 Tablet(s) PO QHS No Start Date 10/07/2011 Inactive Seroquel XR 50 mg 24 hr Tab RxNorm: 191214 2 Tablet(s) PO QHS No Start Date 09/28/2011 Inactive Epi E-Z Pen IM RxNorm : Intramuscular No Start Date 06/01/2012 Inactive EpiPen 0.3 mg/0.3 mL (1:1,000) IM Injector RxNorm: 947418 Milliliter(s) IM PRN No Start Date 06/01/2012 Inactive Lialda 1.2 g Tab RxNorm: 131984 2 Tablet(s) PO BID No Start Date 10/19/2011 Inactive Seroquel XR 150 mg tablet,extended release RxNorm: 268588 1 Tablet(s) PO daily No Start Date 10/26/2013 Inactive metoprolol succinate ER 25 mg tablet,extended release 24 hr RxNorm: 065485 1/2 Tablet(s) PO BID No Start Date 04/17/2012 Inactive lovastatin 10 mg tablet RxNorm: 460354 1 Tablet(s) PO daily No Start Date 06/01/2012 Inactive Acidophilus Tab RxNorm : 2 Tablet(s) PO QHS No Start Date 05/03/2016 Inactive hydrocodone-acetaminophen 5 mg-500 mg Tab RxNorm: 950036 1-2 Tablet(s) PO Q4-6H 1- 2 tabs q 4-6hrs prn No Start Date 2010 Inactive famotidine 20 mg tablet RxNorm: 852922 1 Tablet(s) PO BID No Start Date 04/14/2012 Inactive hydrocodone-acetaminophen 5 mg-500 mg Tab RxNorm: 066504 1-2 Tablet(s) PO Q4-6H No Start Date 02/01/2012 Inactive Medication Administered Medication Codes Instructions Start Date Status cyanocobalamin (vit B-12) 1,000 mcg/mL injection solution RxNorm: 757288 1Milliliter 06/09/2018 No longer Active cyanocobalamin (vit B-12) 1,000 mcg/mL injection solution RxNorm: 208007 1Milliliter 01/18/2018 No longer Active cyanocobalamin (vit B-12) 1,000 mcg/mL injection solution RxNorm: 843497 1Milliliter 11/18/2017 No longer Active cyanocobalamin (vit B-12) 1,000 mcg/mL injection solution RxNorm: 539060 1Milliliter 10/05/2017 No longer Active cyanocobalamin (vit B-12) 1,000 mcg/mL injection solution RxNorm: 967031 1Milliliter 07/27/2017 No longer Active cyanocobalamin (vit B-12) 1,000 mcg/mL injection solution RxNorm: 650514 1Milliliter 03/25/2017 No longer Active cyanocobalamin (vit B-12) 1,000 mcg/mL injection solution RxNorm: 420607 1Milliliter 02/16/2017 No longer Active cyanocobalamin (vit B-12) 1,000 mcg/mL injection solution RxNorm: 042296 1Milliliter 01/11/2017 No longer Active cyanocobalamin (vit B-12) 1,000 mcg/mL injection solution RxNorm: 104423 1Milliliter 11/06/2016 No longer Active cyanocobalamin (vit B-12) 1,000 mcg/mL injection solution RxNorm: 728579 Milliliter 10/02/2016 No longer Active cyanocobalamin (vit B-12) 1,000 mcg/mL injection solution RxNorm: 630935 Milliliter 08/03/2016 No longer Active cyanocobalamin (vit B-12) 1,000 mcg/mL injection solution RxNorm: 657719 Milliliter 06/29/2016 No longer Active cyanocobalamin (vit B-12) 1,000 mcg/mL injection solution RxNorm: 278437 Milliliter 05/14/2016 No longer Active cyanocobalamin (vit B-12) 1,000 mcg/mL injection solution RxNorm: 288325 1Milliliter 04/16/2016 No longer Active cyanocobalamin (vit B-12) 1,000 mcg/mL injection solution RxNorm: 376872 Milliliter 03/02/2016 No longer Active cyanocobalamin (vit B-12) 1,000 mcg/mL injection solution RxNorm: 247920 Milliliter 12/03/2015 No longer Active cyanocobalamin (vit B-12) 1,000 mcg/mL injection solution RxNorm: 261601 Milliliter 09/09/2015 No longer Active Kenalog 40 mg/mL suspension for injection RxNorm: 1343942 Milliliter 05/17/2014 No longer Active cyanocobalamin (vit B-12) 1,000 mcg/mL injection solution RxNorm: 911946 Milliliter 05/17/2014 No longer Active cyanocobalamin (vit B-12) 1,000 mcg/mL injection kit RxNorm : 218851 1Milliliter 04/16/2014 No longer Active Vitamin B-12 1,000 mcg/mL injection solution RxNorm: 732364 1Milliliter 03/05/2014 No longer Active Vitamin B-12 1,000 mcg/mL injection solution RxNorm: 928417 1Milliliter 10/23/2013 No longer Active Vitamin B-12 1,000 mcg/mL injection solution RxNorm: 831018 1Milliliter 08/09/2013 No longer Active Vitamin B-12 1,000 mcg/mL Injection RxNorm: 299100 Milliliter 05/22/2013 No longer Active Influenza Virus Vaccine 0.5 mL RxNorm: 05/22/2013 No longer Active Kenalog 40 mg/mL Susp for Injection RxNorm: 6097998 Milliliter 03/27/2013 No longer Active Vitamin B-12 1,000 mcg/mL Injection RxNorm: 914270 Milliliter 03/22/2013 No longer Active Vitamin B-12 1,000 mcg/mL Injection RxNorm: 650384 1Milliliter 02/15/2013 No longer Active Vitamin B-12 1,000 mcg/mL Injection RxNorm: 727983 1Milliliter 12/12/2012 No longer Active Kenalog 40 mg/mL Susp for Injection RxNorm: 4867435 Milliliter 2012 No longer Active Vitamin B-12 1,000 mcg/mL Injection RxNorm: 373694 1Milliliter 2012 No longer Active Vitamin B-12 1,000 mcg/mL Injection RxNorm: 687615 1Milliliter 10/12/2012 No longer Active Vitamin B-12 1,000 mcg/mL Injection RxNorm: 121988 1Milliliter 08/25/2012 No longer Active Kenalog 40 mg/mL Susp for Injection RxNorm: 5415742 1Milliliter 04/13/2012 No longer Active Vitamin B-12 1,000 mcg/mL Injection RxNorm: 017473 Milliliter 03/21/2012 No longer Active cyanocobalamin (vitamin B-12) 1,000 mcg/mL Injection RxNorm : 259869 1Milliliter 01/29/2012 No longer Active Kenalog 40 mg/mL Susp for Injection RxNorm: 9165919 Milliliter 01/01/2012 No longer Active Vitamin B-12 1,000 mcg/mL Injection RxNorm: 905544 Milliliter 01/01/2012 No longer Active Vitamin B-12 1,000 mcg/mL Injection RxNorm: 235644 Milliliter 12/01/2011 No longer Active Vitamin B-12 1,000 mcg/mL Injection RxNorm: 532439 Milliliter 11/02/2011 No longer Active Influenza Virus [...] Item Item Code Result Date Culture Urine [id number] URINE CULTURE SEE NOTES 06/13/2018 Urine Culture Ucult Complete Growth of aerobe sent to ref lab 06/10/2018 Vitamin D 25 Oh [id number] VITAMIN D, 25 HYDROXY 52.64 ng/mL Cbc [...] 14.1 % 11/24/2017 Cbc With Differential Ord2 [place]% 10.6 % 11/24/2017 Cbc With Differential Ord2 [...] 1.08 K/ul 11/24/2017 Cbc With Differential Ord2 [place] ABS# 0.8 K/ul 11/24/2017 Cbc With Differential Ord2 Eos ABS# 0.1 K/ul 11/24/2017 Cbc With Differential Ord2 Baso ABS# 0.0 K/ul 11/24/2017 %Hba1C Voa767 % HbA1c 26016-7 5.4 % 11/24/2017 %Hba1C Axa719 Gluc Ave 108 mg/dL 11/24/2017 Tsh Ord6 TSH (3rd IS) 2.12 uIU/mL 11/24/2017 B12 Xtj705 B12 >1500.00 pg/ml 11/24/2017 Lipid Ord30 CHOL 142 mg/dL 11/24/2017 Lipid Ord30 HDL 50.0 mg/dl 11/24/2017 Lipid Ord30 TRIG 153 mg/dL 11/24/2017 Lipid Ord30 LDL 61 mg/dL 11/24/2017 Lipid Ord30 C/HDL 2.8 Ratio 11/24/2017 Comp Metabolic Ujn072 NA 143 mEq/L 11/24/2017 Comp Metabolic Nsa064 K 4.0 mEq/L 11/24/2017 Comp Metabolic Wvc279 CL 103 mEq/L 11/24/2017 Comp Metabolic Juj384 CO2 31.0 mEq/L 11/24/2017 Comp Metabolic Ruk767 ANION GAP 13 11/24/2017 Comp Metabolic Ofh173 GLUCOSE 81 mg/dL 11/24/2017 Comp Metabolic Hcm474 Creat 0.8 mg/dL 11/24/2017 Comp Metabolic Wpb642 eGFR 74 ml/min/1.73m2 11/24/2017 Comp Metabolic Not480 BUN 23 mg/dL 11/24/2017 Comp Metabolic Wfn145 B/C Ratio 28.8 Ratio 11/24/2017 Comp Metabolic Trl562 CALCIUM 9.5 mg/dL 11/24/2017 Comp Metabolic Fdx731 ALK PHOS 66 U/L 11/24/2017 Comp Metabolic Qzq996 AST(SGOT) 15 U/L 11/24/2017 Comp Metabolic Gcz808 ALT(SGPT) 12 U/L 11/24/2017 Comp Metabolic Lrn189 BILI T 0.4 mg/dL 11/24/2017 Comp Metabolic Sxw437 ALBUMIN 4.8 g/dL 11/24/2017 Comp Metabolic Azb918 TPRO 6.8 g/dL 11/24/2017 Comp Metabolic Rjo261 GLOB 2.0 g/dL 11/24/2017 Comp Metabolic Fwl207 A/G Ratio 2.4 Ratio 11/24/2017 Comp Metabolic Rgv677 Osmo 288 mOsmo 11/24/2017 Vitamin D 25 Oh Isp8832 VITAMIN D, 25 HYDROXY 42.84 ng/mL B12 Zsd883 B12 >1500.00 pg/ml 04/16/2017 Tsh Ord6 hTSH [...] 29.4 pg 04/16/2017 Cbc With Differential Ord2 [place]% 8.1 % 04/16/2017 Cbc With Differential Ord2 [...] 1.47 K/ul 04/16/2017 Cbc With Differential Ord2 [place] ABS# 0.5 K/ul 04/16/2017 Cbc With Differential Ord2 Eos ABS# 0.1 K/ul 04/16/2017 Cbc With Differential Ord2 Baso ABS# 0.0 K/ul 04/16/2017 Comp Metabolic Pal210 NA 140 mEq/L 04/16/2017 Comp Metabolic Ouu066 K 4.3 mEq/L 04/16/2017 Comp Metabolic Jra717 CL 105 mEq/L 04/16/2017 Comp Metabolic Mdd493 CO2 26.0 mEq/L 04/16/2017 Comp Metabolic Nma287 ANION GAP 13 04/16/2017 Comp Metabolic Yea149 GLUCOSE 103 mg/dL 04/16/2017 Comp Metabolic Imw781 Creat 0.8 mg/dL 04/16/2017 Comp Metabolic Ilk493 eGFR 80 ml/min/1.73m2 04/16/2017 Comp Metabolic Eid141 BUN 18 mg/dL 04/16/2017 Comp Metabolic Ipr357 B/C Ratio 24.0 Ratio 04/16/2017 Comp Metabolic Vwl423 CALCIUM 9.3 mg/dL 04/16/2017 Comp Metabolic Xgg449 ALK PHOS 79 U/L 04/16/2017 Comp Metabolic Ure971 AST(SGOT) 20 U/L 04/16/2017 Comp Metabolic Xyq466 ALT(SGPT) 20 U/L 04/16/2017 Comp Metabolic Iul223 BILI T 0.4 mg/dL 04/16/2017 Comp Metabolic Vyr577 ALBUMIN 4.4 g/dL 04/16/2017 Comp Metabolic Qnl386 TPRO 6.8 g/dL 04/16/2017 Comp Metabolic Wkc516 GLOB 2.4 g/dL 04/16/2017 Comp Metabolic Mkp429 A/G Ratio 1.9 Ratio 04/16/2017 Comp Metabolic Zch160 Osmo 282 mOsmo 04/16/2017 %Hba1C Vbk475 % HbA1c 59856-1 5.6 % 04/16/2017 %Hba1C Zrs460 Gluc Ave 114 mg/dL 04/16/2017 Lipid Ord30 [...] 29.2 pg 04/10/2016 Cbc With Differential Ord2 Ferry% 10.3 % 04/10/2016 Cbc With Differential Ord2 [...] 1.25 K/ul 04/10/2016 Cbc With Differential Ord2 [place] ABS# 0.6 K/ul 04/10/2016 Cbc With Differential Ord2 Eos ABS# 0.1 K/ul 04/10/2016 Cbc With Differential Ord2 Baso ABS# 0.0 K/ul 04/10/2016 %Hba1C Eia956 % HbA1c 10656-0 5.9 % 04/10/2016 %Hba1C Ihw906 Gluc Ave 123 mg/dL 04/10/2016 B12 Bxa412 B12 849.00 pg/ml 04/10/2016 Comp Metabolic Iqe274 NA 139 mEq/L 04/10/2016 Comp Metabolic Zbt140 K 4.3 mEq/L 04/10/2016 Comp Metabolic Hpn587 CL 102 mEq/L 04/10/2016 Comp Metabolic Ljh971 CO2 30.0 mEq/L 04/10/2016 Comp Metabolic Ggb174 ANION GAP 11 04/10/2016 Comp Metabolic Nar343 GLUCOSE 94 mg/dL 04/10/2016 Comp Metabolic Mvu376 Creat 0.8 mg/dL 04/10/2016 Comp Metabolic Kll365 eGFR 72 ml/min/1.73m2 04/10/2016 Comp Metabolic Kqs690 BUN 21 mg/dL 04/10/2016 Comp Metabolic Vrf892 B/C Ratio 25.6 Ratio 04/10/2016 Comp Metabolic Cyk731 CALCIUM 9.6 mg/dL 04/10/2016 Comp Metabolic Aqn704 ALK PHOS 70 U/L 04/10/2016 Comp Metabolic Ssk678 AST(SGOT) 26 U/L 04/10/2016 Comp Metabolic Tga633 ALT(SGPT) 22 U/L 04/10/2016 Comp Metabolic Bom188 BILI T 0.5 mg/dL 04/10/2016 Comp Metabolic Lro852 ALBUMIN 4.6 g/dL 04/10/2016 Comp Metabolic Ngl989 TPRO 6.7 g/dL 04/10/2016 Comp Metabolic Rxq729 GLOB 2.1 g/dL 04/10/2016 Comp Metabolic Bmh466 A/G Ratio 2.1 Ratio 04/10/2016 Comp Metabolic Ldl400 Osmo 280 mOsmo 04/10/2016 Vitamin D 25 Oh Jpv1684 VITAMIN D, 25 HYDROXY 39.58 ng/mL Cbc [...] 28.0 % 10/25/2015 Cbc With Differential Ord2 [place]% 8.7 % 10/25/2015 Cbc With Differential Ord2 [...] 1.83 K/ul 10/25/2015 Cbc With Differential Ord2 [place] ABS# 0.6 K/ul 10/25/2015 Cbc With Differential [...] Ord6 hTSH II 2.55 uIU/mL 08/21/2015 %Hba1C Yak558 % HbA1c 55430-4 5.5 % 08/21/2015 %Hba1C Mjj038 Gluc Ave 111 mg/dL 08/21/2015 URINALYSIS NONAUTO W/O SCOPE 14850 Specific [place] 1.030 DateTime(Free Text in Aprima) URINALYSIS NONAUTO W/O SCOPE 61856 PH 5 DateTime(Free Text in Aprima) URINALYSIS NONAUTO W/O SCOPE 60304 GLUCOSE neg DateTime( Free Text in Aprima) URINALYSIS NONAUTO W/O SCOPE 38718 Protein neg DateTime( Free Text in Aprima) URINALYSIS NONAUTO W/O SCOPE 27861 Blood neg DateTime(Free Text in Aprima) URINALYSIS NONAUTO W/O SCOPE 79705 Bilirubin neg DateTime(Free Text in Aprima) URINALYSIS NONAUTO W/O SCOPE 74804 Ketones neg DateTime( Free Text in Aprima) URINALYSIS NONAUTO W/O SCOPE 76669 Urobilinogen neg DateTime(Free Text in Aprima) URINALYSIS NONAUTO W/O SCOPE 32528 Nitrite neg DateTime( Free Text in Aprima) URINALYSIS NONAUTO W/O SCOPE 06960 Leukocytes neg DateTime(Free Text in Apr) Review of Systems System Result Effective Dates [...] sounds 04/14/2018 None Full Exam - General 1995 Musculoskeletal gait and station Overall: normal gait [...] tenderness 02/06/2015 None Full Exam - General 1994 Abdomen abdominal exam Overall: normal bowel sounds 02/06/2015 None Full Exam - General 1994 Integument inspection of skin Overall: few scattered moles, no gross abnormalities 02/06/2015 None Full Exam - General 1994 Neurologic deep tendon reflexes Overall: deep tendon reflexes intact 02/06/2015 None Full Exam - General 1994 Neurologic [...] benign 07/12/2014 None Full Exam - General 1995 Ears/Nose/Throat oral cavity/pharynx/larynx Overall: no masses 07/12/2014 None Full Exam - General 1995 Respiratory auscultation Overall: breath sounds clear bilaterally [...] sounds 05/17/2014 None Full Exam - General 1995 Abdomen abdominal exam Overall: no tenderness 05/17/2014 None Full Exam - General 1994 [...] lips 04/16/2014 None Full Exam - General 1994 Ears/Nose/Throat lips/teeth/gingiva Overall: normal dentition 04/16/2014 None Full Exam - General 1994 Ears/Nose/Throat oral cavity/pharynx/larynx Overall: oral mucosa clear 04/16/2014 None Full Exam - General 1994 Ears/Nose/Throat oral cavity/pharynx/larynx Overall: oropharyngeal mucosa clear 04/16/2014 None Full Exam - General 1994 Ears/Nose/Throat oral cavity/pharynx/larynx Overall: hypopharynx benign 04/16/2014 [...] lips 10/18/2013 None Full Exam - General 1994 Ears/Nose/Throat lips/teeth/gingiva Overall: normal dentition 10/18/2013 None Full Exam - General 1994 Ears/Nose/Throat oral cavity/pharynx/larynx Overall: hypopharynx benign 10/18/2013 None Full Exam - General 1994 Ears/Nose/Throat oral cavity/pharynx/larynx Overall: no masses 10/18/2013 None Full Exam - General 1994 [...] clear 09/28/2011 None Full Exam - General 1995 Ears/Nose/Throat [...] distress 06/24/2011 None Full Exam - General 1995 Ears/Nose/Throat oral cavity/pharynx/larynx Overall: oropharyngeal mucosa clear 06/10/2011 None Full Exam - General 1994 Ears/Nose/Throat otoscopic exam Tympanic membrane: a normal exam 06/10/2011 None Full Exam - General 1995 Ears/Nose/Throat otoscopic exam External auditory canal: complete [...] Procedure Codes Date THER/PROPH/DIAG INJ SC/IM CPT-4: 31656 06/09/2018 VITAMIN B12 INJECTION CPT-4: J3420 06/09/2018 URINALYSIS NONAUTO W/O SCOPE CPT-4: 87149 06/09/2018 THER/PROPH/DIAG INJ SC/IM CPT-4: 71368 01/18/2018 VITAMIN B12 INJECTION CPT-4: J3420 01/18/2018 THER/PROPH/DIAG INJ SC/IM CPT-4: 32758 11/18/2017 VITAMIN B12 INJECTION CPT-4: J3420 11/18/2017 THER/PROPH/DIAG INJ SC/IM CPT-4: 55136 10/05/2017 VITAMIN B12 INJECTION CPT-4: J3420 10/05/2017 THER/PROPH/DIAG INJ SC/IM CPT-4: 95264 07/27/2017 VITAMIN B12 INJECTION CPT-4: J3420 07/27/2017 THER/PROPH/DIAG INJ SC/IM CPT-4: 75724 03/25/2017 VITAMIN B12 INJECTION CPT-4: J3420 03/25/2017 THER/PROPH/DIAG INJ SC/IM CPT-4: 14655 02/16/2017 VITAMIN B12 INJECTION CPT-4: J3420 02/16/2017 THER/PROPH/DIAG INJ SC/IM CPT-4: 21952 01/11/2017 VITAMIN B12 INJECTION CPT-4: J3420 01/11/2017 THER/PROPH/DIAG INJ SC/IM CPT-4: 14190 11/06/2016 VITAMIN B12 INJECTION CPT-4: J3420 11/06/2016 THER/PROPH/DIAG INJ SC/IM CPT-4: 45423 10/02/2016 VITAMIN B12 INJECTION CPT-4: J3420 10/02/2016 PPPS, SUBSEQ VISIT CPT -4: G0439 08/06/2016 THER/PROPH/DIAG INJ SC/IM CPT-4: 75250 08/03/2016 VITAMIN B12 INJECTION CPT-4: J3420 08/03/2016 THER/PROPH/DIAG INJ SC/IM CPT-4: 02147 06/29/2016 VITAMIN B12 INJECTION CPT-4: J3420 06/29/2016 ADMIN INFLUENZA VIRUS VAC CPT-4: G0008 06/16/2016 FLU VACC 4 DELMY 3 YRS PLUS IM Formatting Model/CDA Sections, Assigned to/Amy Cohen SNOMED CT: 81904569 CPT-4: 94783Xjevvtq 06/16/2016 THER/PROPH/DIAG INJ SC/IM CPT-4: 48203 05/14/2016 VITAMIN B12 INJECTION CPT-4: J3420 05/14/2016 THER/PROPH/DIAG INJ SC/IM CPT-4: 22358 04/15/2016 VITAMIN B12 INJECTION CPT-4: J3420 04/15/2016 THER/PROPH/DIAG INJ SC/IM CPT-4: 33038 03/02/2016 ADMIN PNEUMOCOCCAL VACCINE SNOMED CT: 02536229 CPT-4: G0009 03/02/2016 PNEUMOCOCCAL VACC 13 DELMY IM Formatting Model/CDA Sections, Assigned to/Amy Cohen SNOMED CT: 63781325 CPT-4: 34883Xhpcbgx 03/02/2016 VITAMIN B12 INJECTION CPT-4: J3420 03/02/2016 THER/PROPH/DIAG INJ SC/IM CPT-4: 84643 01/28/2016 VITAMIN B12 INJECTION CPT-4: J3420 01/28/2016 THER/PROPH/DIAG INJ SC/IM CPT-4: 10043 12/03/2015 VITAMIN B12 INJECTION CPT-4: J3420 12/03/2015 THER/PROPH/DIAG INJ SC/IM CPT-4: 49821 09/09/2015 VITAMIN B12 INJECTION CPT-4: J3420 09/09/2015 THER/PROPH/DIAG INJ SC/IM CPT-4: 18133 05/17/2014 VITAMIN B12 INJECTION CPT-4: J3420 05/17/2014 TRIAMCINOLONE ACET INJ NOS CPT-4: J3301 05/17/2014 THER/PROPH/DIAG INJ SC/IM CPT-4: 15067 04/16/2014 VITAMIN B12 INJECTION CPT-4: J3420 04/16/2014 THER/PROPH/DIAG INJ SC/IM CPT-4: 86671 03/05/2014 VITAMIN B12 INJECTION CPT-4: J3420 03/05/2014 THER/PROPH/DIAG INJ SC/IM CPT-4: 50479 10/23/2013 VITAMIN B12 INJECTION CPT-4: J3420 10/23/2013 URINALYSIS NONAUTO W/O SCOPE CPT-4: 36204 08/09/2013 VITAMIN B12 INJECTION CPT-4: J3420 08/09/2013 THER/PROPH/DIAG INJ SC/IM CPT-4: 76440 08/09/2013 ADMIN INFLUENZA VIRUS VAC CPT-4: G0008 05/22/2013 FLULAVAL VACC, 3 YRS & >, IM CPT-4: Q2036 05/22/2013 VITAMIN B12 INJECTION CPT-4: J3420 05/22/2013 THER/PROPH/DIAG INJ SC/IM CPT-4: 96456 05/22/2013 TRIAMCINOLONE ACET INJ NOS CPT-4: J3301 03/27/2013 THER/PROPH/DIAG INJ SC/IM CPT-4: 31027 03/27/2013 THER/PROPH/DIAG INJ SC/IM CPT-4: 41858 03/22/2013 VITAMIN B12 INJECTION CPT-4: J3420 03/22/2013 VITAMIN B12 INJECTION CPT-4: J3420 02/15/2013 THER/PROPH/DIAG INJ SC/IM CPT-4: 18394 02/15/2013 VITAMIN B12 INJECTION CPT-4: J3420 12/12/2012 THER/PROPH/DIAG INJ SC/IM CPT-4: 44717 12/12/2012 TRIAMCINOLONE ACET INJ NOS CPT-4: J3301 2012 THER/PROPH/DIAG INJ SC/IM CPT-4: 32799 2012 VITAMIN B12 INJECTION CPT-4: J3420 2012 THER/PROPH/DIAG INJ SC/IM CPT-4: 95873 10/12/2012 VITAMIN B12 INJECTION CPT-4: J3420 10/12/2012 THER/PROPH/DIAG INJ SC/IM CPT-4: 09642 08/25/2012 VITAMIN B12 INJECTION CPT-4: J3420 08/25/2012 ADMIN INFLUENZA VIRUS VAC CPT-4: G0008 06/01/2012 FLULAVAL VACC, 3 YRS & >, IM CPT-4: Q2036 06/01/2012 ADMIN PNEUMOCOCCAL VACCINE SNOMED CT: 34285655 CPT-4: G0009 06/01/2012 Pneumococcal Polysaccharide Vaccine, 23-Valent, Ad CPT-4: 71932 06/01/2012 TRIAMCINOLONE ACET INJ NOS CPT-4: J3301 04/13/2012 VITAMIN B12 INJECTION CPT-4: J3420 03/21/2012 VITAMIN B12 INJECTION CPT-4: J3420 01/29/2012 THER/PROPH/DIAG INJ SC/IM CPT-4: 53378 01/29/2012 TRIAMCINOLONE ACET INJ NOS CPT-4: J3301 01/01/2012 VITAMIN B12 INJECTION CPT-4: J3420 01/01/2012 VITAMIN B12 INJECTION CPT-4: J3420 12/01/2011 THER/PROPH/DIAG INJ SC/IM CPT-4: 27619 12/01/2011 VITAMIN B12 INJECTION CPT-4: J3420 11/02/2011 THER/PROPH/DIAG INJ SC/IM CPT-4: 92478 11/02/2011 THER/PROPH/DIAG INJ SC/IM CPT-4: 38070 09/10/2011 VITAMIN B12 INJECTION CPT-4: J3420 09/10/2011 ROUTINE VENIPUNCTURE CPT-4: 34733 09/10/2011 VITAMIN B12 INJECTION CPT-4: J3420 05/25/2011 ADMIN INFLUENZA VIRUS VAC CPT-4: G0008 05/25/2011 FLULAVAL VACC, 3 YRS & >, IM CPT-4: Q2036 05/25/2011 THER/PROPH/DIAG INJ SC/IM CPT-4: 82552 05/25/2011 Vital Signs Date Vital 06/09/2018 Blood Pressure 1: 110/62 Code : 8480-6 BMI: 23.9 Code : 93638-9 Heart Rate 1 : 85 bpm Height: 5'4" SpO2: 95% Weight: 139 lbs 04/14/2018 Blood Pressure 1: 144/78 Code : 8480-6 BMI: 24.4 Code : 07724-4 Heart Rate 1 : 75 bpm Height: 5'4" SpO2: 94% Weight: 142 lbs 01/04/2018 Blood Pressure 1: 136/64 Code : 8480-6 BMI: 23.4 Code : 55109-7 Heart Rate 1 : 91 bpm Height: 5'4" SpO2: 94% Weight: 136 lbs 8 oz 12/06/2017 Blood Pressure 1: 146/80 Code : 8480-6 BMI: 22.8 Code : 50551-7 Heart Rate 1 : 92 bpm Height: 5'4" SpO2: 95% Weight: 133 lbs 03/25/2017 Blood Pressure 1: 126/70 Code : 8480-6 BMI: 24.5 Code : 31581-2 Heart Rate 1 : 78 bpm Height: 5'4" SpO2: 94% Weight: 143 lbs 11/26/2016 Blood Pressure 1: 126/68 Code : 8480-6 BMI: 25.2 Code : 98022-0 Heart Rate 1 : 69 bpm Height: 5'4" SpO2: 95% Weight: 147 lbs 08/06/2016 Blood Pressure 1: 128/78 Code : 8480-6 Heart Rate 1: 75 bpm Height: 5'4" SpO2: 98% 05/04/2016 Blood Pressure 1: 110/62 Code : 8480-6 BMI: 25.6 Code : 47904-8 Heart Rate 1 : 77 bpm Height: 5'4" SpO2: 97% Weight: 149 lbs 10/24/2015 Blood Pressure 1: 120/62 Code : 8480-6 BMI: 25.4 Code : 01200-0 Heart Rate 1 : 73 bpm Height: 5'4" SpO2: 93% Weight: 148 lbs 08/07/2015 Blood Pressure 1: 138/58 Code : 8480-6 BMI: 24.9 Code : 05819-9 Heart Rate 1 : 80 bpm Height: 5'4" SpO2: 92% Weight: 145 lbs 02/06/2015 Blood Pressure 1: 116/72 Code : 8480-6 BMI: 24.2 Code : 62499-5 Heart Rate 1 : 98 bpm Height: 5'4" Weight: 141 lbs 07/12/2014 Blood Pressure 1: 128/72 Code : 8480-6 BMI: 24.5 Code : 51667-3 Heart Rate 1 : 60 bpm Height: 5'4" Weight: 143 lbs 05/17/2014 Blood Pressure 1: 110/62 Code : 8480-6 BMI: 24.2 Code : 62028-8 Height: 5'4" Weight: 141 lbs 04/16/2014 Blood [...] Code : 8480-6 BMI: 24.4 Code : 23999-9 Heart Rate 1 : 76 bpm Height: 5'4" Respiratory Rate: 16 bpm Weight: 142 lbs 06/24/2011 Blood Pressure 1: 111/57 Code : 8480-6 BMI: 25.1 Code : 32709-0 Heart Rate 1 : 76 bpm Height: 5'4" Weight: 146 lbs 8 oz 06/10/2011 Blood Pressure 1: 114/76 Code : 8480-6 BMI: 25.2 Code : 13145-5 Heart Rate 1 : 72 bpm Height: [...] Triggers stress 01/01/2012 states has dgt in [place] who is very ill and she is [...] for treatment and care. Her DTR in [place] relies on [facility] for financial support. anxiety Alleviating Factors medication 09/28/2011 initially omid worked for her anxiety and depression - [...] limit activities 06/10/2011 pt states that the redrawer has recommended using coconut on her feet and wram them in saran wrap and put on heavy socks- she started last night fatigue Quality chronic 06/10/2011 None fatigue Onset and Resolution ongoing 06/10/2011 None fatigue Limitation on Activities moderately limits activities 06/10/2011 but has improved a little with oxygen Advance Directives No Advance Directive data Encounters Encounter Performer Location Codes Date ([id number]) 16226 EST. PATIENT, LEVEL IV Diagnosis: Mixed incontinence[ICD10: N39.46] Diagnosis: Lumbago with sciatica, right side[ICD10: M54.41] Diagnosis: Other vitamin B12 deficiency anemias[ICD10: D51.8] Diagnosis: Unsteadiness on feet[ICD10: R26.81] [facility] CPT-4: 99641 06/09/2018 ([id number]) 78990 EST. PATIENT, LEVEL III Diagnosis: Lumbago with sciatica, right side[ICD10: M54.41] Diagnosis: Pain in right hip[ICD10: M25.551] Diagnosis: Obstructive sleep apnea (adult) (pediatric)[ICD10: G47.33] [facility] CPT-4: 75217 04/14/2018 [id number] 04469 EST. PATIENT, LEVEL III Diagnosis: Abnormal weight loss[ICD10: R63.4] Diagnosis: Cardiac murmur, unspecified[ICD10: R01.1] Melly Redman MD, [facility] CPT-4: 30815 01/04/2018 [id number]) 12497 EST. PATIENT, LEVEL IV Diagnosis: Essential (primary) hypertension[ICD10: I10] Diagnosis: Mixed hyperlipidemia[ICD10: E78.2] Diagnosis: Abnormal weight loss[ICD10: R63.4] Diagnosis: Type 2 diabetes mellitus without complications[ICD10: E11.9] Melly Redman MD, [facility] CPT-4: 31340 12/06/2017 ([id number]) Miscellaneous no charge Diagnosis: Laceration without foreign body, left lower leg, initial encounter[ ICD10: S81.812A] Melly Redman MD, [facility] CPT-4: 14018 04/20/2017 ([id number]) 22271 EST. PATIENT, LEVEL IV Diagnosis: Essential (primary) hypertension[ICD10: I10] Diagnosis: Impaired fasting glucose[ICD10: R73.01] Diagnosis: Other vitamin B12 deficiency anemias[ICD10: D51.8] Diagnosis: Vitamin D deficiency, unspecified[ICD10: E55.9] Diagnosis: Generalized anxiety disorder[ICD10: F41.1] Diagnosis: Mixed hyperlipidemia[ICD10: E78.2] Melly Redman MD, [facility] CPT-4: 28321 03/25/2017 ([id number]) 05304 EST. PATIENT, LEVEL IV Diagnosis: Generalized anxiety disorder[ICD10: F41.1] Diagnosis: Major depressive disorder, recurrent, moderate[ICD10: F33.1] Melly Redman MD, [facility] CPT-4: 00709 11/26/2016 [id number]) 88273 EST. PATIENT, LEVEL IV Diagnosis: Essential (primary) hypertension[ICD10: I10] Diagnosis: Generalized anxiety disorder[ICD10: F41.1] Diagnosis: Gastro-esophageal reflux disease without esophagitis[ICD10: K21.9] Diagnosis: Cellulitis of right lower limb[ICD10: L03.115] Diagnosis: Encounter for screening mammogram for malignant neoplasm of breast[ ICD10: Z12.31] Melly Redman MD, [facility] CPT-4: 66418 05/04/2016 58722 EST. PATIENT, LEVEL IV Diagnosis: Pain in left leg[ICD10: M79.605] Diagnosis: Vitamin B12 deficiency anemia, unspecified[ICD10: D51.9] Diagnosis: Generalized anxiety disorder[ICD10: F41.1] Chantal Redman MD, [facility] CPT-4: 72208 10/24/2015 40035 EST. PATIENT, LEVEL III Diagnosis: Generalized anxiety disorder[ICD10: F41.1] Diagnosis: Major depressive disorder, recurrent, moderate[ICD10: F33.1] Diagnosis: Gastro-esophageal reflux disease without esophagitis[ICD10: K21.9] Chantal Redman MD, [facility] CPT-4: 23857 08/07/2015 ([id number]) 43569 EST. PATIENT, LEVEL IV Diagnosis: Diabetes mellitus[ICD9: 250.00] Diagnosis: Essential (primary) hypertension[ICD9: 401.9] Diagnosis: Foot pain[ICD9: 729.5] Analy Redman MD, [facility] CPT-4: 88201 02/06/2015 ([id number]) 07567 EST. PATIENT, LEVEL IV Diagnosis: Diabetes mellitus[ICD9: 250.00] Diagnosis: Essential (primary) hypertension[ICD9: 401.9] Diagnosis: ALLERGIC RHINITIS[ICD9: 477.9] Kriss Redman MD, [facility] CPT- 4: 45738 07/12/2014 ([id number]) 08369 EST. PATIENT, LEVEL III Diagnosis: ALLERGIC RHINITIS[ICD9: 477.9] Diagnosis: B12 deficiency[ICD9: 266.2] Diagnosis: Generalized weakness[ICD9: 780.79] Melly Redman MD, [facility] CPT-4: 41967 05/17/2014 ([id number]) 96886 EST. PATIENT, LEVEL IV Diagnosis: B12 deficiency[ICD9: 266.2] Diagnosis: DIABETES TYPE II[ICD9: 250.00] Kriss Redman MD, [facility] CPT- 4: 06059 04/16/2014 ([id number]) 62711 EST. PATIENT, LEVEL IV Diagnosis: ESSENTIAL HYPERTENSION[ICD9: 401.9] Diagnosis: DIABETES TYPE II[ICD9: 250.00] Diagnosis: Fracture of left tibia and fibula[ICD9: 823.82] Diagnosis: B-COMPLEX DEFIC NEC[ICD9: 266.2] Diagnosis: Open wound of leg[ICD9: 891.0] Melly Redman MD, [facility] CPT-4: 65503 03/05/2014 ([id number]) 94233 EST. PATIENT, LEVEL IV Diagnosis: ESSENTIAL HYPERTENSION[SNOMED: 09668537] Diagnosis: DIABETES TYPE II[SNOMED: 037584310] Diagnosis: HYPERLIPIDEMIA[ICD9: 272.4] Diagnosis: Shoulder pain[ICD9: 719.41] Kriss Redman MD, [facility] CPT- 4: 20384 10/18/2013 ([id number]) 05835 EST. PATIENT, LEVEL III Diagnosis: Contusion of right upper arm[ICD9: 923.03] Diagnosis: Right shoulder pain[ICD9: 719.41] Kriss Redman MD, [facility] CPT-4: 21460 05/02/2012 64931 EST. PATIENT, LEVEL IV Diagnosis: ALLERGIC RHINITIS[ICD9: 477.9] Diagnosis: DIABETES TYPE II[SNOMED: 853437519] Diagnosis: ESSENTIAL HYPERTENSION[SNOMED: 95346751] Kriss Redman MD, [facility] CPT-4: 23633 04/13/2012 ([id number]) 96015 EST. PATIENT, LEVEL IV Diagnosis: ALLERGIC RHINITIS[ICD9: 477.9] Diagnosis: HYPERLIPIDEMIA[ICD9: 272.4] Diagnosis: DIABETES TYPE II[SNOMED: 393977686] Diagnosis: GENERALIZED ANXIETY DISEASE[ICD9: 300.02] Diagnosis: B-COMPLEX DEFIC NEC[ICD9: 266.2] Melly Redman MD, [facility] CPT-4: 25400 01/01/2012 ([id number]) 03713 EST. PATIENT, LEVEL IV Diagnosis: ESSENTIAL HYPERTENSION[SNOMED: 60227266] Diagnosis: KATHY (generalized anxiety disorder)[ICD9: 300.02] Diagnosis: Depressed[ICD9: 311] Kriss Redman MD, [facility] CPT-4: 53954 09/28/2011 98916 EST. PATIENT, LEVEL III Diagnosis: Right shoulder pain[ICD9: 719.41] [facility] CPT-4: 83364 06/24/2011 33823 EST. PATIENT, LEVEL IV Diagnosis: DIABETES TYPE II[SNOMED: 187842968] Diagnosis: ESSENTIAL HYPERTENSION[SNOMED: 43386135] Diagnosis: Fibromyalgia syndrome[ICD9: 729.1] [facility] CPT-4: 64422 06/10/2011 Plan of Care Planned Activity Notes [...] the office 06/09/2018 Appointment: Melly Dexter WPtel: [address] [place], [place] [phone] (15 min) Moderate 06/09/2018 Patient Education: Patient Medication Summary Completed 06/09/2018 Visit Plan: Right hip pain -SI joint pain- unsteady gait - recommend xray lumbar spine -refer for PT -discussed risk for falls and gait instability in detail -patient needs to use a walker at all times to help with stability and to prevent falling. Patient verbalized understanding of plan. 04/14/2018 Visit Plan: Right hip pain -SI [...] per her report- schedule sleep study 04/14/2018 Appointment: Melly Dexter WPtel: [phone] (15 min) Moderate 04/14/2018 Patient Education: Patient Medication Summary Completed 04/14/2018 Care Plan: X-RAY EXAM OF HIP LOINC : 38661-9 Pending 04/14/2018 Care Plan: X-RAY EXAM L-S SPINE 2/3 VWS LOINC : 59756-1 Pending 04/14/2018 Appointment: Melly Dexter WPtel: [phone] (30 min) Complex 03/07/2018 Appointment: Injection 01/18/2018 Patient Education: Patient Medication Summary Completed 01/18/2018 Visit Plan: Weight oiuf-uwlpztco-boixiyt gained 3# Heart murmur-schedule Echo 01/04/2018 Appointment: Melly Dexter WPtel: [phone] (30 min) Complex 01/04/2018 Patient Education: [...] 5.4%-stop glipizide Weight loss-due to recent dental lmunno-hxexgik-okdpdd up in 1 month Urinary incont-stop detrol-start myrbetriq 12/06/2017 Appointment: Melly Dexter WPtel: [phone] (30 min) Complex 12/06/2017 Patient Education: Patient Medication Summary Completed 12/06/2017 Patient Education: Patient Medication Summary Completed 11/24/2017 Appointment: Injection 11/18/2017 Patient Education: Patient Medication Summary Completed 11/18/2017 Appointment: Injection 10/05/2017 Patient Education: Patient Medication Summary Completed 10/05/2017 Appointment: [facility]el[facility] [facility] 08/12/2017 Appointment: Injection [...] current medications. 03/25/2017 Appointment: [facility] Dex[facility]Ptel[facility] (30 min) Complex 03/25/2017 Patient Education: Patient Medication Summary Completed 03/25/2017 Appointment: [facility]Ptel[phone] (30 min) Complex 03/23/2017 Appointment: Nurse Visit [...] if needed. 11/26/2016 Appointment: [facility]el[facility] [phone] [facility] (30 min) Complex 11/26/2016 Patient Education: Patient [...] care surrogate. 08/06/2016 Appointment: [facility] Smith [facility]el[facility] [phone] [facility] [facility] - Annual Wellness Visit 08/06/2016 Patient [...] warmth, discharge. 05/04/2016 Appointment: [facility]el[facility] [phone] [phone] (30 min) Complex 05/04/2016 Patient Education: Patient Medication Summary Completed 05/04/2016 Care Plan: [facility] [address]5 Pending 05/04/2016 Appointment: Injection 04/15/2016 Patient Education: [...] spray. 07/12/2014 Appointment[phone] [facility] Follow up 07/12/2014 Patient Education: Patient [...] today 04/16/2014 Appointment: [facility]el[facility] [address] [facility] Follow up 04/16/2014 Patient Education: Patient [...] Completed 03/05/2014 App[facility]ment[facility] [phone] [phone] [place] Injection 01/19/2014 Appointment: Mel[facility] Dexter WPtel[phone] [place] Injection 11/20/2013 Patient Education: Patient Medication [...] Arnica gel. 10/18/2013 Appointment: Kriss Redman WPtel: [address] [place] [address] [place] Follow up 10/18/2013 Patient Education: Patient Medication Summary Completed 10/18/2013 Patient Education: Hypertension Completed 10/18/2013 Appointment: Kriss Redman WPtel: [facility] [place] Injection 08/09/2013 Patient Education: Patient Medication Summary Completed 08/09/2013 Appointment: Kriss Redman WPtel: [address] [place] [address] [place] Nurse Visit 05/22/2013 Patient Education: Patient Medication Summary Completed 05/22/2013 App[facility]ment: [facility]el[facility] [phone] [phone] [place] Injection 04/17/2013 Patient Education: Patient Medication Summary Completed 03/27/2013 Appointment: Kr[facility] Red[facility]Ptel[facility] [phone] [facility] [place] Lab Draw 03/22/2013 Patient Education: Patient Medication Summary Completed 03/22/2013 Patient Education: Patient Medication Summary Completed 02/15/2013 Appointment: Kr[facility] Red[facility]Ptel[facility] [phone] [facility] [place] Injection 12/12/2012 Patient Education: Patient Medication Summary Completed 12/12/2012 Appointment: Kr[facility] Red[facility]Ptel[facility] [phone] [facility] [place] Injection 2012 Patient Education: Patient Medication Summary Completed 2012 Patient Education: Patient Medication Summary Completed 10/12/2012 Appointment: Kriss Redman WPtel: [facility] [place] Injection 08/25/2012 Patient Education: Patient Medication Summary Completed 08/25/2012 Appointment: Kriss Redman WPtel[facility] [place] [facility] 06/01/2012 Patient Education: Patient Medication Summary Completed 06/01/2012 Visit Plan: Contusion-swelling right upper arm-plan to ultrasound arm to rule out biceps tendon rupture. Discussed natural and expected course of this diagnosis and to alert me if symptoms do not follow expected course, or if any worse. 05/02/2012 Appointment: [id number] [place] Other 05/02/2012 Patient Education: Patient Medication [...] at home. 04/13/2012 Appointment: Melly Dexter WPtel: [phone] [facility] [place] [address] Other 04/13/2012 Patient Education: Patient Medication Summary Completed [...] B12 def-B12 injection today in the office. Qymegmb-icjiveixvy-yvybuymb with current medications-instructed patient and daughter to [...] less controlled. 01/01/2012 Appointment: Melly Dexter WPtel: [phone] [phone] [place] Other 01/01/2012 Patient Education: Patient Medication Summary Completed 01/01/2012 Patient Education: Patient Medication Summary Completed 12/01/2011 Appointment: Kriss Redman WPtel: [address] [place], [place] [id number] [place] Injection 11/02/2011 Patient Education: Patient Medication [...] 150mg daily 09/28/2011 Appointment: Kriss Redman WPtel: [address] [place], [place] [id number] Other 09/28/2011 Patient Education: Patient Medication Summary Completed 09/28/2011 Patient Education: High Blood Pressure: Essential Hypertension Completed 2011 Appointment: Kriss Redman WPtel: [address] [place], [place] [phone] Other 09/14/2011 Appointment: Kriss Redman WPtel: [address] [place], [place] [id number] [place] Injection 09/10/2011 Appointment: Kriss Redman WPtel: [address] [place], [place] [id number] Other 09/10/2011 Patient Education: Patient Medication Summary [...] Recommend rest, ice and anti-inflammatories. 06/24/2011 Appointment: Isacc Melly WPtel: [phone] [facility] Other 06/24/2011 Patient Education: Patient Medication Summary [...] with the manipulations from the chiropractor and redrawer especially on her neck. Continue with other chronic meds. 06/10/2011 Appointment: Kriss Redman WPtel: [facility] Other 06/10/2011 Patient Education: Patient Medication Summary Completed 06/10/2011 Patient Education: High Blood Pressure: Essential Hypertension Completed 2010 Appointment: Kriss Redman WPtel: [facility] [place] Injection 05/25/2011 Patient Education: Patient Medication Summary Completed 05/25/2011 Instructions Comment . Diabetes Mellitus - Hgb A1c drawn [...] RX for Hydrocodone refill given to patient. PT voltaren gel xrays sleep study . Right hip pain -SI joint pain- unsteady gait -recommend xray lumbar spine - refer for PT -discussed risk for falls and gait instability in detail -patient needs to use a walker at all times to help with stability and to prevent falling. Patient verbalized understanding of plan. PT voltaren gel xrays sleep study . [...] year per her report- schedule sleep study . Diabetes Mellitus - controlled - per [...] improved with topical gel - Arnica gel. INCREASE SERTRALINE TO 100MG TWICE DAILY . Anxiety -uncontrolled (tachycardia, overwhelming sensations, stress, insomnia, etc). Plan to increase sertraline to 100mg twice daily. Pt is aware of the risks and benefits of treatment with the above medications. Follow up in 1 month, sooner if needed. Check labs-order provided. Kenalog injection today in [...] B12 def-B12 injection today in the office. Klvzmnq-ybirzjemtm-dfarlqqj with current medications-instructed patient and daughter to [...] readings are starting to become less controlled. . stitches removal STOP GLIPIZIDE FOLLOW UP IN 1 MONTH [...] 5.4%-stop glipizide Weight loss-due to recent dental rxbucx-tisclyn-qthcka up in 1 month Urinary incont-stop detrol-start myrbetriq . Diabetes Mellitus - controlled - per [...] in the nasal steroid allergy spray. . Chronic left leg pain - post [...] if the symptoms are not improving. . Allergies - chronic - recommended pt [...] Recommend rest, ice and anti-inflammatories. . Weight wsva-mcjixbuz-gukxulr gained 3# Heart murmur-schedule Echo . Hypertension [...] with the manipulations from the chiropractor and redrawer especially on her neck. Continue with other [...]
[2018-07-28] MEDS ORDERED: HYDROcodone/APAP 5 MG/325 MG (LORTAB) TAB PO STA (21:59)
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
--- NOTE | 2018-07-28 22:21 | ED Fall/Injury ---
General Chief Complaint: Trauma-Non Activation Stated Complaint: FELL HIT HER HEAD Nursing Triage Note: fall, head pain. no loc Source: patient, family Exam Limitations: no limitations History of Present Illness Date Seen by Provider: Jul 28, 2018 Time Seen by Provider: 21:45 Initial Comments Here with report of fall and head injury as well as neck pain. States that she is moving the trashcan lost her balance and fell backwards hitting her head. Also hurt her neck a little bit. This happened approximately 30 minutes prior to arrival. Denies loss of consciousness or bleeding. Denies other injury. Not currently on blood thinners. Location Injury Occurred: home Occurred: just prior to arrival Severity: moderate Injuries/Pain Location: head, neck Context: lost balance Loss of Consciousness: no loss of consciousness Modifying Factors: Worse With Movement; Improves With Rest Associated Symptoms (Fall): No Confusion; Headache; No Lightheadedness, No Nausea/Vomiting; Neck Pain; No Shortness of Air, No Slurred Speech Allergies and Home Medications Allergies Coded Allergies: Penicillins (Unverified Allergy, Unknown, 11/16/06) Sulfa (Sulfonamide Antibiotics) (Unverified Allergy, Unknown, 11/16/06) garlic (Verified Allergy, Unknown, SWELLING OF THROAT, 11/28/13) latex (Verified Allergy, Unknown, RASH, 11/28/13) Home Medications Albuterol 8.5 Gm Hfa.aer.ad, 2 PUFF INH Q2H PRN for SHORTNESS OF BREATH, ( Reported) NEEDED FOR SHORTNESS OF BREATH Clonazepam 1 Mg Tablet, 1 MG PO TID, (Reported) Epinephrine 0.3 Mg/0.3 Ml Pen.injctr, 0.3 MG SL DAILY PRN for ALLERIC REACTION TO GARLIC, (Reported) AN NEEDED FOR ALLERIC REACTION TO GARLIC Famotidine 20 Mg Tablet, 20 MG PO BID, (Reported) Glipizide 5 Mg Tablet, 5 MG PO BID, (Reported) Hydrocodone Bit/Acetaminophen 1 Each Tablet, 1-2 TAB PO Q6H PRN for PAIN, ( Reported) TAKE 1-2 TABLETS (5-325MG) NEEDED FOR PAIN Lactobacillus Acidophilus 100 Mg Capsule, 100 MG PO BID, (Reported) Lisinopril 10 Mg Tablet, 10 MG PO DAILY, (Reported) Loperamide Hcl/Simethicone 1 Each Tablet, 1 CAP PO TID PRN for LOOSE STOOL, ( Reported) NEEDED FOR LOOSE STOOL Lovastatin 10 Mg Tablet, 10 MG PO DAILY WITH SUPPER, (Reported) TAKES WITH SUPPER Magnesium Oxide 250 Mg Tablet, 250 MG PO DAILY, (Reported) Mesalamine 1.2 Gm Tablet.dr, 2.4 GM PO BID, (Reported) TAKE 2 (1.2MG) TABLETS Metoprolol Succinate 25 Mg Tab.sr.24h, 12.5 MG PO DAILY, (Reported) TAKE 1/2 (25MG) TABLET Mirtazapine 30 Mg Tablet, 30 MG PO HS, (Reported) Potassium 99 Mg Tablet, 99 MG PO HS, (Reported) Quetiapine Fumarate 150 Mg Tabsr, 150 MG PO HS, (Reported) Sertraline Hcl 100 Mg Tablet, 100 MG PO DAILY, (Reported) Sertraline Hcl 100 Mg Tablet, 50 MG PO 1200, (Reported) TAKE 1/2 (100MG) TABLET Spironolactone 50 Mg Tablet, 50 MG PO DAILY, (Reported) Tolterodine Tartrate 4 Mg Cap.sr.24h, 4 MG PO DAILY, (Reported) [Vit.b 12] , 1,000 MCG IM monthly, (Reported) Patient Home Medication List Home Medication List Reviewed: Yes Review of Systems Review of Systems Constitutional: see HPI; No chills, No fever Eyes: No Symptoms Reported Ears, Nose, Mouth, Throat: no symptoms reported Respiratory: no symptoms reported Cardiovascular: no symptoms reported Gastrointestinal: No nausea, No vomiting Genitourinary: no symptoms reported Musculoskeletal: see HPI, muscle pain, neck pain Skin: no symptoms reported Psychiatric/Neurological: Headache; Denies Weakness Past Tlsbuei-Dyujtt-Ctdete Hx Past Med/Social Hx: Reviewed Nursing Past Med/Soc Hx Patient Social History Alcohol Use: Denies Use Recreational Drug Use: No Smoking Status: Never a Smoker 2nd Hand Smoke Exposure: No Recent Foreign Travel: No Contact w/Someone Who Travel: No Recent Infectious Disease Expo: No Recent Hopitalizations: No Immunizations Up To Date Tetanus Booster (TDap): Unknown Date of Pneumonia Vaccine: Jun 06, 2013 Date of Influenza Vaccine: Jun 06, 2013 Seasonal Allergies Seasonal Allergies: No Past Medical History Surgeries: Yes (T&A, C/S, HYST, BREAST BX, CARPEL TUNNEL/BONE SPUR RT HAND) Hysterectomy, Orthopedic Respiratory: Yes Sleep Apnea, COPD Currently Using CPAP: Yes Currently Using BIPAP: No Cardiac: Yes High Cholesterol, Hypertension Neurological: No : No Reproductive Disorders: No 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 FEBRUARY 2014 ORIF LEFT TIB/FIB) Chronic Back Pain, Fractures Endocrine: Yes Diabetes, Non-Insulin dep HEENT: No Cancer: No Psychosocial: Yes Anxiety, Depression Integumentary: No Blood Disorders: No Family Medical History Reviewed Nursing Family Hx Family history: Arthritis G8 SISTER Family history: Cardiovascular disease 19 FATHER 19 MOTHER Family history: Diabetes mellitus G8 BROTHER Family history: Hypertension 19 FATHER Parkinson's disease 19 FATHER No Family History of: Cancer Physical Exam Vital Signs Vital Signs - First Documented 07/28/18 21:50 Temp 97.7 Pulse 68 Resp 18 B/P (MAP) 158/75 (102) Pulse Ox 98 O2 Delivery Room Air Capillary Refill : Less Than 3 Seconds Height, Weight, BMI Height: 5'7.00" Weight: 135lbs. 6.4oz. 61.799839ch; 21.09 BMI Method:Stated General Appearance: WD/WN, no apparent distress HEENT: PERRL/EOMI, pharynx normal Neck: supple, tender lateral; No tender midline Cardiovascular: regular rate, rhythm, no murmur Respiratory: lungs clear, normal breath sounds Gastrointestinal: non tender, soft Back: normal inspection, no CVA tenderness, no vertebral tenderness Neurologic/Psychiatric: alert, oriented x 3 Skin: normal color, warm/dry Procedures/Interventions Suture Size: 4-0 Progress/Results/Core Measures Results/Orders My Orders Orders - LINDA GAUTHIER MD Ct Head/Cervical Spine Wo (07/28/18 21:54) Hydrocodone/Apap 5/325 Tablet (Lortab 5 (07/28/18 21:59) Vital Signs/I&O 07/28/18 21:50 Temp 97.7 Pulse 68 Resp 18 B/P (MAP) 158/75 (102) Pulse Ox 98 O2 Delivery Room Air Blood Pressure Mean: 102 Progress Progress Note : Progress Note Seen and evaluated. CT head and C-spine ordered. Hydrocodone 5/325 one tab by mouth given. Monitor patient. 2333: No acute findings noted. Discharged home with return precautions. Patient and family verbalize understanding instructions and agreement with plan. Diagnostic Imaging Diagonstic Imaging: CT Plain Films/CT/US/NM/MRI: c-spine, head Comments No acute intracranial findings. No acute C-spine findings. Reviewed: Reviewed [facility] Study Departure Impression Primary Impression: Head injury, acute, without loss of consciousness Qualified Codes: S09.90XA - Unspecified injury of head, initial encounter Additional Impression: Strain of neck Qualified Codes: S16.1XXA - Strain of muscle, fascia and tendon at neck level , initial encounter Disposition: HOME, SELF-CARE Condition: Improved Departure-Patient Inst. Decision time for Depature: 23:35 Referrals: MARIAN JOSEPH MD (PCP/Family) Primary Care Physician Patient Instructions: Minor Head Injury (DC), Neck Sprain (DC) Add. Discharge Instructions: All discharge instructions reviewed with patient and/or family. Voiced understanding. Continue home medications as prescribed. Follow-up with your Dr. in a few days for recheck. Return for worse pain, fever, vomiting, weakness, breathing problems or other concerns as needed. LINDA GAUTHIER MD Jul 28, 2018 22:21
[2018-07-28 23:43] VITALS: BP 158/75
--- NOTE | 2018-07-29 06:53 | Diagnostic Imaging Report ---
PROCEDURE: CT head and CT cervical spine without contrast. TECHNIQUE: Multiple contiguous axial images were obtained through the brain and cervical spine without the use of intravenous contrast. Sagittal and coronal reformations through the cervical spine were then performed. INDICATION: Head and neck pain after fall. Comparison made with prior examination 06/22/2018 FINDINGS: There is prominence of ventricles and sulci. There is mild chronic microvascular ischemic disease. There is no hydrocephalus. There is no midline shift. There is no intracranial mass, hemorrhage or extra-axial fluid collection. The calvarium is intact. Sinuses and mastoid air cells are clear. There is straightening of normal cervical lordosis. There is slight anterolisthesis of C5 on C6 which appears to be on a degenerative basis. There is multilevel degenerative disc disease. The vertebral body heights are well-maintained. There is no fracture or traumatic subluxation. The odontoid is intact and lateral masses are well aligned. There is some posterior facet arthropathy. The prevertebral soft tissues are within normal limits. Lung apices are clear. IMPRESSION: Atrophy and some chronic microvascular ischemic disease, however, no acute intracranial abnormality. Moderate cervical spondylosis and multilevel degenerative disc disease without acute fracture or traumatic subluxation. Dictated by: Dictated on workstation # [id number]
== END 2018-07-28 23:43 | disposition home or self-care (01) ==
LOC: EDUNIT# 21:20 → ER 21:21
DX: S09.90XA Unspecified injury of head, initial encounter (principal); S16.1XXA Strain of muscle, fascia and tendon at neck level, initial encounter; G47.30 Sleep apnea, unspecified; J44.9 Chronic obstructive pulmonary disease, unspecified; E78.00 Pure hypercholesterolemia, unspecified; I10 Essential (primary) hypertension; K21.9 Gastro-esophageal reflux disease without esophagitis; E11.9 Type 2 diabetes mellitus without complications; F41.9 Anxiety disorder, unspecified; F32.9 Major depressive disorder, single episode, unspecified; Z82.49 Family history of ischemic heart disease and other diseases of the circulatory system; Z87.19 Personal history of other diseases of the digestive system; Z88.0 Allergy status to penicillin; Z88.2 Allergy status to sulfonamides; Z91.040 Latex allergy status; Z79.51 Long term (current) use of inhaled steroids; Z79.84 Long term (current) use of oral hypoglycemic drugs; Z90.710 Acquired absence of both cervix and uterus; W01.10XA Fall on same level from slipping, tripping and stumbling with subsequent striking against unspecified object, initial encounter
CPT/HCPCS: 70450; 72125

== ENCOUNTER → 2019-03-24 | Outpatient (CLI) | payer MEDICARE ==
--- NOTE | 2019-03-24 14:47 | Diagnostic Imaging Report ---
Indication: Low back pain. Time of exam: 2:01 PM 3 views of the lumbar spine demonstrate left convexity and lumbar scoliotic curvature. There is normal lordotic curvature. Vertebral body heights are maintained. No acute compression fracture seen. Generalized lumbar spondylosis with variable disc space narrowing and marginal spurring. Lower lumbar facet arthropathy is also noted. There are atherotic sclerotic calcifications in the abdominal aorta. Impression: Lumbar spondylosis and scoliosis. No acute bony abnormality is detected. Dictated by: Dictated on workstation # [id number]
--- NOTE | 2019-03-27 12:47 | Diagnostic Imaging Report ---
Digital mammogram. Bilateral screening with 3-D tomosynthesis and CAD. This study was compared to the prior exams of 05/11/2013 and 04/14/2012. At this time there are no current complaints. FINDINGS: The fibroglandular tissue in both breasts is heterogeneously dense. This does limit the sensitivity of this exam. Overall, there does not appear to have been any significant change when compared to the prior study. No primary or secondary sign of malignancy is noted. IMPRESSION: There is no radiographic evidence for malignancy. ACR BI-RADS Category 1: Negative. Result letter will be mailed to the patient. Note: At least 10% of breast cancer is not imaged by mammography. Dictated by: Dictated on workstation # [id number]
== END ==
LOC: RAD 13:29
PROVIDERS: ATTEND Nurse Practitioner Family
DX: Z12.31 Encounter for screening mammogram for malignant neoplasm of breast (principal); M47.816 Spondylosis without myelopathy or radiculopathy, lumbar region; M41.86 Other forms of scoliosis, lumbar region
CPT/HCPCS: 72100; 77067

== ENCOUNTER 2019-07-02 11:22 | Emergency (ER) | payer MEDICARE ==
[~2019-07-02] VITALS: Ht 165.1 cm; Wt 54.4 kg
[2019-07-02] MEDS ORDERED: TETANUS,DIPTH,PERTUSS P/F (BOOSTRIX) 0.5 ML VIAL IM ONE (12:00)
[2019-07-02] MEDS ORDERED: LIDOCAINE 1% INJ 20 ML 20 ML VIAL INJ ONE (12:00)
--- NOTE | 2019-07-02 12:05 | ED Integumentary General ---
General Chief Complaint: Trauma-Non Activation Stated Complaint: FALL/L BROW LAC Nursing Triage Note: ARRIVED VIA WC TO TRIAGE. STATES SHE TRIPPED OVER THE RUN AND HIT THE DOOR FRAME CAUSING A LACEATION ABOVE LEFT EYE. DENIES LOC OR NECK PAIN. DENIES TAKING BLOOD THINNERS. History of Present Illness Date Seen by Provider: Jul 02, 2019 Time Seen by Provider: 11:45 Timing/Duration: just prior to arrival Location: face (above left eye and into left eyebrow) Possible Cause: other (fell) Associated Symptoms: denies symptoms; No headache Allergies and Home Medications Allergies Coded Allergies: Penicillins (Unverified Allergy, Unknown, 11/16/06) Sulfa (Sulfonamide Antibiotics) (Unverified Allergy, Unknown, 11/16/06) garlic (Verified Allergy, Unknown, SWELLING OF THROAT, 11/28/13) latex (Verified Allergy, Unknown, RASH, 11/28/13) Home Medications Albuterol 8.5 Gm Hfa.aer.ad, 2 PUFF INH Q2H PRN for SHORTNESS OF BREATH, (Reported) NEEDED FOR SHORTNESS OF BREATH Clonazepam 1 Mg Tablet, 1 MG PO TID, (Reported) Epinephrine 0.3 Mg/0.3 Ml Pen.injctr, 0.3 MG SL DAILY PRN for ALLERIC REACTION TO GARLIC, (Reported) AN NEEDED FOR ALLERIC REACTION TO GARLIC Famotidine 20 Mg Tablet, 20 MG PO BID, (Reported) Glipizide 5 Mg Tablet, 5 MG PO BID, (Reported) Hydrocodone Bit/Acetaminophen 1 Each Tablet, 1-2 TAB PO Q6H PRN for PAIN, (Reported) TAKE 1-2 TABLETS (5-325MG) NEEDED FOR PAIN Lactobacillus Acidophilus 100 Mg Capsule, 100 MG PO BID, (Reported) Lisinopril 10 Mg Tablet, 10 MG PO DAILY, (Reported) Loperamide Hcl/Simethicone 1 Each Tablet, 1 CAP PO TID PRN for LOOSE STOOL, (Reported) NEEDED FOR LOOSE STOOL Lovastatin 10 Mg Tablet, 10 MG PO DAILY WITH SUPPER, (Reported) TAKES WITH SUPPER Magnesium Oxide 250 Mg Tablet, 250 MG PO DAILY, (Reported) Mesalamine 1.2 Gm Tablet.dr, 2.4 GM PO BID, (Reported) TAKE 2 (1.2MG) TABLETS Metoprolol Succinate 25 Mg Tab.sr.24h, 12.5 MG PO DAILY, (Reported) TAKE 1/2 (25MG) TABLET Mirtazapine 30 Mg Tablet, 30 MG PO HS, (Reported) Potassium 99 Mg Tablet, 99 MG PO HS, (Reported) Quetiapine Fumarate 150 Mg Tabsr, 150 MG PO HS, (Reported) Sertraline Hcl 100 Mg Tablet, 100 MG PO DAILY, (Reported) Sertraline Hcl 100 Mg Tablet, 50 MG PO 1200, (Reported) TAKE 1/2 (100MG) TABLET Spironolactone 50 Mg Tablet, 50 MG PO DAILY, (Reported) Tolterodine Tartrate 4 Mg Cap.sr.24h, 4 MG PO DAILY, (Reported) [Vit.b 12] , 1,000 MCG IM monthly, (Reported) Patient Home Medication List Home Medication List Reviewed: Yes Review of Systems Review of Systems Constitutional: no symptoms reported, see HPI Skin: see HPI, other (laceration above left eye) All Other Systems Reviewed Negative Unless Noted: Yes Past Xbdgyif-Sdbozr-Mebeqb Hx Past Med/Social Hx: Reviewed Nursing Past Med/Soc Hx Patient Social History Alcohol Use: Denies Use Recreational Drug Use: No Smoking Status: Never a Smoker 2nd Hand Smoke Exposure: No Recent Foreign Travel: No Contact w/Someone Who Travel: No Recent Infectious Disease Expo: No Recent Hopitalizations: No Immunizations Up To Date Tetanus Booster (TDap): More than 5yrs Date of Pneumonia Vaccine: Jun 06, 2013 Date of Influenza Vaccine: Jun 06, 2013 Seasonal Allergies Seasonal Allergies: No Past Medical History Surgeries: Yes (T&A, C/S, HYST, BREAST BX, CARPEL TUNNEL/BONE SPUR RT HAND) Hysterectomy, Orthopedic Respiratory: Yes Sleep Apnea, COPD Currently Using CPAP: Yes Currently Using BIPAP: No Cardiac: Yes High Cholesterol, Hypertension Neurological: No Reproductive Disorders: No 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 FEBRUARY 2014 ORIF LEFT TIB/FIB) Chronic Back Pain, Fractures Endocrine: Yes Diabetes, Non-Insulin dep HEENT: No Cancer: No Psychosocial: Yes Anxiety, Depression Integumentary: No Blood Disorders: No Family Medical History Family history: Arthritis G8 SISTER Family history: Cardiovascular disease 19 FATHER 19 MOTHER Family history: Diabetes mellitus G8 BROTHER Family history: Hypertension 19 FATHER Parkinson's disease 19 FATHER No Family History of: Cancer Physical Exam Vital Signs Vital Signs - First Documented 07/02/19 11:30 Temp 36.6 Pulse 74 Resp 16 B/P (MAP) 189/80 (116) Pulse Ox 97 O2 Delivery Room Air Capillary Refill : Less Than 3 Seconds General Appearance: WD/WN, no apparent distress Skin: normal color Skin Problem Location: face Skin Problem Character: other Procedures/Interventions Wound Location: Face (T shaped laceration above left eye (2.5) vertical; extending into the eyebrow (3 cm) horizontal) Other Wound Location Above left eye Wound Length (cm): 5.5 Wound's Depth, Shape: superficial, linear Wound Explored: clean Irrigated w/ Saline (ccs): 200 Betadine Prep?: Yes Anesthesia: 1% Lidocaine Volume Anesthetic (ccs): 6 Suture: Ethlion Suture Size: 5-0 Number of Sutures: 8 Sterile Dressing Applied?: Yes Progress Wound well approximated Patient tolerated procedure well, bulky sterile dressing applied. Progress/Results/Core Measures Results/Orders My Orders Orders - ADILIA WALLACE Dipht,Pertuss(Acell),Tet Adult (Boostrix (07/02/19 12:00) Lidocaine 1% Inj 20 Ml (Xylocaine 1% Inj (07/02/19 12:00) Medications Given in ED Current Medications Medications Dose Ordered Sig/Allison Route Start Time Stop Time Status Last Admin Dose Admin Diphtheria/ Tetanus/Acell Pertussis 0.5 ml ONCE ONCE IM 07/02/19 12:00 07/02/19 12:01 DC 07/02/19 11:58 0.5 ML Lidocaine HCl 20 ml ONCE ONCE INJ 07/02/19 12:00 07/02/19 12:01 DC 07/02/19 11:57 20 ML Vital Signs/I&O 07/02/19 11:30 Temp 36.6 Pulse 74 Resp 16 B/P (MAP) 189/80 (116) Pulse Ox 97 O2 Delivery Room Air Blood Pressure Mean: 116 Departure Impression Primary Impression: Laceration of face without complication Qualified Codes: S01.81XA - Laceration without foreign body of other part of head, initial encounter Disposition: 01 HOME, SELF-CARE Condition: Improved Departure-Patient Inst. Decision time for Depature: 12:30 Referrals: MARIAN REDMAN MD (PCP/Family) Primary Care Physician Patient Instructions: Laceration Repair With Stitches (DC) Add. Discharge Instructions: Keep wound clean and dry for 24 hours, reinforce the dressing in place as needed for bleeding or drainage. After 24 hours may shower. Do not immerse the wound in standing water, bathtub, swimming pool, or hot. After showering he may clean the wound with a small amount of peroxide and cover with a Band-Aid or dressing. Take antibiotics as prescribed. Apply ice pack to wound 20 minutes every 2 hours while awake for the first 48 hours. Return to the emergency department or Dr. Redman in 5-7 days for suture removal. Watch the wounds for signs of infection: Increased redness, discolored drainage, increased swelling, fever greater than 101, or new concerns. All discharge instructions reviewed with patient and/or family. Voiced understanding. Scripts Cephalexin (Cephalexin) 500 Mg Tablet 250 MG PO TID, #15 TAB 0 Refills Prov: ADILIA WALLACE 07/02/19 Copy Copies To 1: MARIAN REDMAN MD, AMY ARNP Jul 02, 2019 12:05
[2019-07-02] MEDS ORDERED: CEPH500T PO (12:45)
[2019-07-02 12:50] VITALS: BP 189/80
== END 2019-07-02 12:50 | disposition home or self-care (01) ==
LOC: EDUNIT# 11:22 → ER 11:23
DX: S01.112A Laceration without foreign body of left eyelid and periocular area, initial encounter (principal); I10 Essential (primary) hypertension; E11.9 Type 2 diabetes mellitus without complications; J44.9 Chronic obstructive pulmonary disease, unspecified; F41.9 Anxiety disorder, unspecified; F32.9 Major depressive disorder, single episode, unspecified; E78.00 Pure hypercholesterolemia, unspecified; G47.30 Sleep apnea, unspecified; K21.9 Gastro-esophageal reflux disease without esophagitis; Z99.89 Dependence on other enabling machines and devices; Z23 Encounter for immunization; Z88.0 Allergy status to penicillin; Z91.040 Latex allergy status; Z88.2 Allergy status to sulfonamides; Z90.710 Acquired absence of both cervix and uterus; Z82.49 Family history of ischemic heart disease and other diseases of the circulatory system; W01.198A Fall on same level from slipping, tripping and stumbling with subsequent striking against other object, initial encounter
CPT/HCPCS: 12013; 90471; 90715

== ENCOUNTER → 2019-07-05 | Outpatient (CLI) | payer MEDICARE ==
[~2019-07-05] MED LIST changes: +CEPH500T PO
== END ==
LOC: LAB 13:15
PROVIDERS: ATTEND Nurse Practitioner Family
DX: E53.8 Deficiency of other specified B group vitamins (principal)
CPT/HCPCS: 36415; 82607

== ENCOUNTER 2019-07-10 13:23 | Emergency (ER) | payer MEDICARE ==
[~2019-07-10] VITALS: Ht 157 cm; Wt 56.8 kg
[2019-07-10 13:46] VITALS: BP 159/81
== END 2019-07-10 13:46 | disposition home or self-care (01) ==
LOC: EDUNIT# 13:23 → ER 13:25
DX: S01.112D Laceration without foreign body of left eyelid and periocular area, subsequent encounter (principal); X58.XXXD Exposure to other specified factors, subsequent encounter

== ENCOUNTER 2019-09-26 20:12 | Emergency (ER) | payer MEDICARE ==
[~2019-09-26] VITALS: Ht 165 cm; Wt 56.8 kg
[2019-09-26 20:16] VITALS: BP 185/84
--- NOTE | 2019-09-26 20:39 | ED Upper Extremity ---
General Chief Complaint: Laceration Stated Complaint: L ARM LAC Nursing Triage Note: ARRIVED TO THE ED VIA W/C TO ROOM FIVE C/O A SUPERFICIAL SKIN TEAR TO THE LEFT FOREARM THAT SHE SUFFERED AFTER BUMBING HER ARM AGAINST SOMETHING IN HER HOME Nursing Sepsis Screen: No Definite Risk Source: patient, family Exam Limitations: no limitations History of Present Illness Date Seen by Provider: Sep 26, 2019 Time Seen by Provider: 20:33 Initial Comments To ER with laceration to the dorsal aspect of the proximal left forearm. All remaining she's not quite sure what happened, she doesn't recall hitting her arm on anything. She believes that she bumped her arm against a filing cabinet at home. Onset: other Severity: mild Pain/Injury Location: left forearm Modifying Factors: Worse With Movement Allergies and Home Medications Allergies Coded Allergies: Penicillins (Unverified Allergy, Unknown, 11/16/06) Sulfa (Sulfonamide Antibiotics) (Unverified Allergy, Unknown, 11/16/06) garlic (Verified Allergy, Unknown, SWELLING OF THROAT, 11/28/13) latex (Verified Allergy, Unknown, RASH, 11/28/13) Home Medications Albuterol 8.5 Gm Hfa.aer.ad, 2 PUFF INH Q2H PRN for SHORTNESS OF BREATH, (Reported) NEEDED FOR SHORTNESS OF BREATH Cephalexin 500 Mg Tablet, 250 MG PO TID Prescribed by: ADILIA WALLACE on 07/02/19 1245 Clonazepam 1 Mg Tablet, 1 MG PO TID, (Reported) Epinephrine 0.3 Mg/0.3 Ml Pen.injctr, 0.3 MG SL DAILY PRN for ALLERIC REACTION TO GARLIC, (Reported) AN NEEDED FOR ALLERIC REACTION TO GARLIC Famotidine 20 Mg Tablet, 20 MG PO BID, (Reported) Glipizide 5 Mg Tablet, 5 MG PO BID, (Reported) Hydrocodone Bit/Acetaminophen 1 Each Tablet, 1-2 TAB PO Q6H PRN for PAIN, (Reported) TAKE 1-2 TABLETS (5-325MG) NEEDED FOR PAIN Lactobacillus Acidophilus 100 Mg Capsule, 100 MG PO BID, (Reported) Lisinopril 10 Mg Tablet, 10 MG PO DAILY, (Reported) Loperamide Hcl/Simethicone 1 Each Tablet, 1 CAP PO TID PRN for LOOSE STOOL, (Reported) NEEDED FOR LOOSE STOOL Lovastatin 10 Mg Tablet, 10 MG PO DAILY WITH SUPPER, (Reported) TAKES WITH SUPPER Magnesium Oxide 250 Mg Tablet, 250 MG PO DAILY, (Reported) Mesalamine 1.2 Gm Tablet.dr, 2.4 GM PO BID, (Reported) TAKE 2 (1.2MG) TABLETS Metoprolol Succinate 25 Mg Tab.sr.24h, 12.5 MG PO DAILY, (Reported) TAKE 1/2 (25MG) TABLET Mirtazapine 30 Mg Tablet, 30 MG PO HS, (Reported) Potassium 99 Mg Tablet, 99 MG PO HS, (Reported) Quetiapine Fumarate 150 Mg Tabsr, 150 MG PO HS, (Reported) Sertraline Hcl 100 Mg Tablet, 100 MG PO DAILY, (Reported) Sertraline Hcl 100 Mg Tablet, 50 MG PO 1200, (Reported) TAKE 1/2 (100MG) TABLET Spironolactone 50 Mg Tablet, 50 MG PO DAILY, (Reported) Tolterodine Tartrate 4 Mg Cap.sr.24h, 4 MG PO DAILY, (Reported) [Vit.b 12] , 1,000 MCG IM monthly, (Reported) Patient Home Medication List Home Medication List Reviewed: Yes Review of Systems Constitutional: see HPI EENTM: see HPI Respiratory: no symptoms reported Cardiovascular: no symptoms reported Genitourinary: no symptoms reported Musculoskeletal: no symptoms reported Skin: no symptoms reported Psychiatric/Neurological: No Symptoms Reported Past Ihkvvag-Mcnbuu-Hevmcr Hx Patient Social History Alcohol Use: Denies Use Recreational Drug Use: No Smoking Status: Never a Smoker 2nd Hand Smoke Exposure: No Recent Foreign Travel: No Contact w/Someone Who Travel: No Recent Infectious Disease Expo: No Recent Hopitalizations: No Physical Abuse: No Sexual Abuse: No Mistreated: No Fear: No Immunizations Up To Date Tetanus Booster (TDap): Unknown PED Vaccines UTD: Yes Date of Pneumonia Vaccine: Jun 06, 2013 Date of Influenza Vaccine: Jun 06, 2013 Seasonal Allergies Seasonal Allergies: No Past Medical History Surgeries: Yes (T&A, C/S, HYST, BREAST BX, CARPEL TUNNEL/BONE SPUR RT HAND) Hysterectomy, Orthopedic Respiratory: Yes Sleep Apnea, COPD Currently Using CPAP: Yes Currently Using BIPAP: No Cardiac: Yes High Cholesterol, Hypertension Neurological: No : No Reproductive Disorders: No 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 FEBRUARY 2014 ORIF LEFT TIB/FIB) Chronic Back Pain, Fractures Endocrine: Yes Diabetes, Non-Insulin dep HEENT: No Cancer: No Psychosocial: Yes Anxiety, Depression Integumentary: No Blood Disorders: No Family Medical History Family history: Arthritis G8 SISTER Family history: Cardiovascular disease 19 FATHER 19 MOTHER Family history: Diabetes mellitus G8 BROTHER Family history: Hypertension 19 FATHER Parkinson's disease 19 FATHER No Family History of: Cancer Physical Exam Vital Signs Vital Signs - First Documented 09/26/19 20:16 Temp 37.1 Pulse 74 Resp 20 B/P (MAP) 185/84 (117) O2 Delivery Room Air Capillary Refill : Less Than 3 Seconds Height, Weight, BMI Height: 5'7.00" Weight: 135lbs. 6.4oz. 61.074005fq; 20.00 BMI Method:Actual General Appearance: WD/WN, no apparent distress HEENT: PERRL/EOMI, other (she does have some bruising to the buccal surface bottom lip states that she bit her lip on the way down but assures me she did not hit her head has no neck pain no headache no nausea no vomiting) Respiratory: no respiratory distress, no accessory muscle use Elbow/Forearm: non-tender, Left (2 cm superficial skin tear to the proximal dorsal left forearm with surrounding ecchymosis about 3 cm. Normal range of motion at the elbow. This was cleansed with chlorhexidine/saline solution, 2 Steri-Strips were applied then nonadherent gauze and Coban bandage. No erythema or evidence of infection at this time.) Wrist: Yes normal inspection, Yes non-tender Neurologic/Psychiatric: alert, normal mood/affect, oriented x 3 Skin: normal color, warm/dry Procedures/Interventions Suture Size: 5-0 Progress/Results/Core Measures Results/Orders Vital Signs/I&O 09/26/19 20:16 Temp 37.1 Pulse 74 Resp 20 B/P (MAP) 185/84 (117) O2 Delivery Room Air Blood Pressure Mean: 117 Departure Impression Primary Impression: Skin tear of forearm without complication Qualified Codes: S51.812A - Laceration without foreign body of left forearm, initial encounter Disposition: 01 HOME, SELF-CARE Condition: Stable Departure-Patient Inst. Decision time for Depature: 20:36 Referrals: MARIAN JOSEPH MD (PCP/Family) Primary Care Physician Patient Instructions: Wound Care Add. Discharge Instructions: 1. Change the dressing daily starting with a nonadherent gauze and then the coban (Brown wrap). Keep this dry for 3-4 days. After that point, you can shower and let water run over it but do not scrub. At it dry gently and then rewrap per previous instruction. If the Steri-Strips have not fallen off on their own in 5 days then you may remove it by simply feeling on them watch for any sign of infection such as redness or increased swelling. All discharge instructions reviewed with patient and/or family. Voiced understanding. JOSIAS CALHOUN NURSING MANAGER Sep 26, 2019 20:38
== END 2019-09-26 20:42 | disposition home or self-care (01) ==
LOC: EDUNIT# 20:12 → ER 20:13
DX: S51.812A Laceration without foreign body of left forearm, initial encounter (principal); J44.9 Chronic obstructive pulmonary disease, unspecified; I10 Essential (primary) hypertension; E11.9 Type 2 diabetes mellitus without complications; F41.9 Anxiety disorder, unspecified; E78.00 Pure hypercholesterolemia, unspecified; F32.9 Major depressive disorder, single episode, unspecified; K21.9 Gastro-esophageal reflux disease without esophagitis; G47.30 Sleep apnea, unspecified; Z99.89 Dependence on other enabling machines and devices; Z88.0 Allergy status to penicillin; Z88.2 Allergy status to sulfonamides; Z91.040 Latex allergy status; Z90.710 Acquired absence of both cervix and uterus; Z82.49 Family history of ischemic heart disease and other diseases of the circulatory system; W22.8XXA Striking against or struck by other objects, initial encounter; Y92.009 Unspecified place in unspecified non-institutional (private) residence as the place of occurrence of the external cause

== ENCOUNTER → 2019-10-17 | Outpatient (CLI) | payer MEDICARE ==
--- NOTE | 2019-10-17 12:50 | Diagnostic Imaging Report ---
PROCEDURE: CT head without contrast. TECHNIQUE: Multiple contiguous axial images were obtained through the brain without the use of intravenous contrast. Auto Exposure Controls were utilized during the CT exam to meet ALARA standards for radiation dose reduction. All CT scans use one or more of the following dose optimizing techniques: automated exposure control, MA and/or KvP adjustment based on patient size and exam type or iterative reconstruction. INDICATION: Headaches, dizziness, and cognitive decline. COMPARISON: Comparison is made with prior examination of 07/28/2018. FINDINGS: There is prominence of the ventricles and sulci. There is no hydrocephalus or cerebral edema. There is no midline shift or mass-effect. There is no intracranial mass, hemorrhage, or extra-axial fluid collection. There is some diffuse decreased attenuation of the periventricular white matter which is nonspecific. The visualized paranasal sinuses and mastoid air cells are clear. There are no regional areas of decreased attenuation appreciated to suggest an acute CVA. IMPRESSION: 1. No acute intracranial process. 2. Age-appropriate atrophy. 3. Decreased attenuation of the periventricular white matter which is nonspecific, however, likely reflects senescent change and/or chronic small vessel ischemic disease. Dictated by: Dictated on workstation # [id number]
== END ==
LOC: RAD 11:40
PROVIDERS: ATTEND Nurse Practitioner Family
DX: R51 Headache (principal); R42 Dizziness and giddiness; R41.81 Age-related cognitive decline
CPT/HCPCS: 70450

== ENCOUNTER 2020-03-02 12:51 | Emergency (ER) | payer MEDICARE ==
[~2020-03-02] VITALS: Ht 157 cm; Wt 58.9 kg
--- NOTE | 2020-03-02 13:38 | ED Upper Extremity ---
General Chief Complaint: Upper Extremity Stated Complaint: R PINKY FINGER PAIN / SWELLING History of Present Illness Date Seen by Provider: Mar 02, 2020 Time Seen by Provider: 13:20 Initial Comments 79 year old female reports that she was using a knife last evening when she suffered a puncture wound to her right digit at the tip. Since then it has become swollen and tender. She denies any active drainage from it. She last had a tetanus vaccine fall of 2019. No other complaints at this time. She is not diabetic and doesn't take anticoagulants. Onset: yesterday Pain/Injury Location: right 5th finger Method of Injury: incised Allergies and Home Medications Allergies Coded Allergies: Penicillins (Unverified Allergy, Unknown, 11/16/06) Sulfa (Sulfonamide Antibiotics) (Unverified Allergy, Unknown, 11/16/06) garlic (Verified Allergy, Unknown, SWELLING OF THROAT, 11/28/13) latex (Verified Allergy, Unknown, RASH, 11/28/13) Home Medications Albuterol 8.5 Gm Hfa.aer.ad, 2 PUFF INH Q2H PRN for SHORTNESS OF BREATH, (Reported) NEEDED FOR SHORTNESS OF BREATH Cephalexin 500 Mg Tablet, 250 MG PO TID Prescribed by: ADILIA WALLACE on 07/02/19 1245 Clonazepam 1 Mg Tablet, 1 MG PO TID, (Reported) Doxycycline Hyclate 100 Mg Tablet, 100 MG PO BID Prescribed by: ADILIA WALLACE on 03/02/20 1414 Epinephrine 0.3 Mg/0.3 Ml Pen.injctr, 0.3 MG SL DAILY PRN for ALLERIC REACTION TO GARLIC, (Reported) AN NEEDED FOR ALLERIC REACTION TO GARLIC Famotidine 20 Mg Tablet, 20 MG PO BID, (Reported) Glipizide 5 Mg Tablet, 5 MG PO BID, (Reported) Hydrocodone Bit/Acetaminophen 1 Each Tablet, 1-2 TAB PO Q6H PRN for PAIN, (Reported) TAKE 1-2 TABLETS (5-325MG) NEEDED FOR PAIN Lactobacillus Acidophilus 100 Mg Capsule, 100 MG PO BID, (Reported) Lisinopril 10 Mg Tablet, 10 MG PO DAILY, (Reported) Loperamide Hcl/Simethicone 1 Each Tablet, 1 CAP PO TID PRN for LOOSE STOOL, (Reported) NEEDED FOR LOOSE STOOL Lovastatin 10 Mg Tablet, 10 MG PO DAILY WITH SUPPER, (Reported) TAKES WITH SUPPER Magnesium Oxide 250 Mg Tablet, 250 MG PO DAILY, (Reported) Mesalamine 1.2 Gm Tablet.dr, 2.4 GM PO BID, (Reported) TAKE 2 (1.2MG) TABLETS Metoprolol Succinate 25 Mg Tab.sr.24h, 12.5 MG PO DAILY, (Reported) TAKE 1/2 (25MG) TABLET Mirtazapine 30 Mg Tablet, 30 MG PO HS, (Reported) Potassium 99 Mg Tablet, 99 MG PO HS, (Reported) Quetiapine Fumarate 150 Mg Tabsr, 150 MG PO HS, (Reported) Sertraline Hcl 100 Mg Tablet, 100 MG PO DAILY, (Reported) Sertraline Hcl 100 Mg Tablet, 50 MG PO 1200, (Reported) TAKE 1/2 (100MG) TABLET Spironolactone 50 Mg Tablet, 50 MG PO DAILY, (Reported) Tolterodine Tartrate 4 Mg Cap.sr.24h, 4 MG PO DAILY, (Reported) [Vit.b 12] , 1,000 MCG IM monthly, (Reported) Patient Home Medication List Home Medication List Reviewed: Yes Review of Systems Constitutional: no symptoms reported, see HPI Skin: see HPI, change in color (erythema and swelling right fifth digit) All Other Systems Reviewed Negative Unless Noted: Yes Past Acyncah-Igijii-Gxlqyk Hx Past Med/Social Hx: Reviewed Nursing Past Med/Soc Hx Patient Social History 2nd Hand Smoke Exposure: No Recent Foreign Travel: No Contact w/Someone Who Travel: No Recent Hopitalizations: No Immunizations Up To Date Tetanus Booster (TDap): Unknown PED Vaccines UTD: Yes Date of Pneumonia Vaccine: Jun 06, 2013 Date of Influenza Vaccine: Jun 06, 2013 Seasonal Allergies Seasonal Allergies: No Past Medical History Surgeries: Yes (T&A, C/S, HYST, BREAST BX, CARPEL TUNNEL/BONE SPUR RT HAND) Hysterectomy, Orthopedic Respiratory: Yes Sleep Apnea, COPD Currently Using CPAP: Yes Currently Using BIPAP: No Cardiac: Yes High Cholesterol, Hypertension Neurological: No 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 FEBRUARY 2014 ORIF LEFT TIB/FIB) Chronic Back Pain, Fractures Endocrine: Yes Diabetes, Non-Insulin dep HEENT: No Cancer: No Psychosocial: Yes Anxiety, Depression Integumentary: No Blood Disorders: No Family Medical History Family history: Arthritis G8 SISTER Family history: Cardiovascular disease 19 FATHER 19 MOTHER Family history: Diabetes mellitus G8 BROTHER Family history: Hypertension 19 FATHER Parkinson's disease 19 FATHER No Family History of: Cancer Physical Exam Vital Signs Vital Signs - First Documented 03/02/20 13:20 Temp 36.7 Pulse 65 Resp 16 B/P (MAP) 141/80 (100) Pulse Ox 95 O2 Delivery Room Air Capillary Refill : Height, Weight, BMI Height: 5'7.00" Weight: 135lbs. 6.4oz. 61.087660tp; 20.00 BMI Method:Actual General Appearance: WD/WN, no apparent distress Cardiovascular: normal peripheral pulses, regular rate, rhythm, no edema Respiratory: chest non-tender, lungs clear, normal breath sounds Hand: Right, ecchymosis, infection (right fifth digit at), limited ROM, soft tissue tenderness, swelling Neurologic/Psychiatric: no motor/sensory deficits, alert, normal mood/affect, oriented x 3 Procedures/Interventions I&D : Site: right 5th digit Blade Size: 11 I & D Procedure: betadine prep Progress skin prepped with betadine, 11 blade used for small puncture wound, purulent drainage expressed Culture obtained, wound irrigated with 500 ml of sterile saline with hibiclens. Patient tolerated the procedure well, sterile dressing applied. Suture Size: 5-0 Progress/Results/Core Measures Results/Orders My Orders Orders - ADILIA WALLACE Finger(S) (03/02/20 13:30) Wound Culture (03/02/20 13:30) Vital Signs/I&O 03/02/20 03/02/20 13:20 14:26 Temp 36.7 36.7 Pulse 65 65 Resp 16 16 B/P (MAP) 141/80 (100) 141/80 (100) Pulse Ox 95 95 O2 Delivery Room Air Diagnostic Imaging Diagonstic Imaging: Xray Comments NAME: MILO RICKS [facility] REC#: [id number] PT STATUS: REG ER : 1940 PHYSICIAN: ADILIA WALLACE ADMIT DATE: 03/02/20/ER Draft Date of Exam:03/02/20 FINGER(S) Indication: Right hand injury, trauma. Comparison: None. Findings: Single PA view of the right hand, oblique and lateral view of the 5th digit demonstrate no acute fracture or dislocation. Moderate degenerative changes seen throughout most of the articular surface. There is no radiopaque foreign body. No bony erosion. Impression: No fracture or dislocation. Dictated on workstation # [id number] Dict: 03/02/20 1347 Trans: 03/02/20 1355 [facility] [id number] Interpreted by: MANUEL MUHAMMAD Electronically signed by: Reviewed: Reviewed by Me Departure Impression Primary Impression: Paronychia of right little finger Disposition: HOME, SELF-CARE Condition: Improved Departure-Patient Inst. Decision time for Depature: 13:55 Referrals: MARIAN REDMAN MD (PCP/Family) Primary Care Physician Patient Instructions: Paronychia (DC) Add. Discharge Instructions: Take antibiotics as prescribed. Clean wound with peroxide and apply triple antibiotic ointment, 3-4 times daily. Follow up with Dr. Redman on Wednesday, if not improving or worsens. Return to the ER for new, urgent health care needs. All discharge instructions reviewed with patient and/or family. Voiced understanding. Scripts Doxycycline Hyclate (Doxycycline Hyclate) 100 Mg Tablet 100 MG PO BID, #20 TAB 0 Refills Prov: ADILIA WALLACE 03/02/20 Copy Copies To 1: MARIAN REDMAN MD, AMY ARNP Mar 02, 2020 13:38
--- NOTE | 2020-03-02 13:56 | Diagnostic Imaging Report ---
Indication: Right hand injury, trauma. Comparison: None. Findings: Single PA view of the right hand, oblique and lateral view of the 5th digit demonstrate no acute fracture or dislocation. Moderate degenerative changes seen throughout most of the articular surface. There is no radiopaque foreign body. No bony erosion. Impression: No fracture or dislocation. Dictated by: Dictated on workstation # [id number]
[2020-03-02] MEDS ORDERED: DOXY100T2 PO (14:14)
[2020-03-02 14:26] VITALS: BP 141/80
== END 2020-03-02 14:26 | disposition home or self-care (01) ==
LOC: EDUNIT# 12:51 → ER 12:52
DX: L03.011 Cellulitis of right finger (principal); J44.9 Chronic obstructive pulmonary disease, unspecified; I10 Essential (primary) hypertension; E78.00 Pure hypercholesterolemia, unspecified; E11.9 Type 2 diabetes mellitus without complications; F41.9 Anxiety disorder, unspecified; F32.9 Major depressive disorder, single episode, unspecified; K21.9 Gastro-esophageal reflux disease without esophagitis; Z82.49 Family history of ischemic heart disease and other diseases of the circulatory system; Z88.0 Allergy status to penicillin; Z88.5 Allergy status to narcotic agent; Z91.040 Latex allergy status
CPT/HCPCS: 73140; 87070; 87077; 87186; 87205; 99282

== ENCOUNTER 2020-07-17 07:10 | Day surgery (SDC) | payer MEDICARE ==
[~2020-07-17] VITALS: Ht 157 cm; Wt 60.0 kg
[~2020-07-17 07:10] MED LIST changes: +DOXY100T2 PO
[2020-07-17] MEDS ORDERED: ONDA4TAB11 PO (12:47)
[2020-07-17] MEDS ORDERED: QUET150T3 PO (12:47)
[2020-07-17] MEDS ORDERED: [UNRECOGNIZED DRUG - CODE] PO (12:47)
[2020-07-17] MEDS ORDERED: SERT100T8 PO (12:47)
[2020-07-17] MEDS ORDERED: BUDE3CAP5 PO (12:47)
[2020-07-17] MEDS ORDERED: MIRA50TA PO (12:47)
[2020-07-17] MEDS ORDERED: CYCL1DRO OU (12:47)
[2020-07-17] MEDS ORDERED: MIRT30TA6 PO (12:47)
[2020-07-17] MEDS ORDERED: CLON1TAB13 PO (12:47)
== END 2020-07-17 12:48 | disposition home or self-care (01) ==
LOC: PREOP 07:10
PROVIDERS: ATTEND Specialist
DX: H26.493 Other secondary cataract, bilateral (principal); Z01.818 Encounter for other preprocedural examination

== ENCOUNTER 2020-07-19 08:25 | Day surgery (SDC) | payer MEDICARE ==
[~2020-07-19 08:25] MED LIST changes: +BUDE3CAP5 PO; +CLON1TAB13 PO; +CYCL1DRO OU; +MIRA50TA PO; +ONDA4TAB11 PO; +QUET150T3 PO; +[UNRECOGNIZED DRUG - CODE] PO
[2020-07-19] MEDS ORDERED: TROPICAMIDE 1% OPH SOLN (MYDRIACYL) 15 ML BTL OU PRN (08:45)
[2020-07-19] MEDS ORDERED: PHENYLEPHRINE 10% OPHTH (NEO-SYN) 5 ML BTL OU PRN (08:45)
[2020-07-19] MEDS: TETRACAINE 0.5% OPHTH SOLN 4 ML BTL (SINGLE DOSE ONLY) OU PRN ×3 (09:06→09:13)
--- NOTE | 2020-07-19 09:25 | Ophthalmologist Pre-Op Note ---
Pre-Operative Progress Note H&P Reviewed The H&P was reviewed, patient examined and no changes noted. Date H&P Reviewed: Jul 19, 2020 Time H&P Reviewed: 09:25 Pre-Op Dx Secondary Cataract, Bilateral Eyes KARINA LOPEZ MD Jul 19, 2020 09:25
--- NOTE | 2020-07-19 09:51 | Ophthalmology Operative Report ---
YAG Capsulotomy PREOPERATIVE DIAGNOSIS: Secondary Cataract Bilateral POSTOPERATIVE DIAGNOSIS: Secondary Cataract Bilateral PROCEDURE: YAG Capsulotomy, Bilateral SURGEON: Paco Lopez ANESTHESIA: Topical anesthesia COMPLICATIONS: None ESTIMATED BLOOD LOSS: Minimal DESCRIPTION OF PROCEDURE: After proper informed consent was obtained, the patient's, a 79 female , received one drop of Tropicamide and one drop of Tetracaine in each eye. The patient was then placed at the YAG laser and using a power of [4.0 ] millijoules and bursts [ 17] right eye and [ 15] left eye were used to fashion a central capsulotomy. The patient tolerated the procedure well without complications. PACO LOPEZ MD Jul 19, 2020 09:51
== END 2020-07-19 09:35 | disposition home or self-care (01) ==
LOC: SDC 08:25
PROVIDERS: ATTEND Specialist
DX: H26.493 Other secondary cataract, bilateral (principal); F41.9 Anxiety disorder, unspecified; F32.9 Major depressive disorder, single episode, unspecified; Z79.899 Other long term (current) drug therapy; Z88.0 Allergy status to penicillin; Z88.2 Allergy status to sulfonamides; Z91.040 Latex allergy status; Z91.018 Allergy to other foods

== ENCOUNTER → 2021-02-11 | Outpatient (CLI) | payer MEDICARE ==
[~2021-02-11] MED LIST changes: +SERT-414 PO
--- NOTE | 2021-02-11 12:46 | Diagnostic Imaging Report ---
INDICATION: Screening for osteoporosis. COMPARISON: None. FINDINGS: The bone mineral density of the spine and hips and the femoral necks was measured. There are no prior studies available for comparison. The total T score for the spine is -2.2. The total T score for the left hip is -1.9 and for the right hip -1.5. The T score for the left femoral neck is -2.2 and for the right femoral neck -1.7. All of these values fall within the range of osteopenia. AP Spine L1-L4: [BMD (g/cm2): 0.931] [T-Score: -2.2] [Z-Score: -0.3] [BMD Previous: NA] [BMD % Change: NA] LT Hip Neck: [BMD (g/cm2): 0.727] [T-Score: -2.2] [Z-Score: 0.0] LT Hip Total: [BMD (g/cm2):0.771] [T-Score:-1.9] [Z-Score: 0.2] [BMD Previous: NA] [BMD % Change: NA] RT Hip Neck: [BMD (g/cm2):0.803] [T-Score:-1.7] [Z-Score:0.5] RT Hip Total: [BMD (g/cm2):0.819] [T-score:-1.5] [Z-Score:0.6] [BMD Previous:NA] [BMD % Change:NA] *Indicates significant change from prior examination based on 95% confidence level. World Health Organization criteria for BMD interpretation classify patients as Normal (T-score at or above -1.0), Osteopenic (T-score between -1.0 and -2.5) or Osteoporotic (T-score at or below -2.5). LIMITATIONS AND MODIFICATION: None. FRACTURE RISK (FRAX SCORE): The ten year probability of (%): Major Osteoporotic Fracture: [16.6] Hip Fracture: [5.6] IMPRESSION: 1. There is osteopenia of the spine, the hips and the femoral necks. 2. See below National Osteoporosis Foundation guidelines on when to potentially initiate pharmacologic therapy. Based on the National Osteoporosis Foundation Guidelines, pharmacologic treatment should be initiated in any of the following, unless clinical conditions suggest otherwise: * Any patient with prior fragility fracture of the hip or vertebrae. A spine fracture indicates 5X risk for subsequent spine fracture and 2X risk for subsequent hip fracture. * Osteoporosis (T-score <-2.5). * Postmenopausal women and men age 50 and older with low bone mass/osteopenia (T-score between -1.0 and -2.5) by DXA and 10-year major osteoporotic fracture greater than 20% or a 10-year probability of hip fracture greater than 3%. These fracture risks are supplied above in the FRAX score, if applicable. * Clinician judgement and/or patient preferences may indicate treatment for people with 10-year fracture probabilities above or below these levels. Dictated by: Dictated on workstation # [id number]
--- NOTE | 2021-02-11 21:03 | Diagnostic Imaging Report ---
Digital mammogram bilateral screening This study was compared to the prior exam of 03/24/2019. At this time, there are no current complaints. The current study was also evaluated with a Computer Aided Detection (CAD) system. FINDINGS: The fibroglandular tissue in both breasts is heterogeneously dense. This does limit the sensitivity of this exam. Overall, there does not appear to have been any significant change when compared to the prior study. No primary or secondary sign of malignancy is noted. IMPRESSION: There is no radiographic evidence for malignancy. ACR category 1 ACR BI-RADS Category 1: Negative. Result letter will be mailed to the patient. Note: At least 10% of breast cancer is not imaged by mammography. Dictated by: Dictated on workstation # [id number]
== END ==
LOC: RAD 10:30
PROVIDERS: ATTEND Family Medicine
DX: Z12.31 Encounter for screening mammogram for malignant neoplasm of breast (principal); Z13.820 Encounter for screening for osteoporosis; M85.80 Other specified disorders of bone density and structure, unspecified site
CPT/HCPCS: 77063; 77067; 77080

== ENCOUNTER → 2021-10-02 | Outpatient (CLI) | payer MEDICARE ==
[~2021-10-02] MED LIST changes: +MIRT-69 PO
--- NOTE | 2021-10-02 16:07 | Diagnostic Imaging Report ---
INDICATION: Hand and right thumb pain status post injury. COMPARISON: 03/02/2020. FINDINGS: Multiple radiographic views of the right hand were obtained. Again identified are moderate osteoarthritic changes, greatest involving the 1st carpometacarpal joint space. Joint spaces are otherwise maintained. Osseous structures are intact. No unexpected radiopaque foreign bodies are seen. IMPRESSION: Redemonstration of osteoarthritic changes, but no acute fracture or dislocation of the right hand. Dictated by: Dictated on workstation # [id number]
== END ==
LOC: RAD 15:12
PROVIDERS: ATTEND Family Medicine
DX: S69.91XA Unspecified injury of right wrist, hand and finger(s), initial encounter (principal); X58.XXXA Exposure to other specified factors, initial encounter
CPT/HCPCS: 73130

== ENCOUNTER 2021-12-08 10:44 | Emergency (ER) | payer MEDICARE ==
[~2021-12-08] VITALS: Ht 165 cm; Wt 63.5 kg
--- NOTE | 2021-12-08 11:20 | ED Head Injury ---
General Chief Complaint: Trauma-Non Activation Stated Complaint: FALL - HEAD LAC Source: patient, family (daughter), caregiver Exam Limitations: no limitations History of Present Illness Date Seen by Provider: Dec 08, 2021 Time Seen by Provider: 11:06 Initial Comments Patient is an 81-year-old female who presents to the emergency department after a mechanical fall at about 9:50 this morning. Patient was outside in the garage and bending over to pick something up when she fell forward striking her head on the door. Patient sustained a small laceration just above the right eyebrow. She denies loss of consciousness. She states she hurts right in the area of the laceration but it is not an actual headache. No nausea. No speech or vision changes. No unilateral numbness, weakness or tingling. Daughter is at the bedside along with a caregiver who states that she has been falling repeatedly over the last month or 2. She last saw her primary care physician about a month ago. She was put on some medication for bone density. Her daughter and caregiver both state that she has been getting short of breath with any amount of exertion recently. She sounds "rattly" in her chest. No current complaints of shortness of breath or chest pain. No abdominal pain, nausea, vomiting. No GI or symptoms. She also did strike her right knee on the ground. Demonstrates good range of motion to the right lower extremity. All other review of systems reviewed and negative except as stated. Occurred: just prior to arrival Severity: moderate Location: frontal Method of Injury: fell Loss of Consciousness: no loss of consciousness Associated Systoms: Denies Symptoms Allergies and Home Medications Allergies Coded Allergies: Penicillins (Unverified Allergy, Unknown, 11/16/06) Sulfa (Sulfonamide Antibiotics) (Unverified Allergy, Unknown, 11/16/06) garlic (Verified Allergy, Unknown, SWELLING OF THROAT, 11/28/13) latex (Verified Allergy, Unknown, RASH, 11/28/13) Patient Home Medication List Home Medication List Reviewed: Yes Budesonide (Budesonide EC) 3 Mg Capdr...er, 9 MG PO DAILY, (Reported) Entered as Reported by: CINDI BRADSHAW on 07/17/20 1247 Clonazepam (Clonazepam) 1 Mg Tablet, 1 MG PO TID PRN for ANXIETY, (Reported) Entered as Reported by: CINDI BRADSHAW on 07/17/201246 Cyclosporine (Restasis) 1 Each Droperette, 1 DROP OU BID, (Reported) Entered as Reported by: CINDI BRADSHAW on 07/17/201246 Loratadine/Pseudoephedrine (Wal-Itin D 12 Hour Tablet) 1 Each Tab.er.12h, 1 EACH PO BID, (Reported) Entered as Reported by: CINDI BRADSHAW on 07/17/201246 Mirabegron (Myrbetriq) 50 Mg Tab.er.24h, 50 MG PO DAILY, (Reported) Entered as Reported by: CINDI BRADSHAW on 07/17/201246 Mirtazapine (Mirtazapine) 30 Mg Tablet, 30 MG PO HS, (Reported) Entered as Reported by: CINDI BRADSHAW on 07/17/201246 Ondansetron (Ondansetron Odt) 4 Mg Tab.rapdis, 4 MG PO Q6H PRN for NAUSEA/VOMITING, (Reported) Entered as Reported by: CINDI BRADSHAW on 07/17/201246 Quetiapine Fumarate (Quetiapine Fumarate ER) 150 Mg Tab.er.24h, 150 MG PO HS, (Reported) Entered as Reported by: CINDI BRADSHAW on 07/17/201246 Sertraline HCl (Sertraline HCl) 100 Mg Tablet, 100 MG PO BID, (Reported) Entered as Reported by: CINDI BRADSHAW on 07/17/201246 Review of Systems Review of Systems Constitutional: see HPI Eyes: No Symptoms Reported Ears, Nose, Mouth, Throat: no symptoms reported Respiratory: dyspnea on exertion Cardiovascular: no symptoms reported Gastrointestinal: no symptoms reported Genitourinary: no symptoms reported : No Musculoskeletal: joint pain (right knee) Skin: other (laceration ) Psychiatric/Neurological: No Symptoms Reported All Other Systems Reviewed Negative Unless Noted: Yes Past Vsldqrn-Anemhm-Egzrjf Hx Immunizations Up To Date Tetanus Booster (TDap): Unknown PED Vaccines UTD: Yes Seasonal Allergies Seasonal Allergies: No Past Medical History Surgeries: Yes (T&A, C/S, HYST, BREAST BX, CARPEL TUNNEL/BONE SPUR RT HAND) Hysterectomy, Orthopedic Respiratory: Yes Sleep Apnea, COPD Currently Using CPAP: Yes Currently Using BIPAP: No Cardiac: Yes High Cholesterol, Hypertension Neurological: No Reproductive Disorders: No [employer] History: Menopausal Genitourinary: No Gastrointestinal: Yes Colitis, Gastroesophageal Reflux Musculoskeletal: Yes (GENERALIZED PAIN--WALKS WITH A CANE. FEBRUARY 2014 ORIF LEFT TIB/FIB) Chronic Back Pain, Fractures Endocrine: Yes Diabetes, Non-Insulin dep HEENT: No Cancer: No Psychosocial: Yes Anxiety, Depression Integumentary: No Blood Disorders: No Family Medical History Family history: Arthritis G8 SISTER Family history: Cardiovascular disease 19 FATHER 19 MOTHER Family history: Diabetes mellitus G8 BROTHER Family history: Hypertension 19 FATHER Parkinson's disease 19 FATHER No Family History of: Cancer Physical Exam Vital Signs Vital Signs - First Documented 12/08/21 11:14 Temp 36.5 Pulse 81 Resp 22 B/P (MAP) 142/80 (100) Pulse Ox 95 Capillary Refill : Height, Weight, BMI Height: 5'7.00" Weight: 135lbs. 6.4oz. 61.002747hk; 23.00 BMI Method:Actual General Appearance: WD/WN, no apparent distress HEENT: PERRL/EOMI, normal ENT inspection Neck: non-tender, normal inspection Cardiovascular: regular rate, rhythm, systolic murmur (heard best right upper sternal border) Respiratory: lungs clear, normal breath sounds, no respiratory distress, no accessory muscle use, other (room air sats 92-93%; no increased work of breathing or distress) Gastrointestinal: normal bowel sounds, non tender, soft, other (ecchymoses noted RLQ) Extremities: normal range of motion, normal inspection, no calf tenderness Psychiatric: alert, oriented x 3, depressed affect Crainal Nerves: normal hearing, normal speech, PERRL Motor/Sensory: no motor deficit, no sensory deficit Skin: normal color, warm/dry, other (small 1cm laceration abover the right eyebrow; superficial; no active bleeding.) Garrett Coma Score Best Eye Response: (4) Open Spontaneously Best Verbal Response: (5) Oriented Best Motor Response: (6) Obeys Commands [place] Total: 15 Procedures/Interventions Wound Location: Eye Other Wound Location right eyebrow Wound Length (cm): 1 Wound's Depth, Shape: superficial, linear Wound Explored: clean Irrigated w/ Saline (ccs): 50 Suture Size: 5-0 Other Closure Supply: Wound Adhesive Sterile Dressing Applied?: No Progress/Results/Core Measures Results/Orders My Orders Orders - BECKY BENAVIDEZ MD Ct Head/Cervical Spine Wo (12/08/21 11:14) Chest 1 View, Ap/Pa Only (12/08/21 11:31) Vital Signs/I&O 12/08/21 12/08/21 11:14 11:21 Temp 36.5 36.5 Pulse 81 81 Resp 22 22 B/P (MAP) 142/80 (100) 142/80 (100) Pulse Ox 95 95 Progress Progress Note : Time: 12:14 Progress Note Patient head CT and cervical spine CT are without any acute abnormality. I did get a chest x-ray for the patient's relative low pulse ox at 92%. Her chest x- ray shows no acute abnormalities. Review of the medical record shows the patient had an echocardiogram back in 2019. EF was normal at that time. She does not appear anemic on physical examination. She is not tachycardic or hypotensive. She is exhibiting no increased work of breathing. Her exam is basically benign, soft abdomen, nontender. Lungs are clear. Heart is regular. Oral mucosa is moist. She is alert and oriented. No concerns for infection. Denies dysuria urgency or frequency. No black or bloody stools. I advised to her daughter follow-up with Dr. Redman. This appears to have been a simply mechanical fall in which the patient lost her balance. Return precautions are discussed. Wound was closed with Dermabond. Wound care precautions. All questions are sought and answered. Patient is stable for discharge. Diagnostic Imaging Diagonstic Imaging: CT Plain Films/CT/US/NM/MRI: c-spine, head Comments NAME: MILO RICKS [facility] REC#: [id number] PT STATUS: REG ER : 1940 PHYSICIAN: BECKY BENAVIDEZ MD ADMIT DATE: 12/08/21/ER Draft Date of Exam:12/08/21 CT HEAD/CERVICAL SPINE WO PROCEDURE: CT head and CT cervical spine without contrast. TECHNIQUE: Multiple contiguous axial images were obtained through the brain and cervical spine without the use of intravenous contrast. Sagittal and coronal reformations through the cervical spine were then performed. Auto Exposure Controls were utilized during the CT exam to meet ALARA standards for radiation dose reduction. INDICATION: Fall with head and neck injury. COMPARISON: Correlation is made with prior head CT from 10/17/2019. CT HEAD: FINDINGS: Ventricles and sulci are prominent consistent with the patient's age. No sulcal effacement or midline shift is identified. No acute intra-axial or extra-axial hemorrhage is detected. Cisterns are patent. Visualized paranasal sinuses are clear. IMPRESSION: No acute intracranial process is detected. CT CERVICAL SPINE: There is some straightening of the normal cervical lordotic curvature. There is minimal anterolisthesis of C5 on C6. Multilevel degenerative disc disease is noted with variable disc space narrowing and marginal spurring. There is multilevel facet arthropathy. No fractures are seen. Prevertebral tissues are within normal limits. Odontoid is intact. IMPRESSION: Cervical spondylosis. No acute bony abnormality is detected. Dictated on workstation # [id number] Dict: 12/08/21 1201 Trans: 12/08/21 1206 [id number] Interpreted by: ABNER WANG MD Electronically signed by: [facility] Imaging: Xray Plain Films/CT/US/NM/MRI: chest Comments [facility] [place] NAME: MILO RICKS [facility] REC#: [id number] PT STATUS: REG ER : 1940 PHYSICIAN: BECKY BENAVIDEZ MD ADMIT DATE: 12/08/21/ER Signed Date of Exam:12/08/21 CHEST 1 VIEW, AP/PA ONLY INDICATION: Shortness of breath. Portable chest 11:42 AM FINDINGS: Heart size and pulmonary vascularity are normal. Lungs are clear. There are no effusions or pneumothoraces. IMPRESSION: No acute abnormalities in the chest. Dictated by: Dictated on workstation # [id number] Dict: 12/08/21 1159 Trans: 12/08/21 1205 [id number] Interpreted by: LINDA GARRISON MD Electronically signed by: LINDA GARRISON MD 12/08/21 1205 Departure Impression Primary Impression: Fall at home Qualified Codes: W19.XXXA - Unspecified fall, initial encounter; Y92.009 - Unspecified place in unspecified non-institutional (private) residence as the place of occurrence of the external cause Additional Impression: Laceration of right eyebrow Qualified Codes: S01.111A - Laceration without foreign body of right eyelid and periocular area, initial encounter Disposition: 01 HOME, SELF-CARE Condition: Stable Departure-Patient Inst. Decision time for Depature: 12:16 Referrals: MARIAN REDMAN MD (PCP/Family) Primary Care Physician Patient Instructions: Laceration Repair With Glue ED, Preventing Falls in Older Adults Add. Discharge Instructions: You may wash the wound with soap and water gently. Do not apply triple antibiotic ointment over the glue as it will take the glue off. Always use your walker when walking. Resume medications as directed by your primary care physician. Follow-up with Dr. Redman regarding your frequent falls. Come back to the emergency department for any new, concerning or emergent complaints. Copy Copies To 1: MARIAN REDMAN MD, KATHRYN M MD Dec 08, 2021 11:20
--- NOTE | 2021-12-08 12:01 | Diagnostic Imaging Report ---
INDICATION: Shortness of breath. Portable chest 11:42 AM FINDINGS: Heart size and pulmonary vascularity are normal. Lungs are clear. There are no effusions or pneumothoraces. IMPRESSION: No acute abnormalities in the chest. Dictated by: Dictated on workstation # [id number]
--- NOTE | 2021-12-08 12:07 | Diagnostic Imaging Report ---
PROCEDURE: CT head and CT cervical spine without contrast. TECHNIQUE: Multiple contiguous axial images were obtained through the brain and cervical spine without the use of intravenous contrast. Sagittal and coronal reformations through the cervical spine were then performed. Auto Exposure Controls were utilized during the CT exam to meet ALARA standards for radiation dose reduction. INDICATION: Fall with head and neck injury. COMPARISON: Correlation is made with prior head CT from 10/17/2019. CT HEAD: FINDINGS: Ventricles and sulci are prominent consistent with the patient's age. No sulcal effacement or midline shift is identified. No acute intra-axial or extra-axial hemorrhage is detected. Cisterns are patent. Visualized paranasal sinuses are clear. IMPRESSION: No acute intracranial process is detected. CT CERVICAL SPINE: There is some straightening of the normal cervical lordotic curvature. There is minimal anterolisthesis of C5 on C6. Multilevel degenerative disc disease is noted with variable disc space narrowing and marginal spurring. There is multilevel facet arthropathy. No fractures are seen. Prevertebral tissues are within normal limits. Odontoid is intact. IMPRESSION: Cervical spondylosis. No acute bony abnormality is detected. Dictated by: Dictated on workstation # [id number]
[2021-12-08 12:27] VITALS: BP 157/72
== END 2021-12-08 12:27 | disposition home or self-care (01) ==
LOC: EDUNIT# 10:44 → ER 10:45
DX: S01.111A Laceration without foreign body of right eyelid and periocular area, initial encounter (principal); R40.2410 Glasgow coma scale score 13-15, unspecified time; Z91.040 Latex allergy status; W22.8XXA Striking against or struck by other objects, initial encounter; Y92.009 Unspecified place in unspecified non-institutional (private) residence as the place of occurrence of the external cause
CPT/HCPCS: 70450; 71045; 72125

== ENCOUNTER 2022-12-31 15:55 | Emergency (ER) | payer MEDICARE ==
[~2022-12-31] VITALS: Ht 167.7 cm; Wt 63.5 kg
[~2022-12-31 15:55] MED LIST changes: +QUET150T14 PO; -QUET150T3 PO
[2022-12-31] MEDS ORDERED: NS IV 500 ML 500 ML IV STA (17:14)
--- NOTE | 2022-12-31 17:14 | ED General ---
General Chief Complaint: Cough/Cold/Flu Symptoms Stated Complaint: THROWING UP Source of Information: Patient Exam Limitations: No Limitations History of Present Illness Date Seen by Provider: Dec 31, 2022 Time Seen by Provider: 17:12 Initial Comments Patient is a 82-year-old female with a history of ulcerative colitis, incontinence, anxiety who presents the ED for vomiting. She states she has been vomiting clear liquid mucus over the past 3 days. This seems to be worse when she leans forward. She also reports mucus coming out of her nose. She also reports a cough with this vomiting. Coughing over the past few weeks. Has been using a nasal saline spray for postnasal drip. She has been able to eat cracker s and meat loaf.. It tends to be worse after eating. She also reports some burning sensation in the throat and chest. She also reports of burping. She states she has had her esophagus stretched in the past. she does take famotidine and Gaviscon for acid reflux and her colitis according to patient. She denies of any chest pain or specific abdominal pain at this time. She does get abdominal pain with the vomiting of the mucus. Denies of any hematemesis, diarrhea, hematochezia, fever, chills, chest pain, sore throat. She does states she feels dehydrated. Allergies and Home Medications Allergies Coded Allergies: Penicillins (Unverified Allergy, Unknown, 12/31/22) Sulfa (Sulfonamide Antibiotics) (Unverified Allergy, Unknown, 12/31/22) garlic (Verified Allergy, Unknown, SWELLING OF THROAT, 12/31/22) latex (Verified Allergy, Unknown, RASH, 12/31/22) Patient Home Medication List Home Medication List Reviewed: Yes Budesonide (Budesonide EC) 3 Mg Capdr...er, 9 MG PO DAILY, (Reported) Entered as Reported by: CINDI BRADSHAW on 07/17/20 1247 Clonazepam (Clonazepam) 1 Mg Tablet, 1 MG PO TID PRN for ANXIETY, (Reported) Entered as Reported by: CINDI BRADSHAW on 07/17/20 1247 Cyclosporine (Restasis) 1 Each Droperette, 1 DROP OU BID, (Reported) Entered as Reported by: CINDI BRADSHAW on 07/17/20 1247 Loratadine/Pseudoephedrine (Wal-Itin D 12 Hour Tablet) 1 Each Tab.er.12h, 1 EACH PO BID, (Reported) Entered as Reported by: CINDI BRADSHAW on 07/17/201246 Mirabegron (Myrbetriq) 50 Mg Tab.er.24h, 50 MG PO DAILY, (Reported) Entered as Reported by: CINDI BRADSHAW on 07/17/201246 Mirtazapine (Mirtazapine) 30 Mg Tablet, 30 MG PO HS, (Reported) Entered as Reported by: CINDI BRADSHAW on 07/17/201246 Ondansetron (Ondansetron Odt) 4 Mg Tab.rapdis, 4 MG PO Q6H PRN for NAUSEA/VOMITING, (Reported) Entered as Reported by: CINDI BRADSHAW on 07/17/201246 Ondansetron (Ondansetron Odt) 4 Mg Tab.rapdis, 4 MG SL Q4H PRN for NAUSEA/VOMITING Prescribed by: HENRY VELEZ on 12/31/221819 Pantoprazole Sodium (Protonix) 40 Mg Tablet.dr, 40 MG PO DAILY Prescribed by: HENRY VELEZ on 12/31/221819 Quetiapine Fumarate (Quetiapine Fumarate ER) 150 Mg Tab.er.24h, 150 MG PO HS, (Reported) Entered as Reported by: CINDI BRADSHAW on 07/17/201246 Sertraline HCl (Sertraline HCl) 100 Mg Tablet, 100 MG PO BID, (Reported) Entered as Reported by: CINDI BRADSHAW on 07/17/201246 Review of Systems Review of Systems Constitutional: No chills, No diaphoresis, No fever, No malaise, No weakness EENTM: No ear pain, No blurred vision, No double vision, No hoarseness, No mouth pain, No mouth swelling Respiratory: cough, short of breath Gastrointestinal: No abdominal pain, No diarrhea; nausea, vomiting Genitourinary: No decreased output, No discharge Musculoskeletal: No back pain, No joint pain Skin: No change in color, No change in hair/nails All Other Systems Reviewed Negative Unless Noted: Yes Past Yqnuzzz-Mqssyb-Eufwml Hx Patient Social History Tobacco Use?: No Use of E-Cig and/or Vaping dev: No Substance use?: No Alcohol Use?: No Pt feels they are or have been: No Immunizations Up To Date Tetanus Booster (TDap): Unknown PED Vaccines UTD: Yes Influenza Vaccine Up-to-Date: No; Not Current First/Initial COVID19 Vaccinat: OCT 2020 Second COVID19 Vaccination [place]: NOVEMBER 2020 Third COVID19 Vaccination Date: JUNE 2021 Seasonal Allergies Seasonal Allergies: No Past Medical History Surgery/Hospitalization HX: PMH: COLITIS, ANXIETY, URINARY INCONTENCE SURG HX-TONSILS, ORTHO LEFT LOWER LEG PINS/FIXATION, X2, CARPAL TUNNEL, EYE SURG Surgeries: Yes (T&A, C/S, HYST, BREAST BX, CARPEL TUNNEL/BONE SPUR RT HAND) Hysterectomy, Orthopedic Respiratory: Yes Sleep Apnea, COPD Currently Using CPAP: Yes Currently Using BIPAP: No Cardiac: Yes High Cholesterol, Hypertension Neurological: No Reproductive Disorders: No MANAGER REPORTING History: Menopausal Genitourinary: No Gastrointestinal: Yes Colitis, Gastroesophageal Reflux Musculoskeletal: Yes (GENERALIZED PAIN--WALKS WITH A CANE. FEBRUARY 2014 ORIF LEFT TIB/FIB) Chronic Back Pain, Fractures Endocrine: Yes Diabetes, Non-Insulin dep HEENT: No Cancer: No Psychosocial: Yes Anxiety, Depression Integumentary: No Blood Disorders: No Family Medical History Family history: Arthritis G8 SISTER Family history: Cardiovascular disease 19 FATHER 19 MOTHER Family history: Diabetes mellitus G8 BROTHER Family history: Hypertension 19 FATHER Parkinson's disease 19 FATHER No Family History of: Cancer Physical Exam Vital Signs Vital Signs - First Documented 12/31/22 16:25 Temp 37.0 Pulse 88 Resp 18 B/P (MAP) 147/90 (109) Pulse Ox 94 O2 Delivery Room Air Capillary Refill : Height, Weight, BMI Height: 5'7.00" Weight: 135lbs. 6.4oz. [id number]; 23.00 BMI Method:Actual General Appearance: No Apparent Distress, WD/WN Eyes: Bilateral Eye Normal Inspection, Bilateral Eye PERRL, Bilateral Eye EOMI HEENT: PERRL/EOMI, TMs Normal, Normal ENT Inspection, Pharynx Normal Neck: Full Range of Motion, Normal Inspection, Non Tender, Supple Respiratory: Chest Non Tender, Lungs Clear, Normal Breath Sounds, No Accessory Muscle Use Cardiovascular: Regular Rate, Rhythm, No Edema, No Gallop, No JVD Gastrointestinal: Normal Bowel Sounds, No Organomegaly, No Pulsatile Mass Back: Normal Inspection, No CVA Tenderness, No Vertebral Tenderness Extremity: Normal Capillary Refill, Normal Inspection, Normal Range of Motion, Non Tender Neurologic/Psychiatric: Alert, Oriented x3, No Motor/Sensory Deficits, Normal Mood/Affect, director park II-XII Norm as Tested Skin: Normal Color, Warm/Dry Procedures/Interventions Suture Size: 5-0 Progress/Results/Core Measures Suspected Sepsis SIRS Temperature: Pulse: Respiratory Rate: Laboratory Tests 12/31/22 16:40: White Blood Count 7.0 Blood Pressure / Mean: Laboratory Tests 12/31/22 16:40: Creatinine 0.77, Platelet Count 165, Total Bilirubin 0.5 Results/Orders Lab Results Laboratory Tests Test 12/31/22 16:40 Range/Units White Blood Count 7.0 4.3-11.0 10^3/uL Red Blood Count 5.02 3.80-5.11 10^6/uL Hemoglobin 13.7 11.5-16.0 g/dL Hematocrit 42 35-52 % Mean Corpuscular Volume 83 80-99 fL Mean Corpuscular Hemoglobin 27 25-34 pg Mean Corpuscular Hemoglobin Concent 33 32-36 g/dL Red Cell Distribution Width 14.3 10.0-14.5 % Platelet Count 165 130-400 10^3/uL Mean Platelet Volume 10.2 9.0-12.2 fL Immature Granulocyte % (Auto) 0 % Neutrophils (%) (Auto) 76 H 42-75 % Lymphocytes (%) (Auto) 17 12-44 % Monocytes (%) (Auto) 6 0-12 % Eosinophils (%) (Auto) 1 0-10 % Basophils (%) (Auto) 0 0-10 % Neutrophils # (Auto) 5.3 1.8-7.8 10^3/uL Lymphocytes # (Auto) 1.2 1.0-4.0 10^3/uL Monocytes # (Auto) 0.4 0.0-1.0 10^3/uL Eosinophils # (Auto) 0.0 0.0-0.3 10^3/uL Basophils # (Auto) 0.0 0.0-0.1 10^3/uL Immature Granulocyte # (Auto) 0.0 0.0-0.1 10^3/uL Sodium Level 142 135-145 MMOL/L Potassium Level 4.1 3.6-5.0 MMOL/L Chloride Level 106 98-107 MMOL/L Carbon Dioxide Level 22 21-32 MMOL/L Anion Gap 14 5-14 MMOL/L Blood Urea Nitrogen 17 7-18 MG/DL Creatinine 0.77 0.60-1.30 MG/DL Estimat Glomerular Filtration Rate 76 BUN/Creatinine Ratio 22 Glucose Level 145 H 70-105 MG/DL Calcium Level 9.9 8.5-10.1 MG/DL Corrected Calcium 8.5-10.1 MG/DL Total Bilirubin 0.5 0.1-1.0 MG/DL Aspartate Amino Transf (AST/SGOT) 21 5-34 U/L Alanine Aminotransferase (ALT/SGPT) 18 0-55 U/L Alkaline Phosphatase 81 40-136 U/L Troponin I < 0.028 <0.028 NG/ML Total Protein 7.7 6.4-8.2 GM/DL Albumin 4.8 H 3.2-4.5 GM/DL My Orders Orders - KVNG ANAYA PA Cbc With Automated Diff (12/31/22 17:09) Comprehensive Metabolic Panel (12/31/22 17:09) Troponin I Eloy (12/31/22 17:09) Ekg Tracing (12/31/22 17:09) Chest 1 View, Ap/Pa Only (12/31/22 17:09) Ondansetron Injection (Zofran Injectio (12/31/22 17:15) Pantoprazole Injection (Protonix Injecti (12/31/22 17:15) Lidocaine 2% Viscous 15 Ml (Xylocaine Vi (12/31/22 17:15) Antacid Suspension (Mylanta Suspension (12/31/22 17:15) Ns Iv 500 Ml (Sodium Chloride 0.9%) (12/31/22 17:14) Medications Given in ED Current Medications Medications Dose Ordered Sig/Allison Route Start Time Stop Time Status Last Admin Dose Admin Al Hydrox/Mg Hydrox/Simethicone 30 ml ONCE ONCE PO 12/31/22 17:15 12/31/22 17:16 DC 12/31/22 17:30 30 ML Lidocaine HCl 15 ml ONCE ONCE PO 12/31/22 17:15 12/31/22 17:16 DC 12/31/22 17:30 15 ML Ondansetron HCl 4 mg ONCE ONCE IVP 12/31/22 17:15 12/31/22 17:16 DC 12/31/22 17:30 4 MG Pantoprazole 40 mg ONCE ONCE IV 12/31/22 17:15 12/31/22 17:16 DC 12/31/22 17:29 40 MG Vital Signs/I&O 12/31/22 12/31/22 12/31/22 16:25 16:25 18:39 Temp 37.0 Pulse 88 76 Resp 18 18 B/P (MAP) 147/90 (109) 130/70 Pulse Ox 94 94 O2 Delivery Room Air Room Air Room Air Capillary Refill : ECG Comment Sinus rhythm, low QRS voltage in pericardial leads, 77 bpm, QRS duration 97 MS, QTc 400 MS. Departure Communication (PCP) Reviewed previous ER visits, H&P, lab testing. Patient with vomiting, burping, burning in the chest and throat. She also reports a cough. Currently using nasal saline spray without much improvement. She states the vomiting is more mucousy. She does report a burning sensation up to the throat. She has no specific chest pain or abdominal pain at this time. History of colitis which she states is managed. No diarrhea, bloody stools or urinary symptoms. Due to current complaint cardiac work-up, basic lab work, chest x-ray was ordered. She was given a GI cocktail with Zofran and Protonix. Differential diagnosis of gastritis, esophagitis, pneumonia, hiatal hernia, allergies. On exam oropharynx patent. Mild postnasal drip which may be associated to symptoms however with the burning in the chest would be concern for more esophagitis and gastritis with the vomiting. CBC, CMP grossly unremarkable. Normal troponin. Chest x- ray shows Granulomatous residua and mild hiatal hernia without acute abnormality detected. Patient has no abdominal tenderness on palpation. EKG showed normal sinus rhythm without evidence of ST elevation or depression. She states her symptoms completely resolved which I believe was secondary to the GI cocktail. Concerning for gastritis versus esophagitis. She may have a postnasal drip which could be causing her to gag up this mucus. Discussed discharging with Zofran and Protonix due to the improvement of pain. Patient Was able to tolerate p.o. fluids after GI cocktail discussed diet that does not involve spicy foods, fatty foods. Elevate head at night. The cough may be secondary to postnasal drip versus gastritis/esophagitis. Discussed follow-up with her primary care physician in the next 3 to 4 days for reevaluation. May benefit receiving a upper EGD. She states she has had a history of stretching of her esophagus by Dr. rouse at [facility]. Return back to ED if symptoms worsen. Patient and mother agree with plan of action Impression Primary Impression: Gastritis Disposition: 01 HOME, SELF-CARE Condition: Stable Departure-Patient Inst. Decision time for Depature: 18:19 Referrals: MARIAN JOSEPH MD (PCP/Family) Primary Care Physician Patient Instructions: Gastritis ED Add. Discharge Instructions: Recommend following up with your primary care physician for further evaluation but would benefit follow-up with GI specialist to discuss getting a upper EGD to evaluate the stomach and esophagus. Any worsening symptoms return back to ED All discharge instructions reviewed with patient and/or family. Voiced understanding. Scripts Pantoprazole Sodium (Protonix) 40 Mg Tablet.dr 40 MG PO DAILY, #20 TAB Prov: KVNG ANAYA 12/31/22 Ondansetron (Ondansetron Odt) 4 Mg Tab.rapdis 4 MG SL Q4H PRN for NAUSEA/VOMITING, #6 TAB Prov: KVNG ANAYA 12/31/22 KVNG ANAYA Dec 31, 2022 17:14
[2022-12-31] MEDS ORDERED: ANTACID SUSP 30 ML UDC (MYLANTA) PO ONE (17:15)
[2022-12-31] MEDS ORDERED: PANTOPRAZOLE 40 MG (PROTONIX) VIAL IV ONE (17:15)
[2022-12-31] MEDS ORDERED: ONDANSETRON 4 MG/2 ML (SDV) Z0FRAN IVP ONE (17:15)
[2022-12-31] MEDS ORDERED: LIDOCAINE 2% VISCOUS 15 ML UDC PO ONE (17:15)
[2022-12-31 17:19] LABS: BASOPHILS % (AUTO) 0 % (0-10); EOSINOPHILS % (AUTO) 1 % (0-10); HEMATOCRIT 42 % (35-52); HEMOGLOBIN 13.7 g/dL (11.5-16.0); LYMPHOCYTES # (AUTO) 1.2 10^3/uL (1.0-4.0); LYMPHOCYTES % (AUTO) 17 % (12-44); MEAN CORPUSCULAR HEMOGLOBIN 27 pg (25-34); MEAN CORPUSCULAR HGB CONC 33 g/dL (32-36); MEAN CORPUSCULAR VOLUME 83 fL (80-99); MEAN PLATELET VOLUME 10.2 fL (9.0-12.2); MONOCYTES # (AUTO) 0.4 10^3/uL (0.0-1.0); MONOCYTES % (AUTO) 6 % (0-12); NEUTROPHILS # (AUTO) 5.3 10^3/uL (1.8-7.8); NEUTROPHILS % (AUTO) 76 % (42-75); PLATELET COUNT 165 10^3/uL (130-400)
[2022-12-31 17:21] LABS: ALBUMIN 4.8 GM/DL (3.2-4.5); CHLORIDE 106 MMOL/L (98-107); POTASSIUM 4.1 MMOL/L (3.6-5.0); SODIUM 142 MMOL/L (135-145)
[2022-12-31 17:22] LABS: CALCIUM 9.9 MG/DL (8.5-10.1)
[2022-12-31 17:23] LABS: GLUCOSE 145 MG/DL (70-105)
[2022-12-31 17:24] LABS: TOTAL PROTEIN 7.7 GM/DL (6.4-8.2)
[2022-12-31 17:25] LABS: BILIRUBIN,TOTAL 0.5 MG/DL (0.1-1.0); CARBON DIOXIDE 22 MMOL/L (21-32)
[2022-12-31 17:27] LABS: ALKALINE PHOSPHATASE 81 U/L (40-136); CREATININE SERUM 0.77 MG/DL (0.60-1.30); GFR ESTIMATED 76
[2022-12-31 17:28] LABS: BUN/CREATININE RATIO 22
[2022-12-31 17:30] LABS: ALANINE AMINOTRANSFERASE 18 U/L (0-55)
--- NOTE | 2022-12-31 17:34 | Diagnostic Imaging Report ---
INDICATION: Cough. TECHNIQUE: Single AP view of the chest is obtained with comparison made to study of 12/08/2021. FINDINGS: Heart size and pulmonary vascularity are within normal limits. There is bilateral air trapping. Occasional calcified granulomas are seen in both lungs. There is mild hiatal hernia. No consolidation, pneumothorax or pleural fluid is seen. There is lower cervical spondylosis. IMPRESSION: Granulomatous residua and mild hiatal hernia without acute abnormality detected. Dictated by: Dictated on workstation # [id number]
[2022-12-31] MEDS ORDERED: ONDA4TAB11 SL (18:20)
[2022-12-31] MEDS ORDERED: PANT40TA2 PO (18:20)
[2022-12-31 18:39] VITALS: BP 130/70
== END 2022-12-31 18:35 | disposition home or self-care (01) ==
LOC: EDUNIT# 15:55 → ER 15:58
DX: K29.70 Gastritis, unspecified, without bleeding (principal); K21.9 Gastro-esophageal reflux disease without esophagitis; K52.9 Noninfective gastroenteritis and colitis, unspecified; K44.9 Diaphragmatic hernia without obstruction or gangrene; Z91.040 Latex allergy status; Z79.899 Other long term (current) drug therapy
CPT/HCPCS: 36415; 71045; 80053; 84484; 85025; 93005